=== PATIENT | male | born 1960 | race Caucasian/White ===

== ENCOUNTER → 2019-05-04 | Outpatient (CLI) | payer OTHER ==
--- NOTE | 2019-05-04 16:01 | US ---
EXAMINATION TYPE: US carotid duplex BILAT DATE OF EXAM: 05/04/2019 COMPARISON: NONE CLINICAL HISTORY: I65.29 OCCLUSION AND STENOSIS OF CAROTID ARTERY. Left sided facial tingling and num bness x 4 months EXAM MEASUREMENTS: RIGHT: Peak Systolic Velocity (PSV) cm/sec ----- Right CCA: 125.3 ----- Right ICA: 114.9 ----- Right ECA: 157.3 ICA/CCA ratio: 0.9 RIGHT: End Diastole cm/sec ----- Right CCA: 36.5 ----- Right ICA: 29.7 ----- Right ECA: 26.9 LEFT: Peak Systolic Velocity (PSV) cm/sec ----- Left CCA: 123.2 ----- Left ICA: 102.5 ----- Left ECA: 163.8 ICA/CCA ratio: 0.8 LEFT: End Diastole cm/sec ----- Left CCA: 32.3 ----- Left ICA: 27.1 ----- Left ECA: 29.9 VERTEBRALS (direction of flow): Right Vertebral: Antegrade Left Vertebral: Antegrade Rhythm: Normal Bilateral intimal thickening, minimal plaque bilateral bulb, elevated velocities: right proximal CCA, right proximal ECA and left proximal ECA, no significant stenosis. IMPRESSION: 1. Atheromatous plaquing and intimal thickening without significant flow-limiting stenosis. Criteria for Assigning % of Stenosis / Diameter reduction (Estimation based on the indirect measurements of the internal carotid artery velocities (ICA PSV). 1. Normal (no stenosis)=ICA PSV < 125 cm/s: ratio < 2.0: ICA EDV<40 cm/s. 2. Less than 50% stenosis=ICA PSV < 125 cm/s: ratio < 2.0: ICA EDV<40 cm/s. 3. 50 to 69% stenosis=ICA PSV of 125 to 230 cm/s: ration 2.0 ? 4.0: ICA EDV 40-100 cm/s. 4. Greater than 70% stenosis to near occlusion= ICA PSV > 230 cm/s: ratio > 4.0: ICA EDV > 100 cm/s. 5. Near occlusion= ICA PSV velocities may be low or undetectable: variable ratio and ICA EDV. 6. Total occlusion=unable to detect flow.
== END | disposition home or self-care (01) ==
LOC: RADUSWWP 12:19
DX: I65.23 Occlusion and stenosis of bilateral carotid arteries (principal)
CPT/HCPCS: 93880

== ENCOUNTER → 2019-08-18 | Outpatient (CLI) | payer OTHER ==
[2019-08-18 17:46] LABS: HCT 44.2 % (39.0-53.0); MCH 32.7 pg (25.0-35.0); MCV 96.2 fL (80.0-100.0); Mean Platelet Volume 7.2; Platelet Count 295 k/uL (150-450); RBC 4.59 m/uL (4.30-5.90); RDW 13.3 % (11.5-15.5); WBC 7.5 k/uL (3.8-10.6)
[2019-08-18 17:55] LABS: Potassium 4.6 mmol/L (3.5-5.1)
== END | disposition home or self-care (01) ==
LOC: LABPAT 16:57
PROVIDERS: ATTEND Internal Medicine Interventional Cardiology
DX: Z01.818 Encounter for other preprocedural examination (principal); R07.9 Chest pain, unspecified
CPT/HCPCS: 36415; 80051; 82565; 84520; 85027

== ENCOUNTER 2019-08-27 06:22 | Day surgery (SDC) | payer OTHER ==
[2019-08-25 13:16] VITALS: BMI 28.7
[2019-08-27] MEDS ORDERED: SODIUM CHLORIDE 0.9% 1,000 ML in EMPTY BAG 1 BAG IV ONE (06:31)
[2019-08-27] MEDS ORDERED: ALPRAZolam 0.25 MG TAB PO PRN (06:31)
[2019-08-27] MEDS ORDERED: NITROGLYCERIN SL TABS 0.4 MG TAB SUBLINGUAL PRN (06:31)
[2019-08-27] MEDS ORDERED: ALPRAZolam 0.5 MG TAB PO PRN (06:31)
[2019-08-27 07:00] LABS: Glucose,Whole Blood 131 mg/dL (75-99)
[2019-08-27] MEDS ORDERED: ATORVASTATIN 80 MG TAB PO ONE (07:00)
[2019-08-27] MEDS ORDERED: ASPIRIN 325 MG TAB PO ONE (07:00)
[2019-08-27] MEDS ORDERED: SODIUM CHLORIDE 0.9% 1,000 ML IV ONE (07:02)
[2019-08-27 07:06] VITALS: RESP 16; TEMP 98.5
[2019-08-27] MEDS ORDERED: fentaNYL (PF) 50 MCG/ML 2 ML AMP IVP ONE (07:45)
[2019-08-27] MEDS ORDERED: LIDOCAINE 1% INJ 10MG/ML (20 ML MDV) SQ ONE (07:47)
[2019-08-27] MEDS ORDERED: VERAPAMIL SYRINGE (5 MG/10 ML) INTRAARTER ONE (07:51)
[2019-08-27] MEDS ORDERED: MIDAZOLAM 2 MG/2 ML VIAL IVP ONE (07:51)
[2019-08-27] MEDS ORDERED: HEPARIN SODIUM 1,000 UN/ML (10ML VL) IV ONE (07:58)
[2019-08-27] MEDS ORDERED: IOPAMIDOL-370 125ML BTL INJ ONE (07:58)
[2019-08-27] MEDS ORDERED: RX INFO: IV CONTRAST WAS GIVEN 1 EACH MISC MISCELLANE PRN (08:09)
[2019-08-27] MEDS ORDERED: SODIUM CHLORIDE 0.9% 1,000 ML IV SCH (08:15)
--- NOTE | 2019-08-27 08:25 | CC ---
CARDIAC CATHETERIZATION REPORT Mr. Cardoza is a 59-year-old male with known history of hypertension, chronic tobacco use and diabetes mellitus who recently underwent myocardial perfusion imaging that revealed evidence of inducible ischemia. In view of that, recommendation was made regarding cardiac catheterization. The procedure as well as the risks, and the complications were discussed with the patient who is in full understanding and agreement. PROCEDURE: Patient was brought to mini lab operator in a fasting semi-sedated state after receiving fentanyl and Benadryl and achieving moderate conscious sedated state. Using Xylocaine anesthesia and Seldinger technique, a 6-[place] sheath was introduced in the right radial artery. Selective right and left coronary angiography was performed using 5- [place] 3.5 bend right and left Carrie catheter. Multiple views of the coronary artery including hemiaxial views were obtained. The right Carrie was used to cross the aortic valve and the left ventricular end-diastolic pressure was calculated. Next, catheter and sheath were removed. Hemostasis was obtained with deployment of a TR band. There was no immediate complication. Patient was returned to his room in stable condition. Of note, the patient received 5000 units of intravenous heparin as well as intra-arterial verapamil. FINDINGS: LEFT MAIN: This is a large-sized vessel bifurcating left circumflex, left anterior descending artery. Left main coronary artery has no evidence of high-grade stenosis. LEFT ANTERIOR DESCENDING ARTERY: This is a large-sized vessel reaching to the apex with a wraparound apex segment giving rise to a large diagonal branch in mid segment. The left anterior descending artery in the proximal and mid segment has a 20% to 30% plaque. The rest of the vessel has no high-grade stenosis. LEFT CIRCUMFLEX: This is a nondominant large vessel giving rise to 3 obtuse marginal branches. The second one is the largest in caliber. The left circumflex as well as branches have no evidence of obstructive coronary artery disease. RIGHT CORONARY ARTERY: This is a large dominant vessel bifurcating distally PDA and posterolateral segment and branches. The right coronary artery in mid segment has a 20% to 30% plaque. The rest of the vessel has no high-grade stenosis. LEFT VENTRICULOGRAM: Left ventriculogram was not performed. HEMODYNAMICS: There was no gradient across the aortic valve. The left ventricular end-diastolic pressure was 14 to 16 mmHg. CONCLUSION: 1. 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 2. Dominant right system. RECOMMENDATION: In view of findings and anatomy, recommend to continue medical therapy with aggressive coronary risk modifications that has been initiated. Those findings and recommendations were discussed with the patient and his family and are in full understanding and agreement. Duration of procedure is 15 minutes. MANI / RENARDN: [id number] /
[2019-08-27] MEDS ORDERED: ACETAMINOPHEN TAB 500 MG TAB PO SCH (09:00)
[2019-08-27] MEDS ORDERED: LISINOPRIL 10 MG TAB PO SCH (09:00)
[2019-08-27] MEDS ORDERED: NON FORMULARY DRUG (Omeprazole [Omeprazole] 20 MG) PO SCH (09:00)
[2019-08-27 12:39] VITALS: BP 132/60; PULSE 79
[2019-08-28] MEDS ORDERED: ASPIRIN 81 MG PO SCH (09:00)
[2019-08-28] MEDS ORDERED: ATORVASTATIN 20 MG TAB PO SCH (09:00)
== END 2019-08-27 13:15 | disposition home or self-care (01) ==
LOC: CATHCVL 06:22
PROVIDERS: ATTEND Internal Medicine Interventional Cardiology
DX: I25.10 Atherosclerotic heart disease of native coronary artery without angina pectoris (principal); I10 Essential (primary) hypertension; F17.210 Nicotine dependence, cigarettes, uncomplicated; R94.39 Abnormal result of other cardiovascular function study; E11.9 Type 2 diabetes mellitus without complications; M19.90 Unspecified osteoarthritis, unspecified site; Z82.49 Family history of ischemic heart disease and other diseases of the circulatory system; Z79.1 Long term (current) use of non-steroidal anti-inflammatories (NSAID); Z79.82 Long term (current) use of aspirin; Z79.899 Other long term (current) drug therapy
CPT/HCPCS: 93458; C1769; C1894; J2250; J2001; J3010; J1644; Q9967

== ENCOUNTER → 2021-10-05 | Outpatient (CLI) | payer OTHER ==
--- NOTE | 2021-10-05 13:43 | XR ---
EXAMINATION TYPE: XR chest 2V DATE OF EXAM: 10/05/2021 COMPARISON: NONE HISTORY: Presurgical TECHNIQUE: Frontal and lateral views of the chest are obtained. FINDINGS: There are some interstitial changes bilaterally. No pneumothorax or pleural effusion. Prom inent lung volumes with flattening hemidiaphragms noted. The cardiac silhouette size is within normal limits. The osseous structures are intact. IMPRESSION: There are interstitial changes within the lungs, correlate for associated COPD
[2021-10-05 18:11] LABS: African American GFR (CKD) 113.7 (60.0-200.0); Anion Gap 12.2 mmol/L (10.00-18.00); BUN/Creat Ratio 32.99 Ratio (12.00-20.00); Blood Urea Nitrogen 25.3 mg/dL (9.0-27.0); Calcium 10.1 mg/dL (8.7-10.3); Carbon Dioxide 25.6 mmol/L (20.0-27.5); Non-African American GFR(CKD) 98.1 (60.0-200.0); Potassium 4.9 mmol/L (3.5-5.5)
[2021-10-05 18:14] LABS: Basophils # (A) 0.07 X 10*3/uL (0.00-0.10); Basophils % (A) 0.7 %; Eosinophils # (A) 0.15 X 10*3/uL (0.04-0.35); Eosinophils % (A) 1.6 %; HCT 38.9 % (39.6-50.0); HGB 12.8 g/dL (13.0-17.0); Immature Grans, Automated 1.2 %; Lymphocytes # (A) 2.68 X 10*3/uL (0.90-5.00); Lymphocytes % (A) 27.8 %; MCH 32.7 pg (27.0-32.0); MCHC 32.9 g/dL (32.0-37.0); MCV 99.2 fL (80.0-97.0); Mean Platelet Volume 9.8 fL (9.5-12.2); Monocytes # (A) 0.88 X 10*3/uL (0.20-1.00); Monocytes % (A) 9.1 %; NRBC Per 100 WBC 0 /100 WBCS (0.0-0.0); Neutrophils # (A) 5.74 X 10*3/uL (1.80-7.70); Neutrophils % (A) 59.6 %; Platelet Count 337 X 10*3/uL (140-440); RBC 3.92 X 10*6/uL (4.40-5.60); RDW 13.8 % (11.5-14.5); WBC 9.64 X 10*3/uL (4.50-10.00)
[2021-10-05 18:23] LABS: Appearance,Urine Clear (Clear); Bilirubin,Urine Negative (Negative); Blood,Urine Negative (Negative); Color,Urine Yellow (Yellow); Ketones,Urine Negative (Negative); Nitrite,Urine Negative (Negative)
[2021-10-05 18:31] LABS: INR 0.91 (0.90-1.11); Prothrombin Time 10.3 sec (9.9-11.9)
== END | disposition home or self-care (01) ==
LOC: LABPAT 11:55
PROVIDERS: ATTEND Orthopaedic Surgery
DX: Z01.812 Encounter for preprocedural laboratory examination (principal); M47.12 Other spondylosis with myelopathy, cervical region; M48.02 Spinal stenosis, cervical region; Z22.322 Carrier or suspected carrier of Methicillin resistant Staphylococcus aureus
CPT/HCPCS: 36415; 71046; 80048; 81003; 85025; 85610; 86850; 86900; 86901; 87070; 93005

== ENCOUNTER → 2021-10-05 | Outpatient (CLI) | payer OTHER ==
--- NOTE | 2021-10-06 00:11 | CT ---
EXAMINATION TYPE: CT cervical spine wo con, CT thoracic spine wo con DATE OF EXAM: 10/05/2021 COMPARISON: MRI cervical spine 12/19/2019 HISTORY: Cervicalgia (accession [id number]), Pain in Thoracic spine (accession [id number]) CT DLP: 567.80 (accession [id number]), 808.70 (accession [id number]) mGycm Automated exposure control for dose reduction was used. TECHNIQUE: CT scan of the cervical spine is obtained without contrast, axial images are obtained, sagittal and c oronal reformatted images are also reviewed. CT scan of the thoracic spine is obtained without contrast, axial images are obtained, sagittal and c oronal reformatted images are also reviewed. FINDINGS: CT C-spine: Cervical vertebral body heights are maintained. Grade 1 anterolisthesis of C3-4. Grade 1 retrolisthes is of C5-6 and C6-7. No acute fracture or traumatic subluxation. Advanced degenerative disc changes of C5-C7 with osteophyte formation, disc height loss, and reactive endplate changes. Multilevel facet arthropathy is present most pronounced at the level of C3-4 on the right which appea rs advanced. Multilevel uncovertebral hypertrophy is present most pronounced at the levels of C5-6 an d C6-7. Paraspinal soft tissues appear unremarkable. C2-3: No disc protrusion or spinal canal stenosis. Moderate facet arthropathy, right greater than lef t, without neural foraminal narrowing. C3-4: Grade 1 anterolisthesis. Based disc protrusion without spinal canal stenosis. Advanced facet ar thropathy, right greater than left, causing moderate bilateral neural foraminal narrowing. C4-5: Broad-based disc protrusion without spinal canal stenosis. Advanced right and moderate left fac et arthropathy causing moderate right and mild left neural foraminal narrowing. C5-6: Based disc osteophyte complex indenting the ventral thecal sac without spinal canal stenosis. M oderate facet arthropathy and uncovertebral hypertrophy causing moderate left neural foraminal narrow ing. C6-7: Broad-based disc osteophyte complex indenting the ventral thecal sac without spinal canal steno sis. Moderate facet arthropathy and uncovertebral hypertrophy causing moderate bilateral neural bell inal narrowing. C7-T1: No disc protrusion or spinal canal stenosis. Mild facet arthropathy without neural foraminal n arrowing. CT T-spine: Thoracic vertebral body heights are maintained. Mild dextroscoliotic curvature of the thoracic spine. No acute fracture or traumatic subluxation. Moderate multilevel degenerative changes with anterior osteophyte formation, disc height loss, vacuum disc phenomena, and multilevel Schmorl's node formation is pronounced at the level of T7-8 the T11-1 2. Mild multilevel facet arthropathy. There are small scattered disc protrusions most pronounced at the level of T5-6 and T11-12 which inde nts the thecal sac without spinal canal stenosis. Line there is moderate bilateral neural foraminal n arrowing at the levels of T10-11 and T11-12 secondary to broad-based disc protrusions and facet arthr opathy. Paraspinal soft tissues appear unremarkable. Partially visualized lungs appear clear. IMPRESSION: 1. Multilevel degenerative changes of the cervical spine as described above most pronounced at the le cecile of C6-7 where there is a broad-based disc osteophyte complex indenting the ventral thecal sac wit hout spinal canal stenosis, as well as facet arthropathy with uncovertebral hypertrophy contributing to moderate bilateral neural foraminal narrowing. 2. Moderate multilevel degenerative changes of the thoracic spine most pronounced at the level of T11 -12 where there is a broad-based disc protrusion indenting the ventral thecal sac without spinal shaun l stenosis, as well as facet arthropathy contributing to moderate bilateral neural foraminal narrowin g. 3. No acute osseous abnormality.
== END | disposition home or self-care (01) ==
LOC: RADCTMAIN 06:37
PROVIDERS: ATTEND Orthopaedic Surgery
DX: M47.812 Spondylosis without myelopathy or radiculopathy, cervical region (principal); M47.814 Spondylosis without myelopathy or radiculopathy, thoracic region; M51.24 Other intervertebral disc displacement, thoracic region
CPT/HCPCS: 72125; 72128

== ENCOUNTER 2021-10-12 08:51 | Inpatient (IN) | payer BC, OTHER ==
--- NOTE | 2021-10-11 17:25 | P.HPOR ---
History of Present Illness H&P Date: 09/29/21 Chief Complaint: UE and LE weakness, discoordination, Neck pain [facility] History and Physical Date of :[birth year] Age: 61 year Height: 5'10" Weight: 205 lbs BMI: 29.41 kg/m2 Occupation: Retired VAS: 9 CHIEF COMPLAINT: Neck pain and low back pain, severe arm and hand weakness, leg weakness DOI: None DOS: None HISTORY: Xrays New xrays taken in office Trauma or injury No Work-Related No Pain description sharp. Location diffuse Activity Modification yes , unable to complete most daily functions due to the severity of his symptoms. Has become wheelchair bound over the past 3 months Hand Dominance right TREATMENTS COMPLETED: 6 weeks of PT completed? Yes How many sessions? >10 previously Did it help? No Physician directed home exercise completed? yes , used to do daily but has had to discontinue as he cannot complete most daily functions. Medications yes List: Celebrex without improvements. Gabapentin 100mg TID, Tylenol 100mg TID, Cymbalta all without relief of his symptoms. Steroid in the past w/o help; NSAIDs w/o help. Alternative interventions Chiropractic: No Massage therapy: No R.I.C.E: yes , daily without relief. Brace: No Injections Yes How many? 6 Did they help? No RFA: No SUBJECTIVE: Today Mr. Cardoza presents to the office for an evaluation of his cervical spine. Patient reports that he has had persistent lumbar and cervical pain ongoing for several years with no known injury or trauma to indicate an exact onset of his symptoms. With this he does report that his symptoms have progressively worsened over time as well. Regarding his symptoms, his primary concern at the time of today's appointment are his neck symptoms. For his cervical symptoms, he reports diffuse posterior pain radiating into the bilateral shoulders and distal extremities. In addition to his pain, the patient does also report diffuse numbness/tingling and weakness about the bilateral upper and lower extremities as well. With this, he does report as well that over the course of the last 3 weeks he has lose gross motor function with his hands and has has great instability with his lower extremities in addition to the pain so he is using a wheelchair for ambulation. Overall he has seen a loss in daily functions due to the severity of his symptoms and has been dependent on his caregivers to complete daily tasks. His symptoms are exacerbated with most functions which is significantly impacting his ability to complete his daily tasks. Patient does also report frequent sleep disturbances as well. As for treatments, the patient previously trialed daily home exercises but is no longer able to complete them due to the severity of his symptoms and loss in gross motor function. Additionally he has trialed Celebrex, Cymbalta, Gabapentin, and Tylenol all without relief of his symptoms. Additionally he does note having hx of 6 prior injections with no relief as well. Overall he denies any improvements to his symptoms with the modalities trialed thus far and his symptoms have progressively worsened. Patient denies any bladder or bowel retention/incontinence, no perineal numbness/tingling, and ambulates with the use of a wheelchair. The patients' past social, medical, family, surgical history, as well as review of systems, have been reviewed. Please refer to the Neurosurgery History and Physical form that has been scanned in to our electronic medical record system. 16 points review of systems completed and as stated in HPI, all other systems reviewed are negative. Review of Systems 16 points review of systems completed and as stated in HPI, all other systems reviewed are negative. All systems: negative Constitutional: Reports as per HPI Past Medical History Past Medical History: COPD, Diabetes Mellitus, GERD/Reflux, Hearing Disorder / Deafness, Hypertension, Osteoarthritis (OA) Additional Past Medical History / Comment(s): Tinea Versicolor(fungal infection) with continued skin discoloration. Tinnitis. Sleeps with a mouth guard in. History of Any Multi-Drug Resistant Organisms: None Reported Past Surgical History: Unable to Obtain Additional Past Surgical History / Comment(s): Arthroscopy bilateral knees X2, wisdom teeth extracted. Past Anesthesia/Blood Transfusion Reactions: No Reported Reaction Additional Past Anesthesia/Blood Transfusion Reaction / Comment(s): In 1994 with first arthroscopy had general anesthesia, was discharged and had difficulty breathing in parking lot, went back in to ER, ER stated "it was related to throat swelling after extubation." Has had no general anesthesia after that procedure. Past Psychological History: PTSD Smoking Status: Former smoker Past Alcohol Use History: Rare Additional Past Alcohol Use History / Comment(s): Quit smoking 2 months ago, started smoking at age 18, 1ppd. Past Drug Use History: None Reported - Past Family History Mother Family Medical History: No Reported History Medications and Allergies Home Medications Medication Instructions Recorded Confirmed Type Acetaminophen [Tylenol] 1,000 mg PO TID 08/25/19 10/10/21 History Lisinopril [Zestril] 10 mg PO QAM 08/25/19 10/10/21 History Meloxicam [Mobic] 7.5 mg PO QAM 08/25/19 10/10/21 History Multivitamins, Thera [Multivitamin 1 tab PO DAILY 08/25/19 10/10/21 History (formulary)] Omeprazole 20 mg PO QAM 08/25/19 10/10/21 History DULoxetine HCL [Cymbalta] 60 mg PO QAM 10/10/21 10/10/21 History Gabapentin [Neurontin] 100 mg PO TID 10/10/21 10/10/21 History Allergies Allergy/AdvReac Type Severity Reaction Status Date / Time adhesive tape Allergy skin Verified 10/10/21 11:44 irritation barley Allergy chest Verified 10/10/21 11:44 congestion lettuce Allergy Nausea Verified 10/10/21 11:44 Physical Examination Osteopathic Statement: *. No significant issues noted on an osteopathic structural exam other than those noted in the History and Physical/Consult. PHYSICAL EXAMINATION: General: Awake, alert, appropriate for age, in no acute distress. HEENT: No unusual neck masses around region of lateral neck triangle, thyroid, supraclavicular groove Heart: Regular rate and rhythm, normal S1, S2 and no murmur/gallop. Lungs: Clear to auscultation bilaterally with no use of accessory muscles. Extremities: Skin warm and dry without acute lesions, coloration, temperature, skin intact, no tenderness or erythema Integument: Hairy patches: ABSENT Dorsal skin dimples: ABSENT Cafe au lait spots: ABSENT Surgical incisions: None Palpation: Please see Pain drawing on Intake sheet for further detail. Midline spinal tenderness: No E6 Cervical Tenderness: No E6 Paralumbar tenderness: No E6 Parathoracic tenderness: No E6 Buttocks tenderness: No E6 Sacroiliac Tenderness: No POSTURAL and MUSCULO-SKELETAL EVALUATION: Coronal Balance: NEUTRAL Recumbent testing: Patient is NOT able to lay flat on back Sagittal Balance: NEUTRAL Shoulder Profile: LEVEL Pelvic Girdle: LEVEL Neck ROM: SEVERELY RESTRICTED Lumbar ROM: SEVERLY RESTRICTED Shoulder ROM: severely limited due to weakness Hip ROM: Limited b/l Knee ROM: Limited b/l Hands: SEVERE debilitation, unable to hold or grasp a pen, or handshake, unable to button shirt or hold a fork Feet: Normal appearance, Symmetrical VASCULAR STATUS : LEFT RIGHT Wrist Pulses INTACT INTACT Pedal Pulses (Dors. pedis & post.tibialis) INTACT INTACT Color NORMAL NORMAL Edema Absent Absent NEUROLOGIC EXAMINATION: Mental Status:Awake and alert, fully oriented, with normal attention, concentration and memory, and fluent, appropriate speech. Cranial Nerves: I: Olfactory not tested. II: Visual acuity normal, no visual field deficit noted with confrontation. III,IV: Normal pupillary reflexes & intact extraocular movements without nystagmus. V,: Intact symmetrical facial sensation. VII: Intact symmetrical facial motor movement VIII: Hearing intact. IX,X: Intact gag, swallow, & normal voice. XI: Sternocleidomastoid, trapezius function intact. XII: Tongue midline with normal movements. L'hermitte's Sign: Negative / absent Spurling'Sign: POSITIVE Cubital percussion test: Absent bilaterally. Modi-Tinel sign - Carpal region: Absent bilaterally. Straight Leg Raising: POSITIVE Crossed straight leg raise: negative O8 MOTOR EXAM (0-5/5, N/T) STRENGTH RIGHT LEFT Shoulder Abd (not part of the ALOK score) 4- 4- Elbow Flexors 4- 4- Elbow Extensor 4- 4- Wrist Dorsiflexors 4- 4- Finger Abductor 4- 4- Parliamentary Librarian 4- 4- Hip Flexor (Not part of ALOK Motor score) 3 3 Knee Flexor 3 3 Knee Extensor 3 5 Ankle dorsiflexor 3 5 Ankle plantarflexion 3 5 Extensor hallucis 3 5 REFLEXES(0-4/2, NT) RIGHT LEFT Upper Extremities 3 3 Lower Extremities 3 3 Pathological Reflexes RIGHT LEFT Modi's Present Present Clonus # of beats: 10 # of beats: >10 Babinski Absent Absent # Indicates mechanical impairment Muscle appearance: b/l LE showing some signs of atrophy in quads. Minor intrinsic atrophy Rectal Tone:Deferred Sensory system (0-4, N/T) Test type RU LAURA RL LL Joint-Position 2 2 2 2 Vibration 2 2 2 2 Pain & LT sense 2 2 2 2 Dermatomal Deficit: C5, C6, C7, C8 C4, C6, C7, C8 L3, L4, L5 L3, L4 Gait and Functional Evaluation: Ambulatory aids: Wheelchair bound, new change for him in the last 2-3 months and even more so needing help with ADL from his famly who was present in the room with him over the past 3 weeks Toe heel walk / heel-toe walk intact while maintaining satisfactory balance? No Squatting/straightening w/o assistance to a min of 60 degree knee flexion? No Single leg stance: not intact bilaterally Trendelenburg sign Unable to evaluate due to weakness Hand and finger dexterity intact bilaterally? No Disdiadochokinesis examination negative bilaterally? No SEVERE debility in b/l hands barely even able to handshake which is procressive over the past 3 months as well Results XRay taken on 09/29/21 of Lumbar Spine and Pelvis: Reviewed in office today. Demonstrates severe spondylotic changes with disc height loss, degeneration, osteophyte formation anterior and posterior, facet arthropathy from L1-S1. There is reversal of the normal lumbar lordosis and there is only 14 deg of lordosis noted with a PI of around 57 deg. Therea are no lesions noted. No fractures noted. F/E films shows motion at disc segments that is realted to the vacuum disc likely present at each of these levels. AP pelvis shows b/l hip OA changes with CAM and Pincer lesions of Rt hip as well as joint space narrowing, sclerosis. No fracture noted. Pelvis is level. MRI scan from 08/24/21 of Cervical Spine: This is reviewed in the office today and demonstrates severe cervical stenoisis from C3-7 with C3-4 pincer type lesion (ant/post stenosis) causing critical stenosis and myelomalacia at this level extending to C4-5 level due to disc herniation, C3-4 Grade I-II anterior listhesis as well as ligamental hyptertrophy and facet hypertrophy contributing to the posterior stenosis. There is subaxial subluxation with C3-4 being the worst level and to a lesser degree C4-5. There is flattening of the normal lordosis into kyphosis due to spondylotic changes and the listhesis as well as disc collapse. There is hypertrophy of the PLL noted as well which could represent a degree of OPLL which will need to be evaluated on pre op CT scan. CT C spine recommended for further evaluation Assessment and Plan Assessment: IMPRESSION: It was my pleasure to have seen and examined Sam. I reviewed the patient's clinical syndrome, physical findings, and imaging studies during the appointment today. It is my impression that the patient has a diagnosis of. 1. Cervical spondylotic myelopathy .DX:Diagnosis: Cervical spondylosis with myelopathy : ICD10 = M47.12 / ICD9 = 721.1 .DX:Diagnosis: Cervical disc disorder with myelopathy : ICD10 = M50.00 / ICD9 = 722.71 / SNOMED = 23005874 2.Severe stenosis C3-7 .DX:Diagnosis: Degenerative cervical spinal stenosis : ICD10 = M48.02 / ICD9 = 723.0 / SNOMED = 144854339 3. C3-4 Grade I spondylolisthesis, unstable .DX:Diagnosis: Spondylolisthesis, cervical region : ICD10 = M43.12 / ICD9 = 738.4 / SNOMED = 944905650 4. B/L UE weakness .DX:Diagnosis: Weakness of bilateral upper extremities : ICD10 = M62.81 / SNOMED = 06142646583956308 5. B/L UE radiculopathy .DX:Diagnosis: Cervical radiculopathy : ICD10 = M54.12 / ICD9 = 723.4 / SNOMED = 29898431 6. B/L LE weakness .DX:Diagnosis: Muscle weakness of lower extremity : ICD10 = G83.10 / ICD9 = 728.87 / SNOMED = 026294083 7. B/L LE radiculopathy .DX:Diagnosis: Lumbar radiculopathy : ICD10 = M54.16 / ICD9 = 724.4 / SNOMED = 264831345 Plan: Surgical Procedure Risk Review Sam Cardoza is a 61 year old male presenting for evaluation of sudden onset of UE and LE weakness as well as difficulty with fine motor skills, b/l UE pain, shoulder pain, radiculopathy and progressive neurolgical decline. It was my pleasure to have seen and examined Mr. Cardoza. In our visit today we have had a chance to go over subjective complaints, physical examination findings and treatments, including the natural course history without intervention and various interventional options. The imaging demonstrates Severe stenosis of Cervical spine from C3-7 with spondylosis, disc collapse, reversal of normal cervical lordodsis, pincer lesion at C3-4 and C4-5 with myelomalacia changes, osteophyte changes and spondylosis . On physical exam, Mr. Cardoza demonstrates profound weakness in UE and LE b/l. Presented in wheel chair which is new for him in the last month. He has no fine motor control, myelopathic movements of UE and LE b/l, weakness in b/l UE and LE alike. He cannot ambulate under his own power any longer. He has paresthesias in b/l UE at this time as well as radiculopathy. He also has LE weakness and paresthesias likely related to cervical but also lumbar spine . I explained to the patient that as his condition progresses it could cause progressive neurological damage, progressive weakness, progressive devility and ultimately paresis if not addressed in a timely manner due to the severity of the meylopathy as well as the time it has been present already . At this time, based on the patients imaging and physical exam, I recommend surgery in the form or a: Two part surgery. First part will be C3-7 ACDF followed by part two of C2-T2 decompression and fusion . I discussed the risk and benefits of this procedure at length with Mr. Cardoza. The patient and his son and [id number] to consider pursuing the procedure mentioned above. Plan: 1. Part I: C3-7 anterior cervical discectomy and fusion; Part II: C2-T2 decompression and fusion 2. Follow up with PCP for surgical clearance as well as pulmonary doctors 3. Review of surgical risks and benefits as well as an educational packet on the proposed surgical procedure. 4. CT for surgical planning of the C and T spine Risks: All surgical procedures come with inherent risks, including those related to pos itioning, anesthesia, intraoperative findings, and postoperative complications. It is important to understand that surgery does not come with any guarantee of a successful outcome as complications and adverse events are always possible. The patient was given a handout in office today discussing the surgical procedure and risks associated with the intervention, both of which were discussed with the patient. These risks include but are not limited to the following: ? Experiencing same, different or even worse symptoms in back, neck, arms, or legs compared to before surgery. ? Requiring further surgery or other forms of treatment presently or at some time in the future at same or other levels of the intended spine surgery. ? On an extreme but fortunately relatively rare basis severe complication such as blindness, stroke, heart attack, temporary and/or permanent nerve injury, paralysis, coma, or may occur, sometimes without known explanation. ? Surgical complications may include but are not limited to risk of infection, fluid accumulation in the surgical dissection site, including a seroma or hematoma, that requires additional surgery, wound drainage, bleeding, new numbness or weakness, vision changes/loss, spinal fluid leakage, non-healing and/or infected incision, headaches, difficulty or inability to swallow, hoarseness, hemopneumothorax, pneumothorax, impotence, retrograde ejaculation, vaginal dryness; injury to nerves, spinal cord, blood vessels, lymphatics or other vital organs (i.e., bowel injury, injury to the great vessels); he terotopic bone formation; complications related to the hardware such as screws, rods, cages including misplaced hardware, device failure, instrumentation at the wrong spine level, hardware fracture/breakage, or hardware loosening; vertebral failure of the spinal column above or below the newly placed hardware; retained surgical instrumentations or devices and the need for further surgery. ? Medical risks of the planned spine surgery include but are not limited to generalized Infections to the whole body or local areas outside of the surgical site (sepsis), heart attack, bleeding, anaphylaxis, meningitis, seizure, epilepsy, hearing loss, burn santana, laceration of the head or other areas of the body, bruising, hypersensitivity of the skin, bladder over distension; allergic reaction; shoulder injury related to positioning; fat, blood and air clots to other areas of the body like heart, lungs, brain; failure of internal organs such as lungs, kidneys, liver and excessive bleeding. If blood transfusions are necessary, note that transfusions may cause intolerance reactions such as anaphylaxis or other complex reactions. Despite best efforts, the results of spine surgery might not heal in terms of bone, soft tissues such as skin, fascia, ligaments, and joints. Additionally, in order to achieve best possible results, spine surgery may be carried out beyond the initially planned levels and involve decompression, fusion including insertion of hardware at levels other than the original intended area of surgical interest change some portions of the procedure in order to ensure the best possible outcomes. With spine surgery and spinal fusion, there are different off label uses of instrumentation (devices, implants and hardware) as well as biological substances (bone morphogenic proteins, demineralized bone matrix) as well as using extra bone from allograft sources (i.e. cadaver bone) or autograft (iliac crest bone, ribs, or the spine itself). The patient has been given information about these practices and their inherent risks and benefits. [facility]ist[facility] are medically trained surgical providers who function in the outpatient, inpatient, and operating room setting under the direct supervision of the attending surgeon.They assist in the operating room with direct supervision of the attending surgeons. The patient has had a chance to review all the listed information, has been given print outs detailing this information, and has had all his/her questions answered to their satisfaction. It was my pleasure to have seen and examined Mr. Cardoza. In our visit today we have had a chance to go over my understanding of our patient's current condition, the natural course history without intervention and various interventional options. Questions were invited and answered, and the patient wishes to proceed as outlined above. I have seen and examined the patient for 25 minutes and we have spent more than 50% of the time in repeat and detailed counseling about the patient's condition, its natural course history with out and as much as can be predicted with surgery and re-review of various surgical treatment options. In conclusion,Mr. Cardoza and his spouse/partner requested we proceed with the above suggested surgery and are willing to accept risks and limitations of the suggested surgery as nature of the disease process and our best attempts at treatment for the condition. Thank you again for allowing us to be part of your patient's care. Please don't hesitate to contact me if you have any further questions. Signed and authenticated by: [facility] [address] [place] [address] [address]
[~2021-10-12 08:51] MED LIST: ACETAMINOPHEN TAB 500 MG TAB PO PRN; GABAPENTIN 300 MG CAP PO PRN; ONDANSETRON 4 MG/2 ML VIAL IVP PRN; TRANEXAMIC ACID IN NACL,ISO-OS 1,000 MG in SALINE 1 100ML.BAG IVPB PRN
[2021-10-12] MEDS ORDERED: HYDROmorphone 0.5 MG/0.5 ML SYRINGE IVP PRN (08:59)
[2021-10-12] MEDS ORDERED: MIDAZOLAM 2 MG/2 ML VIAL IV PRN (08:59)
[2021-10-12] MEDS ORDERED: LIDOCAINE 1% (10MG/ML) FOR IV START INTRADERMA PRN (08:59)
[2021-10-12] MEDS ORDERED: DEXAMETHASONE SOD PHOSPHATE 4 MG/ML 1 ML VIAL IV ONE (08:59)
[2021-10-12] MEDS ORDERED: ONDANSETRON 4 MG/2 ML VIAL IVP ONE (08:59)
[2021-10-12 09:49] LABS: Glucose,Whole Blood 121 mg/dL (75-99)
[2021-10-12] MEDS: LACTATED RINGERS 1,000 ML IV SCH ×2 (09:59→10:51)
[2021-10-12 12:06] LABS: Allen Test Performed? Yes
[2021-10-12 12:21] LABS: ABG Base Excess -5.9 mmol/L; ABG HCO3 18 mmol/L (21-25); ABG Oxygen Saturation 99.9 % (94-97); ABG PCO2 33 mmHg (35-45); ABG PH 7.36 (7.35-7.45)
[2021-10-12 12:27] LABS: HCT 35.1 % (39.0-53.0); HGB 11.8 gm/dL (13.0-17.5); MCH 33.5 pg (25.0-35.0); MCHC 33.6 g/dL (31.0-37.0); MCV 99.7 fL (80.0-100.0); Mean Platelet Volume 7.1; Platelet Count 326 k/uL (150-450); RBC 3.52 m/uL (4.30-5.90); RDW 12.8 % (11.5-15.5); WBC 9.7 k/uL (3.8-10.6)
[2021-10-12 12:30] LABS: ABG PO2 >420 mmHg (83-108)
[2021-10-12] MEDS ORDERED: SODIUM CHLORIDE 0.9% 1,000 ML IV ONE (12:30)
[2021-10-12] MEDS ORDERED: GELATIN SPONGE,ABSORB (LARGE) 1 EACH SPONGE MISCELLANE ONE (13:00)
[2021-10-12] MEDS ORDERED: TRANEXAMIC ACID IN NACL,ISO-OS 1,000 MG in SALINE 1 100ML.BAG IVPB ONE (13:00)
[2021-10-12] MEDS ORDERED: SODIUM CHLORIDE 0.9% 100 ML with ceFAZolin 2 GM IV ONE ×2 (15:30)
[2021-10-12] MEDS ORDERED: LACTATED RINGERS 1,000 ML IV ONE ×3 (15:37→17:31)
[2021-10-12 16:26] LABS: Allen Test Performed? Yes
[2021-10-12 16:28] LABS: ABG Base Excess -7.7 mmol/L; ABG HCO3 18 mmol/L (21-25); ABG Oxygen Saturation 99.6 % (94-97); ABG PCO2 39 mmHg (35-45); ABG PH 7.29 (7.35-7.45); ABG PO2 399 mmHg (83-108)
[2021-10-12 18:16] LABS: Glucose,Whole Blood 163 mg/dL (75-99)
[2021-10-12] MEDS ORDERED: VANCOMYCIN 1,000 MG VIAL MISCELLANE ONE (18:26)
[2021-10-12 18:29] LABS: Allen Test Performed? Yes
[2021-10-12 18:30] LABS: ABG Base Excess -6.2 mmol/L; ABG HCO3 19 mmol/L (21-25); ABG Oxygen Saturation 99.5 % (94-97); ABG PCO2 37 mmHg (35-45); ABG PH 7.33 (7.35-7.45); ABG PO2 215 mmHg (83-108)
--- NOTE | 2021-10-12 18:45 | XR ---
EXAMINATION TYPE: XR cervical spine limited DATE OF EXAM: 10/12/2021 6:31 PM INDICATION: Patient age:Male; 61 years old; Reason for study: CERVICAL FUSION; . Impression: Case performed by Orthopedic surgery. Please see surgeons operative notes/findings on Epi c.
[2021-10-12] MEDS ORDERED: HYDROcodone/APAP 5-325MG 1 EACH TAB PO PRN (19:22)
[2021-10-12] MEDS ORDERED: MAGNESIUM HYDROXIDE 2,400 MG/10 ML CUP PO PRN (19:22)
[2021-10-12] MEDS ORDERED: HYDROcodone/APAP 10-325MG 1 EACH TAB PO PRN (19:22)
[2021-10-12] MEDS ORDERED: CYCLOBENZAPRINE 5 MG TAB PO PRN (19:22)
[2021-10-12 19:24] LABS: Glucose,Whole Blood 158 mg/dL (75-99)
--- NOTE | 2021-10-12 20:25 | P.PN ---
Progress Note - Text Progress Note Date: 10/12/21 Postop: . Patient seen and examined in the ICU. He is stable at this time doing well he still vented and sedated. Nursing is at bedside. Chest x-ray is ordered and will be reviewed. Vital signs are stable he is maintaining MA P above 80 at this time no other issues drains are in place dressings are clean and dry. -ICU management in place C collar in place, well fitting Medical management pending Continue with intravenous fluids, pain medication, muscle relaxers, home medication Soft diet to start to advance as tolerated We will evaluate the patient in the morning.
--- NOTE | 2021-10-12 20:39 | XR ---
EXAMINATION TYPE: XR chest 1V portable DATE OF EXAM: 10/12/2021 8:28 PM COMPARISON: Multiple radiographs, with the most recent on 09/27/2021 TECHNIQUE: XR chest 1V portable Frontal view of the chest. CLINICAL INDICATION:Male, 61 years old with history of Line placement; FINDINGS: Lungs/Pleura: There is no evidence of pleural effusion, focal consolidation, or pneumothorax. Pulmonary vascularity: Unremarkable. Heart/mediastinum: Cardiomediastinal silhouette is unremarkable. Musculoskeletal: No acute osseous pathology. There is fixation hardware in the lower cervical spine. Lines/Tubes: Endotracheal tube with distal tip just above the senia 4.1 cm. Left with distal tip projecting over the aortic arch. IMPRESSION: Left central catheter with tip projecting over the aortic arch. Unclear whether this is in a venous s tructure or arterial structure correlate with blood gases.
[2021-10-12 21:11] LABS: ABG Base Excess 2.6 mmol/L; ABG HCO3 28 mmol/L (21-25); ABG Oxygen Saturation 99.1 % (94-97); ABG PCO2 45 mmHg (35-45); ABG PH 7.39 (7.35-7.45); ABG PO2 241 mmHg (83-108); ABG TCO2 29 mmol/L (19-24)
[2021-10-12 21:14] LABS: Allen Test Performed? No
[2021-10-12] MEDS: HYDROmorphone 1 MG/ML 1 ML SYRINGE IVP PRN (22:47)
[2021-10-13] MEDS: ACETAMINOPHEN TAB 325 MG TAB PO SCH ×3 (00:21→12:30)
[2021-10-13] MEDS: HYDROmorphone 1 MG/ML 1 ML SYRINGE IVP PRN ×6 (02:26→19:00)
[2021-10-13 05:49] LABS: ABG Base Excess 4.5 mmol/L; ABG HCO3 29 mmol/L (21-25); ABG Oxygen Saturation 99.5 % (94-97); ABG PCO2 44 mmHg (35-45); ABG PH 7.43 (7.35-7.45); ABG PO2 159 mmHg (83-108); ABG TCO2 30 mmol/L (19-24)
[2021-10-13 05:58] LABS: Allen Test Performed? No
[2021-10-13 06:28] LABS: African American GFR (CKD) >90 (>60 ml/min/1.73 sqM); Anion Gap 6 mmol/L; Blood Urea Nitrogen 18 mg/dL (9-20); Calcium 8.9 mg/dL (8.4-10.2); Carbon Dioxide 27 mmol/L (22-30); Chloride 100 mmol/L (98-107); Glucose 120 mg/dL (74-99); Non-African American GFR(CKD) >90 (>60 ml/min/1.73 sqM); Potassium 4.3 mmol/L (3.5-5.1); Sodium 133 mmol/L (137-145)
[2021-10-13 06:30] LABS: Basophils % (A) 0 %; Eosinophils % (A) 0 %; HCT 33.5 % (39.0-53.0); HGB 11.3 gm/dL (13.0-17.5); Lymphocytes # (A) 1.6 k/uL (1.0-4.8); Lymphocytes % (A) 16 %; MCH 33.8 pg (25.0-35.0); MCHC 33.9 g/dL (31.0-37.0); MCV 99.7 fL (80.0-100.0); Monocytes # (A) 0.7 k/uL (0-1.0); Monocytes % (A) 7 %; Neutrophils # (A) 7.3 k/uL (1.3-7.7); Neutrophils % (A) 75 %; Platelet Count 287 k/uL (150-450); RBC 3.36 m/uL (4.30-5.90); RDW 13.6 % (11.5-15.5); WBC 9.8 k/uL (3.8-10.6)
--- NOTE | 2021-10-13 08:15 | FL ---
Fluoroscopy HISTORY: Spinal fusion 88 seconds fluoroscopy time supplied to the referring clinician. 18 intraoperative C-arm images docu ment the procedure. See dictated report from orthopedic surgery.
--- NOTE | 2021-10-13 09:45 | P.PN ---
Subjective Progress Note Date: 10/13/21 Principal diagnosis: Cervical Stenosis Patient seen and examined in the ICU. He is stable at this time doing well, he is still intubated at this time. Pt is awake and following commands. Patient had c/o pain and nursing was at bedside to medicate. Patient using hand gestures that he needed to have a BM. Nursing aware. When patient is medically cleared and exubated he may be up OOB and progress with PT as tolerated. We will reassess this afternoon. Objective - Vital Signs Vital signs: Vital Signs Temp 97.8 F 10/13/21 08:00 Pulse 90 10/13/21 08:00 Resp 16 10/13/21 08:00 BP 111/71 10/12/21 20:00 Pulse Ox 98 10/13/21 08:00 Intake & Output 10/12/21 10/13/21 10/13/21 18:59 06:59 18:59 Intake Total 3450 568.531 90 Output Total 800 1010 250 Balance 2650 -441.469 -160 Weight 99.3 kg Intake: IV 3450 305 90 LR @ 20 ml/hr 255 40 ceFAZolin 2 gm In Sodium 50 50 Chloride 0.9% 50 ml @ 100 mls/hr IVPB Q8HR NIKKI Rx# :[id number] Intake, IV Titration 263.531 Amount propofoL 1,000 mg In 263.531 Empty Bag 1 bag @ 5 MCG/ KG/MIN 2.586 mls/hr IV . Q24H NIKKI Rx#:[id number] Output: Urine 600 1010 250 Estimated Blood Loss 200 Other: Voiding Method Indwelling Catheter ABP, PAP, CO, CI - Last Documented Arterial Blood Pressure 125/61 - Exam Physical Examination General: The patient is awake and alert, in no acute distress Skin: Skin is warm and dry with no obvious rashes or lesions. Hairy patches absent, no dorsal skin dimples, no cafe au lait spots. Anterior surgical incision with LATANYA drain and Posterior incision with Hemovac drain present. Eye: Pupils are equal, round and reactive to light, extra-ocular movements are intact; there is normal conjunctiva bilaterally. Neck: Slight tenderness and ROM limited due to surgical procedure and Hard collar present. Cardiovascular: There is a regular rate and rhythm. No murmur, rub or gallop is appreciated. Respiratory: Lungs are clear to auscultation, respirations are non-labored, breath sounds are equal. Pt is intubated at this time. Gastrointestinal: Soft, non-distended, non-tender abdomen . Back: There is no tenderness to palpation in the midline, paralumbar, parathoracic or buttocks region. There is no obvious deformity . Musculoskeletal: ROM limited secondary to pain and stiffness from surgical procedure. Shoulder abduction 3/5, elbow flexors 3/5, wrist dorsiflexors 3/5. finger abductor 3/5, design technician 2/5, hip flexor 5/5, knee flexor 5/5, ankle dorsiflexor 5/5, ankle plantarflexion 5/5 and extensor hallucis 5/5. Neurological: CN 2-12 intact. There are no obvious motor or sensory deficits. Movement and coordination equal and intact. Sensory exam to light touch intact C5-T1 and intact from L2-S1. Reflexes 2/4 in bilateral upper and lower extremities. Negative Hoffmans, babinski, and clonus signs. Psychiatric: Cooperative, appropriate mood & affect, normal judgment. - Labs CBC & Chem 7: 10/13/21 05:47 10/13/21 05:47 Labs: Abnormal Lab Results - Last 24 Hours (Table) 10/12/21 10/12/21 10/12/21 Range/Units 09:47 11:45 11:45 RBC 3.52 L (4.30-5.90) m/uL Hgb 11.8 L (13.0-17.5) gm/dL Hct 35.1 L (39.0-53.0) % ABG pH (7.35-7.45) ABG pCO2 33 L (35-45) mmHg ABG pO2 >420 H (83-108) mmHg ABG HCO3 18 L (21-25) mmol/L ABG Total CO2 (19-24) mmol/L ABG O2 Saturation 99.9 H (94-97) % Sodium (137-145) mmol/L Creatinine (0.66-1.25) mg/dL Glucose (74-99) mg/dL POC Glucose (mg/dL) 121 H (75-99) mg/dL 10/12/21 10/12/21 10/12/21 Range/Units 15:44 18:14 18:15 RBC (4.30-5.90) m/uL Hgb (13.0-17.5) gm/dL Hct (39.0-53.0) % ABG pH 7.29 L 7.33 L (7.35-7.45) ABG pCO2 (35-45) mmHg ABG pO2 399 H 215 H (83-108) mmHg ABG HCO3 18 L 19 L (21-25) mmol/L ABG Total CO2 (19-24) mmol/L ABG O2 Saturation 99.6 H 99.5 H (94-97) % Sodium (137-145) mmol/L Creatinine (0.66-1.25) mg/dL Glucose (74-99) mg/dL POC Glucose (mg/dL) 163 H (75-99) mg/dL 10/12/21 10/12/21 10/13/21 Range/Units 19:22 21:04 05:33 RBC (4.30-5.90) m/uL Hgb (13.0-17.5) gm/dL Hct (39.0-53.0) % ABG pH (7.35-7.45) ABG pCO2 (35-45) mmHg ABG pO2 241 H 159 H (83-108) mmHg ABG HCO3 28 H 29 H (21-25) mmol/L ABG Total CO2 29 H 30 H (19-24) mmol/L ABG O2 Saturation 99.1 H 99.5 H (94-97) % Sodium (137-145) mmol/L Creatinine (0.66-1.25) mg/dL Glucose (74-99) mg/dL POC Glucose (mg/dL) 158 H (75-99) mg/dL 10/13/21 10/13/21 Range/Units 05:47 05:47 RBC 3.36 L (4.30-5.90) m/uL Hgb 11.3 L (13.0-17.5) gm/dL Hct 33.5 L (39.0-53.0) % ABG pH (7.35-7.45) ABG pCO2 (35-45) mmHg ABG pO2 (83-108) mmHg ABG HCO3 (21-25) mmol/L ABG Total CO2 (19-24) mmol/L ABG O2 Saturation (94-97) % Sodium 133 L (137-145) mmol/L Creatinine 0.65 L (0.66-1.25) mg/dL Glucose 120 H (74-99) mg/dL POC Glucose (mg/dL) (75-99) mg/dL Assessment and Plan Assessment: 1. Post Op Day 1: C3 to C7 anterior cervical discectomy and fusion, also Posterior C2 to T2 decompression and fusion 2. Cervical stenosis Plan: Plan: -Appreciate treasury management sales consultant and team management. -Activity: Ambulate QID, OOB all meals, up and about, limit lifting bending twisting to less than 5 lbs. No overhead reaching or stretching at this time. Use walker or cane if needed for stability. -Daily PT/OT, increase ambulation strength and balance. -Neck brace to remain in place. -Pain control: Adequate at this time -Meds: reviewed -GI ppx: senna, Miralax -DC villasenor when up and about, bedside commode if needed -DVT PPX: OK to restart Heparin tonight -Hygiene: Maintain dressing clean and dry. -Drains: Maintain for now. Monitor and record output. -Encourage IS 10x/hr -Dispo: Anticipate discharge home tomorrow with homecare in 48-72hrs *I reviewed and discussed this case with my attending Dr. Hernandez, whom has reviewed this chart and films and is in agreement with assessment and plan of care as outlined above. I have personally seen and examined the patient, performed the documentation and the assessment and plan as written. Number of minutes spent on the visit: 20 minutes. Time with Patient: Less than 30
[2021-10-13] MEDS ORDERED: IPRATROPIUM-ALBUTEROL 3 ML NEB INHALATION PRN (10:45)
--- NOTE | 2021-10-13 10:45 | P.CNPUL ---
History of Present Illness Consult date: 10/13/21 Requesting physician: Ed Hernandez Reason for consult: other (ICU management) Chief complaint: Upper extremiti weakness lower extremities weakness and discoordination History of present illness: This is a 61-year-old white male who was recently seen by Dr. Hernandez on outpatient basis, patient had persistent lumbar and cervical pain ongoing for several years. Patient had no previous known injury or trauma. Symptoms have been progressively worse, patient was also complaining of diffuse cervical posterior pain radiating into the shoulders and distal extremities. Patient was also complaining of diffuse numbness and tingling and weakness. This was in upper and lower extremities. 3 weeks prior to this, patient had loss of motor function with his hands and the great instability with his lower extremities to the point that the patient was using a wheelchair for ambulation. Obviously the patient was diagnosed with having cervical spondylitic myelopathy, severe stenosis C3 through C7 spondylolisthesis of C3-C4, bilateral upper extremities weakness and bilateral lower extremities weakness with radiculopathy/lumbar radiculopathy hence the patient was advised C3 - C7 anterior cervical discectomy and fusion, and part 2 C2- T2 decompression and fusion patient underwent surgery yesterday, and he was on mechanical ventilation postoperatively. Hence I was asked to see the patient in the ICU on consultation. This morning the patient remains on mechanical ventilation, patient is on assist control rate of 12 tidal volume 500 FiO2 40% PEEP of 5. ABG showed a pO2 of 159, pCO2 44 pH of 7.43. Patient is on propofol at 40 mcg/kg/m which I have discontinued, and transitioned the patient after holding the propofol to a pressure support of 10 and CPAP. And this was done for about 20 minutes. Patient was noted to have good tidal volumes, rate in the teens, and I went ahead and extubated the patient uneventfully. Review of Systems ROS unobtainable: due to endotracheal tube Past Medical History Past Medical History: COPD, Diabetes Mellitus, GERD/Reflux, Hearing Disorder / Deafness, Hypertension, Osteoarthritis (OA) Additional Past Medical History / Comment(s): Tinea Versicolor(fungal infection) with continued skin discoloration. Tinnitis. Sleeps with a mouth guard in. History of Any Multi-Drug Resistant Organisms: None Reported Past Surgical History: Unable to Obtain Additional Past Surgical History / Comment(s): Arthroscopy bilateral knees X2, wisdom teeth extracted. Past Anesthesia/Blood Transfusion Reactions: No Reported Reaction Additional Past Anesthesia/Blood Transfusion Reaction / Comment(s): In 1994 with first arthroscopy had general anesthesia, was discharged and had difficulty breathing in parking lot, went back in to ER, ER Dr stated "it was related to throat swelling after extubation." Has had no general anesthesia after that procedure. Past Psychological History: PTSD Smoking Status: Former smoker Past Alcohol Use History: Rare Additional Past Alcohol Use History / Comment(s): Quit smoking 2 months ago, started smoking at age 18, 1ppd. Past Drug Use History: None Reported - Past Family History Mother Family Medical History: No Reported History Medications and Allergies Home Medications Medication Instructions Recorded Confirmed Type Acetaminophen [Tylenol] 1,000 mg PO TID 08/25/19 10/10/21 History Lisinopril [Zestril] 10 mg PO QAM 08/25/19 10/10/21 History Multivitamins, Thera [Multivitamin 1 tab PO DAILY 08/25/19 10/10/21 History (formulary)] Omeprazole 20 mg PO QAM 08/25/19 10/10/21 History DULoxetine HCL [Cymbalta] 60 mg PO QAM 10/10/21 10/10/21 History Gabapentin [Neurontin] 100 mg PO TID 10/10/21 10/10/21 History Celecoxib [CeleBREX] 100 mg PO BID 10/12/21 10/12/21 History metFORMIN HCL [Glucophage] 500 mg PO DAILY 10/12/21 10/12/21 History Allergies Allergy/AdvReac Type Severity Reaction Status Date / Time adhesive tape Allergy skin Verified 10/12/21 09:22 irritation barley Allergy chest Verified 10/12/21 09:22 congestion lettuce Allergy Nausea Verified 10/12/21 09:22 Physical Exam Vitals: Vital Signs Temp Pulse Pulse Resp BP BP Pulse Ox 10/13/21 10:00 100 23 95 10/13/21 09:00 89 12 100 10/13/21 08:00 97.8 F 90 79 16 98 10/13/21 07:00 91 16 99 10/13/21 06:00 91 21 99 10/13/21 05:00 84 10 L 100 10/13/21 04:00 82 20 99 10/13/21 03:38 16 10/13/21 03:00 81 16 99 10/13/21 02:00 84 16 99 10/13/21 01:00 82 13 100 10/13/21 00:00 86 13 99 10/12/21 23:44 16 10/12/21 23:42 87 14 99 10/12/21 23:00 88 16 99 10/12/21 22:00 90 16 98 10/12/21 21:00 93 16 99 10/12/21 20:00 95 17 111/71 100 10/12/21 10:49 79 16 126/72 99 Intake and Output 10/12/21 10/13/21 10/13/21 22:59 06:59 14:59 Intake Total 1038.736 429.795 165.679 Output Total 1000 810 575 Balance 38.736 -380.205 -409.321 Intake: IV 995 210 130 LR @ 20 ml/hr 95 160 80 ceFAZolin 2 gm In Sodium 50 50 Chloride 0.9% 50 ml @ 100 mls/hr IVPB Q8HR NIKKI Rx# :[id number] Intake, IV Titration 43.736 219.795 35.679 Amount propofoL 1,000 mg In 43.736 219.795 35.679 Empty Bag 1 bag @ 5 MCG/ KG/MIN 2.586 mls/hr IV . Q24H NIKKI Rx#:[id number] Output: Urine 800 810 575 Estimated Blood Loss 200 Other: Voiding Method Indwelling Catheter Indwelling Catheter Indwelling Catheter Weight 99.3 kg ABP, PAP, CO, CI - Last 8 Hours Arterial Blood Pressure 133/68 Arterial Blood Pressure 128/54 Arterial Blood Pressure 125/61 Arterial Blood Pressure 109/51 Arterial Blood Pressure 109/64 Arterial Blood Pressure 124/56 Arterial Blood Pressure 126/59 Arterial Blood Pressure 108/60 Physical Exam: Revealed a 61-year-old white male intubated, mechanically ventilated, awake, follows simple instructions but seems to be generally weak, in no distress. Head: Atraumatic, normocephalic. Neck: Cervical collar is noted in place, anterior surgical incision with LATANYA drain and posterior incision with a Hemovac drain noted. HEENT: PERRLA, EOMI, nonicteric, cervical collar in place, moist mucous membranes. Chest: Symmetrical chest expansion. [Clear throughout, no crackles, no rhonchi, no wheezes.] Cardiac Exam: [Normal S1 and S2, no S3 gallop, no murmur.] Abdomen: [Soft, nontender, no megaly, no rebound, no guarding, normal bowel sounds.] Extremities: ROM limited secondary to pain and stiffness from surgical procedure. Neurologic: As noted by orthopedic surgery Psychiatric: Normal mood affect and normal mental status Results - Laboratory Findings CBC and BMP: 10/13/21 05:47 10/13/21 05:47 ABG ABG pH 7.43 (7.35-7.45) 10/13/21 05:33 ABG pCO2 44 mmHg (35-45) 10/13/21 05:33 ABG pO2 159 mmHg (83-108) H 10/13/21 05:33 ABG O2 Saturation 99.5 % (94-97) H 10/13/21 05:33 Abnormal lab findings: Abnormal Labs 10/12/21 10/12/21 10/12/21 09:47 11:45 11:45 RBC 3.52 L Hgb 11.8 L Hct 35.1 L ABG pH ABG pCO2 33 L ABG pO2 >420 H ABG HCO3 18 L ABG Total CO2 ABG O2 Saturation 99.9 H Sodium Creatinine Glucose POC Glucose (mg/dL) 121 H 10/12/21 10/12/21 10/12/21 15:44 18:14 18:15 RBC Hgb Hct ABG pH 7.29 L 7.33 L ABG pCO2 ABG pO2 399 H 215 H ABG HCO3 18 L 19 L ABG Total CO2 ABG O2 Saturation 99.6 H 99.5 H Sodium Creatinine Glucose POC Glucose (mg/dL) 163 H 10/12/21 10/12/21 10/13/21 19:22 21:04 05:33 RBC Hgb Hct ABG pH ABG pCO2 ABG pO2 241 H 159 H ABG HCO3 28 H 29 H ABG Total CO2 29 H 30 H ABG O2 Saturation 99.1 H 99.5 H Sodium Creatinine Glucose POC Glucose (mg/dL) 158 H 10/13/21 10/13/21 05:47 05:47 RBC 3.36 L Hgb 11.3 L Hct 33.5 L ABG pH ABG pCO2 ABG pO2 ABG HCO3 ABG Total CO2 ABG O2 Saturation Sodium 133 L Creatinine 0.65 L Glucose 120 H POC Glucose (mg/dL) - Diagnostic Findings Chest x-ray: image reviewed (No evidence of active disease.) Assessment and Plan Assessment: Impression:1. Post Op Day 1: C3 to C7 anterior cervical discectomy and fusion, also Posterior C2 to T2 decompression and fusion Cervical stenosis COPD, presently inactive. Type 2 diabetes. Benign essential hypertension. Degenerative joint disease. Recommendation: Continue present supportive care measures. Will likely wean and extubate the patient after a trial of pressure support and CPAP. Incentive spirometry post extubation. Resume home meds. Resume bronchodilators. Continue GI prophylaxis. We will continue to follow. Time with Patient: Greater than 30
[2021-10-13] MEDS ORDERED: GABAPENTIN 100 MG CAP PO SCH (11:00)
[2021-10-13] MEDS: lisinopriL 10 MG TAB PO SCH (11:03)
[2021-10-13] MEDS: MULTIVITAMINS, THERA 1 EACH TAB PO SCH (11:03)
[2021-10-13] MEDS: metFORMIN 500 MG TAB PO SCH (11:03)
[2021-10-13] MEDS: PANTOPRAZOLE 40 MG/10 ML VIAL IVP SCH (11:03)
--- NOTE | 2021-10-13 12:20 | CT ---
EXAMINATION TYPE: CT cervical spine wo con DATE OF EXAM: 10/13/2021 COMPARISON: 10/05/2021 HISTORY: s/p ACDF and posterior cervical decompression/fusi CT DLP: 498.9 mGycm CONTRAST: None CT of the cervical spine is performed in the axial plane at 2 mm thick sections. Reconstructed image s in the coronal, and sagittal plane are reviewed on the computer. No acute fractures are evident. Postsurgical changes evident. Disc spaces are present C3-4 C4-5 C5-6. There is loss of disc height C6-7 with milder loss of disc height C7-T1. May be very minimal retrolisthesis C5 on C6. Posterior endplate spurring is present C6-7 without sten osis. Vertebral body heights are preserved. No spinal canal stenosis is evident No neural foraminal stenosis is evident. Postsurgical air is present within the cervical spine and the C3-4 level. IMPRESSIONS: 1. Postsurgical changes within the cervical spine discussed above. 2. No persistent stenosis evident. 3. Multilevel disc repair.
[2021-10-13 12:39] LABS: Glucose,Whole Blood 112 mg/dL (75-99)
[2021-10-13] MEDS ORDERED: ACETAMINOPHEN TAB 500 MG TAB PO PRN (12:47)
[2021-10-13] MEDS: DEXAMETHASONE SOD PHOSPHATE 4 MG/ML 1 ML VIAL IV SCH ×2 (13:53→18:27)
--- NOTE | 2021-10-13 14:13 | P.OP ---
Date of Procedure: 10/12/21 Preoperative Diagnosis: 1. Cervical spondylotic myelopathy .DX:Diagnosis: Cervical spondylosis with myelopathy : ICD10 = M47.12 / ICD9 = 721.1 .DX:Diagnosis: Cervical disc disorder with myelopathy : ICD10 = M50.00 / ICD9 = 722.71 / SNOMED = 90247787 2.Severe stenosis C3-7 .DX:Diagnosis: Degenerative cervical spinal stenosis : ICD10 = M48.02 / ICD9 = 723.0 / SNOMED = 716469204 3. C3-4 Grade I spondylolisthesis, unstable .DX:Diagnosis: Spondylolisthesis, cervical region : ICD10 = M43.12 / ICD9 = 7 38.4 / SNOMED = 453275517 4. B/L UE weakness .DX:Diagnosis: Weakness of bilateral upper extremities : ICD10 = M62.81 / SNOMED = 75331793632584970 5. B/L UE radiculopathy .DX:Diagnosis: Cervical radiculopathy : ICD10 = M54.12 / ICD9 = 723.4 / SNOMED = 50484842 6. B/L LE weakness .DX:Diagnosis: Muscle weakness of lower extremity : ICD10 = G83.10 / ICD9 = 728.87 / SNOMED = 697833017 7. B/L LE radiculopathy .DX:Diagnosis: Lumbar radiculopathy : ICD10 = M54.16 / ICD9 = 724.4 / SNOMED = 833911418 Postoperative Diagnosis: 1. Cervical spondylotic myelopathy .DX:Diagnosis: Cervical spondylosis with myelopathy : ICD10 = M47.12 / ICD9 = 721.1 .DX:Diagnosis: Cervical disc disorder with myelopathy : ICD10 = M50.00 / ICD9 = 722.71 / SNOMED = 86434926 2.Severe stenosis C3-7 .DX:Diagnosis: Degenerative cervical spinal stenosis : ICD10 = M48.02 / ICD9 = 723.0 / SNOMED = 867680824 3. C3-4 Grade I spondylolisthesis, unstable .DX:Diagnosis: Spondylolisthesis, cervical region : ICD10 = M43.12 / ICD9 = 738.4 / SNOMED = 431920091 4. B/L UE weakness .DX:Diagnosis: Weakness of bilateral upper extremities : ICD10 = M62.81 / SNOMED = 20561121216642834 5. B/L UE radiculopathy .DX:Diagnosis: Cervical radiculopathy : ICD10 = M54.12 / ICD9 = 723.4 / SNOMED = 22823055 6. B/L LE weakness .DX:Diagnosis: Muscle weakness of lower extremity : ICD10 = G83.10 / ICD9 = 728.87 / SNOMED = 554789769 7. B/L LE radiculopathy .DX:Diagnosis: Lumbar radiculopathy : ICD10 = M54.16 / ICD9 = 724.4 / SNOMED = 080765551 Procedure(s) Performed: Part 1: 1. Anterior right-sided Bailey-Glass approach to the cervical spine 2. C3-C4 anterior interbody arthrodesis (67225) 3. C4-C5 anterior interbody arthrodesis (41240) 4. C5-C6 anterior body arthrodesis (46942) 5. Insertion of biomechanical device C3-C4, C4-C5, C5-C6 (45282z1) 6. Use of intraoperative neuro monitoring 7. Interpretation of intraoperative fluoroscopy less than 1 hour (74835) Part 2: 1. Posterior midline approach to the cervical and thoracic spine 2. Posterior lateral fusion below C2, C2 to T2 (49446, 52808g6, 56584) 3. Posterior segmental instrumentation C2 to T2 (17887) 4. Decompressive laminectomy C2 through T1 (55696, 31722s1) 5. Use of intraoperative neuro monitoring 6. Interpretation of intraoperative fluoroscopic imaging <1 hr (87307) Implants: Anterior: -Mervin secure c 8 mm peek grafts x3 with screw fixation -Bio4 -Magnatos -Autograft Posterior: -Cromwell ozkark screw and herve system 5.0 mm -Autorgraft -Allograft -Magnatos Anesthesia: GETA Surgeon: Ed Hernandez Cashier Office #1: Sana Parada (Was present and assisted from positioning to initial hardware placement at C2 screws) Cashier Office #2: Boris Sorensen (Was present and assisted from just after C2 screw placement for remainder of hardware placement, decompression, reduction, closure and dressing placement) Estimated Blood Loss (ml): 250 IV fluids (ml): 3,800 Urine output (ml): 550 Pathology: none sent Condition: stable Disposition: ICU Indications for Procedure: Sam Cardoza is a 61 year old male presenting for evaluation of sudden onset of UE and LE weakness as well as difficulty with fine motor skills, b/l UE pain, shoulder pain, radiculopathy and progressive neurolgical decline. It was my pleasure to have seen and examined Mr. Cardoza. In our visit today we have had a chance to go over subjective complaints, physical examination findings and treatments, including the natural course history without intervention and various interventional options. The imaging demonstrates Severe stenosis of Cervical spine from C3-7 with spondylosis, disc collapse, reversal of normal cervical lordodsis, pincer lesion at C3-4 and C4-5 with myelomalacia changes, osteophyte changes and spondylosis . On physical exam, Mr. Cardoza demonstrates profound weakness in UE and LE b/l. Presented in wheel chair which is new for him in the last month. He has no fine motor control, myelopathic movements of UE and LE b/l, weakness in b/l UE and LE alike. He cannot ambulate under his own power any longer. He has paresthesias in b/l UE at this time as well as radiculopathy. He also has LE weakness and paresthesias likely related to cervical but also lumbar spine . I explained to the patient that as his condition progresses it could cause progressive neurological damage, progressive weakness, progressive devility and ultimately paresis if not addressed in a timely manner due to the severity of the meylopathy as well as the time it has been present already . At this time, based on the patients imaging and physical exam, I recommend surgery in the form or a: Two part surgery. First part will be C3-7 ACDF followed by part two of C2-T2 decompression and fusion . I discussed the risk and benefits of this procedure at length with Mr. Cardoza. The patient and his son and [id number] to consider pursuing the procedure mentioned above. Plan: 1. Part I: C3-7 anterior cervical discectomy and fusion; Part II: C2-T2 decompression and fusion Description of Procedure: The patient was seen and examined in the preoperative area. All preoperative protocols were followed. Informed consent was obtained risks and benefits of the procedure were discussed at length. Risks including bleeding infection damage to the surrounding tissue and risk of reoperation were discussed with the patient. Risk of anesthesia up to and including was a discussed with the patient. These are outlined in the risk review. They were willing to accept these risks and all of the risks of surgery. The patient was given a weight- based dose of antibiotics in the form of 2 g Ancef. The patient was seen and evaluated by the anesthesia team who deemed them fit for surgery. The site was marked, the patient was willing to proceed with the procedure. The patient was transferred to the operative suite by the Department of anesthesia. They were then drifted off to sleep by the department anesthesia and GETA was performed. The patient tolerated this well. Maddox catheter was placed by nursing staff, atraumatically. Once confirmation of lines and ventilation the patient was transferred to a supine flat top Dank table with a shoulder roll. Shoulders were gently taped down for visualization. Head was placed in a donut.. All bony prominences including wrists, elbows, axilla, chest, hips, and thighs, and feet were padded very well. Special attention was paid to the genitalia and these were padded accordingly. SCDs were placed on bilateral lower extremities and were connected. Arms were well padded and placed tucked at his side thumbs up well-padded. Once in position, again we confirmed good ventilation capabilities and that lines were running appropriately. The patient's anterior cervical spine was then exposed. 1010s were placed outlining the incision site. Standard alcohol was used to clean the incision site and allowed to dry. C-arm was used to biomark the patient and confirm level for incision which was marked with a skin marker. Operative briefing was performed with all teams and everyone in agreement to proceed. The patient was then prepped and draped in a normal sterile fashion. Timeout was then performed and all parties were in agreement with the procedure to be performed. Part I: Standard anterior approach Bailey-Glass to the cervical spine was taken on the right-hand side transverse incision made over the Dr. Gilmore marked area blunt dissection taken down between the SCM and strap muscles on either was identified and moved aside and identify the interval between the midline structures and the carotid sheath and develop this interval. There is a lot of scarring in this area as well as a large plexus which was mobilized and protected. We then dissected into the retropharyngeal area was identified and the anterior cervical fascia then identified. We cleaned this carefully blunt probe was then used to identify the levels on lateral fluoroscopy which were then confirmed. We then marked these levels. Retractors were then placed to hold structures in position we then performed annulotomy and subperiosteal dissection of the longissimus muscles bilaterally at C3-C4 first. Tiller pins were placed midline into C3 and C4 respectively using lateral fluoroscopic imaging. Distractor was then placed and gentle distraction taken out. We then performed discectomy at C3-C4 thoroucaden hlsunshine cleaning the disc using Kerrison rongeurs and curettes and high-speed bur. High-speed bur was used to remove the anterior osteophytes of C3 as well as the posterior osteophyte C3 on the inferior endplate of C3. This allowed for visualization of the PLL. 6 up-biting curette was then used to enter the canal and the PLL was then removed. Kerrison rongeur was then used to remove the remainder of the PLL as well as the osteophytes posteriorly. There is large disc herniation here which caused severe central stenosis as well as bilateral foraminal stenosis. Bilateral foraminotomies were then performed using Kerrison rongeur. Meticulous hemostasis formal FloSeal as well as patties. The disc space was then irrigated thoroughly and any remaining cartilage was then scraped off and high-speed bur was used to minimally bur endplates to allow for bleeding bone. We then sized for a 8 mm 8 lordotic secure C cage. The cages then packed with autograft allograft and magnetos. This is an impacted into place under lateral fluoroscopy once in good position we then used an awl to pass through the implant in the cranial and caudal directions were then selected a screw in place the screws through the implant into the vertebral bodies to secure the implant in place. The implant was tested for security was in good position on AP and lateral fluoroscopic imaging. We then removed the [place] pin from C3 and placed bone wax in its avoid. We then proceeded to adjust our retractors to the see for C5 interspace. Subperiosteal dissection was performed of the longissimus muscles and the retractor place below this. Annulotomy was then performed C4-C5 and Lambert rongeur used to remove the initial disc. We then placed Tiller pin into C5 using lateral fluoroscopic imaging and distractio n was placed. Gentle distraction was then taken out. We then performed discectomy at C4-C5 using Kerrison rongeur curettes and high-speed bur. The inferior endplate of C4 was burred anteriorly to remove anterior osteophyte as well as posteriorly to remove posterior osteophytes this up to identify the PLL was feel as identified the [facility] house entered with a 6 up and curetted the PLL was removed. Kerrison rongeurs then you used to remove the remainder of the PLL as well as perform bilateral foraminotomies. Contiguous hemostasis and perform using FloSeal and patties. Decompression was accomplished within selected sizers and under lateral fluoroscopic imaging sized the interspace were then selected an 8 8 mm lordotic secure C cage was then packed as previously described and impacted into place in the lateral fluoroscopic guidance. Once in good position the awl was passed cranial and caudally through the implant guide followed by screws to secure the implant into position. It was tested and stable and in good position on AP and lateral fluoroscopic imaging. We then turned our attention to the C5-C6 interspace Tiller pin was removed from C4 and bone wax Lauren void in place Tiller pin and the C6 the C5-C6 disc space was extremely overgrown with anterior osteophytes however it was still mobile and so we this into C6 under lateral fluoroscopic guidance and placed distractor gentle distraction was taken out under lateral fluoroscopic imaging. We then removed the extensive osteophyte anteriorly at C5-C6 and high-speed bur as well as Lexa suppressed dissection taken out over the uncovertebral joints with elevation of the longissimus muscles. I then performed complete discectomy using high-speed bur as well as curettes and Kerrison rongeurs. We identified the PLL and released it and removed it with the Kerrison rongeurs performed bilateral foraminotomies as well. Meticulous E Mrs. Spivey performed and irrigation we then sized the interspace and selected an 8 8 mm lordotic secure C cage was then packed in and impacted in place under lateral fluoroscopic guidance then passed the awl through the jig into the vertebral bodies and screws were then placed securing the implant in the position. We then investigated the C6-C7 interspace however this was essentially autofused with no motion and exuberant osteophytes we clean the osteophyte and left this interspace alone. I copiously irrigated the wound with normal sterile saline and reinspected the wound and the surrounding structures and there was no damage. Foreign after each implant placement we did run motors which showed improvement in the motors after hardware placement from baseline. We also ran motors at the end which showed maintenance of this improvement. Meticulous hemostasis once again performed. Surgicel was placed deep within the wound drain was placed deep within the wound is well was secured in position with a stitch. We then proceeded with layered closure the platysma was closed with 3-0 Vicryl the subcu tissue closed with 3-0 Vicryl and the skin closed with 4-0 Monocryl in running fashion. We then cleaned the wound and dress it sterilely with exophytic glue followed by op erative foam dressing 4 x 4 Tegaderm. The patient was transferred back to their hospital bed atraumatically. Drain continued to hold suction and were in good position. He is placed in a hard cervical collar at this time while the bed was switched to the prone Dank with Barriga clamp. Patient was redosed with antibiotics every 4 hours during the case. 1000 mg of TXA was given upfront followed by an infusion of TXA of 1 mg/kg/h on the posterior aspect followed by a bolus of 1000 mg at the end of the case. Part II: Barriga head clamp was then placed on the patient atraumatically 1 cm above the external auditory meatus in stable position and secured. Once secured the patient was transferred to a prone Dank table very carefully and his head was secured into the Barriga head of marketing adometry. All bony prominences including wrists, elbows, axilla, chest, hips, and thighs, and feet were padded very well. Special attention was paid to the genitalia and these were padded accordingly. SCDs were placed on bilateral lower extremities and were connected. Arms were well padded and placed tucked at his side thumbs up well-padded. Once in position, again we confirmed good ventilation capabilities and that lines were running appropriately. Arms were placed tucked at his side thumbs down and well-padded. Shoulders were gently taped down for visualization purposes. Shaver was used to remove hair from back the patient's neck to the inion. 1010s were placed outlining the incision site. Standard alcohol was used to clean the incision site and allowed to dry. C-arm was used to biomark the patient and confirm level for incision which was marked with a skin marker. Operative briefing was performed with all teams and everyone in agreement to proceed. The patient was then prepped and draped in a normal sterile fashion. Timeout was then performed and all parties were in agreement with the procedure to be performed. Standard posterior approach midline to the posterior neck was taken over the [facility] marked. Skin incision made and dissection taken down to the cervical posterior and cervical thoracic fascia which was identified. Fasciotomy was made in this fashion and dissection taken down to the spinous processes of C2 through T2 which were identified and cleaned. We then perform subperiosteal dissection out over the lateral masses and facet joints of C2 through T2 identifying the transverse processes at's T1 and T2. Once exposure was completed we irrigated the wound. We then turned our attention to placement of C2 screws. Starting on the left-hand side a [place] 4 was then placed on the medial border of the pedicle of C2 to guide placement. High-speed bur was then used under lateral fluoroscopy to create a starting point we then used a drill to drill and 2 mm increments the C2 pedicle. This is done under lateral fluoroscopic guidance. After every 2 mm we used a ball-tipped probe to probe and make sure we were within bone and 4 flores of the pedicle. Once we reached the preoperative measured length we selected a screw and placed this on the left-hand side atraumatically. Lateral fluoroscopic image confirmed good plac ement of screw and the screw had excellent bite. We then repeated this process on the right-hand side without any issues place the screw and also had good purchase. We then turned our attention to the placement of thoracic screws at T1 bilaterally these were placed with a freehand technique and AP fluoroscopy. High-speed bur was used to make a pilot safety inspector hole followed by a pedicle finder which was impacted under AP and lateral fluoroscopic guidance we then used a ball- tipped probe to ensure with the 4 flores of the pedicle we then tapped and placed a screw at the T1 level bilaterally then repeated this at T2 bilaterally as well. AP and lateral imaging confirmed good placement of the screws. We then turned our attention to the lateral mass screws S2 bur was used to make pilot safety inspector holes in the lateral masses of C3 through C5 6 bilaterally we then set our drill to 10 mm and drilled each of these under lateral fluoroscopic guidance. Probe was then used to probe these and ensure within bone to millimeter screws were then selected and placed under lateral fluoroscopic guidance bilaterally. The C4 screw on the right did not have good purchase and so was removed. Once all screws were placed AP and lateral fluoroscopic imaging confirmed good placement of all screws. We then decorticated the facet joints bilaterally oozing high- speed bur which allowed for mobilization as well we then decorticated the posterior lateral region of the lateral masses and the transverse processes exposed. We then sized and selected a herve and it appropriately and secured it into position once secured in position bilaterally and the setscrews were placed and final tightened. Lateral fluoroscopic image confirmed good alignment as well as placement of rods. Once this was completed we then performed a bi lateral laminectomy and medial facetectomy and foraminotomy of C2 through T1 this was performed using high-speed bur which was used to make a laminotomy troughs bilaterally curet was then used to release the ligamentum flavum at each level and the lamina was then removed entirely. I then used a Kerrison rongeur to perform foraminotomies at each level. Meticulous hemostasis was performed using FloSeal patties as well as thrombin and Gelfoam. We then irrigated the wound with 3 L of antibiotic irrigant followed by 6 L of normal sterile saline. Surgicel was then placed over the dura. Motors were run throughout this portion of the case and they remained stable with their initial improvements maintained throughout this case portion as well. We then placed a synthetic as well as autograft allograft in the posterior lateral gutters and impacted into place and placed Surgicel over this as well. 2 g of vancomycin powder placed deep within the wound deep drain was placed and secured to the skin with a stitch. Then performed a layered closure first in the muscle layer of the deep neck with #1 PDS followed by the fascial layer with #1 PDS in a [id number] fashion followed by 0 PDS in simple fashion. Deep subcu tissues closed with 0 PDS superficial subcu tissue closed with 2-0 PDS and skin closed with skin saturnino. The wound edges approximated very well. The wound was then cleaned and dressed sterilely with an operative foam dressing 4 x 4 and Tegaderm. He was then placed in a c-collar. The patient was transferred back to their hospital bed atraumatically. Drain continued to hold suction and were in good position. The Barriga clamp was removed there was a small bleeder of the posterior pinhole on the left-hand side and so 3 saturnino were placed into this which stopped the bleeding. Patient was then transferred to the ICU intubated for prolonged recovery having tolerated the procedure very well with no complications.
[2021-10-13] MEDS ORDERED: SODIUM CHLORIDE 0.9% 1,000 ML IV ONE (14:21)
[2021-10-13] MEDS: GABAPENTIN 300 MG CAP PO SCH ×2 (16:00→21:35)
--- NOTE | 2021-10-13 16:16 | P.CONS ---
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 He underwent C3 to C7 anterior cervical discectomy and fusion, also posterior C2 to T2 decompression and fusion with Dr. Hernandez. He was extubated in the ICU by silk soaker Dr. Rizo. He was seen and examined around 2PM on 10/13/2021. Patient reports 8/10 pain in his cervical spine along with pins and needles sensation in his bilateral upper extremities that was chronic since before this procedure. He also reports 8/10 pain in his lower back. He denies any headache, lower stomach edema, nausea or vomiting, fever or chills, cough, chest pain, shortness breath or palpitations. No changes in appetite or weight. He denies any dizziness. He denies any bladder or bowel incontinence. He denies any saddle anesthesia. Review of systems was performed and is negative except above. General: [non toxic], [no distress], [appears at stated age] Derm: [warm], [dry] Head: [atraumatic], [normocephalic], [symmetric], [c-collar intact] Eyes: [EOMI], [no lid lag], [anicteric sclera] Mouth: [no lip lesion], [mucus membranes moist] Cardiovascular: [S1S2 reg], [no murmur] Lungs: [CTA bilateral], [no rhonchi, no rales] , [no accessory muscle use] Abdominal: [soft], [ nontender to palpation], [no guarding], [no appreciable organomegaly] Ext: [no gross muscle atrophy], [no edema], [no contractures] Neuro: [no focal neuro deficits] Psych: [Alert], [oriented], [appropriate affect] #C3 to C7 anterior cervical discectomy and fusion, posterior C2 to T2 decompression and fusion POD 0 #COPD #Diabetes mellitus #Hypertension #Obesity Continue Decadron IV. Continue Cymbalta and gabapentin. Flexeril as needed for spasm. Continue Tylenol, oxycodone, Dilaudid as needed for severe pain. Frequent neurochecks. PT and OT has been consulted to work with this patient. Management as per orthopedic surgery. DuoNeb as needed for shortness of breath and wheezing. Continue low-dose insulin sliding scale along with Accu-Cheks 4 times a day and hypoglycemic precautions. Restart lisinopril for history of hypertension. Monitor vitals, adjust medications if necessary. Patient would benefit from a structured weight loss program. DVT prophylaxis: [SCD] Discussed with: [Patient] Anticipated discharge: [1-2 days] Anticipated discharge place: [home] A total of [45] minutes was spent on the care of this complex patient more than 50% of the time was spent in counseling and care coordination. Thank you for this consult. Please call [facility] with any questions or concerns. Past Medical History Past Medical History: COPD, Diabetes Mellitus, GERD/Reflux, Hearing Disorder / Deafness, Hypertension, Osteoarthritis (OA) Additional Past Medical History / Comment(s): Tinea Versicolor(fungal infection) with continued skin discoloration. Tinnitis. Sleeps with a mouth guard in. History of Any Multi-Drug Resistant Organisms: None Reported Past Surgical History: Unable to Obtain Additional Past Surgical History / Comment(s): Arthroscopy bilateral knees X2, wisdom teeth extracted. Past Anesthesia/Blood Transfusion Reactions: No Reported Reaction Additional Past Anesthesia/Blood Transfusion Reaction / Comm: In 1994 with first arthroscopy had general anesthesia, was discharged and had difficulty breathing in parking lot, went back in to ER, ER Dr stated "it was related to throat swelling after extubation." Has had no general anesthesia after that procedure. Past Psychological History: PTSD Smoking Status: Former smoker Past Alcohol Use History: Rare Additional Past Alcohol Use History / Comment(s): Quit smoking 2 months ago, started smoking at age 18, 1ppd. Past Drug Use History: None Reported - Past Family History Mother Family Medical History: No Reported History Medications and Allergies Home Medications Medication Instructions Recorded Confirmed Type Acetaminophen [Tylenol] 1,000 mg PO TID 08/25/19 10/10/21 History Lisinopril [Zestril] 10 mg PO QAM 08/25/19 10/10/21 History Multivitamins, Thera [Multivitamin 1 tab PO DAILY 08/25/19 10/10/21 History (formulary)] Omeprazole 20 mg PO QAM 08/25/19 10/10/21 History DULoxetine HCL [Cymbalta] 60 mg PO QAM 10/10/21 10/10/21 History Gabapentin [Neurontin] 100 mg PO TID 10/10/21 10/10/21 History Celecoxib [CeleBREX] 100 mg PO BID 10/12/21 10/12/21 History metFORMIN HCL [Glucophage] 500 mg PO DAILY 10/12/21 10/12/21 History Allergies Allergy/AdvReac Type Severity Reaction Status Date / Time adhesive tape Allergy skin Verified 10/12/21 09:22 irritation barley Allergy chest Verified 10/12/21 09:22 congestion lettuce Allergy Nausea Verified 10/12/21 09:22 Physical Exam Vitals: Vital Signs Temp Pulse Pulse Resp BP Pulse Ox 10/13/21 15:00 110 H 18 95 10/13/21 14:00 116 H 16 95 10/13/21 13:00 112 H 18 98 10/13/21 12:00 98.1 F 112 H 21 95 10/13/21 11:00 107 H 26 H 97 10/13/21 10:00 100 23 95 10/13/21 09:00 89 12 100 10/13/21 08:00 97.8 F 90 79 16 98 10/13/21 07:00 91 16 99 10/13/21 06:00 91 21 99 10/13/21 05:00 84 10 L 100 10/13/21 04:00 82 20 99 10/13/21 03:38 16 10/13/21 03:00 81 16 99 10/13/21 02:00 84 16 99 10/13/21 01:00 82 13 100 10/13/21 00:00 86 13 99 10/12/21 23:44 16 10/12/21 23:42 87 14 99 10/12/21 23:00 88 16 99 10/12/21 22:00 90 16 98 10/12/21 21:00 93 16 99 10/12/21 20:00 95 17 111/71 100 Intake and Output 10/13/21 10/13/21 10/13/21 06:59 14:59 22:59 Intake Total 429.795 445.679 Output Total 810 955 Balance -380.205 -509.321 Intake: IV 210 210 LR @ 20 ml/hr 160 160 ceFAZolin 2 gm In Sodium 50 50 Chloride 0.9% 50 ml @ 100 mls/hr IVPB Q8HR [facility] Rx# :[id number] Intake, IV Titration 219.795 35.679 Amount propofoL 1,000 mg In 219.795 35.679 Empty Bag 1 bag @ 5 MCG/ KG/MIN 2.586 mls/hr IV . Q24H [facility] Rx#:[id number] Oral 200 Output: Drainage 0 Back 0 Neck 0 Urine 810 955 Other: Voiding Method Indwelling Catheter Indwelling Catheter Weight 99.3 kg ABP, PAP, CO, CI - Last 8 Hours Arterial Blood Pressure 112/57 Arterial Blood Pressure 106/54 Arterial Blood Pressure 99/48 Arterial Blood Pressure 155/59 Arterial Blood Pressure 165/73 Arterial Blood Pressure 133/68 Arterial Blood Pressure 128/54 Results CBC & Chem 7: 10/13/21 05:47 10/13/21 05:47 Labs: Abnormal Lab Results - Last 24 Hours (Table) 10/12/21 10/12/21 10/12/21 Range/Units 15:44 18:14 18:15 RBC (4.30-5.90) m/uL Hgb (13.0-17.5) gm/dL Hct (39.0-53.0) % ABG pH 7.29 L 7.33 L (7.35-7.45) ABG pO2 399 H 215 H (83-108) mmHg ABG HCO3 18 L 19 L (21-25) mmol/L ABG Total CO2 (19-24) mmol/L ABG O2 Saturation 99.6 H 99.5 H (94-97) % Sodium (137-145) mmol/L Creatinine (0.66-1.25) mg/dL Glucose (74-99) mg/dL POC Glucose (mg/dL) 163 H (75-99) mg/dL 10/12/21 10/12/21 10/13/21 Range/Units 19:22 21:04 05:33 RBC (4.30-5.90) m/uL Hgb (13.0-17.5) gm/dL Hct (39.0-53.0) % ABG pH (7.35-7.45) ABG pO2 241 H 159 H (83-108) mmHg ABG HCO3 28 H 29 H (21-25) mmol/L ABG Total CO2 29 H 30 H (19-24) mmol/L ABG O2 Saturation 99.1 H 99.5 H (94-97) % Sodium (137-145) mmol/L Creatinine (0.66-1.25) mg/dL Glucose (74-99) mg/dL POC Glucose (mg/dL) 158 H (75-99) mg/dL 10/13/21 10/13/21 10/13/21 Range/Units 05:47 05:47 12:37 RBC 3.36 L (4.30-5.90) m/uL Hgb 11.3 L (13.0-17.5) gm/dL Hct 33.5 L (39.0-53.0) % ABG pH (7.35-7.45) ABG pO2 (83-108) mmHg ABG HCO3 (21-25) mmol/L ABG Total CO2 (19-24) mmol/L ABG O2 Saturation (94-97) % Sodium 133 L (137-145) mmol/L Creatinine 0.65 L (0.66-1.25) mg/dL Glucose 120 H (74-99) mg/dL POC Glucose (mg/dL) 112 H (75-99) mg/dL
[2021-10-13 17:57] LABS: Glucose,Whole Blood 148 mg/dL (75-99)
[2021-10-13] MEDS: INSULIN ASPART (NovoLOG) 100 UNIT/ML VIAL SQ SCH ×2 (18:27→21:00)
[2021-10-13 21:50] LABS: Glucose,Whole Blood 153 mg/dL (75-99)
[2021-10-14] MEDS: DEXAMETHASONE SOD PHOSPHATE 4 MG/ML 1 ML VIAL IV SCH ×4 (00:09→17:37)
[2021-10-14] MEDS: HYDROmorphone 1 MG/ML 1 ML SYRINGE IVP PRN ×6 (00:11→20:44)
[2021-10-14 07:16] LABS: Glucose,Whole Blood 127 mg/dL (75-99)
--- NOTE | 2021-10-14 07:35 | P.PN ---
Subjective Progress Note Date: 10/14/21 Principal diagnosis: Status post C3-C6 ACDF, posterior decompression C2-T1, posterior lateral fusion C2-T2 Patient was examined today, he is in the ICU, he was extubated yesterday and is doing fairly well. We did adjust his oral pain medications yesterday which seems to be helping, he was also started on 4 mg IV Decadron. Patient has been tachycardic since extubation. I did discuss this with the nursing staff today, there is high likelihood that this is likely due to the pain. His labs have remained stable as of 10/13/2021. Patient's currently denying any shortness of breath or chest pain. He states most of the pain is in the posterior aspect of the neck, this is exacerbated with movement. Patient remains in a hard c-collar at this time. The urinary catheter is still in place at this time. Patient has not been out of bed at this time. Objective - Vital Signs Vital signs: Vital Signs Temp 99.3 F 10/14/21 04:00 Pulse 101 H 10/14/21 05:00 Resp 16 10/14/21 05:00 BP 111/71 10/12/21 20:00 Pulse Ox 94 L 10/14/21 05:00 Intake & Output 10/13/21 10/14/21 10/14/21 18:59 06:59 18:59 Intake Total 2045.679 1350 Output Total 2105 2300 Balance -59.321 -950 Intake: IV 210 1000 LR @ 20 ml/hr 160 Lactated Ringers 1,000 ml 1000 @ 100 mls/hr IV .Q10H [facility] Rx#:[id number] ceFAZolin 2 gm In Sodium 50 Chloride 0.9% 50 ml @ 100 mls/hr IVPB Q8HR [facility] Rx# :[id number] Intake, IV Titration 1435.679 100 Amount Lactated Ringers 1,000 ml 400 100 @ 100 mls/hr IV .Q10H [facility] Rx#:[id number] Sodium Chloride 0.9% 1, 1000 000 ml @ 999 mls/hr IV . Q1H1M [facility] Rx#:[id number] propofoL 1,000 mg In 35.679 Empty Bag 1 bag @ 5 MCG/ KG/MIN 2.586 mls/hr IV . Q24H [facility] Rx#:[id number] Oral 400 250 Output: Drainage 0 Back 0 Neck 0 Urine 2105 2300 Other: Voiding Method Indwelling Catheter Indwelling Catheter ABP, PAP, CO, CI - Last Documented Arterial Blood Pressure 121/62 - Exam Gen: AOx3, NAD VSS stable at this time Integument: Heart c-collar good position, bandages and dressings are in good position and condition. There is no output in the drain on the right side, there is minimal serosanguineous draining in the left-sided bulb drain. Palpation: Minimal tenderness to the midline paraspinal region of the cervical spine ROM: Range of motion intact in the bilateral upper extremities, there is limitations to full motion due to the IV lines Full range of motion of bilateral lower extremities, no focal deficits Sensory Exam: Senory exam to light touch is intact C5-T1, he does note a numbness and tingling in the tips of all fingers, this is chronic Senosry exam to light touch is intact L2-S1 Motor: Strength testing was not assessed of the bilateral upper or lower extremities Reflexes: Positive Danilo's bilaterally Positive Clonus bilaterally Negative Babinski bilaterally - Labs CBC & Chem 7: 10/13/21 05:47 10/13/21 05:47 Labs: Abnormal Lab Results - Last 24 Hours (Table) 10/13/21 10/13/21 10/13/21 Range/Units 12:37 17:54 21:48 POC Glucose (mg/dL) 112 H 148 H 153 H (75-99) mg/dL 10/14/21 Range/Units 07:14 POC Glucose (mg/dL) 127 H (75-99) mg/dL Assessment and Plan Assessment: Postoperative day #2 status post C3-C6 ACDF, C2-T1 posterior decompression with posterolateral fusion C2-T T2 Plan: Pain control, continue with current medications, this will include Tylenol, Flexeril, gabapentin, oxycodone, Decadron and Dilaudid as needed. DVT prophylaxis, SCDs and MACARIO jonese Encourage incentive spirometer Wound care, will change dressings and likely remove drains on 10/15/2021 PT/OT, walker ambulation at all times. Discussed with nursing that is her goal today to have the patient out of bed and ambulating and spending time in the chair Rigid c-collar at all times Other medical specialty recommendations We'll continue to follow during inpatient stay Time with Patient: Less than 30
[2021-10-14] MEDS: INSULIN ASPART (NovoLOG) 100 UNIT/ML VIAL SQ SCH ×4 (08:53→20:45)
[2021-10-14] MEDS: GABAPENTIN 300 MG CAP PO SCH ×3 (09:40→21:09)
[2021-10-14] MEDS: PANTOPRAZOLE 40 MG/10 ML VIAL IVP SCH (09:40)
[2021-10-14] MEDS: DULoxetine HCL 60 MG CAPSULE.DR PO SCH (09:40)
[2021-10-14] MEDS: MULTIVITAMINS, THERA 1 EACH TAB PO SCH (09:41)
[2021-10-14] MEDS: metFORMIN 500 MG TAB PO SCH (09:41)
[2021-10-14] MEDS: lisinopriL 10 MG TAB PO SCH (09:41)
[2021-10-14] MEDS: LACTATED RINGERS 1,000 ML IV SCH ×2 (09:41→17:49)
--- NOTE | 2021-10-14 11:37 | P.PN ---
Subjective Progress Note Date: 10/14/21 Principal diagnosis: Medical management Patient was seen and examined. He is POD 1 C3 to C7 anterior cervical discectomy and fusion, also posterior C2 to T2 decompression and fusion with Dr. Hernandez. He reports well controlled pain in his neck. Continued pins and needles sensation in his bilateral upper extremities. Objective - Vital Signs Vital signs: Vital Signs Temp 99.8 F H 10/14/21 08:00 Pulse 105 H 10/14/21 10:00 Resp 19 10/14/21 10:00 BP 111/71 10/12/21 20:00 Pulse Ox 94 L 10/14/21 10:00 Intake & Output 10/13/21 10/14/21 10/14/21 18:59 06:59 18:59 Intake Total 2045.679 1350 300 Output Total 2105 2300 480 Balance -59.321 -950 -180 Weight 94.7 kg Intake: IV 210 1000 300 LR @ 20 ml/hr 160 Lactated Ringers 1,000 ml 1000 300 @ 100 mls/hr IV .Q10H [facility] Rx#:[id number] ceFAZolin 2 gm In Sodium 50 Chloride 0.9% 50 ml @ 100 mls/hr IVPB Q8HR [facility] Rx# :[id number] Intake, IV Titration 1435.679 100 Amount Lactated Ringers 1,000 ml 400 100 @ 100 mls/hr IV .Q10H [facility] Rx#:[id number] Sodium Chloride 0.9% 1, 1000 000 ml @ 999 mls/hr IV . Q1H1M [facility] Rx#:[id number] propofoL 1,000 mg In 35.679 Empty Bag 1 bag @ 5 MCG/ KG/MIN 2.586 mls/hr IV . Q24H [facility] Rx#:[id number] Oral 400 250 Output: Drainage 0 Back 0 Neck 0 Urine 2105 2300 480 Other: Voiding Method Indwelling Catheter Indwelling Catheter ABP, PAP, CO, CI - Last Documented Arterial Blood Pressure 133/62 - Exam General: [non toxic], [no distress], [appears at stated age] Derm: [warm], [dry] Head: [atraumatic], [normocephalic], [symmetric], [c-collar intact] Eyes: [EOMI], [no lid lag], [anicteric sclera] Mouth: [no lip lesion], [mucus membranes moist] Cardiovascular: [S1S2 reg], [no murmur] Lungs: [CTA bilateral], [no rhonchi, no rales] , [no accessory muscle use] Abdominal: [soft], [ nontender to palpation], [no guarding], [no appreciable organomegaly] Ext: [no gross muscle atrophy], [no edema], [no contractures] Neuro: [no focal neuro deficits] Psych: [Alert], [oriented], [appropriate affect] - Labs CBC & Chem 7: 10/13/21 05:47 10/13/21 05:47 Labs: Abnormal Lab Results - Last 24 Hours (Table) 10/13/21 10/13/21 10/13/21 Range/Units 12:37 17:54 21:48 POC Glucose (mg/dL) 112 H 148 H 153 H (75-99) mg/dL 10/14/21 Range/Units 07:14 POC Glucose (mg/dL) 127 H (75-99) mg/dL Assessment and Plan Assessment: #C3 to C7 anterior cervical discectomy and fusion, posterior C2 to T2 decompression and fusion POD 0 #COPD #Diabetes mellitus #Hypertension #Obesity Continue Decadron IV. Continue Cymbalta and gabapentin. Flexeril as needed for spasm. Continue Tylenol, oxycodone, Dilaudid as needed for severe pain. Frequent neurochecks. PT and OT has been consulted to work with this patient. Management as per orthopedic surgery. DuoNeb as needed for shortness of breath and wheezing. Continue low-dose insulin sliding scale along with Accu-Cheks 4 times a day and hypoglycemic precautions. Restart lisinopril for history of hypertension. Monitor vitals, adjust medications if necessary. Patient would benefit from a structured weight loss program. DVT prophylaxis: [SCD] Discussed with: [Patient] Anticipated discharge: [2-3 days] Anticipated discharge place: [home] A total of [30] minutes was spent on the care of this complex patient more than 50% of the time was spent in counseling and care coordination. Plans for subacute rehab. Thank you for this consult. Please call [facility] with any questions or concerns.
[2021-10-14 11:38] LABS: Glucose,Whole Blood 155 mg/dL (75-99)
--- NOTE | 2021-10-14 12:36 | P.PN ---
Subjective Progress Note Date: 10/14/21 Principal diagnosis: Status post C3-C6 ACDF, posterior decompression C2-T1, posterior lateral fusion C2-T2, postoperative day #2 This is a 61-year-old white male who was recently seen by Dr. Hernandez on outpatient basis, patient had persistent lumbar and cervical pain ongoing for several years. Patient had no previous known injury or trauma. Symptoms have been progressively worse, patient was also complaining of diffuse cervical posterior pain radiating into the shoulders and distal extremities. Patient was also complaining of diffuse numbness and tingling and weakness. This was in upper and lower extremities. 3 weeks prior to this, patient had loss of motor function with his hands and the great instability with his lower extremities to the point that the patient was using a wheelchair for ambulation. Obviously the patient was diagnosed with having cervical spondylitic myelopathy, severe stenosis C3 through C7 spondylolisthesis of C3-C4, bilateral upper extremities weakness and bilateral lower extremities weakness with radiculopathy/lumbar radiculopathy hence the patient was advised C3 - C7 anterior cervical discectomy and fusion, and part 2 C2- T2 decompression and fusion patient underwent surgery yesterday, and he was on mechanical ventilation postoperatively. Hence I was asked to see the patient in the ICU on consultation. This morning the pa migel remains on mechanical ventilation, patient is on assist control rate of 12 tidal volume 500 FiO2 40% PEEP of 5. ABG showed a pO2 of 159, pCO2 44 pH of 7.43. Patient is on propofol at 40 mcg/kg/m which I have discontinued, and transitioned the patient after holding the propofol to a pressure support of 10 and CPAP. And this was done for about 20 minutes. Patient was noted to have good tidal volumes, rate in the teens, and I went ahead and extubated the patient uneventfully. Patient was reevaluated today on 10/14/2021, patient remains in the ICU, he was extubated yesterday, tolerated the extubation well. Patient has mostly severe pain at the surgical site, otherwise the patient is doing well, no cough no wheezing no shortness of breath no chest pain, patient is doing great with inc entive spirometer. Achieving over 2000 mL continues to have a c-collar in place, patient is on GI and DVT prophylaxis, blood pressures under control. Patient is relatively asymptomatic except for the pain. Hence I will arrange for the patient to be transferred out of the ICU to a regular medical floor today will likely discontinue his central line. Objective - Vital Signs Vital signs: Vital Signs Temp 99.8 F H 10/14/21 08:00 Pulse 105 H 10/14/21 11:00 Resp 26 H 10/14/21 11:00 BP 111/71 10/12/21 20:00 Pulse Ox 94 L 10/14/21 11:00 Intake & Output 10/13/21 10/14/21 10/14/21 18:59 06:59 18:59 Intake Total 2045.679 1350 500 Output Total 2105 2300 705 Balance -59.321 -950 -205 Weight 94.7 kg Intake: IV 210 1000 500 LR @ 20 ml/hr 160 Lactated Ringers 1,000 ml 1000 500 @ 100 mls/hr IV .Q10H [facility] Rx#:[id number] ceFAZolin 2 gm In Sodium 50 Chloride 0.9% 50 ml @ 100 mls/hr IVPB Q8HR [facility] Rx# :[id number] Intake, IV Titration 1435.679 100 Amount Lactated Ringers 1,000 ml 400 100 @ 100 mls/hr IV .Q10H [facility] Rx#:[id number] Sodium Chloride 0.9% 1, 1000 000 ml @ 999 mls/hr IV . Q1H1M [facility] Rx#:[id number] propofoL 1,000 mg In 35.679 Empty Bag 1 bag @ 5 MCG/ KG/MIN 2.586 mls/hr IV . Q24H [facility] Rx#:[id number] Oral 400 250 Output: Drainage 0 Back 0 Neck 0 Urine 2105 2300 705 Other: Voiding Method Indwelling Catheter Indwelling Catheter Indwelling Catheter ABP, PAP, CO, CI - Last Documented Arterial Blood Pressure 117/57 - Exam Physical Exam: Revealed a 61-year-old white male, on room air, not in any distress. Head: Atraumatic, normocephalic. Neck: Cervical collar is noted in place, anterior surgical incision with LATANYA drain and posterior incision with a Hemovac drain noted. HEENT: PERRLA, EOMI, nonicteric, cervical collar in place, moist mucous membranes. Chest: Symmetrical chest expansion. [Clear throughout, no crackles, no rhonchi, no wheezes.] Cardiac Exam: [Normal S1 and S2, no S3 gallop, no murmur.] Abdomen: [Soft, nontender, no megaly, no rebound, no guarding, normal bowel sounds.] Extremities: ROM limited secondary to pain and stiffness from surgical procedure. Neurologic: As noted by orthopedic surgery Psychiatric: Normal mood affect and normal mental status - Labs CBC & Chem 7: 10/13/21 05:47 10/13/21 05:47 Labs: Abnormal Lab Results - Last 24 Hours (Table) 10/13/21 10/13/21 10/13/21 Range/Units 12:37 17:54 21:48 POC Glucose (mg/dL) 112 H 148 H 153 H (75-99) mg/dL 10/14/21 10/14/21 Range/Units 07:14 11:36 POC Glucose (mg/dL) 127 H 155 H (75-99) mg/dL Assessment and Plan Assessment: Impression: Postoperative day #2, patient is status post C3-C6 ACDF, posterior decompression C2-T1, posterior lateral fusion C2-T2 Cervical stenosis COPD, presently inactive. Type 2 diabetes. Benign essential hypertension. Degenerative joint disease. Recommendation: Continue present supportive care measures. Continue incentive spirometer. Resume home meds. Resume bronchodilators. Continue GI prophylaxis. Continue DVT prophylaxis. Heparin cleared by orthopedic surgery on the case. Discontinue unnecessary catheters and lines. Transfer to regular medical floor today Time with Patient: Less than 30
[2021-10-14 16:24] LABS: Glucose,Whole Blood 164 mg/dL (75-99)
[2021-10-14] MEDS: HEPARIN SODIUM,PORCINE/PF 5,000 UNIT/0.5 ML SYRINGE SQ SCH (17:36)
[2021-10-14 21:15] LABS: Glucose,Whole Blood 162 mg/dL (75-99)
[2021-10-15] MEDS: DEXAMETHASONE SOD PHOSPHATE 4 MG/ML 1 ML VIAL IV SCH ×4 (00:56→17:28)
[2021-10-15] MEDS: HEPARIN SODIUM,PORCINE/PF 5,000 UNIT/0.5 ML SYRINGE SQ SCH ×3 (00:56→17:00)
[2021-10-15] MEDS: LACTATED RINGERS 1,000 ML IV SCH ×2 (04:01→16:30)
[2021-10-15 07:20] LABS: Glucose,Whole Blood 152 mg/dL (75-99)
[2021-10-15] MEDS: HYDROmorphone 1 MG/ML 1 ML SYRINGE IVP PRN ×3 (07:28→20:41)
[2021-10-15] MEDS: metFORMIN 500 MG TAB PO SCH (07:32)
[2021-10-15] MEDS: INSULIN ASPART (NovoLOG) 100 UNIT/ML VIAL SQ SCH ×4 (07:32→20:40)
[2021-10-15] MEDS: MULTIVITAMINS, THERA 1 EACH TAB PO SCH (07:32)
[2021-10-15] MEDS: DULoxetine HCL 60 MG CAPSULE.DR PO SCH (07:32)
[2021-10-15] MEDS: lisinopriL 10 MG TAB PO SCH (07:33)
[2021-10-15] MEDS: PANTOPRAZOLE 40 MG TABLET PO SCH (07:33)
[2021-10-15] MEDS: GABAPENTIN 300 MG CAP PO SCH ×3 (07:33→21:25)
--- NOTE | 2021-10-15 09:40 | P.PN ---
Subjective Progress Note Date: 10/15/21 Principal diagnosis: Status post C3-C6 ACDF, posterior decompression C2-T1, posterior lateral fusion C2-T2 Patient was examined today, he was transferred to a medical/surgical floor yesterday afternoon. He is doing very well at this time, he is resting in his hospital chair. He is utilizing the rigid c-collar at this time. Urinary catheter remains in place. He states he is moving gas but has not had a bowel movement at this time. He states the pain has seemed to ease up a little bit. He notes that the numbness and tingling in the fingers is much improved over the last day or so. He states he has a little bit better motion in the upper extremity is also. Patient currently denies any headaches, lightheadedness, chest pain or shortness of breath. Objective - Vital Signs Vital signs: Vital Signs Temp 97.8 F 10/15/21 08:00 Pulse 94 10/15/21 08:00 Resp 17 10/15/21 08:00 BP 154/87 10/15/21 08:00 Pulse Ox 95 10/15/21 09:01 Intake & Output 10/14/21 10/15/21 10/15/21 18:59 06:59 18:59 Intake Total 500 Output Total 705 2100 Balance - -2099 Weight 94.7 kg Intake: IV 500 Lactated Ringers 1,000 ml 500 @ 100 mls/hr IV .Q10H [facility] Rx#:[id number] Output: Urine 705 2100 Other: Voiding Method Indwelling Catheter Indwelling Catheter ABP, PAP, CO, CI - Last Documented Arterial Blood Pressure 117/57 - Exam Gen: AOx3, NAD VSS stable at this time Integument: Bandages were all changed today at bedside. Drains were also removed. Incisions are well healing, saturnino are intact on the posterior incision, the surgical glue is intact in the anterior incision. Palpation: Minimal tenderness to the midline paraspinal region of the cervical spine ROM: Range of motion intact in the bilateral upper extremities, he does have some limitations with shoulder elevation and shoulder abduction Full range of motion of bilateral lower extremities, no focal deficits Sensory Exam: Senory exam to light touch is intact C5-T1, he does note a numbness and tingling in the tips of all fingers, this is chronic Senosry exam to light touch is intact L2-S1 Motor: 4-/5 strength in the bilateral upper extremities shoulder abduction, forward elevation, elbow extension, elbow flexion, wrist extension, wrist flexion, finger intrinsics Right lower extremity: 3+/5 strength with hip flexion, knee flexion, knee extension, plantarflexion, dorsiflexion, EHL, FHL Left lower extremity: 3+/5 strength with hip flexion, knee flexion, 5/5 strength with knee extension, plantar flexion, dorsiflexion, EHL, FHL Reflexes: Positive Danilo's bilaterally Positive Clonus bilaterally Negative Babinski bilaterally - Labs CBC & Chem 7: 10/13/21 05:47 10/13/21 05:47 Labs: Abnormal Lab Results - Last 24 Hours (Table) 10/14/21 10/14/21 10/14/21 Range/Units 11:36 16:23 21:13 POC Glucose (mg/dL) 155 H 164 H 162 H (75-99) mg/dL 10/15/21 Range/Units 07:19 POC Glucose (mg/dL) 152 H (75-99) mg/dL Assessment and Plan Assessment: Postoperative day #3 status post C3-C6 ACDF, C2-T1 posterior decompression with posterolateral fusion C2-T T2 Plan: Pain control, continue with current medications, this will include Tylenol, Flexeril, gabapentin, oxycodone, Decadron and Dilaudid as needed. We'll decrease the Decadron dose to 2 mg every 6 hours later today. Discussed the patient to attempt to use less of the IV pain medication DVT prophylaxis, SCDs and MACARIO jonese Encourage incentive spirometer Discussed with nursing to continue with the daily stool softeners Wound care, we'll continue to monitor dressing PT/OT, walker ambulation at all times. Discussed with nursing that is her goal today to have the patient out of bed and ambulating and spending time in the chair Rigid c-collar at all times Other medical specialty recommendations Discharge planning: Patient will likely require inpatient versus subacute rehab, we'll discuss this also should working case management on 10/16/2021 Time with Patient: Less than 30
[2021-10-15] MEDS: SENNOSIDES-DOCUSATE SODIUM 1 EACH TAB PO PRN (09:42)
[2021-10-15 11:22] LABS: Glucose,Whole Blood 136 mg/dL (75-99)
[2021-10-15] MEDS: CYCLOBENZAPRINE 10 MG TAB PO PRN (11:36)
--- NOTE | 2021-10-15 14:29 | P.PN ---
Subjective Progress Note Date: 10/15/21 Principal diagnosis: Medical management Patient was seen and examined. He is POD 2 C3 to C7 anterior cervical discectomy and fusion, also posterior C2 to T2 decompression and fusion with Dr. Hernandez. He reports well controlled pain in his neck. Continued pins and needles sensation in his bilateral upper extremities. Objective - Vital Signs Vital signs: Vital Signs Temp 97.8 F 10/15/21 08:00 Pulse 94 10/15/21 08:00 Resp 17 10/15/21 08:00 BP 154/87 10/15/21 08:00 Pulse Ox 95 10/15/21 09:01 Intake & Output 10/14/21 10/15/21 10/15/21 18:59 06:59 18:59 Intake Total 500 Output Total 705 2100 650 Balance -650 Weight 94.7 kg Intake: IV 500 Lactated Ringers 1,000 ml 500 @ 100 mls/hr IV .Q10H [facility] Rx#:[id number] Output: Urine 705 2100 650 Uretheral (Maddox) 650 Other: Voiding Method Indwelling Catheter Indwelling Catheter Indwelling Catheter ABP, PAP, CO, CI - Last Documented Arterial Blood Pressure 117/57 - Exam General: [non toxic], [no distress], [appears at stated age] Derm: [warm], [dry] Head: [atraumatic], [normocephalic], [symmetric], [c-collar intact] Eyes: [EOMI], [no lid lag], [anicteric sclera] Mouth: [no lip lesion], [mucus membranes moist] Cardiovascular: [S1S2 reg], [no murmur] Lungs: [CTA bilateral], [no rhonchi, no rales] , [no accessory muscle use] Ext: [no gross muscle atrophy], [no edema], [no contractures] Neuro: [no focal neuro deficits] Psych: [Alert], [oriented], [appropriate affect] - Labs CBC & Chem 7: 10/13/21 05:47 10/13/21 05:47 Labs: Abnormal Lab Results - Last 24 Hours (Table) 10/14/21 10/14/21 10/15/21 Range/Units 16:23 21:13 07:19 POC Glucose (mg/dL) 164 H 162 H 152 H (75-99) mg/dL /01/29 Range/Units 11:22 POC Glucose (mg/dL) 136 H (75-99) mg/dL Assessment and Plan Assessment: #C3 to C7 anterior cervical discectomy and fusion, posterior C2 to T2 decompression and fusion POD 2 #COPD #Diabetes mellitus #Hypertension #Obesity Continue Decadron IV. Continue Cymbalta and gabapentin. Flexeril as needed for spasm. Continue Tylenol, oxycodone, Dilaudid as needed for severe pain. Frequent neurochecks. PT and OT has been consulted to work with this patient. Management as per orthopedic surgery. DuoNeb as needed for shortness of breath and wheezing. Continue low-dose insulin sliding scale along with Accu-Cheks 4 times a day and hypoglycemic precautions. Restart lisinopril for history of hypertension. Monitor vitals, adjust medications if necessary. Patient would benefit from a structured weight loss program. DVT prophylaxis: [SCD] Discussed with: [Patient] Anticipated discharge: [2-3 days] Anticipated discharge place: [home] A total of [30] minutes was spent on the care of this complex patient more than 50% of the time was spent in counseling and care coordination. Plans for subacute rehab. Thank you for this consult. Please call [facility] with any questions or concerns.
[2021-10-15 16:34] LABS: Glucose,Whole Blood 174 mg/dL (75-99)
[2021-10-15 20:19] LABS: Glucose,Whole Blood 160 mg/dL (75-99)
[2021-10-16] MEDS: DEXAMETHASONE SOD PHOSPHATE 4 MG/ML 1 ML VIAL IV SCH ×3 (00:36→15:41)
[2021-10-16] MEDS: HEPARIN SODIUM,PORCINE/PF 5,000 UNIT/0.5 ML SYRINGE SQ SCH ×4 (00:36→23:52)
[2021-10-16 07:15] LABS: Glucose,Whole Blood 159 mg/dL (75-99)
[2021-10-16] MEDS: DULoxetine HCL 60 MG CAPSULE.DR PO SCH (07:45)
[2021-10-16] MEDS: lisinopriL 10 MG TAB PO SCH (07:45)
[2021-10-16] MEDS: PANTOPRAZOLE 40 MG TABLET PO SCH (07:45)
[2021-10-16] MEDS: CYCLOBENZAPRINE 10 MG TAB PO PRN ×2 (07:45→15:41)
[2021-10-16] MEDS: MULTIVITAMINS, THERA 1 EACH TAB PO SCH (07:45)
[2021-10-16] MEDS: GABAPENTIN 300 MG CAP PO SCH ×3 (07:45→21:32)
[2021-10-16] MEDS: metFORMIN 500 MG TAB PO SCH (07:45)
[2021-10-16] MEDS: INSULIN ASPART (NovoLOG) 100 UNIT/ML VIAL SQ SCH ×4 (07:46→21:31)
[2021-10-16] MEDS: SENNOSIDES-DOCUSATE SODIUM 1 EACH TAB PO PRN (07:46)
[2021-10-16] MEDS: LACTATED RINGERS 1,000 ML IV SCH ×3 (07:47→23:51)
[2021-10-16 07:56] LABS: Basophils % (A) 0 %; Eosinophils % (A) 0 %; HCT 36.1 % (39.0-53.0); HGB 11.6 gm/dL (13.0-17.5); Lymphocytes # (A) 0.9 k/uL (1.0-4.8); Lymphocytes % (A) 8 %; MCH 32.7 pg (25.0-35.0); MCHC 32.2 g/dL (31.0-37.0); MCV 101.6 fL (80.0-100.0); Mean Platelet Volume 7.3; Monocytes # (A) 0.3 k/uL (0-1.0); Monocytes % (A) 3 %; Neutrophils # (A) 9.4 k/uL (1.3-7.7); Neutrophils % (A) 87 %; Platelet Count 315 k/uL (150-450); RBC 3.55 m/uL (4.30-5.90); RDW 12.5 % (11.5-15.5); WBC 10.7 k/uL (3.8-10.6)
[2021-10-16 07:58] LABS: African American GFR (CKD) >90 (>60 ml/min/1.73 sqM); Anion Gap 5 mmol/L; Blood Urea Nitrogen 24 mg/dL (9-20); Calcium 9.6 mg/dL (8.4-10.2); Carbon Dioxide 32 mmol/L (22-30); Chloride 96 mmol/L (98-107); Glucose 179 mg/dL (74-99); Non-African American GFR(CKD) >90 (>60 ml/min/1.73 sqM); Potassium 4.3 mmol/L (3.5-5.1); Sodium 133 mmol/L (137-145)
--- NOTE | 2021-10-16 07:59 | P.PN ---
Subjective Progress Note Date: 10/16/21 Patient seen and examined this morning is sitting up in his chair eating breakfast he is doing fairly well. He states that he feels much better than he did yesterday in the day before and states that his hands are seeming to recover and even start to work better. He states a increase in sensation of 30% in his measurement. 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 He denies any new symptoms no new weakness no new numbness or tingling. He states that his knees and his back still hurts in his lower extremity still have pain but this is somewhat unrelated and has been like this for some time. He has not had a bowel movement yet however he is urinating without any issues. He denies any fevers chills shortness of breath or chest pain overnight. He denies any perineal numbness or tingling. He states he feels he is doing much better his pain is controlled and he is excited to continue recovering. Objective - Vital Signs Vital signs: Vital Signs Temp 98.3 F 10/16/21 01:28 Pulse 83 10/16/21 01:28 Resp 15 10/16/21 01:28 BP 142/87 10/16/21 01:28 Pulse Ox 94 L 10/16/21 01:28 Intake & Output 10/15/21 10/16/21 10/16/21 18:59 06:59 18:59 Output Total 650 500 Balance -650 -500 Output: Urine 650 500 Uretheral (Villasenor) 650 Other: Voiding Method Indwelling Catheter # Voids 1 3 # Bowel Movements 0 ABP, PAP, CO, CI - Last Documented Arterial Blood Pressure 117/57 - Exam Patient is alert and oriented 3 appears well-nourished well-hydrated is in no acute distress. They do not appear septic. On exam the patient has no tenderness to palpation of her thoracic or lumbar spine. There is no edema or ballottement sign. Lower extremities with 3+/5 strength in all major muscle groups Upper extremities show 4-/5 strength in all major muscle groups. Much improvement in upper extremity strength and mobility as well as coordination. Still with bilateral Danilo's and hyperreflexia however his control in his movements are much more fluid. 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 Cranial nerves II through XII are grossly intact. There is FROM that is painless of the b/l UE and LE in all major joints [w/o pain]. They are intact to light touch sensation in L2 to S1 nerve distribution. Patient has palpable dorsalis pedis was posterior tibial pulses. Compartments are soft and compressible. Dressings are clean and dry anterior and posterior drains of been removed no hematoma mild tenderness to palpation - Labs CBC & Chem 7: 10/13/21 05:47 10/13/21 05:47 Labs: Abnormal Lab Results - Last 24 Hours (Table) 10/15/21 10/15/21 10/15/21 Range/Units 11:22 16:32 20:17 POC Glucose (mg/dL) 136 H 174 H 160 H (75-99) mg/dL 10/16/21 Range/Units 07:13 POC Glucose (mg/dL) 159 H (75-99) mg/dL Assessment and Plan Assessment: IMPRESSION: 61-year-old male postoperative day 4 from anterior and posterior cervical fusion and decompression for cervical spondylotic myelopathy 1. Cervical spondylotic myelopathy .DX:Diagnosis: Cervical spondylosis with myelopathy : ICD10 = M47.12 / ICD9 = 721.1 .DX:Diagnosis: Cervical disc disorder with myelopathy : ICD10 = M50.00 / ICD9 = 722.71 / SNOMED = 80019780 2.Severe stenosis C3-7 .DX:Diagnosis: Degenerative cervical spinal stenosis : ICD10 = M48.02 / ICD9 = 723.0 / SNOMED = 483129385 3. C3-4 Grade I spondylolisthesis, unstable .DX:Diagnosis: Spondylolisthesis, cervical region : ICD10 = M43.12 / ICD9 = 738.4 / SNOMED = 523757764 4. B/L UE weakness .DX:Diagnosis: Weakness of bilateral upper extremities : ICD10 = M62.81 / SNOMED = 94559548973985807 5. B/L UE radiculopathy .DX:Diagnosis: Cervical radiculopathy : ICD10 = M54.12 / ICD9 = 723.4 / SNOMED = 40934381 6. B/L LE weakness .DX:Diagnosis: Muscle weakness of lower extremity : ICD10 = G83.10 / ICD9 = 728.87 / SNOMED = 195586528 7. B/L LE radiculopathy .DX:Diagnosis: Lumbar radiculopathy : ICD10 = M54.16 / ICD9 = 724.4 / SNOMED = 479613998 Plan: -Appreciate health management consultant and team management. -Activity: Ambulate QID, OOB all meals, up and about, limit lifting bending twisting to less than 5 lbs. Use walker or cane if needed for stability. -Daily PT/OT, increase ambulation strength and balance. -Hard cervical collar at all times -Pain control: Adequate at this time -Meds: Reviewed, wean steroids at this time -GI ppx: senna, Miralax, add docusate and/or mag citrate -DC villasenor when up and about, bedside commode if needed -DVT PPX: Continue heparin -Hygiene: Shower today. Maintain dressing clean and dry. Meticulous cleaning after BMs away from incision site -Encourage IS 10x/hr -Dispo: Discharge planning at this time likely for Saturday or for subacute rehab versus inpatient rehab depending on patient's ability to recover and mobility
[2021-10-16] MEDS ORDERED: MAGNESIUM CITRATE 296 ML BOTTLE PO ONE (08:00)
[2021-10-16] MEDS: HYDROmorphone 1 MG/ML 1 ML SYRINGE IVP PRN (10:13)
[2021-10-16 11:41] LABS: Glucose,Whole Blood 168 mg/dL (75-99)
[2021-10-16] MEDS ORDERED: DEXAMETHASONE SOD PHOSPHATE 4 MG/ML 1 ML VIAL IV SCH (12:00)
--- NOTE | 2021-10-16 14:36 | P.PN ---
Subjective Progress Note Date: 10/16/21 Principal diagnosis: Medical management Patient was seen and examined. He is POD 3 C3 to C7 anterior cervical discectomy and fusion, also posterior C2 to T2 decompression and fusion with Dr. Hernandez. He reports well controlled pain in his neck. Continued pins and needles sensation in his bilateral upper extremities. Objective - Vital Signs Vital signs: Vital Signs Temp 98.2 F 10/16/21 08:00 Pulse 83 10/16/21 08:00 Resp 16 10/16/21 08:00 BP 156/103 10/16/21 08:00 Pulse Ox 94 L 10/16/21 08:40 Intake & Output 10/15/21 10/16/21 10/16/21 18:59 06:59 18:59 Output Total 650 500 Balance -650 -500 Output: Urine 650 500 Uretheral (Maddox) 650 Other: Voiding Method Indwelling Catheter # Voids 1 3 # Bowel Movements 0 1 ABP, PAP, CO, CI - Last Documented Arterial Blood Pressure 117/57 - Exam General: [non toxic], [no distress], [appears at stated age] Derm: [warm], [dry] Head: [atraumatic], [normocephalic], [symmetric], [c-collar intact] Eyes: [EOMI], [no lid lag], [anicteric sclera] Mouth: [no lip lesion], [mucus membranes moist] Ext: [no gross muscle atrophy], [no edema], [no contractures] Neuro: [no focal neuro deficits] Psych: [Alert], [oriented], [appropriate affect] - Labs CBC & Chem 7: 10/16/21 07:22 10/16/21 07:22 Labs: Abnormal Lab Results - Last 24 Hours (Table) 10/15/21 10/15/21 10/16/21 Range/Units 16:32 20:17 07:13 WBC (3.8-10.6) k/uL RBC (4.30-5.90) m/uL Hgb (13.0-17.5) gm/dL Hct (39.0-53.0) % MCV (80.0-100.0) fL Neutrophils # (1.3-7.7) k/uL Lymphocytes # (1.0-4.8) k/uL Sodium (137-145) mmol/L Chloride (98-107) mmol/L Carbon Dioxide (22-30) mmol/L BUN (9-20) mg/dL Glucose (74-99) mg/dL POC Glucose (mg/dL) 174 H 160 H 159 H (75-99) mg/dL 10/16/21 10/16/21 10/16/21 Range/Units 07:22 07:22 11:41 WBC 10.7 H (3.8-10.6) k/uL RBC 3.55 L (4.30-5.90) m/uL Hgb 11.6 L (13.0-17.5) gm/dL Hct 36.1 L (39.0-53.0) % MCV 101.6 H (80.0-100.0) fL Neutrophils # 9.4 H (1.3-7.7) k/uL Lymphocytes # 0.9 L (1.0-4.8) k/uL Sodium 133 L (137-145) mmol/L Chloride 96 L (98-107) mmol/L Carbon Dioxide 32 H (22-30) mmol/L BUN 24 H (9-20) mg/dL Glucose 179 H (74-99) mg/dL POC Glucose (mg/dL) 168 H (75-99) mg/dL Assessment and Plan Assessment: #C3 to C7 anterior cervical discectomy and fusion, posterior C2 to T2 decompression and fusion POD 3 #Leukocytosis #COPD #Diabetes mellitus #Hypertension #Obesity Continue Decadron IV. Continue Cymbalta and gabapentin. Flexeril as needed for spasm. Continue Tylenol, oxycodone, Dilaudid as needed for severe pain. Frequent neurochecks. PT and OT has been consulted to work with this patient. Management as per orthopedic surgery. Leukocytosis likely related to steroids. No signs of infection. Continue to monitor. DuoNeb as needed for shortness of breath and wheezing. Continue low-dose insulin sliding scale along with Accu-Cheks 4 times a day and hypoglycemic precautions. Restart lisinopril for history of hypertension. Monitor vitals, adjust medications if necessary. Patient would benefit from a structured weight loss program. DVT prophylaxis: [SCD] Discussed with: [Patient] Anticipated discharge: [2-3 days] Anticipated discharge place: [SNF] A total of [15] minutes was spent on the care of this complex patient more than 50% of the time was spent in counseling and care coordination. Plans for subacute rehab. Thank you for this consult. Please call [facility] with any questions or concerns.
[2021-10-16 16:36] LABS: Glucose,Whole Blood 146 mg/dL (75-99)
[2021-10-16 20:15] LABS: Glucose,Whole Blood 176 mg/dL (75-99)
[2021-10-17] MEDS: DEXAMETHASONE SOD PHOSPHATE 4 MG/ML 1 ML VIAL IV SCH ×3 (00:36→17:11)
[2021-10-17] MEDS: HYDROmorphone 0.5 MG/0.5 ML SYRINGE IVP PRN (04:13)
[2021-10-17 07:13] LABS: Glucose,Whole Blood 155 mg/dL (75-99)
[2021-10-17] MEDS: MULTIVITAMINS, THERA 1 EACH TAB PO SCH (07:29)
[2021-10-17] MEDS: HEPARIN SODIUM,PORCINE/PF 5,000 UNIT/0.5 ML SYRINGE SQ SCH ×2 (07:29→16:43)
[2021-10-17] MEDS: GABAPENTIN 300 MG CAP PO SCH ×3 (07:29→21:01)
[2021-10-17] MEDS: lisinopriL 10 MG TAB PO SCH (07:29)
[2021-10-17] MEDS: PANTOPRAZOLE 40 MG TABLET PO SCH (07:29)
[2021-10-17] MEDS: DULoxetine HCL 60 MG CAPSULE.DR PO SCH (07:29)
[2021-10-17] MEDS: INSULIN ASPART (NovoLOG) 100 UNIT/ML VIAL SQ SCH ×4 (07:29→21:01)
[2021-10-17] MEDS: metFORMIN 500 MG TAB PO SCH (07:29)
[2021-10-17] MEDS: CYCLOBENZAPRINE 10 MG TAB PO PRN ×2 (08:30→17:10)
[2021-10-17 11:52] LABS: Glucose,Whole Blood 126 mg/dL (75-99)
--- NOTE | 2021-10-17 12:14 | P.PN ---
Subjective Progress Note Date: 10/17/21 Principal diagnosis: Medical management Patient was seen and examined. He is POD 4 C3 to C7 anterior cervical discectomy and fusion, also posterior C2 to T2 decompression and fusion with Dr. Hernandez. He reports well controlled pain in his neck. Continued pins and needles sensation in his bilateral upper extremities. Upset about insurance authorization for inpatient rehab. Objective - Vital Signs Vital signs: Vital Signs Temp 97.2 F L 10/17/21 09:30 Pulse 83 10/17/21 09:30 Resp 16 10/17/21 09:30 BP 159/85 10/17/21 09:30 Pulse Ox 97 10/17/21 09:30 Intake & Output 10/16/21 10/17/21 10/17/21 18:59 06:59 18:59 Intake Total 1080 480 Output Total 700 500 400 Balance 380 -500 80 Intake: Oral 1080 480 Output: Urine 700 500 400 Other: # Bowel Movements 1 ABP, PAP, CO, CI - Last Documented Arterial Blood Pressure 117/57 - Exam General: [non toxic], [no distress], [appears at stated age] Derm: [warm], [dry] Head: [atraumatic], [normocephalic], [symmetric], [c-collar intact] Eyes: [EOMI], [no lid lag], [anicteric sclera] Mouth: [no lip lesion], [mucus membranes moist] Ext: [no gross muscle atrophy], [no edema], [no contractures] Neuro: [no focal neuro deficits] Psych: [Alert], [oriented], [appropriate affect] - Labs CBC & Chem 7: 10/16/21 07:22 10/16/21 07:22 Labs: Abnormal Lab Results - Last 24 Hours (Table) 10/16/21 10/16/21 10/17/21 Range/Units 16:35 20:12 07:11 POC Glucose (mg/dL) 146 H 176 H 155 H (75-99) mg/dL 10/17/21 Range/Units 11:50 POC Glucose (mg/dL) 126 H (75-99) mg/dL Assessment and Plan Assessment: #C3 to C7 anterior cervical discectomy and fusion, posterior C2 to T2 decompression and fusion POD 3 #Leukocytosis #COPD #Diabetes mellitus #Hypertension #Obesity Continue Decadron IV. Continue Cymbalta and gabapentin. Flexeril as needed for spasm. Continue Tylenol, oxycodone, Dilaudid as needed for severe pain. Frequent neurochecks. PT and OT has been consulted to work with this patient. Management as per orthopedic surgery. Leukocytosis likely related to steroids. No signs of infection. Continue to monitor. DuoNeb as needed for shortness of breath and wheezing. Continue low-dose insulin sliding scale along with Accu-Cheks 4 times a day and hypoglycemic precautions. Restart lisinopril for history of hypertension. Monitor vitals, adjust medications if necessary. Patient would benefit from a structured weight loss program. DVT prophylaxis: [SCD] Discussed with: [Patient] Anticipated discharge: [2-3 days] Anticipated discharge place: [SNF] A total of [15] minutes was spent on the care of this complex patient more than 50% of the time was spent in counseling and care coordination. Plans for subacute rehab. Thank you for this consult. Please call [facility] with any questions or concerns.
--- NOTE | 2021-10-17 12:40 | P.PN ---
Subjective Progress Note Date: 10/17/21 Pt s/e doing well this AM. Still with weakness and tingling in his UE b/l but seems to continue to get better. He continues to work on his coordination and movement and he states it gets better every day. It is better at the begining of the day and gets fatigued by the end of the day. Denies any new sx. No bowel bladder issues. Still needs to BM. Urinating fine. No genital N/T. Objective - Vital Signs Vital signs: Vital Signs Temp 97.2 F L 10/17/21 09:30 Pulse 83 10/17/21 09:30 Resp 16 10/17/21 09:30 BP 159/85 10/17/21 09:30 Pulse Ox 97 10/17/21 09:30 Intake & Output 10/16/21 10/17/21 10/17/21 18:59 06:59 18:59 Intake Total 1080 480 Output Total 700 500 400 Balance 380 -500 80 Intake: Oral 1080 480 Output: Urine 700 500 400 Other: # Bowel Movements 1 ABP, PAP, CO, CI - Last Documented Arterial Blood Pressure 117/57 - Exam Exam Repeated today, no significant changes, possibly slightly less brisk hoffmans b/l, as below. Patient is alert and oriented 3 appears well-nourished well-hydrated is in no acute distress. They do not appear septic. On exam the patient has no tenderness to palpation of her thoracic or lumbar spine. There is no edema or ballottement sign. Lower extremities with 3+/5 strength in all major muscle groups Upper extremities show 4-/5 strength in all major muscle groups. Much improvement in upper extremity strength and mobility as well as coordination. Still with bilateral Danilo's and hyperreflexia however his control in his movements are much more fluid. 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 Cranial nerves II through XII are grossly intact. There is FROM that is painless of the b/l UE and LE in all major joints [w/o pain]. They are intact to light touch sensation in L2 to S1 nerve distribution. Patient has palpable dorsalis pedis was posterior tibial pulses. Compartments are soft and compressible. Dressings are clean and dry anterior and posterior drains of been removed no hematoma mild tenderness to palpation - Labs CBC & Chem 7: 10/16/21 07:22 10/16/21 07:22 Labs: Abnormal Lab Results - Last 24 Hours (Table) 10/16/21 10/16/21 10/17/21 Range/Units 16:35 20:12 07:11 POC Glucose (mg/dL) 146 H 176 H 155 H (75-99) mg/dL 10/17/21 Range/Units 11:50 POC Glucose (mg/dL) 126 H (75-99) mg/dL Assessment and Plan Assessment: IMPRESSION: 61-year-old male postoperative day 5 from anterior and posterior cervical fusion and decompression for cervical spondylotic myelopathy 1. Cervical spondylotic myelopathy .DX:Diagnosis: Cervical spondylosis with myelopathy : ICD10 = M47.12 / ICD9 = 7 21.1 .DX:Diagnosis: Cervical disc disorder with myelopathy : ICD10 = M50.00 / ICD9 = 722.71 / SNOMED = 37023090 2.Severe stenosis C3-7 .DX:Diagnosis: Degenerative cervical spinal stenosis : ICD10 = M48.02 / ICD9 = 723.0 / SNOMED = 282306030 3. C3-4 Grade I spondylolisthesis, unstable .DX:Diagnosis: Spondylolisthesis, cervical region : ICD10 = M43.12 / ICD9 = 738.4 / SNOMED = 966718585 4. B/L UE weakness .DX:Diagnosis: Weakness of bilateral upper extremities : ICD10 = M62.81 / SNOMED = [id number] 5. B/L UE radiculopathy .DX:Diagnosis: Cervical radiculopathy : ICD10 = M54.12 / ICD9 = 723.4 / SNOMED = 41374058 6. B/L LE weakness .DX:Diagnosis: Muscle weakness of lower extremity : ICD10 = G83.10 / ICD9 = 728.87 / SNOMED = 752299734 7. B/L LE radiculopathy .DX:Diagnosis: Lumbar radiculopathy : ICD10 = M54.16 / ICD9 = 724.4 / SNOMED = 813000790 Plan: -Appreciate service loss control consultant and team management. -Activity: Ambulate QID, OOB all meals, up and about, limit lifting bending twisting to less than 5 lbs. Use walker or cane if needed for stability. -Daily PT/OT, increase ambulation strength and balance. -Hard cervical collar at all times -Pain control: Adequate at this time -Meds: Reviewed, wean steroids at this time -GI ppx: senna, Miralax, add docusate and/or mag citrate -DC villasenor when up and about, bedside commode if needed -DVT PPX: Continue heparin -Hygiene: Shower today. Maintain dressing clean and dry. Meticulous cleaning after BMs away from incision site -Encourage IS 10x/hr -Dispo: Cont with DC planning for SNF vs [place] depending on insurance. Home does not seem like an option for him at this time.
[2021-10-17 15:56] LABS: Glucose,Whole Blood 226 mg/dL (75-99)
[2021-10-17] MEDS: LACTATED RINGERS 1,000 ML IV SCH ×2 (17:08→17:11)
[2021-10-17 20:57] LABS: Glucose,Whole Blood 147 mg/dL (75-99)
[2021-10-17] MEDS: HYDROmorphone 1 MG/ML 1 ML SYRINGE IVP PRN (21:08)
[2021-10-18] MEDS: DEXAMETHASONE SOD PHOSPHATE 4 MG/ML 1 ML VIAL IV SCH ×3 (00:52→17:33)
[2021-10-18] MEDS: HEPARIN SODIUM,PORCINE/PF 5,000 UNIT/0.5 ML SYRINGE SQ SCH ×4 (00:53→20:21)
[2021-10-18] MEDS: CYCLOBENZAPRINE 10 MG TAB PO PRN ×2 (00:53→20:30)
[2021-10-18] MEDS: LACTATED RINGERS 1,000 ML IV SCH ×2 (06:17→17:34)
[2021-10-18 07:10] LABS: Glucose,Whole Blood 146 mg/dL (75-99)
--- NOTE | 2021-10-18 08:09 | P.PN ---
Subjective Progress Note Date: 10/18/21 Principal diagnosis: Cervical Stenosis Mr Nani seen and examined today. Patient is currently sitting up in bed eating breakfast, tolerating well. He states his pain is controlled on current regimen. Patient reports increased sensation in right upper extremity and hand. Surgical dressings are clean dry and intact. Hard cervical collar is in place. Patient has been ambulatory within room using walker, resting well with PT. Patient reports concern about his discharge planning in that he has no one at home to help him. Reassured patient that our team with social work/case mgmt is working on a discharge plan and that we will hopefully have answers this afternoon. Patient verbalized understanding. Objective - Vital Signs Vital signs: Vital Signs Temp 98.0 F 10/18/21 02:00 Pulse 76 10/18/21 02:00 Resp 16 10/18/21 02:00 BP 130/81 10/18/21 02:00 Pulse Ox 97 10/18/21 02:00 Intake & Output 10/17/21 10/18/21 10/18/21 18:59 06:59 18:59 Intake Total 480 Output Total 400 550 Balance 80 -550 Intake: Oral 480 Output: Urine 400 550 Other: Voiding Method Urinal # Voids 1 3 ABP, PAP, CO, CI - Last Documented Arterial Blood Pressure 117/57 - Exam Physical Examination General: The patient is awake and alert, in no acute distress Skin: Skin is warm and dry with no obvious rashes or lesions. Hairy patches absent, no dorsal skin dimples, no cafe au lait spots. Anterior cervical surgical incision and Posterior cervical incision. Eye: Pupils are equal, round and reactive to light, extra-ocular movements are intact; there is normal conjunctiva bilaterally. Neck: Slight tenderness and ROM limited due to surgical procedure and Hard collar present. Cardiovascular: There is a regular rate and rhythm. No murmur, rub or gallop is appreciated. Respiratory: Lungs are clear to auscultation, respirations are non-labored, breath sounds are equal. Pt is intubated at this time. Gastrointestinal: Soft, non-distended, non-tender abdomen . Back: There is tenderness to palpation in the paralumbar region. There is no obvious deformity . Musculoskeletal: ROM limited secondary to pain and stiffness from surgical procedure. Shoulder abduction 3/5, elbow flexors 3/5, wrist dorsiflexors 3/5. finger abductor 3/5, loan servicing officer 2/5, hip flexor 4/5, knee flexor 4/5, ankle dorsiflexor 4/5, ankle plantarflexion 4/5 and extensor hallucis 4/5. Neurological: CN 2-12 intact. There are no obvious motor or sensory deficits. Movement and coordination equal and intact. Sensory exam to light touch intact C5-T1 and intact from L2-S1. Reflexes 2/4 in bilateral upper and lower extremities. Negative Hoffmans, babinski, and clonus signs. Psychiatric: Cooperative, appropriate mood & affect, normal judgment. - Labs CBC & Chem 7: 10/16/21 07:22 10/16/21 07:22 Labs: Abnormal Lab Results - Last 24 Hours (Table) 10/17/21 10/17/21 10/17/21 Range/Units 11:50 15:54 20:55 POC Glucose (mg/dL) 126 H 226 H 147 H (75-99) mg/dL 10/18/21 Range/Units 07:09 POC Glucose (mg/dL) 146 H (75-99) mg/dL Assessment and Plan Assessment: 1. Post Op Day 6: C3 to C7 anterior cervical discectomy and fusion, also Posterior C2 to T2 decompression and fusion 2. Cervical stenosis Plan: Plan: -Appreciate nursing consultant and team management. -Activity: Ambulate QID, OOB all meals, up and about, limit lifting bending twisting to less than 5 lbs. Use walker or cane if needed for stability. -Daily PT/OT, increase ambulation strength and balance. -Hard cervical collar at all times -Pain control: Adequate at this time -Meds: Reviewed, wean steroids at this time -GI ppx: senna, Miralax, add docusate and/or mag citrate -DC villasenor when up and about, bedside commode if needed -DVT PPX: Continue heparin -Hygiene: Shower today. Maintain dressing clean and dry. Meticulous cleaning after BMs away from incision site -Encourage IS 10x/hr -Dispo: Cont with [place] planning for SNF vs [place] depending on insurance. Home does not seem like an option for him at this time. *I reviewed and discussed this case with my attending Dr. Hernandez, whom has reviewed this chart and films and is in agreement with assessment and plan of care as outlined above. I have personally seen and examined the patient, performed the documentation and the assessment and plan as written. Number of minutes spent on the visit: 20 minutes. Time with Patient: Less than 30
[2021-10-18] MEDS: INSULIN ASPART (NovoLOG) 100 UNIT/ML VIAL SQ SCH ×4 (08:17→21:51)
[2021-10-18] MEDS: PANTOPRAZOLE 40 MG TABLET PO SCH (08:18)
[2021-10-18] MEDS: metFORMIN 500 MG TAB PO SCH (08:18)
[2021-10-18] MEDS: MULTIVITAMINS, THERA 1 EACH TAB PO SCH (08:18)
[2021-10-18] MEDS: GABAPENTIN 300 MG CAP PO SCH ×3 (08:18→20:21)
[2021-10-18] MEDS: lisinopriL 10 MG TAB PO SCH (08:18)
[2021-10-18] MEDS: DULoxetine HCL 60 MG CAPSULE.DR PO SCH (08:18)
[2021-10-18 11:26] LABS: Glucose,Whole Blood 109 mg/dL (75-99)
--- NOTE | 2021-10-18 11:48 | P.PN ---
Subjective Progress Note Date: 10/18/21 Principal diagnosis: Medical management Patient was seen and examined. He is POD 6 C3 to C7 anterior cervical discectomy and fusion, also posterior C2 to T2 decompression and fusion with Dr. Hernandez. He reports well controlled pain in his neck. Continued pins and needles sensation in his bilateral upper extremities, strength improved. Objective - Vital Signs Vital signs: Vital Signs Temp 98 F 10/18/21 08:06 Pulse 111 H 10/18/21 08:06 Resp 20 10/18/21 08:06 BP 156/97 10/18/21 08:06 Pulse Ox 98 10/18/21 08:06 Intake & Output 10/17/21 10/18/21 10/18/21 18:59 06:59 18:59 Intake Total 480 180 Output Total 400 550 Balance 80 -550 180 Intake: Oral 480 180 Output: Urine 400 550 Other: Voiding Method Urinal # Voids 1 3 ABP, PAP, CO, CI - Last Documented Arterial Blood Pressure 117/57 - Exam General: [non toxic], [no distress], [appears at stated age] Derm: [warm], [dry] Head: [atraumatic], [normocephalic], [symmetric], [c-collar intact] Eyes: [EOMI], [no lid lag], [anicteric sclera] Mouth: [no lip lesion], [mucus membranes moist] Ext: [no gross muscle atrophy], [no edema], [no contractures] Neuro: [no focal neuro deficits] Psych: [Alert], [oriented], [appropriate affect] - Labs CBC & Chem 7: 10/16/21 07:22 10/16/21 07:22 Labs: Abnormal Lab Results - Last 24 Hours (Table) 10/17/21 10/17/21 10/17/21 Range/Units 11:50 15:54 20:55 POC Glucose (mg/dL) 126 H 226 H 147 H (75-99) mg/dL 10/18/21 10/18/21 Range/Units 07:09 11:23 POC Glucose (mg/dL) 146 H 109 H (75-99) mg/dL Assessment and Plan Assessment: #C3 to C7 anterior cervical discectomy and fusion, posterior C2 to T2 decompression and fusion POD 6 #Leukocytosis #Hypochloremic metabolic alkalosis with hyponatremia and elevated BUN #COPD #Diabetes mellitus #Hypertension #Obesity Continue Decadron IV. Continue Cymbalta and gabapentin. Flexeril as needed for spasm. Continue Tylenol, oxycodone, Dilaudid as needed for severe pain. Frequent neurochecks. PT and OT has been consulted to work with this patient. Management as per orthopedic surgery. Leukocytosis likely related to steroids. No signs of infection. Repeat CBC tomorrow morning. Patient is not on diuretic. No vomiting or diarrhea. Repeat BMP tomorrow morning. DuoNeb as needed for shortness of breath and wheezing. Continue low-dose insulin sliding scale along with Accu-Cheks 4 times a day and hypoglycemic precautions. Restart lisinopril for history of hypertension. Monitor vitals, adjust medications if necessary. Patient would benefit from a structured weight loss program. DVT prophylaxis: [SCD] Discussed with: [Patient] Anticipated discharge: [1-2 days] Anticipated discharge place: [SNF] A total of [15] minutes was spent on the care of this complex patient more than 50% of the time was spent in counseling and care coordination. Plans for subacute rehab. Thank you for this consult. Please call [facility] with any questions or concerns.
[2021-10-18 13:12] VITALS: BMI 29.9
[2021-10-18 16:41] LABS: Glucose,Whole Blood 197 mg/dL (75-99)
[2021-10-18] MEDS: HYDROmorphone 1 MG/ML 1 ML SYRINGE IVP PRN ×2 (17:49→22:08)
[2021-10-18 21:28] LABS: Glucose,Whole Blood 164 mg/dL (75-99)
[2021-10-19] MEDS: LACTATED RINGERS 1,000 ML IV SCH ×3 (00:13→20:03)
[2021-10-19] MEDS: HYDROmorphone 1 MG/ML 1 ML SYRINGE IVP PRN ×4 (01:05→16:01)
[2021-10-19] MEDS: DEXAMETHASONE SOD PHOSPHATE 4 MG/ML 1 ML VIAL IV SCH ×4 (01:05→22:51)
[2021-10-19] MEDS: CYCLOBENZAPRINE 10 MG TAB PO PRN ×2 (05:10→21:35)
[2021-10-19 07:13] LABS: Glucose,Whole Blood 141 mg/dL (75-99)
[2021-10-19] MEDS: metFORMIN 500 MG TAB PO SCH (07:19)
[2021-10-19] MEDS: lisinopriL 10 MG TAB PO SCH (07:19)
[2021-10-19] MEDS: GABAPENTIN 300 MG CAP PO SCH ×3 (07:19→21:35)
[2021-10-19] MEDS: HEPARIN SODIUM,PORCINE/PF 5,000 UNIT/0.5 ML SYRINGE SQ SCH ×3 (07:20→22:51)
[2021-10-19] MEDS: PANTOPRAZOLE 40 MG TABLET PO SCH (07:20)
[2021-10-19] MEDS: DULoxetine HCL 60 MG CAPSULE.DR PO SCH (07:20)
[2021-10-19] MEDS: MULTIVITAMINS, THERA 1 EACH TAB PO SCH (07:20)
[2021-10-19] MEDS: INSULIN ASPART (NovoLOG) 100 UNIT/ML VIAL SQ SCH ×4 (07:22→21:34)
--- NOTE | 2021-10-19 07:40 | P.PN ---
Subjective Progress Note Date: 10/19/21 Principal diagnosis: Cervical Stenosis Mr Nani seen and examined today. Patient is currently sitting up at bedside eating breakfast, tolerating well. He denies any difficulty in swallowing. He states his pain is controlled on current regimen. Patient reports the sensation and functionality of his BUE continues to improve. Surgical dressings are clean dry and intact. Hard cervical collar is in place. Patient has been ambulatory within room using walker, resting well with PT. SW and patient have coordinated with [facility] for discharge planning. Transfer form from the [place] has been signed with the nurses station on 4[address]. Patient has been afebrile, denies and nausea/vomiting, or chest pain. Objective - Vital Signs Vital signs: Vital Signs Temp 97.6 F 10/19/21 07:14 Pulse 98 10/19/21 07:14 Resp 16 10/19/21 07:14 BP 156/95 10/19/21 07:14 Pulse Ox 97 10/19/21 07:14 Intake & Output 10/18/21 10/19/21 10/19/21 18:59 06:59 18:59 Intake Total 860 Output Total 600 Balance 260 Weight 94.7 kg Intake: Oral 860 Output: Urine 600 Other: Voiding Method Urinal # Voids 3 ABP, PAP, CO, CI - Last Documented Arterial Blood Pressure 117/57 - Exam Physical Examination General: The patient is awake and alert, in no acute distress Skin: Skin is warm and dry with no obvious rashes or lesions. Hairy patches absent, no dorsal skin dimples, no cafe au lait spots. Anterior cervical surgical incision and Posterior cervical incision. Eye: Pupils are equal, round and reactive to light, extra-ocular movements are intact; there is normal conjunctiva bilaterally. Neck: Slight tenderness and ROM limited due to surgical procedure and Hard collar present. Cardiovascular: There is a regular rate and rhythm. No murmur, rub or gallop is appreciated. Respiratory: Lungs are clear to auscultation, respirations are non-labored, breath sounds are equal. Pt is intubated at this time. Gastrointestinal: Soft, non-distended, non-tender abdomen . Back: There is tenderness to palpation in the paralumbar region. There is no obvious deformity . Musculoskeletal: ROM limited secondary to pain and stiffness from surgical procedure. Shoulder abduction 3/5, elbow flexors 3/5, wrist dorsiflexors 3/5. finger abductor 3/5, slurry worker 2/5, hip flexor 4/5, knee flexor 4/5, ankle dorsiflexor 4/5, ankle plantarflexion 4/5 and extensor hallucis 4/5. Neurological: CN 2-12 intact. There are no obvious motor or sensory deficits. Movement and coordination equal and intact. Sensory exam to light touch intact C5-T1 and intact from L2-S1. Reflexes 2/4 in bilateral upper and lower extremities. Negative Hoffmans, babinski, and clonus signs. Psychiatric: Cooperative, appropriate mood & affect, normal judgment. - Labs CBC & Chem 7: 10/16/21 07:22 10/16/21 07:22 Labs: Abnormal Lab Results - Last 24 Hours (Table) 10/18/21 10/18/21 10/18/21 Range/Units 11:23 16:38 21:27 POC Glucose (mg/dL) 109 H 197 H 164 H (75-99) mg/dL 10/19/21 Range/Units 07:12 POC Glucose (mg/dL) 141 H (75-99) mg/dL Assessment and Plan Assessment: 1. Post Op Day 7: C3 to C7 anterior cervical discectomy and fusion, also Posterior C2 to T2 decompression and fusion 2. Cervical stenosis Plan: Plan: -Appreciate advanced manufacturing consultant and team management. -Activity: Ambulate QID, OOB all meals, up and about, limit lifting bending twisting to less than 5 lbs. Use walker or cane if needed for stability. -Daily PT/OT, increase ambulation strength and balance. -Hard cervical collar at all times -Pain control: Adequate at this time -Meds: Reviewed, wean steroids at this time -GI ppx: senna, Miralax, add docusate and/or mag citrate -DC villasenor when up and about, bedside commode if needed -DVT PPX: Continue heparin -Hygiene: Shower today. Maintain dressing clean and dry. -Encourage IS 10x/hr -Dispo: [facility] *I reviewed and discussed this case with my attending Dr. Hernandez, whom has reviewed this chart and films and is in agreement with assessment and plan of care as outlined above. I have personally seen and examined the patient, performed the documentation and the assessment and plan as written. Number of minutes spent on the visit: 20 minutes. Time with Patient: Less than 30
[2021-10-19 09:30] LABS: HCT 38.7 % (39.6-50.0); HGB 12.8 g/dL (13.0-17.0); MCH 32.2 pg (27.0-32.0); MCHC 33.1 g/dL (32.0-37.0); MCV 97.5 fL (80.0-97.0); NRBC Per 100 WBC 0 /100 WBCS (0.0-0.0); Platelet Count 433 X 10*3/uL (140-440); RBC 3.97 X 10*6/uL (4.40-5.60); RDW 12.8 % (11.5-14.5); WBC 13.15 X 10*3/uL (4.50-10.00)
[2021-10-19 09:50] LABS: Anion Gap 9.5 mmol/L (10.00-18.00); BUN/Creat Ratio 28.57 Ratio (12.00-20.00); Carbon Dioxide 26.5 mmol/L (20.0-27.5); Non-African American GFR(CKD) 101.9 (60.0-200.0); Potassium 4.8 mmol/L (3.5-5.5)
[2021-10-19 11:48] LABS: Glucose,Whole Blood 120 mg/dL (75-99)
--- NOTE | 2021-10-19 12:46 | P.PN ---
Subjective Progress Note Date: 10/19/21 Principal diagnosis: Medical management Patient was seen and examined. He is POD 7 C3 to C7 anterior cervical discectomy and fusion, also posterior C2 to T2 decompression and fusion with Dr. Hernandez. He reports well controlled pain in his neck. Continued pins and needles sensation in his bilateral upper extremities, strength improved. Objective - Vital Signs Vital signs: Vital Signs Temp 97.6 F 10/19/21 07:14 Pulse 98 10/19/21 07:14 Resp 16 10/19/21 08:00 BP 156/95 10/19/21 07:14 Pulse Ox 97 10/19/21 07:14 Intake & Output 10/18/21 10/19/21 10/19/21 18:59 06:59 18:59 Intake Total 860 180 Output Total 600 Balance 260 180 Weight 94.7 kg Intake: Oral 860 180 Output: Urine 600 Other: Voiding Method Urinal Urinal # Voids 3 ABP, PAP, CO, CI - Last Documented Arterial Blood Pressure 117/57 - Exam General: [non toxic], [no distress], [appears at stated age] Derm: [warm], [dry] Head: [atraumatic], [normocephalic], [symmetric], [c-collar intact] Eyes: [EOMI], [no lid lag], [anicteric sclera] Mouth: [no lip lesion], [mucus membranes moist] Ext: [no gross muscle atrophy], [no edema], [no contractures] Neuro: [no focal neuro deficits] Psych: [Alert], [oriented], [appropriate affect] - Labs CBC & Chem 7: 10/19/21 05:22 10/19/21 05:22 Labs: Abnormal Lab Results - Last 24 Hours (Table) 10/18/21 10/18/21 10/19/21 Range/Units 16:38 21:27 05:22 WBC 13.15 H (4.50-10.00) X 10*3/uL RBC 3.97 L (4.40-5.60) X 10*6/uL Hgb 12.8 L (13.0-17.0) g/dL Hct 38.7 L (39.6-50.0) % MCV 97.5 H (80.0-97.0) fL MCH 32.2 H (27.0-32.0) pg Sodium (135-145) mmol/L Chloride (96-109) mmol/L Anion Gap (10.00-18.00) mmol/L BUN/Creatinine Ratio (12.00-20.00) Ratio Glucose (70-110) mg/dL POC Glucose (mg/dL) 197 H 164 H (75-99) mg/dL 10/19/21 10/19/21 10/19/21 Range/Units 05:22 07:12 11:46 WBC (4.50-10.00) X 10*3/uL RBC (4.40-5.60) X 10*6/uL Hgb (13.0-17.0) g/dL Hct (39.6-50.0) % MCV (80.0-97.0) fL MCH (27.0-32.0) pg Sodium 131 L (135-145) mmol/L Chloride 95 L (96-109) mmol/L Anion Gap 9.50 L (10.00-18.00) mmol/L BUN/Creatinine Ratio 28.57 H (12.00-20.00) Ratio Glucose 166 H (70-110) mg/dL POC Glucose (mg/dL) 141 H 120 H (75-99) mg/dL Assessment and Plan Assessment: #C3 to C7 anterior cervical discectomy and fusion, posterior C2 to T2 decompression and fusion POD 7 #Leukocytosis #Hypochloremic metabolic alkalosis with hyponatremia and elevated BUN #COPD #Diabetes mellitus #Hypertension #Obesity Continue Decadron IV. Continue Cymbalta and gabapentin. Flexeril as needed for spasm. Continue Tylenol, oxycodone, Dilaudid as needed for severe pain. Frequent neurochecks. PT and OT has been consulted to work with this patient. Management as per orthopedic surgery. Leukocytosis likely related to steroids. No signs of infection. Repeat CBC tomorrow morning. Patient is not on diuretic. No vomiting or diarrhea. Repeat BMP tomorrow morning. DuoNeb as needed for shortness of breath and wheezing. Continue low-dose insulin sliding scale along with Accu-Cheks 4 times a day and hypoglycemic precautions. Restart lisinopril for history of hypertension. Monitor vitals, adjust medications if necessary. Patient would benefit from a structured weight loss program. DVT prophylaxis: [SCD] Discussed with: [Patient] Anticipated discharge: [1-2 days] Anticipated discharge place: [SNF] A total of [15] minutes was spent on the care of this complex patient more than 50% of the time was spent in counseling and care coordination. Plans for subacute rehab. Thank you for this consult. Please call [facility] with any questions or concerns.
[2021-10-19 16:27] LABS: Glucose,Whole Blood 180 mg/dL (75-99)
[2021-10-19] MEDS: HYDROmorphone 0.5 MG/0.5 ML SYRINGE IVP PRN (20:10)
[2021-10-19 21:05] LABS: Glucose,Whole Blood 168 mg/dL (75-99)
[2021-10-19] MEDS: SENNOSIDES-DOCUSATE SODIUM 1 EACH TAB PO PRN (21:35)
[2021-10-20] MEDS: HYDROmorphone 0.5 MG/0.5 ML SYRINGE IVP PRN ×4 (05:42→17:19)
[2021-10-20] MEDS: LACTATED RINGERS 1,000 ML IV SCH ×2 (06:43→13:55)
[2021-10-20 07:22] LABS: Glucose,Whole Blood 120 mg/dL (75-99)
[2021-10-20] MEDS: INSULIN ASPART (NovoLOG) 100 UNIT/ML VIAL SQ SCH ×3 (07:27→17:18)
[2021-10-20] MEDS: HEPARIN SODIUM,PORCINE/PF 5,000 UNIT/0.5 ML SYRINGE SQ SCH ×2 (07:44→17:18)
[2021-10-20] MEDS: lisinopriL 10 MG TAB PO SCH (07:44)
[2021-10-20] MEDS: DEXAMETHASONE SOD PHOSPHATE 4 MG/ML 1 ML VIAL IV SCH ×2 (07:44→17:18)
[2021-10-20] MEDS: GABAPENTIN 300 MG CAP PO SCH ×2 (07:44→17:19)
[2021-10-20] MEDS: metFORMIN 500 MG TAB PO SCH (07:45)
[2021-10-20] MEDS: MULTIVITAMINS, THERA 1 EACH TAB PO SCH (07:45)
[2021-10-20] MEDS: PANTOPRAZOLE 40 MG TABLET PO SCH (07:45)
[2021-10-20] MEDS: DULoxetine HCL 60 MG CAPSULE.DR PO SCH (07:45)
[2021-10-20 08:08] VITALS: RESP 18
--- NOTE | 2021-10-20 08:27 | P.PN ---
Subjective Progress Note Date: 10/20/21 Patient seen and examined this morning he is doing fairly well use just about T breakfast. He states that his arms feel better every day they seem to get fatigued at the end of the day and then he declined slightly however at the beginning of the day than he feels much better. He continues to get better each day he states and he feels that he is happy so far with his surgical results. He questions about saturnino and removal of them and we discussed this at 2 weeks typically we can remove the saturnino out of the left side of his head today. He is going to rehab at some point and we are just waiting at this time to see where he will go. He has no other complaints at this time no fevers chills kasia rtness of breath or chest pain no other issues. Objective - Vital Signs Vital signs: Vital Signs Temp 97.8 F 10/20/21 08:00 Pulse 76 10/20/21 08:00 Resp 18 10/20/21 08:00 BP 144/83 10/20/21 08:00 Pulse Ox 98 10/20/21 08:00 Intake & Output 10/19/21 10/20/21 10/20/21 18:59 06:59 18:59 Intake Total 540 Balance 540 Intake: Oral 540 Other: Voiding Method Urinal Urinal # Voids 4 ABP, PAP, CO, CI - Last Documented Arterial Blood Pressure 117/57 - Exam Exam is repeated as stated below, today he continues to have increasing abilities with his bilateral hands and his dexterity continues to improve he still has slight contractures of the left ring and small finger however these are getting better. Danilo still present but less brisk. No clonus. Patient is alert and oriented 3 appears well-nourished well-hydrated is in no acute distress. They do not appear septic. On exam the patient has no tenderness to palpation of her thoracic or lumbar spine. There is no edema or ballottement sign. Lower extremities with 3+/5 strength in all major muscle groups Upper extremities show 4-/5 strength in all major muscle groups. Much improvement in upper extremity strength and mobility as well as coordination. Still with bilateral Danilo's and hyperreflexia however his control in his movements are much more fluid. His contractures of his left upper extremity and hand are improving and his band saw filer strength is improving [2]/4DTR LE b/l 3+ out of 4 DTR upper extremity bilaterally Positive Danilo's bilaterally still and brisk Negative clonus bilaterally upper and lower extremities Negative Homans bilaterally Negative Babinskis bilaterally No tensioning signs. Cranial nerves II through XII are grossly intact. There is FROM that is painless of the b/l UE and LE in all major joints [w/o pain]. They are intact to light touch sensation in L2 to S1 nerve distribution. Patient has palpable dorsalis pedis was posterior tibial pulses. Compartments are soft and compressible. Dressings are clean and dry anterior and posterior drains of been removed no hematoma mild tenderness to palpation - Labs CBC & Chem 7: 10/19/21 05:10/19/21 05:22 Labs: Abnormal Lab Results - Last 24 Hours (Table) 10/19/21 10/19/21 10/19/21 Range/Units 05: 05: 11:46 WBC 13.15 H (4.50-10.00) X 10*3/uL RBC 3.97 L (4.40-5.60) X 10*6/uL Hgb 12.8 L (13.0-17.0) g/dL Hct 38.7 L (39.6-50.0) % MCV 97.5 H (80.0-97.0) fL MCH 32.2 H (27.0-32.0) pg Sodium 131 L (135-145) mmol/L Chloride 95 L (96-109) mmol/L Anion Gap 9.50 L (10.00-18.00) mmol/L BUN/Creatinine Ratio 28.57 H (12.00-20.00) Ratio Glucose 166 H (70-110) mg/dL POC Glucose (mg/dL) 120 H (75-99) mg/dL 10/19/21 10/19/21 10/20/21 Range/Units 16:26 21:02 07:21 WBC (4.50-10.00) X 10*3/uL RBC (4.40-5.60) X 10*6/uL Hgb (13.0-17.0) g/dL Hct (39.6-50.0) % MCV (80.0-97.0) fL MCH (27.0-32.0) pg Sodium (135-145) mmol/L Chloride (96-109) mmol/L Anion Gap (10.00-18.00) mmol/L BUN/Creatinine Ratio (12.00-20.00) Ratio Glucose (70-110) mg/dL POC Glucose (mg/dL) 180 H 168 H 120 H (75-99) mg/dL Assessment and Plan Assessment: I MPRESSION: 61-year-old male postoperative day 8 from anterior and posterior cervical fusion and decompression for cervical spondylotic myelopathy 1. Cervical spondylotic myelopathy .DX:Diagnosis: Cervical spondylosis with myelopathy : ICD10 = M47.12 / ICD9 = 721.1 .DX:Diagnosis: Cervical disc disorder with myelopathy : ICD10 = M50.00 / ICD9 = 722.71 / SNOMED = 97650085 2.Severe stenosis C3-7 .DX:Diagnosis: Degenerative cervical spinal stenosis : ICD10 = M48.02 / ICD9 = 723.0 / SNOMED = 506006569 3. C3-4 Grade I spondylolisthesis, unstable .DX:Diagnosis: Spondylolisthesis, cervical region : ICD10 = M43.12 / ICD9 = 738.4 / SNOMED = 289946206 4. B/L UE weakness .DX:Diagnosis: Weakness of bilateral upper extremities : ICD10 = M62.81 / SNOMED = 58093086914224854 5. B/L UE radiculopathy .DX:Diagnosis: Cervical radiculopathy : ICD10 = M54.12 / ICD9 = 723.4 / SNOMED = 36821474 6. B/L LE weakness .DX:Diagnosis: Muscle weakness of lower extremity : ICD10 = G83.10 / ICD9 = 728.87 / SNOMED = 082074449 7. B/L LE radiculopathy .DX:Diagnosis: Lumbar radiculopathy : ICD10 = M54.16 / ICD9 = 724.4 / SNOMED = 097931947 Plan: -Appreciate revenue cycle consultant and team management. -Activity: Ambulate QID, OOB all meals, up and about, limit lifting bending twisting to less than 5 lbs. Use walker or cane if needed for stability. -Daily PT/OT, increase ambulation strength and balance. -Hard cervical collar at all times -Pain control: Adequate at this time -Meds: Reviewed, wean steroids at this time -GI ppx: Continue with current regiment -DVT PPX: Continue heparin -Hygiene: Shower today. Maintain dressing clean and dry. Meticulous cleaning after BMs away from incision site -Encourage IS 10x/hr -Remove saturnino from left side of head from pin site -Dispo: Stable for discharge to [facility] when available
--- NOTE | 2021-10-20 10:51 | P.PN ---
Subjective Progress Note Date: 10/20/21 Principal diagnosis: Medical management Patient was seen and examined. He is POD 8 C3 to C7 anterior cervical discectomy and fusion, also posterior C2 to T2 decompression and fusion with Dr. Hernandez. He reports well controlled pain in his neck. Continued pins and needles sensation in his bilateral upper extremities, strength improved. Objective - Vital Signs Vital signs: Vital Signs Temp 97.8 F 10/20/21 08:00 Pulse 76 10/20/21 08:00 Resp 18 10/20/21 08:00 BP 144/83 10/20/21 08:00 Pulse Ox 98 10/20/21 08:00 Intake & Output 10/19/21 10/20/21 10/20/21 18:59 06:59 18:59 Intake Total 540 Balance 540 Intake: Oral 540 Other: Voiding Method Urinal Urinal # Voids 4 ABP, PAP, CO, CI - Last Documented Arterial Blood Pressure 117/57 - Exam General: [non toxic], [no distress], [appears at stated age] Derm: [warm], [dry] Head: [atraumatic], [normocephalic], [symmetric], [c-collar intact] Eyes: [EOMI], [no lid lag], [anicteric sclera] Mouth: [no lip lesion], [mucus membranes moist] Ext: [no gross muscle atrophy], [no edema], [no contractures] Neuro: [no focal neuro deficits] Psych: [Alert], [oriented], [appropriate affect] - Labs CBC & Chem 7: 10/19/21 05:22 10/19/21 05:22 Labs: Abnormal Lab Results - Last 24 Hours (Table) 10/19/21 10/19/21 10/19/21 Range/Units 11:46 16:26 21:02 POC Glucose (mg/dL) 120 H 180 H 168 H (75-99) mg/dL 10/20/21 Range/Units 07:21 POC Glucose (mg/dL) 120 H (75-99) mg/dL Assessment and Plan Assessment: #C3 to C7 anterior cervical discectomy and fusion, posterior C2 to T2 decompression and fusion POD 8 #Leukocytosis #Hypochloremic hyponatremia #COPD #Diabetes mellitus #Hypertension #Obesity Resolved: Elevated BUN, Metabolic alkalosis Continue Decadron IV (being weaned off). Continue Cymbalta and gabapentin. Flexeril as needed for spasm. Continue Tylenol, oxycodone, Dilaudid as needed for severe pain. Frequent neurochecks. PT and OT has been consulted to work with this patient. Management as per orthopedic surgery. Leukocytosis likely related to steroids. No signs of infection. Repeat CBC tomorrow morning. Patient is not on diuretic. No vomiting or diarrhea. Repeat BMP tomorrow morning. DuoNeb as needed for shortness of breath and wheezing. Continue low-dose insulin sliding scale along with Accu-Cheks 4 times a day and hypoglycemic precautions. Restart lisinopril for history of hypertension. Monitor vitals, adjust medications if necessary. Patient would benefit from a structured weight loss program. DVT prophylaxis: [SCD] Discussed with: [Patient, Case management] Anticipated discharge: [1-2 days] Anticipated discharge place: [SNF] A total of [15] minutes was spent on the care of this complex patient more than 50% of the time was spent in counseling and care coordination. Plans for subacute rehab. Thank you for this consult. Please call [facility] with any questions or concerns.
[2021-10-20 11:49] LABS: Glucose,Whole Blood 167 mg/dL (75-99)
--- NOTE | 2021-10-20 13:50 | P.DS ---
Providers Date of admission: 10/12/21 08:51 Expected date of discharge: 10/20/21 Attending physician: Ed Hernandez DO Consults: 10/12/21 19:27 Consult Physician Routine Consulting Provider: Karla Purdy Consult Reason/Comments: Medical Management s/p C3-C7 ACDF & C2-T2 Decompression/fusion Do you want consulting provider notified?: Yes 10/12/21 21:44 Consult Physician Routine Consulting Provider: Kristyn Rizo Reason/Comments: ICU managment Do you want consulting provider notified?: Already Contacted Primary care physician: [facility] Course: Hospital Course: The patient was evaluated preoperatively and found to have the diagnosis of cervical spondylosis, cervical stenosis. They underwent appropriate preoperative care and were willing to undergo the intended procedure. They underwent a successful anterior cervical discectomy and fusion C3 to C7, were recovered appropriately and sent to the floor. While on the floor they worked with physical therapy, occupational therapy and nursing to enhance their recovery experience. Their pain was well controlled through their stay and they were started on appropriate medications, DVT ppx modalities, activity and dietary needs. Daily labs were monitored closely, and transfusions were only used when necessary. Medicine as well as other consulting services have made their input and have helped with our team approach and multidisciplinary care. PT milestones have been met and passed and they have made the recommendation of subacute rehab for this patient and treating providers agree with this care path. The patient will be discharged home with appropriate medications, instructions and follow-up information and in stable condition. Patient Condition at Discharge: Good Plan - Discharge Summary Discharge Rx Participant: Yes New Discharge Prescriptions: New cefaDROXiL [Duricef] 500 mg PO Q12HR 5 Days #10 cap Gabapentin 300 mg PO TID #90 cap oxyCODONE HCL [OxyIR] 5 mg PO Q4-6H PRN #56 tab PRN Reason: Pain Sennosides-Docusate Sodium [Senokot-S] 2 each PO DAILY PRN tab PRN Reason: Constipation Cyclobenzaprine [Flexeril] 5 mg PO TID #90 tablet Continue Multivitamins, Thera [Multivitamin (formulary)] 1 tab PO DAILY Acetaminophen [Tylenol] 1,000 mg PO TID Omeprazole 20 mg PO QAM Lisinopril [Zestril] 10 mg PO QAM metFORMIN HCL [Glucophage] 500 mg PO DAILY DULoxetine HCL [Cymbalta] 60 mg PO QAM Celecoxib [CeleBREX] 100 mg PO BID Discontinued Gabapentin [Neurontin] 100 mg PO TID Discharge Medication List Acetaminophen [Tylenol] 1,000 mg PO TID 08/25/19 [History] Lisinopril [Zestril] 10 mg PO QAM 08/25/19 [History] Multivitamins, Thera [Multivitamin (formulary)] 1 tab PO DAILY 08/25/19 [History] Omeprazole 20 mg PO QAM 08/25/19 [History] DULoxetine HCL [Cymbalta] 60 mg PO QAM 10/10/21 [History] Celecoxib [CeleBREX] 100 mg PO BID 10/12/21 [History] metFORMIN HCL [Glucophage] 500 mg PO DAILY 10/12/21 [History] Cyclobenzaprine [Flexeril] 5 mg PO TID #90 tablet 10/20/21 [Rx] Gabapentin 300 mg PO TID #90 cap 10/20/21 [Rx] Sennosides-Docusate Sodium [Senokot-S] 2 each PO DAILY PRN tab 10/20/21 [Rx] cefaDROXiL [Duricef] 500 mg PO Q12HR 5 Days #10 cap 10/20/21 [Rx] oxyCODONE HCL [OxyIR] 5 mg PO Q4-6H PRN #56 tab 10/20/21 [Rx] Follow up Appointment(s)/Referral(s): Ed Hernandez DO [Doctor of Osteopathic Medicine] - 2 Weeks Activity/Diet/Wound Care/Special Instructions: Spine Discharge and Recovery Instructions Date of Surgery: 10/12/2021 Diagnosis: Cervical spondylosis, cervical stenosis Procedure: Anterior cervical discectomy and fusion C3 to C7 Medications: See medication list All medication refills should be obtained through your primary care doctor or your clinic spine surgeon. Please discuss prescription refills at your follow up appointment. Do not call the hospital for medication refills. Dressing: Leave your dressing in place for a total of 5 days post operatively. Then you may remove your dressing and leave open to air. Keep the area clean and if not able to keep area clean, then cover with sterile gauze and tape. Showering: You may shower 3 days after your procedure allowing soap and water to run over incision. Do not scrub. Do not soak. Blot dry. Follow up: Please confirm a follow up appointment with your surgeon 3 weeks post ope ratively. Please make an appointment to follow up with your PCP in 1-2 weeks after surgery for evaluation 3 phase, 3-week plan POST OP WEEKS 1-3 ANY SUTURES MAY BE REMOVED POST OP WEEK 2, IF PT STILL IN REHAB 1. Lifting/carrying/pushing/pulling limited to less than 5 pounds. 2. Do not sit for longer than 15 minutes at one time. Get up and walk around. Prolonged sitting is NOT advised. If you lay down, see if you can tolerate laying down on you front (belly side) 3. Walk for periods of 15 minutes = 1 mile but no longer; do it multiple times times each day. 4. Ice your low back after activity. POST OP WEEKS 3-6 1. Lifting limited to less than 20 pounds. 2. Do not sit for longer than 30 minutes at a time. Frequently change positions. Use a sit-to stand workstation or take frequent breaks from sitting if you have returned to work. 3. Walk for 30 minutes each day. If possible, do these three or more times a day POST OP WEEKS 6+ At your 6-week appointment we will give you a physical therapy referral to focus on a core stabilization and strengthening program. You should also work on leg & buttock strengthening, hamstring & quadriceps stretching, and continue a low impact aerobic activity program such as swimming, walking, or riding a stationary bicycle. During the initial 6 weeks after your surgery, you are at the highest risk of re-injuring your spine. You should generally avoid BLTs (bending, lifting and twisting combination motions) and follow the above guidelines to reduce the chance of reinjury. You can anticipate post op appointments in our office at approximately 3 weeks and 6 weeks after your surgery. INCISION CARE: If your incision is not draining you do NOT need to cover it with a dressing. Keep your incision clean, dry and intact. In most cases, we apply skin glue, saturnino or sutures to the incision at the time of surgery. This will be like a crust or have the appearance of a scab and will fall off in time on its own. The stitches or saturnino need to be removed at 3 weeks post op appointment. You may begin to shower 3 days after surgery (this allows the glue to trivedi well). However, please avoid scrubbing the incision site or peeling off any of the skin glue. This will ensure optimal healing of your incision. Also, during this time avoid soaking the incision area in water - this includes swimming pools, hot tubs or baths. No ointments, lotions or oils on the incision until your surgeon allows. Leave saturnino, sutures or glue in place. Neurological dysfunction that comes on suddenly can also be a sign of a stroke. Below some common symptoms of a stroke are listed: B - balance difficulty such as sudden onset walking or leaning to one side - NEW E - eye problem such as sudden double vision or trouble seeing on one side - NEW F - Facial weakness or numbness on one side - NEW A - Arm or leg weakness or numbness on one side - NEW S - Slurred speech or difficulty with word finding - NEW T - Time is BRAIN! Call 911 as soon as you recognize these symptoms Diet: Consume a regular diet rich in vegetables and lean protein such as chicken or fish. You should consume in a ratio of approximately 20% fats|40% carbohydrates|40%protein. Vegetables, sweet potatoes, brown rice or quinoa are examples of good carbohydrates. Chips, white bread, cookies and sweets/sugar are examples of bad carbohydrates. Limit your bad carbs, go wild with good carbs. "Life's Simple 7" Guidelines as per [place] [employer] These will help you reclaim your life after surgery and machine hoop maker helper in your recovery, keeping in mind your restrictions. (1) Get Active. Physical activity can help people lose weight, control high blood pressure and cholesterol, feel emotionally better, and sleep better. (2) Control Cholesterol. Avoid a diet high in saturated fat, trans fat, & cholesterol. Limit whole milk & cream, ice cream, butter, egg yolks, processed meats (like sausage and hot dogs), and fatty meats. Choose healthy foods that are low in saturated fat, trans fat and cholesterol which include: Fruits and vegetables, fiber rich grain products (like whole grain pasta and brown rice), lean meat such as chicken, fish, nuts, seeds, and legumes. (3) Eat Better. Eat small portions. Shop at the grocery with a list and do not stray from it. Tips for a healthy diet include: Limit sodium intake to less than 1500mg daily, avoid prepackaged, processed, and fast foods, choose a diet rich in fruits, vegetables, and whole grain, high fiber foods, and limit saturated & cholesterol in your diet. (4) Manage Blood Pressure. If you have high blood pressure, you should have a cuff at home so that you can check your blood pressure regularly. Be sure you have a good cuff. An arm one is generally better than a wrist one. Bring the cuff to a doctor's appointment to validate that the measurements that your cuff are taking are accurate. Take your blood pressure twice daily when you are sitting down and relaxing. Record the numbers in a log and bring this log with you to your doctors' appointments. (5) Lose Weight if your BMI is above 25. A healthy BMI is between 19-25. To calculate Your BMI, you may use a Standard BMI Calculator on the NIH BMI website: <www.nhlbi.nih.gov/guidelines/obesity/BMI/bmicalc.htm>. Weigh oneself daily. If you are overweight, set a goal to lose weight. A pound a week loss if needed is a good target. (6) Reduce Blood Sugar. Limit foods and liquids with "added sugars." (Added sugars include sucrose, fructose, glucose, maltose, dextrose, high fructose corn syrup, corn syrup, concentrated fruit juice and honey). (7) Stop Smoking. If you smoke, quitting smoking is one of the best things that you can do for your health. Smoking increases your risk of heart attack, stroke, and peripheral vascular disease, which is a build-up of plaque in your arteries. Please discard all the cigarettes and lighters in your house. Have a plan for what you will do when you have the urge to smoke. Direct and second- hand smoke shortens your life as well as the lives of your family, friends and others around you. For your health and the health of those around you, please consider quitting! Proper Bending Body Mechanics: Maintain a wide stance with one foot slightly in front of the other. Keep your back straight. Bend utilizing the strength in your hips and knees. Do not bend at the waist. Maintain the lifted object at your waist-level close to your body. Avoid lifting weight that causes immediately pain or pain anywhere in the body afterwards. Smoking/Nicotine If there was ever one thing that you could do to increase your overall health, decrease your risk of cardiovascular problems by about 39% the second you make the choice, it is to STOP SMOKING. Your body's most instant gratification is the second you stop smoking. We have all heard the studies, read the articles but it is true, smoking is extremely bad for your overall health, and moreover it is detrimental to your bone health. Nicotine, IN ANY FORM, kills bone cells, prevents your body from healing fractures, and significantly prolongs healing after surgery. In spine surgery specifically, it increases your risk of not healing your bones to create a fusion and increases your risk of having a revision surgery due to this up to 60%. I know it is hard. I know it feels impossible. But there are ways. Take control of your life. We are here to help you through it. And when you are ready, ask us and we can direct you to help if you desire. Use the START Plan to Quit Smoking (please visit the [employer] website listed below for more information): S = Set a quit date. Choose a date within the next 2 weeks, so you have enough time to prepare without losing your motivation to quit. If you mainly smoke at work, quit on the weekend, so you have a few days to adjust to the change. T = Tell family, friends, and co-workers that you plan to quit. Let your friends and family in on your plan to quit smoking and tell them you need their support and encouragement to stop. Look for a quit abdiaziz who wants to stop smoking as well. You can help each other get through the rough times. A = Anticipate and plan for the challenges you'll face while quitting. Most people who begin smoking again do so within the first 3 months. You can help yourself make it through by preparing ahead for common challenges, such as nicotine withdrawal and cigarette cravings. R = Remove cigarettes and other tobacco products from your home, car, and work. Throw away all your cigarettes (no emergency pack!), lighters, ashtrays, and matches. Wash your clothes and freshen up anything that smells like smoke. Shampoo your car, clean your drapes and carpet, and steam your furniture. T = Talk to your doctor about getting help to quit. Your doctor can prescribe medication to help with withdrawal and suggest other alternatives. If you can't see a doctor, you can get many products over the counter at your local pharmacy or grocery store, including the nicotine patch, nicotine lozenges, and nicotine gum. Resources for Quitting Smoking: <https://www.[place].gov/documents/[facility]/Quit_Tobacco_Resources_for_patients_313 480_7.pdf> Supplementation: Take recommended dosages of Vitamin D and Calcium to help fortify your bones and help them to heal. See your health maintenance packet for dosages and recommended levels. DVT/VTE prophylaxis: You will be given compression stockings from the hospital. Wear these daily for the first two weeks after surgery. You may take them off at night. You may be prescribed a medication to help thin your blood. Take this as directed. If you are not prescribed this medication, early and frequent ambulation has been shown to be the best prophylaxis to deep vein thrombosis and sequelae related to this event. Discharge Disposition: TRANSFER TO SNF/ECF
[2021-10-20 15:07] VITALS: BP 117/77; PULSE 115; TEMP 97.7
[2021-10-20 16:29] LABS: Glucose,Whole Blood 244 mg/dL (75-99)
== END 2021-10-20 18:24 | DRG 454 ==
LOC: 2ORMAIN 08:51 → 2SICU 20:38 → 4SSUR 10-14 12:59
PROVIDERS: ADMIT Orthopaedic Surgery; ATTEND Orthopaedic Surgery
PROC: 0RG20A0 Fusion of 2 or more Cervical Vertebral Joints with Interbody Fusion Device, Anterior Approach, Anterior Column, Open Approach (ICD-10-PCS; principal; 2021-10-12 10:30)
PROC: 0RT30ZZ Resection of Cervical Vertebral Disc, Open Approach (ICD-10-PCS; principal; 2021-10-12 10:30)
PROC: 0RG4071 Fusion of Cervicothoracic Vertebral Joint with Autologous Tissue Substitute, Posterior Approach, Posterior Column, Open Approach (ICD-10-PCS; principal; 2021-10-12 10:30)
PROC: 0RG107J Fusion of Cervical Vertebral Joint with Autologous Tissue Substitute, Posterior Approach, Anterior Column, Open Approach (ICD-10-PCS; principal; 2021-10-12 10:30)
PROC: 4A11X4G Monitoring of Peripheral Nervous Electrical Activity, Intraoperative, External Approach (ICD-10-PCS; principal; 2021-10-12 10:30)
PROC: 00NW0ZZ Release Cervical Spinal Cord, Open Approach (ICD-10-PCS; principal; 2021-10-12 10:30)
DX: M48.02 Spinal stenosis, cervical region (principal); M47.12 Other spondylosis with myelopathy, cervical region; G95.89 Other specified diseases of spinal cord; M50.01 Cervical disc disorder with myelopathy, high cervical region; E87.1 Hypo-osmolality and hyponatremia; E87.3 Alkalosis; B36.0 Pityriasis versicolor; E11.9 Type 2 diabetes mellitus without complications; J44.9 Chronic obstructive pulmonary disease, unspecified; Z20.822 Contact with and (suspected) exposure to COVID-19; E87.8 Other disorders of electrolyte and fluid balance, not elsewhere classified; E66.9 Obesity, unspecified; M43.12 Spondylolisthesis, cervical region; M47.22 Other spondylosis with radiculopathy, cervical region; G47.9 Sleep disorder, unspecified; I10 Essential (primary) hypertension; Z68.30 Body mass index [BMI] 30.0-30.9, adult; M47.817 Spondylosis without myelopathy or radiculopathy, lumbosacral region; M54.16 Radiculopathy, lumbar region; M17.12 Unilateral primary osteoarthritis, left knee; F43.10 Post-traumatic stress disorder, unspecified; K21.9 Gastro-esophageal reflux disease without esophagitis; H91.90 Unspecified hearing loss, unspecified ear; H93.19 Tinnitus, unspecified ear; D72.829 Elevated white blood cell count, unspecified; T38.0X5A Adverse effect of glucocorticoids and synthetic analogues, initial encounter; R94.4 Abnormal results of kidney function studies; Z79.1 Long term (current) use of non-steroidal anti-inflammatories (NSAID); Z79.84 Long term (current) use of oral hypoglycemic drugs; Z79.899 Other long term (current) drug therapy; Z99.3 Dependence on wheelchair; Z98.818 Other dental procedure status; Z87.39 Personal history of other diseases of the musculoskeletal system and connective tissue; Z87.891 Personal history of nicotine dependence; Z98.890 Other specified postprocedural states; Z71.3 Dietary counseling and surveillance; Z91.018 Allergy to other foods; Z91.048 Other nonmedicinal substance allergy status
CPT/HCPCS: 71045; 72040; 72125; 80048; 82805; 85025; 85027; 86850; 86900; 86901; 87635; 94002; 94003; 94760

== ENCOUNTER → 2022-05-02 | Outpatient (CLI) | payer OTHER ==
--- NOTE | 2022-05-02 13:12 | MR ---
EXAMINATION TYPE: MR lumbar spine wo con DATE OF EXAM: 05/02/2022 COMPARISON: 04/17/2021 HISTORY: Lower back pain, RLE radiculopathy. TECHNIQUE: Multiplanar, multisequence images of the lumbar spine were acquired without IV contrast. L1-L2: Mild to moderate decreased signal ossified compatible degenerative disc disease. No herniation , protrusion or disc bulging. No canal stenosis is present. Foramina are patent bilaterally. L2-L3: Moderate decreased signal ossified compatible degenerative disc disease. Left paracentral disc bulge without central stenosis or disc herniation. No evidence for lateral recess stenosis. Facet ilene int arthropathy resulting in mild left foraminal encroachment. L3-L4: Severe disc desiccation with vacuum disks noted. Degenerative endplate marrow change. Moderate posterior disc bulge with hypertrophy of the ligamentum flavum and facet joint arthropathy contribut ing to [id number] central stenosis. Bilateral foraminal encroachment noted. L4-L5: Severe disc desiccation with vacuum disks noted. Degenerative endplate marrow change. Moderate posterior disc bulge with hypertrophy of the ligamentum flavum and facet joint arthropathy contribut ing to moderate to severe central stenosis. Bilateral foraminal encroachment noted. L5-S1: Severe degenerative disc desiccation. Degenerative endplate marrow change. Posterior disc bulg e. Effacement ventral thecal sac. No evidence for central stenosis or lateral recess stenosis. Facet joint arthropathy resulting in mild bilateral foraminal encroachment. Lumbar segments are intact. No paraspinal masses are identified. Conus medullaris has a normal appe arance. IMPRESSION: 1. Multilevel degenerative disc disease. 2. Central stenosis at L3-4 and L4-5 as outlined above.
== END | disposition home or self-care (01) ==
LOC: RADMRIMAIN 10:27
PROVIDERS: ATTEND Orthopaedic Surgery
DX: M51.16 Intervertebral disc disorders with radiculopathy, lumbar region (principal); M48.061 Spinal stenosis, lumbar region without neurogenic claudication; M54.50 Low back pain, unspecified
CPT/HCPCS: 72148

== ENCOUNTER 2023-04-17 11:06 | Day surgery (SDC) | payer OTHER ==
--- NOTE | 2023-04-15 09:10 | P.HPOR ---
History of Present Illness H&P Date: 04/15/23 Subjective: This is a 62 year old male that presents today for follow up evaluation regarding a 2 year history of bilateral wrist pain and numbness and tingling in the palms involving all fingers. He has an extensive orthopedic spine history with surgery in both the cervical, thoracic and lumbar regions. He has had a C3- C7 ACDF and Part 2: C2-T2 Decompression and Fusion on 10/12/2021 and has noticed improvement in his strength but still has numbness in the palms and finger tips of all fingers he states and has noticed weakness and atrophy specifically in the left hand. He has tried bracing with no relief. Physical Examination: LUE: AIN/PIN/Radial/Ulnar/Median motor intact. Radial/Ulnar/Median SILT. 2+/4 Radial/Ulnar pulses palpated. 4/5 APB, 0/5 FDI. Negative Finkelsteins, negative CMC grind, positive Durkan's compression. Positive tinels at cubital tunnel. RUE: AIN/PIN/Radial/Ulnar/Median motor intact. Radial/Ulnar/Median SILT. 2+/4 Radial/Ulnar pulses palpated. 5/5 APB, 5/5 FDI. Negative Finkelsteins, negative CMC grind, positive Durkan's compression. Positive tinels at cubital tunnel EMG/NCV: EMG and nerve conduction velocity testing performed in October of 2022 demonstrates right carpal tunnel syndrome and right cubital tunnel syndrome. Left-sided studies reveal left carpal tunnel syndrome and left cubital tunnel syndrome with atrophy present at first dorsal interosseus muscle. Impression: 1.) B/L Carpal tunnel syndrome 2.) B/L Cubital tunnel syndrome Plan: Diagnosis and treatment options were discussed with the patient. We discussed most recent EMG and nerve conduction velocity test findings consistent with severe cubital tunnel syndrome on the left side with atrophy and without atrophy on the right side, as well as bilateral carpal tunnel syndrome. We discussed due to the over lapping cervical and thoracic pathology that he has he may not get complete relief from his symptoms but I believe he will will still benefit greatly from bilateral open cubital tunnel release and bilateral carpal tunnel release to halt further progression and improve his symptoms. Risks and benefits of surgery including bleeding, infection, damage to surrounding tissue, need for further surgery, possible need to convert to open procedure, residual numbness were discussed and the patient wished to go forward with surgery. He is ortiz eduled for a left endoscopic vs open carpal tunnel release and a left open cubital tunnel release followed by the same right sided procedure 8 weeks later. The patient was agreeable with this plan. CC: Betsy Harvey PROFESSOR OF PHILOSOPHY -Rodolfo Yoo DO Orthopedic Hand/Upper Extremity Surgeon Past Medical History Past Medical History: COPD, Diabetes Mellitus, GERD/Reflux, Hearing Disorder / Deafness, Hypertension, Osteoarthritis (OA) Additional Past Medical History / Comment(s): Tinea Versicolor(fungal infection) with continued skin discoloration. Tinnitis. Sleeps with a mouth guard in. History of Any Multi-Drug Resistant Organisms: None Reported Past Surgical History: Unable to Obtain Additional Past Surgical History / Comment(s): Arthroscopy bilateral knees X2, wisdom teeth extracted. Past Anesthesia/Blood Transfusion Reactions: No Reported Reaction Additional Past Anesthesia/Blood Transfusion Reaction / Comment(s): In 1994 with first arthroscopy had general anesthesia, was discharged and had difficulty breathing in parking lot, went back in to ER, ER Dr stated "it was related to throat swelling after extubation." Has had no general anesthesia after that procedure. Past Alcohol Use History: Rare - Past Family History Mother Family Medical History: No Reported History Medications and Allergies Home Medications Medication Instructions Recorded Confirmed Type Acetaminophen [Tylenol] 1,000 mg PO BID 08/25/19 07/24/22 History Multivitamins, Thera [Multivitamin 1 tab PO DAILY 08/25/19 07/20/22 History (formulary)] Omeprazole 20 mg PO QAM 08/25/19 07/24/22 History lisinopriL [Zestril] 10 mg PO QAM 08/25/19 07/20/22 History DULoxetine HCL [Cymbalta] 60 mg PO QAM 10/10/21 07/24/22 History metFORMIN HCL [Glucophage] 500 mg PO DAILY 10/12/21 07/20/22 History Gabapentin 400 mg PO DAILY 07/20/22 07/24/22 History Meloxicam 7.5 mg PO DAILY 07/20/22 07/20/22 History Cyclobenzaprine [Flexeril] 5 mg PO TID #90 tablet 07/30/22 Rx Gabapentin 300 mg PO TID #90 cap 07/30/22 Rx HYDROcodone/APAP 10-325MG [[place] 1 tab PO Q6HR PRN #56 tab 07/30/22 Rx 10-325] Sennosides/Docusate Sodium [Senna 1 each PO DAILY PRN #20 tablet 07/30/22 Rx Plus 8.6-50 mg Tablet] cefaDROXiL [Duricef] 500 mg PO Q12HR 5 Days #10 cap 07/30/22 Rx Albuterol Nebulized [Ventolin 2.5 mg INHALATION RT-Q2H PRN ml 07/31/22 Rx Nebulized] Benzocaine/Menthol Lozeng [Cepacol 1 each MUCOUS MEM Q4HR PRN lozenge 07/31/22 Rx lozenge] Ipratropium-Albuterol Nebulize 3 ml INHALATION RT-QID each 07/31/22 Rx [Duoneb 0.5 mg-3 mg/3 ml Soln] guaiFENesin [Mucinex] 600 mg PO Q12HR tab 07/31/22 Rx Allergies Allergy/AdvReac Type Severity Reaction Status Date / Time adhesive tape Allergy skin Verified 07/24/22 06:12 irritation barley Allergy chest Verified 07/24/22 06:12 congestion lettuce Allergy Nausea Verified 07/24/22 06:12 Physical Examination Osteopathic Statement: *. No significant issues noted on an osteopathic structural exam other than those noted in the History and Physical/Consult.
[2023-04-15 11:19] VITALS: BMI 25.8
[~2023-04-17 11:06] MED LIST changes: -ACETAMINOPHEN TAB 500 MG TAB PO PRN; +DEXAMETHASONE SOD PHOSPHATE 4 MG/ML 1 ML VIAL IV ONE; -GABAPENTIN 300 MG CAP PO PRN; +HYDROmorphone 0.5 MG/0.5 ML SYRINGE IVP PRN; +LACTATED RINGERS 1,000 ML IV SCH; +LIDOCAINE 1% (10MG/ML) FOR IV START INTRADERMA PRN; +ONDANSETRON 4 MG/2 ML VIAL IVP ONE; -ONDANSETRON 4 MG/2 ML VIAL IVP PRN; +Pre Op ABX Message 1 EACH MISC MISCELLANE ONE; -TRANEXAMIC ACID IN NACL,ISO-OS 1,000 MG in SALINE 1 100ML.BAG IVPB PRN; +droPERidol 5 MG/2 ML VIAL IVP ONE
[2023-04-17] MEDS ORDERED: LACTATED RINGERS 1,000 ML IV ONE ×2 (11:35→13:36)
[2023-04-17 12:04] LABS: Glucose,Whole Blood 97 mg/dL (70-110)
[2023-04-17] MEDS ORDERED: ALBUTEROL NEBULIZED 2.5 MG/3 ML INHALATION ONE (12:13)
[2023-04-17] MEDS ORDERED: PHENYLEPHRINE-0.9% NACL SYG 1,000 MCG/10 ML SYRINGE ONE (12:46)
[2023-04-17] MEDS ORDERED: fentaNYL (PF) 50 MCG/ML 2 ML AMP ONE (12:46)
[2023-04-17] MEDS ORDERED: LIDOCAINE 1% INJ 10MG/ML (20 ML MDV) ONE (12:46)
[2023-04-17] MEDS ORDERED: VASOPRESSIN 20 UNIT/ML 1 ML VIAL ONE (12:46)
[2023-04-17] MEDS ORDERED: HYDROmorphone (PF) 1 MG/ML ONE (12:46)
[2023-04-17] MEDS ORDERED: MIDAZOLAM 2 MG/2 ML VIAL ONE (12:46)
[2023-04-17] MEDS ORDERED: PROPOFOL 10 MG/ML 20 ML VIAL IV ONE (12:46)
[2023-04-17] MEDS ORDERED: BUPIVACAINE (PF) 0.5% 30 ML VIAL SQ ONE ×2 (13:03→13:51)
--- NOTE | 2023-04-17 14:25 | P.OP ---
Date of Procedure: 04/17/23 Preoperative Diagnosis: 1.) Left carpal tunnel syndrome 2.) Left cubital tunnel syndrome Postoperative Diagnosis: 1.) Left carpal tunnel syndrome 2.) Left cubital tunnel syndrome Procedure(s) Performed: 1.) Left endoscopic carpal tunnel release 2.) Left open cubital tunnel release with anterior subcutaneous transposition. Anesthesia: FREDDYA Surgeon: Rodolfo Yoo Census Enumerator #1: Boris Sorensen Estimated Blood Loss (ml): 0 Pathology: none sent Condition: stable Disposition: PACU Description of Procedure: This is a 62 year old male who presented today for a left endoscopic carpal tunnel release and open cubital tunnel release after having failed conservative treatment. Risks and benefits of surgery were discussed with the patient including bleeding, damage to surrounding tissue, infection, need for further surgery as well as risks of anesthesia including pulmonary embolism and even and the patient wished to proceed with surgical intervention. The patient was seen in the pre-operative area by myself. Consent and H&P were completed and updated. The correct extremity was marked in the pre-operative area by myself and all other questions were answered. Operative Narrative: The patient was brought to the operating room by the department of an esthesia. They remained on the portable stretcher and a rolling hand table was brought to the side of the operative extremity. Pre-operative time out was performed indicating the correct patient, procedure and laterality. All in the room agreed. Pre-operative antibiotics were given prior to skin incision. The patient was then drifted off to sleep by the department of anesthesia. A nonsterile tourniquet was then applied to the operative extremity and the left upper extremity was then prepped and draped in normal sterile fashion. The operative extremity was the exsanguinated with an esmarch bandage and the tourniquet was inflated to 250mmHg. 15 blade scalpel was utilized to make a transverse incision on the palmar skin just ulnar to the palmaris longus tendon at the level of the distal wrist crease. Ragnell retractor was then placed radially and blunt dissection was performed to reveal the distal forearm fascia. This was lifted with fine Sher pick ups and Littler tenotomy scissors were then used to open the forearm fascia transversely and a double skin hook was then placed. Hamate finder was placed into the carpal tunnel and then sequential sized dilators were inserted followed by the synovial elevator to separate the flexor tenosynovium from the undersurface of the transverse carpal ligament and a washboard texture was felt. The MicroAire endoscopic carpal tunnel release system gun was the then inserted into the carpal tunnel hugging the deep portion of the transverse carpal ligament in line with the base of the ring finger. Transverse fibers of the ligament were directly visualized. Pressure was applied on the palm to reveal the distal extent of the transverse carpal ligament. The blade was then deployed and the distal half of the transverse carpal ligament was released. The scope was then brought distal again and remaining transverse fibers were incised with the blade. The proximal half of the transverse carpal ligament was then divided and again the scope was advanced distal and remaining transverse fibers were incised with the blade. The radial and ulnar leaflets were directly visualized and mobile consistent with complete release. Tenotomy scissors were then utilized to release the remaining distal forearm fascia under direct visualization taking care to preserve the palmar cutaneous branch of the median nerve. Attention was brought to the medial elbow. 15 blade scalpel was used to incise skin in between the medial epicondyle and olecranon in a curvlinear and longitudinal fashion. Blunt dissection was taken down through subcutaneous tissue with tenotomy scissors and branches of the MABCN were identified and protected. Dissection was carried proximally and the ulnar nerve was identified and released in it's entirety to the arcade of struthers and a slip of the medial intermuscular septum was excised. Dissection was then carried distally and amor's ligament was released at the medial epicondyle, the nerve appeared compressed at this location. Dissection was then carried out further distal and the fascia of the two heads of the FCU were incised and the ulnar nerve was decompressed with [place] and tenotomy scissors and appeared to be tension free. The elbow was then flexed and extended and the ulnar nerve appeared to be very unstable with the nerve snapping at the medial epicondyle beyond 45 degrees of flexion therefore decision was made to proceed with anterior transposition. A subcutaneous pocket was dissected off of the forearm flexor origin and medial epicondyle and the nerve was then freed from it's soft tissue adhesions and gently transposed anteriorly. 4-0 moncryl was then used to loosely approximated the apex of the subcutaneous pocket making sure the nerve was not kicked or over compressed in it's new anterior position. The elbow was then flexed and extended and no kinking or new areas of compression were observed. 24cc's 0.5% bupivacaine was injected into the subcutaneous tissues. Skin closure was performed with interrupted 3-0 Monocryl sutures followed by 4-0 nylon sutures, tourniquet was then let down and the hand had immediate perfusion. The patient was then woken by the department of anesthesia and transferred to PACU in stable condition. Rodolfo Yoo D.O. Orthopedic Hand/Upper Extremity Surgeon
[2023-04-17 14:27] VITALS: RESP 16; TEMP 96.8
[2023-04-17] MEDS ORDERED: HYDROcodone/APAP 5-325MG 1 EACH TAB ONE (14:47)
[2023-04-17] MEDS ORDERED: HYDROcodone/APAP 5-325MG 1 EACH TAB PO ONE (14:49)
[2023-04-17 15:16] VITALS: BP 141/82; PULSE 65
== END 2023-04-17 15:16 | disposition home or self-care (01) ==
LOC: OR 11:06
PROVIDERS: ATTEND Orthopaedic Surgery Hand Surgery
DX: G56.02 Carpal tunnel syndrome, left upper limb (principal); G56.22 Lesion of ulnar nerve, left upper limb; J44.9 Chronic obstructive pulmonary disease, unspecified; E11.9 Type 2 diabetes mellitus without complications; K21.9 Gastro-esophageal reflux disease without esophagitis; H91.3 Deaf nonspeaking, not elsewhere classified; I10 Essential (primary) hypertension; E78.5 Hyperlipidemia, unspecified; F43.10 Post-traumatic stress disorder, unspecified; H93.19 Tinnitus, unspecified ear; M19.90 Unspecified osteoarthritis, unspecified site; B35.9 Dermatophytosis, unspecified; Z79.1 Long term (current) use of non-steroidal anti-inflammatories (NSAID); Z79.84 Long term (current) use of oral hypoglycemic drugs; Z79.891 Long term (current) use of opiate analgesic; Z79.899 Other long term (current) drug therapy; Z79.2 Long term (current) use of antibiotics; Z79.51 Long term (current) use of inhaled steroids; Z91.048 Other nonmedicinal substance allergy status; Z91.018 Allergy to other foods; Z79.02 Long term (current) use of antithrombotics/antiplatelets; Z87.891 Personal history of nicotine dependence; Z98.61 Coronary angioplasty status; Z98.890 Other specified postprocedural states
CPT/HCPCS: 29848; 64718; 84132; J2250; J1100; J2405; J2001; J3010; J1170; J2704; J2371; J0665

== ENCOUNTER → 2023-06-12 | Day surgery (SDC) | payer OTHER ==
--- NOTE | 2023-06-11 09:06 | P.HPOR ---
History of Present Illness H&P Date: 06/11/23 Subjective: This is a 62 year old male that presents today for a post-operative visit after undergoing left endoscopic carpal tunnel release and left open cubital tunnel release with anterior subcutaneous transposition on 04/17/23. He states he noticed some mild relief from his symptoms the first several days after surgery but still notes numbness and tingling in the hand and arm. Physical Examination: LUE: AIN/PIN/Radial//Median motor intact. Radial/Median SILT, diminished in ulnar nerve distribution similar to pre-op exam. 2+/4 Radial/Ulnar pulses palpated. FDI atrophy consistent with pre op exam. Incisions around elbow and wrist well approximated. RUE: AIN/PIN/Radial/Ulnar/Median motor intact. Radial/Ulnar/Median SILT. 2+/4 Radial/Ulnar pulses palpated. 5/5 APB, 5/5 FDI. Negative Finkelsteins, negative CMC grind, positive Durkan's compression. Positive tinels at cubital tunnel EMG/NCV: EMG and nerve conduction velocity testing performed in October of 2022 demonstrates right carpal tunnel syndrome and right cubital tunnel syndrome. Left-sided studies reveal left carpal tunnel syndrome and left cubital tunnel syndrome with atrophy present at first dorsal interosseus muscle. Impression: 1.) S/P Left endoscopic carpal tunnel release and left open cubital tunnel release with anterior subcutaneous transposition 2.) Right carpal tunnel syndrome 3.) Right cubital tunnel syndrome Plan: Diagnosis and treatment options were discussed with the patient. Sutures are removed. We discussed nerve recovery may take up to a full year for final results. He has regained full range of motion already. He wishes to proceed with right endoscopic vs open carpal tunnel release and right open cubital tunnel release in 6 weeks. Risks and benefits of surgery including bleeding, infection, damage to surrounding tissue, need for further surgery, possible need to convert to open procedure, residual numbness were discussed and the patient wished to go forward with surgery. The patient is agreeable with this plan. -Rodolfo Yoo DO Orthopedic Hand/Upper Extremity Surgeon Past Medical History Past Medical History: COPD, Diabetes Mellitus, GERD/Reflux, Hearing Disorder / Deafness, Hypertension, Osteoarthritis (OA) Additional Past Medical History / Comment(s): Tinea Versicolor(fungal infection) with continued skin discoloration. Tinnitis. Sleeps with a mouth guard in. History of Any Multi-Drug Resistant Organisms: None Reported Past Surgical History: Back Surgery Additional Past Surgical History / Comment(s): Arthroscopy bilateral knees X2, wisdom teeth extracted. decompression of disc neck /back fusion, lft carpal tunnel Past Anesthesia/Blood Transfusion Reactions: No Reported Reaction Additional Past Anesthesia/Blood Transfusion Reaction / Comment(s): In 1994 with first arthroscopy had general anesthesia, was discharged and had difficulty breathing in parking lot, went back in to ER, ER Dr stated "it was related to throat swelling after extubation." no problems after back and neck surgery Smoking Status: Former smoker - Past Family History Mother Family Medical History: No Reported History Medications and Allergies Home Medications Medication Instructions Recorded Confirmed Type Acetaminophen [Tylenol] 1,000 mg PO BID 08/25/19 06/06/23 History Multivitamins, Thera [Multivitamin 1 tab PO DAILY 08/25/19 06/06/23 History (formulary)] Omeprazole 20 mg PO QAM 08/25/19 06/06/23 History lisinopriL [Zestril] 10 mg PO QAM 08/25/19 06/06/23 History DULoxetine HCL [Cymbalta] 60 mg PO QAM 10/10/21 06/06/23 History metFORMIN HCL [Glucophage] 500 mg PO DAILY 10/12/21 06/06/23 History Meloxicam 7.5 mg PO DAILY 07/20/22 06/06/23 History Gabapentin [Neurontin] 200 mg PO BID 04/15/23 06/06/23 History Simvastatin [Zocor] 20 mg PO HS 04/15/23 06/06/23 History HYDROcodone/APAP 5-325MG [[place] 1 tab PO Q6HR PRN 3 Days #18 tab 04/17/23 06/06/23 Rx 5-325] Cyclobenzaprine [Flexeril] 5 mg PO TID PRN 06/06/23 06/06/23 History Ipratropium-Albuterol Nebulize 3 ml INHALATION RT-QID PRN 06/06/23 06/06/23 History [Duoneb 0.5 mg-3 mg/3 ml Soln] Allergies Allergy/AdvReac Type Severity Reaction Status Date / Time adhesive tape Allergy skin Verified 06/06/23 10:48 irritation barley Allergy chest Verified 06/06/23 10:48 congestion lettuce Allergy Nausea Verified 06/06/23 10:48 Physical Examination Osteopathic Statement: *. No significant issues noted on an osteopathic structural exam other than those noted in the History and Physical/Consult.
[~2023-06-12] MED LIST changes: +ACETAMINOPHEN IV (For NPO) 1,000 MG/100 ML VIAL ONE; +ALBUTEROL NEBULIZED 2.5 MG/3 ML INHALATION ONE; +BUPIVACAINE (PF) 0.5% 30 ML VIAL SQ ONE; +FAMOTIDINE 20 MG/2 ML VIAL IVP ONE; +HYDROmorphone (PF) 1 MG/ML ONE; +LACTATED RINGERS 1,000 ML IV ONE; +LIDOCAINE 1% INJ 10MG/ML (20 ML MDV) ONE; +PHENYLEPHRINE-0.9% NACL SYG 1,000 MCG/10 ML SYRINGE ONE; +PROPOFOL 10 MG/ML 20 ML VIAL IV ONE; +SUCCINYLCHOLINE CHLORIDE 200 MG/10 ML VIAL IV ONE; -droPERidol 5 MG/2 ML VIAL IVP ONE; +ePHEDrine 50 MG/ML 1 ML VIAL ONE; +fentaNYL (PF) 50 MCG/ML 2 ML AMP ONE
[2023-06-12 07:29] LABS: Glucose,Whole Blood 131 mg/dL (70-110)
--- NOTE | 2023-06-12 09:17 | P.OP ---
Date of Procedure: 06/12/23 Preoperative Diagnosis: 1.) Right carpal tunnel syndrome 2.) Right cubital tunnel syndrome Postoperative Diagnosis: 1.) Right carpal tunnel syndrome 2.) Right cubital tunnel syndrome Procedure(s) Performed: 1.) Right endoscopic carpal tunnel release 2.) Right open cubital tunnel release with anterior subcutaneous transposition Anesthesia: SCOTT Surgeon: Rodolfo Yoo Director Long Term Care #1: Boris Sorensen Pathology: none sent Condition: stable Disposition: PACU Description of Procedure: This is a 63 year old male who presented today for a right endoscopic carpal tunnel release and open cubital tunnel release after having failed conservative treatment. Risks and benefits of surgery were discussed with the patient including bleeding, damage to surrounding tissue, infection, need for further surgery as well as risks of anesthesia including pulmonary embolism and even and the patient wished to proceed with surgical intervention. The patient was seen in the pre-operative area by myself. Consent and H&P were completed and updated. The correct extremity was marked in the pre-operative area by myself and all other questions were answered. Operative Narrative: The patient was brought to the operating room by the department of anesthesia. They remained on the portable stretcher and a rolling hand table was brought to the side of the operative extremity. Pre-operative time out was performed indicating the correct patient, procedure and laterality. All in the room agreed. Pre-operative antibiotics were given prior to skin incision. The patient was then drifted off to sleep by the department of anesthesia. A nonsterile tourniquet was then applied to the operative extremity and the right upper extremity was then prepped and draped in normal sterile fashion. The operative extremity was the exsanguinated with an esmarch bandage and the tourniquet was inflated to 250mmHg. 15 blade scalpel was utilized to make a transverse incision on the palmar skin just ulnar to the palmaris longus tendon at the level of the distal wrist crease. Ragnell retractor was then placed radially and blunt dissection was performed to reveal the distal forearm fascia. This was lifted with fine Sher pick ups and Littler tenotomy scissors were then used to open the forearm fascia transversely and a double skin hook was then placed. Hamate finder was placed into the carpal tunnel and then sequential sized dilators were inserted followed by the synovial elevator to separate the flexor tenosynovium from the undersurface of the transverse carpal ligament and a washboard texture was felt. The MicroAire endoscopic carpal tunnel release system gun was the then inserted into the carpal tunnel hugging the deep portion of the transverse carpal ligament in line with the base of the ring finger. Transverse fibers of the ligament were directly visualized. Pressure was applied on the palm to reveal the distal extent of the transverse carpal ligament. The blade was then deployed and the distal half of the transverse carpal ligament was released. The scope was then brought distal again and remaining transverse fibers were incised with the blade. The proximal half of the transverse carpal ligament was then divided and again the scope was advanced distal and remaining transverse fibers were incised with the blade. The radial and ulnar leaflets were directly visualized and mobile consistent with complete release. Tenotomy scissors were then utilized to release the remaining distal forearm fascia under direct visualization taking care to preserve the palmar cutaneous branch of the median nerve. Attention was brought to the medial elbow. 15 blade scalpel was used to incise skin in between the medial epicondyle and olecranon in a curvlinear and longitudinal fashion. Blunt dissection was taken down through subcutaneous tissue with tenotomy scissors and branches of the MABCN were identified and protected. Dissection was carried proximally and the ulnar nerve was identified and released proximally from surrounding soft tissue attachments. Dissection was then carried distally and amor's ligament was released at the medial epicondyle, the nerve appeared compressed at this location. Dissection was then carried out further distal and the fascia of the two heads of the FCU were incised and the ulnar nerve was decompressed with [place] and tenotomy scissors and appeared to be tension free. The elbow was then flexed and extended and the ulnar nerve appeared to be very unstable with the nerve snapping at the medial epicondyle beyond 45 degrees of flexion therefore decision was made to proceed with anterior transposition. A subcutaneous pocket was dissected off of the forearm flexor origin and medial epicondyle and the nerve was then freed from it's soft tissue adhesions and gently transposed anteriorly. A strip of the medial intermuscular septum was excised to avoid kinking proximally. 4-0 moncryl was then used to loosely approximated the apex of the subcutaneous pocket making sure the nerve was not kicked or over compressed in it's new anterior position. The elbow was then flexed and extended and no kinking or new areas of compression were observed. 24cc's 0.5% bupivacaine was injected into the subcutaneous tissues. Skin closure was performed with interrupted 3-0 Monocryl sutures followed by 4-0 nylon sutures, tourniquet was then let down and the hand had immediate perfusion. The patient was then woken by the department of anesthesia and transferred to PACU in stable condition. Boris DAVIS was present for the case to assist in major portions of the procedure and protection of vital neurovascular structures. Rodolfo Yoo D.O. Orthopedic Hand/Upper Extremity Surgeon
[2023-06-12 09:42] LABS: Glucose,Whole Blood 149 mg/dL (70-110)
[2023-06-12 09:44] VITALS: RESP 14; TEMP 98.2
[2023-06-12 10:41] LABS: Glucose,Whole Blood 163 mg/dL (70-110)
[2023-06-12 12:06] VITALS: BP 153/76; PULSE 95
== END | disposition home or self-care (01) ==
LOC: OR 06:42
PROVIDERS: ATTEND Orthopaedic Surgery Hand Surgery
DX: G56.01 Carpal tunnel syndrome, right upper limb (principal); G56.21 Lesion of ulnar nerve, right upper limb; J44.9 Chronic obstructive pulmonary disease, unspecified; E11.9 Type 2 diabetes mellitus without complications; K21.9 Gastro-esophageal reflux disease without esophagitis; H91.90 Unspecified hearing loss, unspecified ear; I10 Essential (primary) hypertension; M19.90 Unspecified osteoarthritis, unspecified site; B35.9 Dermatophytosis, unspecified; F43.10 Post-traumatic stress disorder, unspecified; Z96.653 Presence of artificial knee joint, bilateral; Z98.890 Other specified postprocedural states; Z87.891 Personal history of nicotine dependence; Z79.84 Long term (current) use of oral hypoglycemic drugs; Z79.1 Long term (current) use of non-steroidal anti-inflammatories (NSAID); Z79.51 Long term (current) use of inhaled steroids; Z79.899 Other long term (current) drug therapy; Z91.048 Other nonmedicinal substance allergy status; Z91.018 Allergy to other foods
CPT/HCPCS: 29848; 64718; J0330; J1100; J2405; J2001; J3010; J3490; J1170; J0131; J2704; J2371; J0665

== ENCOUNTER → 2023-09-25 | Outpatient (CLI) | payer OTHER | END | disposition home or self-care (01) | LOC: LABPAT 12:26 | PROVIDERS: ATTEND Orthopaedic Surgery | DX: Z01.818 Encounter for other preprocedural examination (principal); M17.12 Unilateral primary osteoarthritis, left knee; Z22.322 Carrier or suspected carrier of Methicillin resistant Staphylococcus aureus | CPT/HCPCS: 87070 ==

== ENCOUNTER 2023-10-01 07:43 | Inpatient (IN) | payer OTHER ==
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
[~2023-10-01 07:43] MED LIST changes: -ACETAMINOPHEN IV (For NPO) 1,000 MG/100 ML VIAL ONE; -ALBUTEROL NEBULIZED 2.5 MG/3 ML INHALATION ONE; -BUPIVACAINE (PF) 0.5% 30 ML VIAL SQ ONE; -DEXAMETHASONE SOD PHOSPHATE 4 MG/ML 1 ML VIAL IV ONE; -FAMOTIDINE 20 MG/2 ML VIAL IVP ONE; -HYDROmorphone (PF) 1 MG/ML ONE; -HYDROmorphone 0.5 MG/0.5 ML SYRINGE IVP PRN; -LACTATED RINGERS 1,000 ML IV ONE; -LACTATED RINGERS 1,000 ML IV SCH; -LIDOCAINE 1% INJ 10MG/ML (20 ML MDV) ONE; +MIDAZOLAM 2 MG/2 ML VIAL IV PRN; -ONDANSETRON 4 MG/2 ML VIAL IVP ONE; -PHENYLEPHRINE-0.9% NACL SYG 1,000 MCG/10 ML SYRINGE ONE; -PROPOFOL 10 MG/ML 20 ML VIAL IV ONE; -Pre Op ABX Message 1 EACH MISC MISCELLANE ONE; -SUCCINYLCHOLINE CHLORIDE 200 MG/10 ML VIAL IV ONE; +TRANEXAMIC 1,000 MG/100ML-NACL 1,000 MG in SALINE 1 100ML.BAG IVPB PRN; -ePHEDrine 50 MG/ML 1 ML VIAL ONE; -fentaNYL (PF) 50 MCG/ML 2 ML AMP ONE
[2023-10-01] MEDS: LACTATED RINGERS 1,000 ML IV SCH (08:19)
[2023-10-01] MEDS ORDERED: ONDANSETRON 4 MG/2 ML VIAL ONE (08:53)
[2023-10-01] MEDS: ACETAMINOPHEN TAB 500 MG TAB PO PRN (09:10)
[2023-10-01] MEDS: MELOXICAM 7.5 MG TAB PO PRN (09:10)
[2023-10-01] MEDS: DEXAMETHASONE SOD PHOSPHATE 4 MG/ML 1 ML VIAL IV ONE (09:10)
[2023-10-01] MEDS: ONDANSETRON 4 MG/2 ML VIAL IVP ONE (09:10)
[2023-10-01 09:16] LABS: Glucose,Whole Blood 101 mg/dL (70-110)
[2023-10-01] MEDS: MIDAZOLAM 2 MG/2 ML VIAL IVP ONE (09:21)
[2023-10-01] MEDS: fentaNYL (PF) 50 MCG/1 ML VIAL IVP ONE (09:21)
[2023-10-01] MEDS ORDERED: fentaNYL (PF) 50 MCG/ML 2 ML AMP ONE (09:57)
[2023-10-01] MEDS ORDERED: ePHEDrine 50 MG/ML 1 ML VIAL ONE (09:57)
[2023-10-01] MEDS ORDERED: SODIUM CHLORIDE 0.9% (PF) 10 ML VIAL ONE (09:57)
[2023-10-01] MEDS ORDERED: LIDOCAINE 1% INJ 10MG/ML (20 ML MDV) ONE (09:57)
[2023-10-01] MEDS ORDERED: TRANEXAMIC 1,000 MG/100ML-NACL PREMIX BAG ONE (09:57)
[2023-10-01] MEDS ORDERED: PHENYLEPHRINE 10 MG/ML VIAL ONE (09:57)
[2023-10-01] MEDS ORDERED: SUCCINYLCHOLINE CHLORIDE 200 MG/10 ML VIAL IV ONE (09:57)
[2023-10-01] MEDS ORDERED: ROPIVACAINE 5 MG/ML 30 ML VIAL ONE (09:57)
[2023-10-01] MEDS ORDERED: GLYCOPYRROLATE 0.2 MG/ML 2 ML VIAL ONE (09:57)
[2023-10-01] MEDS ORDERED: PROPOFOL 10 MG/ML 20 ML VIAL IV ONE (09:57)
[2023-10-01] MEDS: ceFAZolin 1,000 MG in SODIUM CHLORIDE 0.9% 1,000 ML IRRIGATION ONE (10:28)
[2023-10-01] MEDS: LACTATED RINGERS 1,000 ML IV ONE ×2 (10:30→11:25)
[2023-10-01] MEDS ORDERED: NALOXONE 0.4 MG/ML 1 ML VIAL IV PRN (11:28)
--- NOTE | 2023-10-01 11:48 | P.OP ---
Date of Procedure: 10/01/23 Preoperative Diagnosis: Left knee severe tricompartmental osteoarthrosis Postoperative Diagnosis: Same Procedure(s) Performed: Left total knee arthroplastycementedposterior stabilized Implants: Depuy Attune size 7 cemented femoral component, size 6 cemented tibial component, 9 mm articular surface, 38 mm asymmetric patellar component. There is a posterior stabilized implant. Anesthesia: FREDDYmichael Surgeon: Sam Barrera Plug Maker #1: Boris Sorensen Estimated Blood Loss (ml): 50 Pathology: none sent Condition: stable Disposition: PACU Indications for Procedure: The patient is a 63-year-old male who presents with progressive left knee pain secondary to osteoarthrosis despite conservative measures. A discussion of the risks and benefits of operative intervention versus continued conservative measures was made with the patient. He opted to proceed with surgery. Operative risks to include infection, neurovascular injury, fracture, development of blood clots, possible component loosening, possible component failure and need for subsequent procedures was discussed. Informed consent was obtained. Operative Findings: As below Description of Procedure: The patient was brought to the operating room, and after induction of spinal anesthesia the left lower extremity was prepped and draped in a normal fashion. The tourniquet was inflated to 270 mm marker. A longitudinal incision extending 3 finger breaths above the superior pole of patella extending to the medial aspect the tibial tubercle was then made. The skin and subcutaneous tissues were divided sharply. Electrocautery was used for hemostasis. A medial parapatellar arthrotomy was performed. The medial soft tissues to include the superficial and deep portions of the medial collateral ligament were elevated subperiosteally. The patella was everted. A portion of the retropatellar fat pad was excised sharply. The anterior cruciate ligament was sacrificed. Blunt retractors were placed. A starting hole was made in the distal femur 1 cm anterior to the posterior cruciate ligament origin. An intramedullary femoral guide was then inserted planning on 5 valgus distal cut with 9 mm distal resection. The cutting block was pinned in place. The distal cut was then made. The posterior referencing sizing guide was utilized. I felt size 7 was most appropriate. 3 of external rotation was built into the system and verified off the trans-epicondylar axis and the posterior condyles. The cutting block was pinned in place. The anterior, posterior, and chamfer cuts then made. Bone fragments were removed. The intercondylar guide was placed and the notch cut was made with a sagittal saw. The bone block was removed in one fragment. The trial component was then placed. There is good anterior to posterior and medial to lateral fit. The distal peg holes were drilled. The trial component was removed. Attention was then paid towards preparing the proximal tibia. An extra medullary guide was utilized in line with the tibial shaft and second metatarsal distally. I planned on 2 mm resection from the medial compartment. The cutting block was pinned in place. The proximal tibial cut was then made. The bone was removed in one fragment. The remnants of the medial and lateral menisci were excised at the capsular junction with electrocautery. The tibia sized most appropriately at size 6. The trial femoral and tibial components were placed along with a 9 mm articular surface. I was able to obtain full flexion and extension with internal and external rotation. After several flexion and extension cycles, the tibial rotation was marked with electrocautery line with the medial one third of the tibial tubercle. Attention was then paid towards preparing the patella. A patella reamer was utilized taking stem to 14 mm of bone stock. A good flush cut was made. The patella sized most appropriately 38 mm. The peg holes were drilled. The trial components placed. I had good patellofemoral tracking with no hands technique. The trial components were then removed. The tibia was prepared in the appropriate rotation with appropriate drill and keel punch. The posterior osteophytes were removed with a curved osteotome. The flexion and extension gaps were checked and felt to be symmetric at 9 mm. A trial components were then removed. The bony surfaces were prepared with pulsatile lavage and dried. The tibial component was then cemented place was fully seated. Excess cement was removed. The femoral component cemented place and was fully seated. Excess cement was removed. The trial 9 mm articular surface was placed and the knee was put in full extension. The patella component was cemented place. After the cement had sufficiently hardened, the knee was again taken through a range of motion. Again I was able to obtain full flexion and extension with varus and valgus stress. The trial 9 mm articular surface was removed and the final one in serted. This was fully seated. Care was taken to avoid any soft tissue interposition. Pulsatile lavage was again utilized. The medial parapatellar arthrotomy was closed with #2 Ethibond suture. The tourniquet was deflated with approximately 60 minutes total tourniquet time. Final hemostasis was obtained with the cautery. There was minimal bleeding therefore a deep drain was not placed. The subcutaneous tissues were reapproximated with interrupted 2-0 Vicryl sutures. The skin was reapproximated with 3-0 subcuticular strata fix suture. Skin tape and adhesive was applied. A sterile dressing was applied. The patient was awoken from sedation and transferred to recovery room in good condition. Blood loss was estimated at 50 mL. No complications were incurred. Sponge and needle counts were correct at the end of the case. Boris DAVIS assisted during the major components of this case to include exposure, bone resection, implantation, and closure.
--- NOTE | 2023-10-01 11:59 | P.ANPRN ---
Procedure Note - Anesthesia - Nerve Block Performed Left Adductor Canal Infusion Time Out Performed: Yes (0920) Date of Procedure: 10/01/23 Procedure Start Time: : Procedure Stop Time: : Location of Patient: PreOp Indication: Acute Post-Operative Pain, Requested by Surgeon Specifically requested for management of pain by : Sam Barrera Sedation Type: Sedate with meaningful contact maintained Preparation: Sterile Prep, Sterile Dressing Position: Supine Catheter Depth at Skin (cm): 7 Catheter: Indwelling Needle Types: Pajunk Needle Gauge: 18 Ultrasound used to visualize needle placement: Yes Ultrasound used to observe medication spread: Yes Injectate: 0.5% Ropivacaine (see comment for volume) (15cc + 10 cc nacl pf) Blood Aspirated: No Pain Paresthesia on Injection Noted: No Resistance on Injection: Normal Image Stored and Saved: Yes Events: Uneventful and Well Tolerated
--- NOTE | 2023-10-01 11:59 | P.ANPRN ---
Procedure Note - Anesthesia - Nerve Block Performed Left iPack Single Time Out Performed: Yes (919) Date of Procedure: 10/01/23 Procedure Start Time: Procedure Stop Time: Location of Patient: PreOp Indication: Acute Post-Operative Pain, Requested by Surgeon Specifically requested for management of pain by DrRadha: Sam Barrera Sedation Type: Sedate with meaningful contact maintained Preparation: Sterile Prep Position: Supine Catheter: None Needle Types: Pajunk Needle Gauge: 21 Ultrasound used to visualize needle placement: Yes Ultrasound used to observe medication spread: Yes Injectate: 0.5% Ropivacaine (see comment for volume) (15cc + 10 cc nacl pf) Blood Aspirated: No Pain Paresthesia on Injection Noted: No Resistance on Injection: Normal Image Stored and Saved: Yes Events: Uneventful and Well Tolerated
[2023-10-01 12:04] LABS: Glucose,Whole Blood 149 mg/dL (70-110)
--- NOTE | 2023-10-01 12:59 | XR ---
EXAMINATION TYPE: XR knee limited LT DATE OF EXAM: 10/01/2023 COMPARISON: NONE HISTORY: 63-year-old male evaluation for postoperative abnormality and alignment TECHNIQUE: 2 views FINDINGS: Images show placement of left total knee arthroplasty. Both distal femoral and proximal tib ial components of the prosthesis are well seated without periprosthetic fracture. Alignment grossly a natomic. Anterior soft tissue swelling with soft tissue air as well as intra-articular air related to recent operation. IMPRESSION: Uncomplicated postoperative appearance left total knee arthroplasty.
[2023-10-01] MEDS ORDERED: DEXTROSE 50% SYRINGE 50 ML IVP PRN ×2 (16:03)
[2023-10-01 16:44] LABS: Glucose,Whole Blood 128 mg/dL (70-110)
[2023-10-01] MEDS: INSULIN ASPART (NovoLOG) 100 UNIT/ML VIAL SQ SCH (16:45)
[2023-10-01] MEDS: CYCLOBENZAPRINE 5 MG TAB PO SCH (17:05)
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
[2023-10-01] MEDS: HYDROcodone/APAP 7.5-325MG 1 EACH TAB PO PRN (17:36)
[2023-10-01] MEDS: GABAPENTIN 100 MG CAP PO SCH (20:34)
[2023-10-01] MEDS: SENNOSIDES-DOCUSATE SODIUM 1 EACH TAB PO SCH (20:34)
[2023-10-01] MEDS: ATORVASTATIN 10 MG TAB PO SCH (20:34)
[2023-10-01 21:09] LABS: Glucose,Whole Blood 153 mg/dL (70-110)
[2023-10-02] MEDS: PANTOPRAZOLE 40 MG TABLET PO SCH (05:08)
[2023-10-02 05:42] LABS: Glucose,Whole Blood 132 mg/dL (70-110)
--- NOTE | 2023-10-02 07:14 | P.PN ---
Progress Note - Text Progress Note Date: 10/02/23 Postoperative day # 1 status post total knee arthroplasty, and adductor canal catheter placed for postoperative analgesia, currently at ropivacaine 0.2% 8 mL per hour and continuous infusion, visual analogue scale is 3-4/10, patient using oral pain medication for breakthrough pain. Assessment and plan= Acute postoperative pain, adductor canal catheter for pain control, pain is well controlled we'll continue the same management.
[2023-10-02 08:37] LABS: Basophils # (A) 0.03 X 10*3/uL (0.00-0.10); Basophils % (A) 0.3 %; HGB 11.7 g/dL (13.0-17.0); Lymphocytes # (A) 2.35 X 10*3/uL (0.90-5.00); Lymphocytes % (A) 23.7 %; MCHC 32.5 g/dL (32.0-37.0); MCV 95.2 FL (80.0-97.0); Mean Platelet Volume 10.1 FL (9.5-12.2); Monocytes # (A) 0.95 X 10*3/uL (0.20-1.00); Monocytes % (A) 9.6 %; NRBC Per 100 WBC 0 X 10*3/uL (0.00-0.01); Neutrophils # (A) 6.43 X 10*3/uL (1.80-7.70); Neutrophils % (A) 64.9 %; Platelet Count 270 X 10*3/uL (140-440); RBC 3.78 X 10*6/uL (4.40-5.60); RDW 14.6 % (11.5-14.5); WBC 9.91 X 10*3/uL (4.50-10.00)
[2023-10-02 08:52] LABS: Blood Urea Nitrogen 35.7 mg/dL (9.0-27.0); Carbon Dioxide 23.3 mmol/L (21.6-31.8); Chloride 105 mmol/L (96-109); Glucose 96 mg/dL (70-110); Potassium 5.2 mmol/L (3.5-5.5); Sodium 138 mmol/L (135-145)
[2023-10-02] MEDS: DULoxetine HCL 60 MG CAPSULE.DR PO SCH (09:32)
[2023-10-02] MEDS: RIVAROXABAN 10 MG TAB PO SCH (09:32)
[2023-10-02] MEDS: lisinopriL 10 MG TAB PO SCH (09:32)
[2023-10-02] MEDS: ALBUTEROL NEBULIZED 2.5 MG/3 ML INHALATION PRN (09:42)
[2023-10-02] MEDS: SYMBICORT 80-4.5 MCG INHALER INHALATION PRN (09:43)
--- NOTE | 2023-10-02 10:24 | P.PN ---
Subjective Progress Note Date: 10/02/23 Principal diagnosis: Status post left total knee arthroplasty Patient was examined today at bedside, he is resting in his hospital bed. Patient is doing okay this morning at bedside, he does note some discomfort throughout the left knee. He was able to do very minimal activity with physical therapy today, he was able to stand at bedside. Patient will be receiving a breathing treatment due to low oxygen sats, patient normally utilizes inhaler but has not been using it lately. He denies any chest pain, nausea or vomiting, stomach upset. Objective - Vital Signs Vital signs: Vital Signs Temp 98.7 F 10/02/23 07:20 Pulse 68 10/02/23 09:56 Resp 15 10/02/23 07:50 BP 132/83 10/02/23 07:20 Pulse Ox 96 10/02/23 07:20 FiO2 Intake & Output 10/01/23 10/02/23 10/02/23 18:59 06:59 18:59 Intake Total 2551 Output Total 275 375 Balance 2276 -375 Weight 77.3 kg Intake: IV 2551 Output: Urine 225 375 Estimated Blood Loss 50 Other: Voiding Method Urinal Urinal - Exam Left lower extremity: Incision is clean, dry, and intact. The exofin fusion tape is in good condition. There is minimal soft tissue swelling and ecchymosis surrounding the medial and lateral aspects of the incision. Calf is soft, no tenderness with palpation. Plantar flexion, dorsiflexion, EHL, FHL are intact. Sensory exam to light touch throughout the extremity is intact, dorsal pedis pulses 2+. - Labs CBC & Chem 7: 10/02/23 04:13 10/02/23 04:13 Labs: Abnormal Lab Results - Last 24 Hours (Table) 10/01/23 10/01/23 10/01/23 Range/Units 12:02 16:43 21:06 RBC (4.40-5.60) X 10*6/uL Hgb (13.0-17.0) g/dL Hct (39.6-50.0) % RDW (11.5-14.5) % Immature Gran # (0.00-0.04) X 10*3/uL BUN (9.0-27.0) mg/dL BUN/Creatinine Ratio (12.00-20.00) Ratio POC Glucose (mg/dL) 149 H 128 H 153 H (70-110) mg/dL Hemoglobin A1c (<=6.0) % 10/02/23 10/02/23 10/02/23 Range/Units 04:13 04:13 04:13 RBC 3.78 L (4.40-5.60) X 10*6/uL Hgb 11.7 L (13.0-17.0) g/dL Hct 36.0 L (39.6-50.0) % RDW 14.6 H (11.5-14.5) % Immature Gran # 0.05 H (0.00-0.04) X 10*3/uL BUN 35.7 H (9.0-27.0) mg/dL BUN/Creatinine Ratio 35.70 H (12.00-20.00) Ratio POC Glucose (mg/dL) (70-110) mg/dL Hemoglobin A1c 6.2 H (<=6.0) % 10/02/23 Range/Units 05:40 RBC (4.40-5.60) X 10*6/uL Hgb (13.0-17.0) g/dL Hct (39.6-50.0) % RDW (11.5-14.5) % Immature Gran # (0.00-0.04) X 10*3/uL BUN (9.0-27.0) mg/dL BUN/Creatinine Ratio (12.00-20.00) Ratio POC Glucose (mg/dL) 132 H (70-110) mg/dL Hemoglobin A1c (<=6.0) % Assessment and Plan Assessment: Postoperative day #1 status post left total knee arthroplasty Plan: Pain control, continue use of [place] as needed. Utilize ice and elevation often DVT prophylaxis, continue Xarelto 10 mg daily Encourage incentive spirometer Continue with PT/OT Medical recommendations appreciated Discharge planning: Patient does live alone by himself, patient requiring a lot of assistance with ambulation at this time. Discussed with case management rehab placement. Will continue to follow patient during hospital stay Time with Patient: Less than 30
[2023-10-02 11:14] LABS: Glucose,Whole Blood 162 mg/dL (70-110)
--- NOTE | 2023-10-02 12:59 | P.PN ---
Subjective Progress Note Date: 10/02/23 Subjective: Patient seen and examined at bedside. No acute events overnight. Denies any new complaints. Pertinent positives and negatives as discussed above, a complete review of systems was performed and all other systems are negative. Vitals Signs Reviewed. General: nontoxic, no distress, appears at stated age Derm: warm, dry, dressing clean, dry, intact Head: atraumatic, normocephalic, symmetric Eyes: EOMI, no lid lag, anicteric sclera, pupils equal round reactive to light ENT: Nose and ears atraumatic Neck: No thyromegaly, supple Mouth: no lip lesion, mucus membranes moist Cardiovascular: S1S2 reg, no murmur, no edema Lungs: clear to auscultation bilateral, no rhonchi, no rales, no wheeze, no accessory muscle use Abdominal: soft, nontender to palpation, no guarding, no appreciable organomegaly Ext: no gross muscle atrophy, muscle strength muscle strength 5 out of 5 in all 4 extremities, no contractures Neuro: CN II-XII grossly intact Psych: Alert, oriented, appropriate affect Data Reviewed Today: Pertinent Labs: Hemoglobin 11.7, WBC 9.1, platelet 270, potassium 5.2, creatinine 1, blood sugars range between 96-1 62, A1c 6.2 Imaging: No new imaging Assessment and Plan: Status post total left knee arthroplasty Mild acute blood loss anemia, anticipated outcome of surgery - Pain control with oral [place] as needed, IV Dilaudid as needed, monitor for sedation - Neurontin 200 twice daily, Flexeril 5 3 times daily - Xarelto 10 daily for DVT prophylaxis - Senna 2 nightly, and milk of magnesia daily as needed for bowel regimen PT OT Asthma/COPD - Continue as needed albuterol, and Symbicort Hypertension -Restarted lisinopril 10 Type 2 diabetes - Sliding scale insulin, monitor for hypoglycemia GERD - Continue omeprazole 20 Dyslipidemia - Continue simvastatin 20 nightly Neuropathy - Continue Cymbalta 60 Patient is otherwise medically optimized for discharge Thank you for allowing us to participate in the care of this pleasant patient. Do not hesitate to contact us with questions. Someone can be reached from the [facility] hospitalist group all hours of the day at [phone] or via perfect serve. Objective - Vital Signs Vital signs: Vital Signs Temp 98.7 F 10/02/23 07:20 Pulse 68 10/02/23 09:56 Resp 15 10/02/23 07:50 BP 132/83 10/02/23 07:20 Pulse Ox 96 10/02/23 07:20 FiO2 Intake & Output 10/01/23 10/02/23 10/02/23 18:59 06:59 18:59 Intake Total 2551 Output Total 275 375 Balance 2276 -375 Weight 77.3 kg 77.3 kg Intake: IV 2551 Output: Urine 225 375 Estimated Blood Loss 50 Other: Voiding Method Urinal Urinal - Labs CBC & Chem 7: 10/02/23 04:13 10/02/23 04:13 Labs: Abnormal Lab Results - Last 24 Hours (Table) 10/01/23 10/01/23 10/02/23 Range/Units 16:43 21:06 04:13 RBC (4.40-5.60) X 10*6/uL Hgb (13.0-17.0) g/dL Hct (39.6-50.0) % RDW (11.5-14.5) % Immature Gran # (0.00-0.04) X 10*3/uL BUN (9.0-27.0) mg/dL BUN/Creatinine Ratio (12.00-20.00) Ratio POC Glucose (mg/dL) 128 H 153 H (70-110) mg/dL Hemoglobin A1c 6.2 H (<=6.0) % 10/02/23 10/02/23 10/02/23 Range/Units 04:13 04:13 05:40 RBC 3.78 L (4.40-5.60) X 10*6/uL Hgb 11.7 L (13.0-17.0) g/dL Hct 36.0 L (39.6-50.0) % RDW 14.6 H (11.5-14.5) % Immature Gran # 0.05 H (0.00-0.04) X 10*3/uL BUN 35.7 H (9.0-27.0) mg/dL BUN/Creatinine Ratio 35.70 H (12.00-20.00) Ratio POC Glucose (mg/dL) 132 H (70-110) mg/dL Hemoglobin A1c (<=6.0) % 04/24/24 Range/Units 11:12 RBC (4.40-5.60) X 10*6/uL Hgb (13.0-17.0) g/dL Hct (39.6-50.0) % RDW (11.5-14.5) % Immature Gran # (0.00-0.04) X 10*3/uL BUN (9.0-27.0) mg/dL BUN/Creatinine Ratio (12.00-20.00) Ratio POC Glucose (mg/dL) 162 H (70-110) mg/dL Hemoglobin A1c (<=6.0) %
[2023-10-02 16:27] LABS: Glucose,Whole Blood 139 mg/dL (70-110)
[2023-10-02] MEDS: HYDROmorphone 0.5 MG/0.5 ML SYRINGE IVP PRN (19:54)
[2023-10-02 19:59] LABS: Glucose,Whole Blood 124 mg/dL (70-110)
[2023-10-03] MEDS ORDERED: SODIUM BICARB 8.4% 50 ML SYR (1 MEQ/ML) ONE (06:15)
[2023-10-03] MEDS ORDERED: EPINEPHrine 10 ML SYRINGE (0.1 MG/ML) ONE (06:15)
[2023-10-03 06:43] LABS: Glucose,Whole Blood 113 mg/dL (70-110)
--- NOTE | 2023-10-03 06:47 | P.EN ---
Code blue note patient is day 1 post left total knee arthroplasty , he walked to the bathroom, then collapsed in the bathroom while on the toilet. CPR initiated following ACLS protocol , epi given , bicarb given , patient intubated, initial rhythm was PEA. ROSC achieved , post arrest EKG unchanged compared to prior , still showing q wave in inferior leads, right bundle branch block , patient blood sugar 131, last dose of opiates 2 am 0.5 mg of dilaudid blood pressure systolic 160 post arrest transfer to the ICU cardiology consult to rule out ACS patient was coded for less than about 6-8 min
[2023-10-03 06:54] LABS: Glucose,Whole Blood 122 mg/dL (70-110)
[2023-10-03] MEDS: NOREPINEPHRINE 4 MG in SODIUM CHLORIDE 0.9% 250 ML IV SCH (07:07)
[2023-10-03] MEDS: SODIUM CHLORIDE 0.9% 1,000 ML IV ONE (07:07)
[2023-10-03] MEDS: propofoL 100 ML IV ONE (07:08)
[2023-10-03 07:30] LABS: ABG Base Excess -13.2 mmol/L; ABG HCO3 14 mmol/L (21-25); ABG PCO2 31 mmHg (35-45); ABG PH 7.26 (7.35-7.45); ABG PO2 390 mmHg (83-108); ABG TCO2 15 mmol/L (19-24); Allen Test Performed? Yes
[2023-10-03 07:40] LABS: ALT 239 U/L (4-49); AST 373 U/L (17-59); African American GFR (CKD) >90 (>60 ml/min/1.73 sqM); Albumin 3.6 g/dL (3.5-5.0); Albumin/Globulin Ratio 1.2; Alkaline Phosphatase 88 U/L (38-126); Anion Gap 14 mmol/L; Blood Urea Nitrogen 21 mg/dL (9-20); Calcium 8.8 mg/dL (8.4-10.2); Carbon Dioxide 17 mmol/L (22-30); Chloride 106 mmol/L (98-107); Glucose 160 mg/dL (74-99); HCT 39.6 % (39.0-53.0); Hypochromasia Marked; MCH 31.6 pg (25.0-35.0); MCHC 30.3 g/dL (31.0-37.0); MCV 104.5 fL (80.0-100.0); Macrocytosis Slight; Non-African American GFR(CKD) >90 (>60 ml/min/1.73 sqM); Platelet Count 293 k/uL (150-450); RBC 3.79 m/uL (4.30-5.90); RDW 13.9 % (11.5-15.5); Sodium 137 mmol/L (137-145); Total Protein 6.6 g/dL (6.3-8.2); WBC 18.2 k/uL (3.8-10.6)
[2023-10-03] MEDS: VASOPRESSIN 60 UNIT in SODIUM CHLORIDE 0.9% 150 ML IV SCH (07:45)
[2023-10-03] MEDS: SODIUM BICARB 8.4% 50 ML SYR (1 MEQ/ML) ONE (08:00)
--- NOTE | 2023-10-03 08:08 | XR ---
EXAM: XR Chest, 1 View CLINICAL HISTORY: ITS.REASON XR Reason: Tube placement TECHNIQUE: Frontal view of the chest. COMPARISON: 07/24/2022 FINDINGS: Lungs: There are chronic interstitial opacities in the lungs. Diffuse bilateral interstitial and airspace disease. Pleural space: No acute findings. No pneumothorax. Heart: No cardiomegaly. Bones/joints: Posterior fusion and stabilization changes in the spine. Tubes, lines and devices: ET tube 5.1 cm above the senia. IMPRESSION: 1. Diffuse bilateral interstitial and airspace disease. 2. ET tube 5.1 cm above the senia.
[2023-10-03 08:12] LABS: Band Neutrophils % 4 %; Monocytes # (M) 1.27 k/uL (0-1.0); Neutrophils % (M) 50 %; Nucleated Red Blood Cells 0 /100 WBC (0-0); Total Cells Counted 100
[2023-10-03] MEDS: IPRATROPIUM-ALBUTEROL 3 ML NEB INHALATION SCH (08:15)
--- NOTE | 2023-10-03 08:17 | XR ---
EXAMINATION TYPE: XR chest 1V portable DATE OF EXAM: 10/03/2023 0750 hours Comparison: Earlier today, at 0652 hours Clinical History: 63-year-old male OG tube placement Findings: Posterior cervical fusion hardware. Additional extensive lower thoracic and lumbar posterior fusion c hanges. ET tube satisfactory. OG tube satisfactory. Heart mildly enlarged. Diffuse interstitial and b ilateral patchy opacities persist. No sizable pleural effusion on frontal view. Impression: 1. Satisfactory ET and OG tubes. 2. Mild cardiomegaly with diffuse interstitial and bilateral patchy opacities persist.
--- NOTE | 2023-10-03 09:58 | P.PN ---
Subjective Progress Note Date: 10/03/23 Principal diagnosis: Status post left total knee arthroplasty Patient was examined today at bedside, patient was transferred to the ICU earlier this morning. He is currently intubated. A CODE BLUE was called for the patient earlier this morning after going unresponsive while using the restroom, there was an aide and nurse present. Multiple rounds of CPR were done, patient was intubated and taken to the ICU for further monitoring. I was able to discuss with the ICU nurse today at bedside patient's current condition, they are concerned for a PE. Patient was unable to have a CTA done earlier today due to being on stable. Patient's blood pressure has been improving since being in the ICU. He is being followed by both internal medicine and pulmonology. Cardiology has also been consulted Objective - Vital Signs Vital signs: Vital Signs Temp 98.9 F 10/03/23 08:00 Pulse 104 H 10/03/23 09:00 Resp 27 H 10/03/23 09:00 BP 127/77 10/03/23 09:00 Pulse Ox 100 10/03/23 09:00 FiO2 60 10/03/23 08:02 Intake & Output 10/02/23 10/03/23 10/03/23 18:59 06:59 18:59 Intake Total 19.778 Output Total 250 135 Balance -250 -115.222 Weight 77.3 kg Intake: Intake, IV Titration 19.778 Amount Norepinephrine 4 mg In 14.676 Sodium Chloride 0.9% 250 ml @ 0.03 MCG/KG/MIN 8. 835 mls/hr IV .Q24H NIKKI Rx#:[id number] propofoL 1,000 mg In 5.102 Empty Bag 1 bag @ 15 MCG/ KG/MIN 6.957 mls/hr IV . [id number] NIKKI Rx#:[id number] Output: Urine 250 135 Other: Voiding Method Urinal # Voids 3 - Exam Left lower extremity: Incision is clean, dry, and intact. The exofin fusion tape is in good condition. There is minimal soft tissue swelling and ecchymosis surrounding the medial and lateral aspects of the incision. Calf is soft, no tenderness with palpation. - Labs CBC & Chem 7: 10/03/23 06:54 10/03/23 06:54 Labs: Abnormal Lab Results - Last 24 Hours (Table) 0410/02/23 10/02/23 Range/Units 11:12 16:25 19:58 WBC (3.8-10.6) k/uL RBC (4.30-5.90) m/uL Hgb (13.0-17.5) gm/dL MCV (80.0-100.0) fL MCHC (31.0-37.0) g/dL Neutrophils # (Manual) (1.3-7.7) k/uL Lymphocytes # (Manual) (1.0-4.8) k/uL Monocytes # (Manual) (0-1.0) k/uL D-Dimer (<0.60) mg/L FEU ABG pH (7.35-7.45) ABG pCO2 (35-45) mmHg ABG pO2 (83-108) mmHg ABG HCO3 (21-25) mmol/L ABG Total CO2 (19-24) mmol/L ABG O2 Saturation (94-97) % Carbon Dioxide (22-30) mmol/L BUN (9-20) mg/dL Glucose (74-99) mg/dL POC Glucose (mg/dL) 162 H 139 H 124 H (70-110) mg/dL Plasma Lactic Acid Lukas (0.7-2.0) mmol/L AST (17-59) U/L ALT (4-49) U/L Troponin I (0.000-0.034) ng/mL 10/03/23 10/03/23 10/03/23 Range/Units 06:29 06:43 06:54 WBC 18.2 H (3.8-10.6) k/uL RBC 3.79 L (4.30-5.90) m/uL Hgb 12.0 L (13.0-17.5) gm/dL MCV 104.5 H (80.0-100.0) fL MCHC 30.3 L (31.0-37.0) g/dL Neutrophils # (Manual) 9.80 H (1.3-7.7) k/uL Lymphocytes # (Manual) 7.10 H (1.0-4.8) k/uL Monocytes # (Manual) 1.27 H (0-1.0) k/uL D-Dimer (<0.60) mg/L FEU ABG pH (7.35-7.45) ABG pCO2 (35-45) mmHg ABG pO2 (83-108) mmHg ABG HCO3 (21-25) mmol/L ABG Total CO2 (19-24) mmol/L ABG O2 Saturation (94-97) % Carbon Dioxide (22-30) mmol/L BUN (9-20) mg/dL Glucose (74-99) mg/dL POC Glucose (mg/dL) 113 H 122 H (70-110) mg/dL Plasma Lactic Acid Lukas (0.7-2.0) mmol/L AST (17-59) U/L ALT (4-49) U/L Troponin I (0.000-0.034) ng/mL 10/03/23 10/03/23 10/03/23 Range/Units 06:54 06:54 06:54 WBC (3.8-10.6) k/uL RBC (4.30-5.90) m/uL Hgb (13.0-17.5) gm/dL MCV (80.0-100.0) fL MCHC (31.0-37.0) g/dL Neutrophils # (Manual) (1.3-7.7) k/uL Lymphocytes # (Manual) (1.0-4.8) k/uL Monocytes # (Manual) (0-1.0) k/uL D-Dimer 10.29 H (<0.60) mg/L FEU ABG pH (7.35-7.45) ABG pCO2 (35-45) mmHg ABG pO2 (83-108) mmHg ABG HCO3 (21-25) mmol/L ABG Total CO2 (19-24) mmol/L ABG O2 Saturation (94-97) % Carbon Dioxide 17 L (22-30) mmol/L BUN 21 H (9-20) mg/dL Glucose 160 H (74-99) mg/dL POC Glucose (mg/dL) (70-110) mg/dL Plasma Lactic Acid Lukas 7.1 H* (0.7-2.0) mmol/L AST 373 H (17-59) U/L ALT 239 H (4-49) U/L Troponin I (0.000-0.034) ng/mL 10/03/23 10/03/23 Range/Units 06:54 07:28 WBC (3.8-10.6) k/uL RBC (4.30-5.90) m/uL Hgb (13.0-17.5) gm/dL MCV (80.0-100.0) fL MCHC (31.0-37.0) g/dL Neutrophils # (Manual) (1.3-7.7) k/uL Lymphocytes # (Manual) (1.0-4.8) k/uL Monocytes # (Manual) (0-1.0) k/uL D-Dimer (<0.60) mg/L FEU ABG pH 7.26 L (7.35-7.45) ABG pCO2 31 L (35-45) mmHg ABG pO2 390 H (83-108) mmHg ABG HCO3 14 L (21-25) mmol/L ABG Total CO2 15 L (19-24) mmol/L ABG O2 Saturation 100.0 H (94-97) % Carbon Dioxide (22-30) mmol/L BUN (9-20) mg/dL Glucose (74-99) mg/dL POC Glucose (mg/dL) (70-110) mg/dL Plasma Lactic Acid Lukas (0.7-2.0) mmol/L AST (17-59) U/L ALT (4-49) U/L Troponin I 0.050 H* (0.000-0.034) ng/mL Assessment and Plan Assessment: Postoperative day #2 status post left total knee arthroplasty Cardiac arrest Concern for pulmonary embolism Other medical comorbidities Plan: Appreciate other medical specialty recommendations With regards to the left knee, okay to leave current bandaging in place As patient's condition improves, patient is able to weight-bear as tolerated with the assistance of a walker. PT/OT evaluation once patient stabilizes DVT prophylaxis per cardiac, pulmonology and internal medicine recommendations We will continue to follow patient during hospital stay Time with Patient: Less than 30
[2023-10-03] MEDS: HEPARIN SOD,PORK IN 0.45% NACL 25,000 UNIT in 0.45% NACL 1 250ML.BAG IV SCH (10:47)
--- NOTE | 2023-10-03 10:57 | XR ---
EXAMINATION TYPE: XR chest 1V portable DATE OF EXAM: 10/03/2023 10:24 AM CLINICAL INDICATION:Male, 63 years old with history of central line placement; [facility] COMPARISON: Chest radiographs from earlier today TECHNIQUE: XR chest 1V portable Frontal view of the chest. FINDINGS: Lungs/Pleura: There is no evidence of pleural effusion or pneumothorax. Possibly developing area of focal consolidation in the left base. Pulmonary vascularity: Pulmonary venous congestion. Heart/mediastinum: Cardiomediastinal silhouette is unremarkable. Musculoskeletal: No acute osseous pathology. Other findings: None Lines/Tubes: ET tube is seen with its tip at the level of the clavicular manubrial joints. NG tube is coiled in th e stomach. Left approach central venous catheter has tip near the caval atrial junction. IMPRESSION: Support lines and tubes in good position. Pulmonary venous congestion with normal sized heart. Suggests possibility of volume overload
--- NOTE | 2023-10-03 10:58 | OP ---
OPERATIVE REPORT DATE OF SERVICE : FIRST PROCEDURE PERFORMED: Right radial arterial line. PREOPERATIVE DIAGNOSES: 1. Frequent blood draws. 2. Blood gas monitoring. 3. Hypotension. POSTOPERATIVE DIAGNOSES: 1. Frequent blood draws. 2. Blood gas monitoring. 3. Hypotension. There was informed consent and universal timeout. FIRST BATH HOUSE ATTENDANT: Dr. Moni Bird. ARTERIAL LINE PLACEMENT: Indications: Hemodynamic monitoring. A time-out was completed verifying correct patient, procedure, site, positioning, and implant or special equipment if applicable. Torrey's test was performed to ensure adequate perfusion. The patient's right wrist was prepped and draped in sterile fashion. 1% Lidocaine was used to anesthetize the area. An 18G Arrow arterial line was introduced into the radial artery. The catheter was threaded over the guide wire and the needle was removed with appropriate pulsatile blood return. Blood loss was minimal. The catheter was then sutured in place to the skin and a sterile dressing applied. Perfusion to the extremity distal to the point of catheter insertion was checked and found to be adequate. There was good blood return and waveform. The patient tolerated procedure well. There was no immediate complication. The catheter was sutured in place and sterile dressing was applied by the nurse. SECOND PROCEDURE PERFORMED: Left subclavian triple-lumen catheter. PREOPERATIVE DIAGNOSIS: Administration of fluids and pressors. POSTOPERATIVE DIAGNOSIS: Administration of fluids and pressors. FIRST BATH HOUSE ATTENDANT: Dr. Moni Bird. We used the left subclavian vein. TRIPLE LUMEN CATHETER PLACEMENT: Indication: Hemodynamic monitoring/Intravenous access. A time-out was completed verifying correct patient, procedure, site, positioning, and implant or special equipment if applicable. The patient was placed in a dependent position appropriate for triple lumen catheter placement based on the vein to be cannulated. The patient's left neck was prepped and draped in sterile fashion. 1% Lidocaine was used to anesthetize the surrounding skin area. A triple lumen 9F Cordis catheter was introduced into the left subclavian or internal jugular or common femoral vein using Seldinger technique. The catheter was threaded smoothly over the guide wire and appropriate blood return was obtained. Each lumen of the catheter was evacuated of air and flushed with sterile saline. The catheter was then sutured in place to the skin and a sterile dressing applied. Perfusion to the extremity distal to the point of catheter insertion was checked and found to be adequate. There was informed consent and universal timeout. There was good blood return from all 3 ports. The patient tolerated the procedure well. The catheter tip was seen at the junction of the superior vena cava and right atrium. Catheter was sutured in place and a sterile dressing was applied by the nurse. There was no immediate complication. MANI / RENARDN: [id number] /
[2023-10-03 11:52] LABS: Glucose,Whole Blood 155 mg/dL (70-110)
[2023-10-03] MEDS: SODIUM CHLORIDE 0.9% 1,000 ML IV SCH (12:30)
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
--- NOTE | 2023-10-03 13:04 | P.PN ---
Subjective Progress Note Date: 10/03/23 Subjective: Patient seen and examined at bedside. This morning, patient was helped to go to the toilet, and became unresponsive. Patient was in a PEA arrest. Patient was coded for approximately 6 to 8 minutes. Was intubated, was moved to the ICU. Pertinent positives and negatives as discussed above, a complete review of systems was performed and all other systems are negative. Vitals Signs Reviewed. General: Nontoxic, no distress, appears at stated age Derm: Warm, dry Head: Atraumatic, normocephalic, symmetric Eyes: EOMI, no lid lag, anicteric sclera Mouth: No lip lesion, mucus membranes moist Cardiovascular: S1S2 reg, no murmur Lungs: CTA bilateral, no rhonchi, no rales, no accessory muscle use Abdominal: Soft, nontender to palpation, no guarding, no appreciable organomegaly Ext: No gross muscle atrophy, no edema, no contractures Neuro: CN II-XI grossly intact, no focal neuro deficits Psych: Alert, oriented, appropriate affect Data Reviewed Today: Pertinent Labs: WBC 18.2, hemoglobin 12, platelet 293, pH 7.26, pCO2 31, pO2 390, D-dimer 10.29, creatinine 0.87, lactate initially at 7.1 now down trended to 1, troponin 0.050, AST 370, ALT 230, blood sugar 160. Imaging: Chest x-ray shows pulmonary vascular congestion Assessment and Plan: PEA cardiac arrest Mild troponin elevation, likely nonischemic Circulatory shock, likely obstructive Acute hypoxic respiratory failure Acute pulmonary edema Status post left total knee arthroplasty Leukocytosis, likely reactive Metabolic acidosis, lactic acidosis, resolving Transaminitis Suspected pulmonary embolism given high D-dimer, recent surgery despite patient being on Xarelto for DVT prophylaxis Echocardiogram was completed, report pending Patient will stable for CT chest angio Continue to wean vasopressors, currently intubated and sedated, ICU following Discontinued lisinopril On heparin drip prophylactically, continue monitor APTT, continue to monitor for bleeding Asthma/COPD - Continue as needed albuterol, and Symbicort History of hypertension, hold lisinopril Type 2 diabetes - Sliding scale insulin, monitor for hypoglycemia GERD - Continue omeprazole 20 Dyslipidemia - Continue simvastatin 20 nightly Neuropathy - Continue Cymbalta 60 Thank you for allowing us to participate in the care of this pleasant patient. Do not hesitate to contact us with questions. Someone can be reached from the [facility] hospitalist group all hours of the day at [phone] or via perfect serve. Objective - Vital Signs Vital signs: Vital Signs Temp 98.8 F 10/03/23 12:20 Pulse 96 10/03/23 12:50 Resp 17 10/03/23 12:50 BP 123/84 10/03/23 12:50 Pulse Ox 97 10/03/23 12:50 FiO2 60 10/03/23 11:09 Intake & Output 10/02/23 10/03/23 10/03/23 18:59 06:59 18:59 Intake Total 219.778 Output Total 250 340 Balance -250 -120.222 Weight 77.3 kg Intake: IV 200 Sodium Chloride 0.9% 1, 200 000 ml @ 999 mls/hr IV . Q1H1M ONE Rx#:[id number] Intake, IV Titration 19.778 Amount Norepinephrine 4 mg In 14.676 Sodium Chloride 0.9% 250 ml @ 0.03 MCG/KG/MIN 8. 835 mls/hr IV .Q24H NIKKI Rx#:[id number] propofoL 1,000 mg In 5.102 Empty Bag 1 bag @ 15 MCG/ KG/MIN 6.957 mls/hr IV . [id number] NIKKI Rx#:[id number] Output: Urine 250 340 Other: Voiding Method Urinal # Voids 3 ABP, PAP, CO, CI - Last Documented Arterial Blood Pressure 115/64 - Labs CBC & Chem 7: 10/03/23 06:54 10/03/23 06:54 Labs: Abnormal Lab Results - Last 24 Hours (Table) 10/02/23 10/02/23 10/03/23 Range/Units 16:25 19:58 06:29 WBC (3.8-10.6) k/uL RBC (4.30-5.90) m/uL Hgb (13.0-17.5) gm/dL MCV (80.0-100.0) fL MCHC (31.0-37.0) g/dL Neutrophils # (Manual) (1.3-7.7) k/uL Lymphocytes # (Manual) (1.0-4.8) k/uL Monocytes # (Manual) (0-1.0) k/uL D-Dimer (<0.60) mg/L FEU ABG pH (7.35-7.45) ABG pCO2 (35-45) mmHg ABG pO2 (83-108) mmHg ABG HCO3 (21-25) mmol/L ABG Total CO2 (19-24) mmol/L ABG O2 Saturation (94-97) % Carbon Dioxide (22-30) mmol/L BUN (9-20) mg/dL Glucose (74-99) mg/dL POC Glucose (mg/dL) 139 H 124 H 113 H (70-110) mg/dL Plasma Lactic Acid Lukas (0.7-2.0) mmol/L AST (17-59) U/L ALT (4-49) U/L Troponin I (0.000-0.034) ng/mL 10/03/23 10/03/23 10/03/23 Range/Units 06:43 06:54 06:54 WBC 18.2 H (3.8-10.6) k/uL RBC 3.79 L (4.30-5.90) m/uL Hgb 12.0 L (13.0-17.5) gm/dL MCV 104.5 H (80.0-100.0) fL MCHC 30.3 L (31.0-37.0) g/dL Neutrophils # (Manual) 9.80 H (1.3-7.7) k/uL Lymphocytes # (Manual) 7.10 H (1.0-4.8) k/uL Monocytes # (Manual) 1.27 H (0-1.0) k/uL D-Dimer 10.29 H (<0.60) mg/L FEU ABG pH (7.35-7.45) ABG pCO2 (35-45) mmHg ABG pO2 (83-108) mmHg ABG HCO3 (21-25) mmol/L ABG Total CO2 (19-24) mmol/L ABG O2 Saturation (94-97) % Carbon Dioxide (22-30) mmol/L BUN (9-20) mg/dL Glucose (74-99) mg/dL POC Glucose (mg/dL) 122 H (70-110) mg/dL Plasma Lactic Acid Lukas (0.7-2.0) mmol/L AST (17-59) U/L ALT (4-49) U/L Troponin I (0.000-0.034) ng/mL 10/03/23 10/03/23 10/03/23 Range/Units 06:54 06:54 06:54 WBC (3.8-10.6) k/uL RBC (4.30-5.90) m/uL Hgb (13.0-17.5) gm/dL MCV (80.0-100.0) fL MCHC (31.0-37.0) g/dL Neutrophils # (Manual) (1.3-7.7) k/uL Lymphocytes # (Manual) (1.0-4.8) k/uL Monocytes # (Manual) (0-1.0) k/uL D-Dimer (<0.60) mg/L FEU ABG pH (7.35-7.45) ABG pCO2 (35-45) mmHg ABG pO2 (83-108) mmHg ABG HCO3 (21-25) mmol/L ABG Total CO2 (19-24) mmol/L ABG O2 Saturation (94-97) % Carbon Dioxide 17 L (22-30) mmol/L BUN 21 H (9-20) mg/dL Glucose 160 H (74-99) mg/dL POC Glucose (mg/dL) (70-110) mg/dL Plasma Lactic Acid Lukas 7.1 H* (0.7-2.0) mmol/L AST 373 H (17-59) U/L ALT 239 H (4-49) U/L Troponin I 0.050 H* (0.000-0.034) ng/mL 10/03/23 10/03/23 Range/Units 07:28 11:51 WBC (3.8-10.6) k/uL RBC (4.30-5.90) m/uL Hgb (13.0-17.5) gm/dL MCV (80.0-100.0) fL MCHC (31.0-37.0) g/dL Neutrophils # (Manual) (1.3-7.7) k/uL Lymphocytes # (Manual) (1.0-4.8) k/uL Monocytes # (Manual) (0-1.0) k/uL D-Dimer (<0.60) mg/L FEU ABG pH 7.26 L (7.35-7.45) ABG pCO2 31 L (35-45) mmHg ABG pO2 390 H (83-108) mmHg ABG HCO3 14 L (21-25) mmol/L ABG Total CO2 15 L (19-24) mmol/L ABG O2 Saturation 100.0 H (94-97) % Carbon Dioxide (22-30) mmol/L BUN (9-20) mg/dL Glucose (74-99) mg/dL POC Glucose (mg/dL) 155 H (70-110) mg/dL Plasma Lactic Acid Lukas (0.7-2.0) mmol/L AST (17-59) U/L ALT (4-49) U/L Troponin I (0.000-0.034) ng/mL
[2023-10-03] MEDS: CHLORHEXIDINE GLUCONATE 15 ML CUP MUCOUS MEM SCH (17:12)
--- NOTE | 2023-10-03 17:18 | CT ---
EXAMINATION TYPE: CT chest angio for PE DATE OF EXAM: 10/03/2023 COMPARISON: None HISTORY: unresponsive CT DLP: 601.5 mGycm Automated exposure control for dose reduction was used. CONTRAST: CT Chest for pulmonary embolism performed with with IV Contrast, patient injected with 100ml mL of Is ovue 370. FINDINGS: There are no filling defects within the pulmonary artery or branches to suggest pulmonary embolism. There is marked severe interstitial lung disease with marked honeycombing, interstitial fibrosis with apical basal gradient. The findings are consistent with severe idiopathic pulmonary fibrosis. There is a focal area of consolidative density in the right lung base posteriorly which could represent a s uperimposed acute pneumonic infiltrate. There is no large pleural effusion or pneumothorax. There is no mediastinal, hilar or axillary adenopathy. The osseous structures are intact. IMPRESSION: 1. No evidence of pulmonary embolism. 2. Marked chronic interstitial lung disease consistent with severe idiopathic pulmonary fibrosis. 3. Possible acute pneumonic infiltrate in the right lung base
[2023-10-03 17:59] LABS: Glucose,Whole Blood 146 mg/dL (70-110)
[2023-10-03] MEDS: CISATRACURIUM 2 MG/ML 5 ML VIAL IV ONE (18:31)
[2023-10-03] MEDS: INSULIN ASPART (NovoLOG) 100 UNIT/ML VIAL SQ SCH (18:33)
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
[2023-10-04] LABS: Glucose,Whole Blood 126 mg/dL (70-110)
[2023-10-04 06:01] LABS: Basophils # (A) 0.1 k/uL (0-0.2); Basophils % (A) 1 %; Eosinophils # (A) 0.1 k/uL (0-0.7); Eosinophils % (A) 1 %; HCT 31.5 % (39.0-53.0); HGB 10.1 gm/dL (13.0-17.5); Lymphocytes # (A) 1.8 k/uL (1.0-4.8); Lymphocytes % (A) 20 %; MCH 31.1 pg (25.0-35.0); MCHC 32.1 g/dL (31.0-37.0); Mean Platelet Volume 8.3; Monocytes # (A) 0.6 k/uL (0-1.0); Monocytes % (A) 7 %; Neutrophils # (A) 6.2 k/uL (1.3-7.7); Neutrophils % (A) 69 %; Platelet Count 204 k/uL (150-450); RBC 3.25 m/uL (4.30-5.90); RDW 14.3 % (11.5-15.5)
[2023-10-04 06:05] LABS: ABG Base Excess 2.4 mmol/L; ABG HCO3 27 mmol/L (21-25); ABG PCO2 45 mmHg (35-45); ABG PH 7.39 (7.35-7.45); ABG PO2 272 mmHg (83-108); ABG TCO2 29 mmol/L (19-24)
[2023-10-04 06:21] LABS: MCV 97.1 fL (80.0-100.0)
[2023-10-04 06:36] LABS: ALT 148 U/L (4-49); AST 123 U/L (17-59); African American GFR (CKD) >90 (>60 ml/min/1.73 sqM); Albumin 2.7 g/dL (3.5-5.0); Alkaline Phosphatase 80 U/L (38-126); Anion Gap 2 mmol/L; Blood Urea Nitrogen 22 mg/dL (9-20); Calcium 7.9 mg/dL (8.4-10.2); Carbon Dioxide 28 mmol/L (22-30); Chloride 105 mmol/L (98-107); Glucose 137 mg/dL (74-99); Non-African American GFR(CKD) 85 (>60 ml/min/1.73 sqM); Sodium 135 mmol/L (137-145); Total Bilirubin 0.5 mg/dL (0.2-1.3); Total Protein 5.6 g/dL (6.3-8.2)
[2023-10-04 06:44] LABS: Glucose,Whole Blood 134 mg/dL (70-110)
--- NOTE | 2023-10-04 07:30 | CA ---
Transthoracic Echo Report Name: Sam Cardoza Age: 63 Gender: M : 1960 Exam Date: 10/03/2023 08:03 Exam Location: [facility] Ht (in): 70 Wt (lb): 170 Ordering Physician: Carlos Mark Attending/Referring Phys: Shell Padilla MD [employer] Valery Asencio RDCS Procedure CPT: Indications: Cardiac Arrest Cardiac Hx: Technical Quality: Fair Contrast 1: Total Dose (mL): Contrast 2: Total Dose (mL): MEASUREMENTS (Male / Female) Normal Values 2D ECHO LV Diastolic Diameter PLAX 4.3 cm 4.2 - 5.9 / 3.9 - 5.3 cm LV Systolic Diameter PLAX 2.0 cm IVS Diastolic Thickness 1.3 cm 0.6 - 1.0 / 0.6 - 0.9 cm LVPW Diastolic Thickness 1.2 cm 0.6 - 1.0 / 0.6 - 0.9 cm LV Relative Wall Thickness 0.6 RV Internal Dim ED PLAX 5.9 cm LA Volume 43.7 cm??? 18 - 58 / 22 - 52 cm??? LA Volume Index 22.3 cm???/m??? 16 - 28 cm???/m??? M-MODE Aortic Root Diameter MM 3.3 cm LA Systolic Diameter MM 4.1 cm LA Ao Ratio MM 1.2 AV Cusp Separation MM 1.8 cm DOPPLER AV Peak Velocity 187.8 cm/s AV Peak Gradient 14.1 mmHg AV Mean Velocity 129.9 cm/s AV Mean Gradient 7.7 mmHg AV Velocity Time Integral 25.2 cm LVOT Peak Velocity 122.1 cm/s LVOT Peak Gradient 6.0 mmHg LVOT Velocity Time Integral 18.9 cm MV Area PHT 3.1 cm??? Mitral E Point Velocity 52.6 cm/s Mitral A Point Velocity 104.9 cm/s Mitral E to A Ratio 0.5 MV Deceleration Time 244.3 ms MV E' Velocity 5.4 cm/s Mitral E to MV E' Ratio 9.7 TR Peak Velocity 416.3 cm/s TR Peak Gradient 69.3 mmHg Right Ventricular Systolic Press 78.0 mmHg FINDINGS Left Ventricle Mildly increased left ventricular wall thickness. Left ventricular cavity size normal. No obvious regional wall motion abnormalities. Left ventricular ejection fraction is estimated at 50-55 %. Grade 1 diastolic dysfunction. Right Ventricle Severe right ventricular dilatation. Severe pulmonary hypertension. Right ventricular systolic pressure estimated at 78 mm hg. No RV strain noted TAPSE 27mm, and S' 10 cm/sec. Right Atrium Mild right atrial dilatation. Left Atrium Normal left atrial size. Mitral Valve Structurally normal mitral valve. Mild mitral annular calcification. Mild mitral regurgitation. Aortic Valve Trileaflet aortic valve. No aortic valve stenosis or regurgitation. Tricuspid Valve Structurally normal tricuspid valve. [id number] tricuspid regurgitation. Pulmonic Valve Structurally normal pulmonic valve. Pericardium No pericardial effusion. Aorta Normal size aortic root and proximal ascending aorta. CONCLUSIONS Severe RV enlargement with severe pulmonary hypertension and evidence of pressure overload Left ventricular systolic function is 5055% Septal flattening consistent with elevated pressures on the right side Previewed by: Dr. Oneal Preston MD (Electronically Signed) Final Date: 04 October 2023 07:30
[2023-10-04 11:41] LABS: Glucose,Whole Blood 109 mg/dL (70-110)
--- NOTE | 2023-10-04 12:01 | P.PN ---
Subjective Progress Note Date: 10/04/23 Hospital Course: Patient is a 63-year-old male with history of hypertension, dyslipidemia, COPD, diabetes presenting for elective total left knee arthroplasty. Patient was progressing well. On 10/03/2023, patient got up with assistance to go to the bathroom, while on the toilet, patient went unresponsive, had PEA arrest. Was coded for 6 to 8 minutes, ROSC achieved. Patient intubated and transferred to medical ICU. Due to elevated D-dimer and shock, there was concern for pulmonary embolism. CTA completed, negative. Echocardiogram shows LVEF 50 to 55%, grade 1 diastolic dysfunction, severe RV dilatation, severe pulmonary hypertension. Cardiology and ICU consulted. Patient successfully weaned off of vasopressors, on minimal vent settings, possible extubation today. Subjective: Patient seen and examined at bedside. No acute events overnight. Pertinent positives and negatives as discussed above, a complete review of systems was performed and all other systems are negative. Vitals Signs Reviewed. General: Nontoxic, no distress, appears at stated age Derm: Warm, dry Head: Atraumatic, normocephalic, symmetric Eyes: EOMI, no lid lag, anicteric sclera Mouth: No lip lesion, mucus membranes moist Cardiovascular: S1S2 reg, no murmur Lungs: CTA bilateral, no rhonchi, no rales, no accessory muscle use Abdominal: Soft, nontender to palpation, no guarding, no appreciable or ganomegaly Ext: No gross muscle atrophy, no edema, no contractures Neuro: CN II-XI grossly intact, no focal neuro deficits Psych: Alert, oriented, appropriate affect Data Reviewed Today: Pertinent Labs: WBC 9.0, hemoglobin 10.1, platelet 204, pH 7.39, pCO2 45, sodium 135, potassium 5, creatinine 0.95, AST 123, ALT 148 Imaging: Chest x-ray shows pulmonary vascular congestion. Chest CTA did not s how any PE, marked chronic interstitial lung disease consistent with IPF. Assessment and Plan: PEA cardiac arrest Mild troponin elevation, likely nonischemic Circulatory shock, unclear etiology Acute hypoxic respiratory failure Acute pulmonary edema versus pulmonary fibrosis Severe pulmonary hypertension History of asthma/COPD Status post left total knee arthroplasty Leukocytosis, likely reactive, resolved Metabolic acidosis, lactic acidosis, resolved Transaminitis, resolving - Patient possibly had a severe vagal response while sitting on the toilet. Per nursing, each time he coughs he has severe bradycardia. - Cardiology following -Remains on heparin drip, monitor for bleeding - On albuterol as needed, Symbicort as needed, DuoNeb every 4 hours - Spontaneous breathing trial, possible extubation today - ICU following History of hypertension, hold lisinopril Type 2 diabetes - Sliding scale insulin, monitor for hypoglycemia GERD - Continue omeprazole 20 Dyslipidemia - Continue simvastatin 20 nightly Neuropathy - Continue Cymbalta 60 DVT ppx: Heparin drip Code status: Full code Anticipated discharge place: Pending clinical course Anticipated discharge time: Pending clinical course Objective - Vital Signs Vital signs: Vital Signs Temp 98.6 F 10/04/23 08:30 Pulse 100 10/04/23 11:20 Resp 36 H 10/04/23 11:00 BP 123/84 10/04/23 11:00 Pulse Ox 97 10/04/23 11:00 FiO2 60 10/04/23 08:01 Intake & Output 10/03/23 10/04/23 10/04/23 18:59 06:59 18:59 Intake Total 4456.192 8191.773 536.537 Output Total 895 945 275 Balance 189.859 93.773 261.537 Weight 86.2 kg Intake: IV 500 600 274 0.9 Pressure Bags 24 Sodium Chloride 0.9% 1, 550 250 000 ml @ 50 mls/hr IV . Q20H [facility] Rx#:[id number] Sodium Chloride 0.9% 1, 500 50 000 ml @ 999 mls/hr IV . Q1H1M [facility] Rx#:[id number] Intake, IV Titration 584.859 438.773 262.537 Amount Heparin Sod,Pork in 0.45% 109.457 126.978 NaCl 25,000 unit In 0.45 % NaCl 1 250ml.bag @ 18 UNITS/KG/HR 13.914 mls/hr IV .[id number] [facility] Rx#: [id number] Norepinephrine 4 mg In 275.402 58.458 18.701 Sodium Chloride 0.9% 250 ml @ 0.03 MCG/KG/MIN 8. 835 mls/hr IV .Q24H [facility] Rx#:[id number] Vasopressin 60 unit In 116.587 Sodium Chloride 0.9% 150 ml @ 0.03 UNITS/MIN 4.59 mls/hr IV .Q24H [facility] Rx#: [id number] propofoL 1,000 mg In 200.000 253.337 127.249 Empty Bag 1 bag @ 15 MCG/ KG/MIN 6.957 mls/hr IV . [id number] [facility] Rx#:[id number] Output: Urine 895 945 275 Other: Voiding Method Indwelling Catheter ABP, PAP, CO, CI - Last Documented Arterial Blood Pressure 100/48 - Labs CBC & Chem 7: 10/04/23 05:50 10/04/23 05:50 Labs: Abnormal Lab Results - Last 24 Hours (Table) 10/03/23 10/03/23 10/03/23 Range/Units 17:30 17:58 23:10 RBC (4.30-5.90) m/uL Hgb (13.0-17.5) gm/dL Hct (39.0-53.0) % APTT 94.5 H (22.0-30.0) sec ABG pO2 (83-108) mmHg ABG HCO3 (21-25) mmol/L ABG Total CO2 (19-24) mmol/L ABG O2 Saturation (94-97) % Sodium (137-145) mmol/L BUN (9-20) mg/dL Glucose (74-99) mg/dL POC Glucose (mg/dL) 146 H (70-110) mg/dL Calcium (8.4-10.2) mg/dL AST (17-59) U/L ALT (4-49) U/L Troponin I 0.403 H* (0.000-0.034) ng/mL Total Protein (6.3-8.2) g/dL Albumin (3.5-5.0) g/dL 10/03/23 10/04/23 10/04/23 Range/Units 23:59 00:32 05:50 RBC 3.25 L (4.30-5.90) m/uL Hgb 10.1 L (13.0-17.5) gm/dL Hct 31.5 L (39.0-53.0) % APTT 107.2 H* (22.0-30.0) sec ABG pO2 (83-108) mmHg ABG HCO3 (21-25) mmol/L ABG Total CO2 (19-24) mmol/L ABG O2 Saturation (94-97) % Sodium (137-145) mmol/L BUN (9-20) mg/dL Glucose (74-99) mg/dL POC Glucose (mg/dL) 126 H (70-110) mg/dL Calcium (8.4-10.2) mg/dL AST (17-59) U/L ALT (4-49) U/L Troponin I (0.000-0.034) ng/mL Total Protein (6.3-8.2) g/dL Albumin (3.5-5.0) g/dL 10/04/23 10/04/23 10/04/23 Range/Units 05:50 06:05 06:42 RBC (4.30-5.90) m/uL Hgb (13.0-17.5) gm/dL Hct (39.0-53.0) % APTT (22.0-30.0) sec ABG pO2 272 H (83-108) mmHg ABG HCO3 27 H (21-25) mmol/L ABG Total CO2 29 H (19-24) mmol/L ABG O2 Saturation 100.0 H (94-97) % Sodium 135 L (137-145) mmol/L BUN 22 H (9-20) mg/dL Glucose 137 H (74-99) mg/dL POC Glucose (mg/dL) 134 H (70-110) mg/dL Calcium 7.9 L (8.4-10.2) mg/dL AST 123 H (17-59) U/L ALT 148 H (4-49) U/L Troponin I (0.000-0.034) ng/mL Total Protein 5.6 L (6.3-8.2) g/dL Albumin 2.7 L (3.5-5.0) g/dL 10/04/23 Range/Units 09:02 RBC (4.30-5.90) m/uL Hgb (13.0-17.5) gm/dL Hct (39.0-53.0) % APTT 58.9 H (22.0-30.0) sec ABG pO2 (83-108) mmHg ABG HCO3 (21-25) mmol/L ABG Total CO2 (19-24) mmol/L ABG O2 Saturation (94-97) % Sodium (137-145) mmol/L BUN (9-20) mg/dL Glucose (74-99) mg/dL POC Glucose (mg/dL) (70-110) mg/dL Calcium (8.4-10.2) mg/dL AST (17-59) U/L ALT (4-49) U/L Troponin I (0.000-0.034) ng/mL Total Protein (6.3-8.2) g/dL Albumin (3.5-5.0) g/dL Microbiology - Last 24 Hours (Table) 10/03/23 08:23 Gram Stain - Preliminary Sputum
--- NOTE | 2023-10-04 12:06 | P.PN ---
Subjective Progress Note Date: 10/04/23 This is a 63-year-old male patient with a known history of COPD, diabetes mellitus, gastroesophageal reflux disease, hyperlipidemia, hypertension, osteoarthritis. He had been having ongoing issues with left knee pain and presented here on 10/01/2023 for a left knee total arthroplastycementedposterior stabilizer. Yesterday he had been doing well recovering when earlier this morning he had been up ambulating to the bathroom and collapsed in the bathroom while on the toilet. CPR was initiated. Initial rhythm was PEA. He was intubated and obtained return of spontaneous circulation. He was transferred to the intensive care unit. He is seen today in consultation. He is currently on the mechanical ventilator and assist- control mode with a rate of 16, tidal volume 450, FiO2 60% and a PEEP of 5. Blood gases revealed a PaO2 of 390, pCO2 of 31 and a pH of 7.26. This was on 100% FiO2. He was hypotensive and requiring norepinephrine at 5 mcg/min. He is also on vasopressin at 0.03 units/min. He is sedated on propofol at 50 mcg/kg/min. He has normal saline at 50 MLS per hour. He received 2 L of fluid resuscitation. He received 2 A of bicarb. White count 18.2. Hemoglobin 12.0. Platelets 293. D-dimer 10.29. Sodium 137. Potassium 5.0. Bicarb 17. BUN 21. Creatinine 0.87. Glucose 160. Initial lactic acid 7.1. Currently 1.0. AST 373. ALT 239. Troponin 0.050. Chest x-ray reveals endotracheal tube in position. Nasogastric tube in the stomach. Left central venous catheter tip near the caval atrial junction. Some pulmonary venous congestion with normal- sized heart. Possible fluid volume overload. Echocardiogram is pending. The patient is seen today October 04, 2023 in follow-up in the intensive care unit. He remains intubated on the mechanical ventilator and assist-control mode at a rate of 16, tidal volume 450, FiO2 60% and a PEEP of 5. Morning blood gases revealed a PaO2 of 272, pCO2 45, pH 7.39. He remains sedated on propofol at 50 mcg/kg/min. He is on a heparin drip per weight-based protocol. Normal saline at 50 MLS per hour. Vasopressin and norepinephrine have been on hold since this a.m. CT angiogram reveals no evidence of pulmonary embolism. There is marked chronic interstitial lung disease consistent with severe idiopathic pulmonary fibrosis. Possible acute pneumonic infiltrate in the right lung base. Echocardiogram revealed preserved left ventricular systolic function with ejection fraction 50 to 55%. There is noted severe right ventricular dilatation. Severe pulmonary hypertension with an RVSP of 78 mmHg. No RV strain noted. Sputum culture pending. White count 9.0. Hemoglobin 10.1. Platelets 204. Sodium 135. Potassium 5.0. Bicarb 28. BUN 22. Creatinine 0.95. Glucose 137. AST 123. ALT 148. Troponin 0.050, 0.403. He is continued on DuoNeb inhalations, Symbicort. Objective - Vital Signs Vital signs: Vital Signs Temp 98.6 F 10/04/23 08:30 Pulse 100 10/04/23 11:20 Resp 36 H 10/04/23 11:00 BP 123/84 10/04/23 11:00 Pulse Ox 97 10/04/23 11:00 FiO2 60 10/04/23 08:01 Intake & Output 10/03/23 10/04/23 10/04/23 18:59 06:59 18:59 Intake Total 0680.124 1419.773 536.537 Output Total 895 945 275 Balance 189.859 93.773 261.537 Weight 86.2 kg Intake: IV 500 600 274 0.9 Pressure Bags 24 Sodium Chloride 0.9% 1, 550 250 000 ml @ 50 mls/hr IV . Q20H [facility] Rx#:[id number] Sodium Chloride 0.9% 1, 500 50 000 ml @ 999 mls/hr IV . Q1H1M [facility] Rx#:[id number] Intake, IV Titration 584.859 438.773 262.537 Amount Heparin Sod,Pork in 0.45% 109.457 126.978 NaCl 25,000 unit In 0.45 % NaCl 1 250ml.bag @ 18 UNITS/KG/HR 13.914 mls/hr IV .[id number] [facility] Rx#: [id number] Norepinephrine 4 mg In 275.402 58.458 18.701 Sodium Chloride 0.9% 250 ml @ 0.03 MCG/KG/MIN 8. 835 mls/hr IV .Q24H [facility] Rx#:[id number] Vasopressin 60 unit In 116.587 Sodium Chloride 0.9% 150 ml @ 0.03 UNITS/MIN 4.59 mls/hr IV .Q24H [facility] Rx#: [id number] propofoL 1,000 mg In 200.000 253.337 127.249 Empty Bag 1 bag @ 15 MCG/ KG/MIN 6.957 mls/hr IV . [id number] [facility] Rx#:[id number] Output: Urine 895 945 275 Other: Voiding Method Indwelling Catheter ABP, PAP, CO, CI - Last Documented Arterial Blood Pressure 100/48 - Exam GENERAL EXAM: Intubated, sedated 63-year-old male patient, on the mechanical ventilator, in no acute distress. HEAD: Normocephalic. EYES: Sluggish reaction of pupils, equal size. NOSE: Clear with pink turbinates. THROAT: Oral endotracheal and gastric tube secured in place, no erythema or exudates. NECK: No masses, no JVD. CHEST: No chest wall deformity. LUNGS: Equal air entry with coarse crackles in the bilateral bases. CVS: S1 and S2 normal with no audible murmur, regular rhythm. ABDOMEN: No hepatosplenomegaly, normal bowel sounds, no guarding or rigidity. SPINE: No scoliosis or deformity SKIN: No rashes CENTRAL NERVOUS SYSTEM: Sedated, tone is normal in all 4 extremities. EXTREMITIES: Left lower extremity with incision clean dry and intact. Exofin fusion tape in good condition. Some swelling and ecchymosis noted. Peripheral pulses are intact. - Labs CBC & Chem 7: 10/04/23 05:50 10/04/23 05:50 Labs: Abnormal Lab Results - Last 24 Hours (Table) 10/03/23 10/03/23 10/03/23 Range/Units 17:30 17:58 23:10 RBC (4.30-5.90) m/uL Hgb (13.0-17.5) gm/dL Hct (39.0-53.0) % APTT 94.5 H (22.0-30.0) sec ABG pO2 (83-108) mmHg ABG HCO3 (21-25) mmol/L ABG Total CO2 (19-24) mmol/L ABG O2 Saturation (94-97) % Sodium (137-145) mmol/L BUN (9-20) mg/dL Glucose (74-99) mg/dL POC Glucose (mg/dL) 146 H (70-110) mg/dL Calcium (8.4-10.2) mg/dL AST (17-59) U/L ALT (4-49) U/L Troponin I 0.403 H* (0.000-0.034) ng/mL Total Protein (6.3-8.2) g/dL Albumin (3.5-5.0) g/dL 10/03/23 10/04/23 10/04/23 Range/Units 23:59 00:32 05:50 RBC 3.25 L (4.30-5.90) m/uL Hgb 10.1 L (13.0-17.5) gm/dL Hct 31.5 L (39.0-53.0) % APTT 107.2 H* (22.0-30.0) sec ABG pO2 (83-108) mmHg ABG HCO3 (21-25) mmol/L ABG Total CO2 (19-24) mmol/L ABG O2 Saturation (94-97) % Sodium (137-145) mmol/L BUN (9-20) mg/dL Glucose (74-99) mg/dL POC Glucose (mg/dL) 126 H (70-110) mg/dL Calcium (8.4-10.2) mg/dL AST (17-59) U/L ALT (4-49) U/L Troponin I (0.000-0.034) ng/mL Total Protein (6.3-8.2) g/dL Albumin (3.5-5.0) g/dL 10/04/23 10/04/23 10/04/23 Range/Units 05:50 06:05 06:42 RBC (4.30-5.90) m/uL Hgb (13.0-17.5) gm/dL Hct (39.0-53.0) % APTT (22.0-30.0) sec ABG pO2 272 H (83-108) mmHg ABG HCO3 27 H (21-25) mmol/L ABG Total CO2 29 H (19-24) mmol/L ABG O2 Saturation 100.0 H (94-97) % Sodium 135 L (137-145) mmol/L BUN 22 H (9-20) mg/dL Glucose 137 H (74-99) mg/dL POC Glucose (mg/dL) 134 H (70-110) mg/dL Calcium 7.9 L (8.4-10.2) mg/dL AST 123 H (17-59) U/L ALT 148 H (4-49) U/L Troponin I (0.000-0.034) ng/mL Total Protein 5.6 L (6.3-8.2) g/dL Albumin 2.7 L (3.5-5.0) g/dL 10/04/23 Range/Units 09:02 RBC (4.30-5.90) m/uL Hgb (13.0-17.5) gm/dL Hct (39.0-53.0) % APTT 58.9 H (22.0-30.0) sec ABG pO2 (83-108) mmHg ABG HCO3 (21-25) mmol/L ABG Total CO2 (19-24) mmol/L ABG O2 Saturation (94-97) % Sodium (137-145) mmol/L BUN (9-20) mg/dL Glucose (74-99) mg/dL POC Glucose (mg/dL) (70-110) mg/dL Calcium (8.4-10.2) mg/dL AST (17-59) U/L ALT (4-49) U/L Troponin I (0.000-0.034) ng/mL Total Protein (6.3-8.2) g/dL Albumin (3.5-5.0) g/dL Microbiology - Last 24 Hours (Table) 10/03/23 08:23 Gram Stain - Preliminary Sputum Assessment and Plan Assessment: Cardiac arrest with requiring cardiopulmonary resuscitation including intubation and return of spontaneous circulation achieved. CT angiogram ruled out pulmonary embolism Acute hypoxemic respiratory failure secondary to above currently on the mechanical ventilator. The patient is noted to have severe pulmonary fibrosis and severe pulmonary hypertension Hypotension requiring pressor support secondary to above, recovered and off pressors Left knee total arthroplasty on 10/01/2023, postoperative day #3 initiated Xarelto 10/02/2023 Severe pulmonary fibrosis of unclear etiology or duration Severe pulmonary hypertension secondary to above with an RVSP of 78 mmHg History of chronic obstructive pulmonary disease Former smoker Diabetes mellitus Hypertension Hyperlipidemia Osteoarthritis Plan: The patient was seen and evaluated Chest x-ray, ABGs, labs and medications reviewed Echocardiogram reviewed Continue the current treatment plan Will give a daily interruption of sedation and spontaneous breathing trial We will plan to extubate if tolerated well We will continue to follow I have personally seen and examined the patient, performed the documentation and the assessment and plan as written. Number of minutes spent on the visit: 15.
--- NOTE | 2023-10-04 12:07 | XR ---
EXAMINATION TYPE: XR chest 1V portable DATE OF EXAM: 10/04/2023 COMPARISON: 10/03/2023 HISTORY: 63 year-old male tube placement TECHNIQUE: AP semiupright FINDINGS: ACDF and posterior cervical fusion hardware as well as lower posterior thoracolumbar fusion hardware. Left subclavian CVC in the right atrium. NG tube courses below the diaphragm. ET tube tip 1.6 cm from the senia. Pull back 1 cm and reassessed at follow-up. Medium to coarse diff use interstitial opacities have slightly increased in the interval. IMPRESSION: 1. ET tube tip 1.6 cm from the senia. Pull back 1 cm and reassessed at follow-up. 2. Slight worsening in diffuse interstitial and patchy bilateral opacities.
--- NOTE | 2023-10-04 12:20 | P.PN ---
Subjective Progress Note Date: 10/04/23 Principal diagnosis: Status post left total knee arthroplasty Patient was examined today at bedside, He has been extubated. He still remains in the ICU. Patient is generally confused at bedside, was able to discuss this with nursing prior. He is aware that he is in the hospital and had his knee replaced. He states that there is some swelling and discomfort in the left knee . Urinary catheter remains in place, patient has not been out of bed at this time. Objective - Vital Signs Vital signs: Vital Signs Temp 98.6 F 10/04/23 08:30 Pulse 100 10/04/23 11:20 Resp 36 H 10/04/23 11:00 BP 123/84 10/04/23 11:00 Pulse Ox 97 10/04/23 11:00 FiO2 60 10/04/23 08:01 Intake & Output 10/03/23 10/04/23 10/04/23 18:59 06:59 18:59 Intake Total 0498.041 5544.773 536.537 Output Total 895 945 275 Balance 189.859 93.773 261.537 Weight 86.2 kg Intake: IV 500 600 274 0.9 Pressure Bags 24 Sodium Chloride 0.9% 1, 550 250 000 ml @ 50 mls/hr IV . Q20H [facility] Rx#:[id number] Sodium Chloride 0.9% 1, 500 50 000 ml @ 999 mls/hr IV . Q1H1M [facility] Rx#:[id number] Intake, IV Titration 584.859 438.773 262.537 Amount Heparin Sod,Pork in 0.45% 109.457 126.978 NaCl 25,000 unit In 0.45 % NaCl 1 250ml.bag @ 18 UNITS/KG/HR 13.914 mls/hr IV .[id number] [facility] Rx#: [id number] Norepinephrine 4 mg In 275.402 58.458 18.701 Sodium Chloride 0.9% 250 ml @ 0.03 MCG/KG/MIN 8. 835 mls/hr IV .Q24H [facility] Rx#:[id number] Vasopressin 60 unit In 116.587 Sodium Chloride 0.9% 150 ml @ 0.03 UNITS/MIN 4.59 mls/hr IV .Q24H [facility] Rx#: [id number] propofoL 1,000 mg In 200.000 253.337 127.249 Empty Bag 1 bag @ 15 MCG/ KG/MIN 6.957 mls/hr IV . [id number] [facility] Rx#:[id number] Output: Urine 895 945 275 Other: Voiding Method Indwelling Catheter ABP, PAP, CO, CI - Last Documented Arterial Blood Pressure 100/48 - Exam Left lower extremity: Incision is clean, dry, and intact. The exofin fusion tape is in good condition. There is minimal soft tissue swelling and ecchymosis surrounding the medial and lateral aspects of the incision. Calf is soft, no tenderness with palpation. - Labs CBC & Chem 7: 10/04/23 05:50 10/04/23 05:50 Labs: Abnormal Lab Results - Last 24 Hours (Table) 10/03/23 10/03/23 10/03/23 Range/Units 17:30 17:58 23:10 RBC (4.30-5.90) m/uL Hgb (13.0-17.5) gm/dL Hct (39.0-53.0) % APTT 94.5 H (22.0-30.0) sec ABG pO2 (83-108) mmHg ABG HCO3 (21-25) mmol/L ABG Total CO2 (19-24) mmol/L ABG O2 Saturation (94-97) % Sodium (137-145) mmol/L BUN (9-20) mg/dL Glucose (74-99) mg/dL POC Glucose (mg/dL) 146 H (70-110) mg/dL Calcium (8.4-10.2) mg/dL AST (17-59) U/L ALT (4-49) U/L Troponin I 0.403 H* (0.000-0.034) ng/mL Total Protein (6.3-8.2) g/dL Albumin (3.5-5.0) g/dL 10/03/23 10/04/23 10/04/23 Range/Units 23:59 00:32 05:50 RBC 3.25 L (4.30-5.90) m/uL Hgb 10.1 L (13.0-17.5) gm/dL Hct 31.5 L (39.0-53.0) % APTT 107.2 H* (22.0-30.0) sec ABG pO2 (83-108) mmHg ABG HCO3 (21-25) mmol/L ABG Total CO2 (19-24) mmol/L ABG O2 Saturation (94-97) % Sodium (137-145) mmol/L BUN (9-20) mg/dL Glucose (74-99) mg/dL POC Glucose (mg/dL) 126 H (70-110) mg/dL Calcium (8.4-10.2) mg/dL AST (17-59) U/L ALT (4-49) U/L Troponin I (0.000-0.034) ng/mL Total Protein (6.3-8.2) g/dL Albumin (3.5-5.0) g/dL 10/04/23 10/04/23 10/04/23 Range/Units 05:50 06:05 06:42 RBC (4.30-5.90) m/uL Hgb (13.0-17.5) gm/dL Hct (39.0-53.0) % APTT (22.0-30.0) sec ABG pO2 272 H (83-108) mmHg ABG HCO3 27 H (21-25) mmol/L ABG Total CO2 29 H (19-24) mmol/L ABG O2 Saturation 100.0 H (94-97) % Sodium 135 L (137-145) mmol/L BUN 22 H (9-20) mg/dL Glucose 137 H (74-99) mg/dL POC Glucose (mg/dL) 134 H (70-110) mg/dL Calcium 7.9 L (8.4-10.2) mg/dL AST 123 H (17-59) U/L ALT 148 H (4-49) U/L Troponin I (0.000-0.034) ng/mL Total Protein 5.6 L (6.3-8.2) g/dL Albumin 2.7 L (3.5-5.0) g/dL 10/04/23 Range/Units 09:02 RBC (4.30-5.90) m/uL Hgb (13.0-17.5) gm/dL Hct (39.0-53.0) % APTT 58.9 H (22.0-30.0) sec ABG pO2 (83-108) mmHg ABG HCO3 (21-25) mmol/L ABG Total CO2 (19-24) mmol/L ABG O2 Saturation (94-97) % Sodium (137-145) mmol/L BUN (9-20) mg/dL Glucose (74-99) mg/dL POC Glucose (mg/dL) (70-110) mg/dL Calcium (8.4-10.2) mg/dL AST (17-59) U/L ALT (4-49) U/L Troponin I (0.000-0.034) ng/mL Total Protein (6.3-8.2) g/dL Albumin (3.5-5.0) g/dL Microbiology - Last 24 Hours (Table) 10/03/23 08:23 Gram Stain - Preliminary Sputum Assessment and Plan Assessment: Postoperative day #3 status post left total knee arthroplasty Cardiac arrest Other medical comorbidities Plan: Appreciate other medical specialty recommendations Wound care instructions, leave Exofin tape in place at this time. Okay to utilize basic nonadherent dressing ice and elevate the extremity to help with swelling continue use of air boots while in bed to help prevent skin breakdown As patient's condition improves, patient is able to weight-bear as tolerated with the assistance of a walker. PT/OT evaluation once patient stabilizes DVT prophylaxis per cardiac, pulmonology and internal medicine recommendations We will continue to follow patient during hospital stay Time with Patient: Less than 30
[2023-10-04] MEDS: HYDROmorphone 1 MG/ML 1 ML SYRINGE IVP PRN (14:41)
[2023-10-04] MEDS: METOPROLOL TARTRATE 25 MG TAB PO SCH (17:06)
[2023-10-04 17:33] LABS: Glucose,Whole Blood 112 mg/dL (70-110)
[2023-10-04 17:43] VITALS: BMI 27.2
[2023-10-04] MEDS: IPRATROPIUM-ALBUTEROL 3 ML NEB INHALATION SCH (18:45)
[2023-10-04 23:16] LABS: Glucose,Whole Blood 125 mg/dL (70-110)
--- NOTE | 2023-10-04 23:25 | CONS ---
CONSULTATION HISTORY OF PRESENT ILLNESS: Sam is a 63-year-old gentleman, who was admitted to hospital for left knee replacement and has had a fairly uneventful recovery and suddenly developed a cardiac arrest on the floor. The patient was in the bathroom and was initially found to be in pulseless electrical activity. He was intubated, sedated and was admitted to ICU. His D-dimer was elevated at 10.2. He has been started on high-dose IV heparin and he underwent CT angiogram that is negative for pulmonary embolism. From cardiac standpoint, it does not appear like the patient had a myocardial infarction either. His troponins are minimally elevated and not exactly consistent with a significant myocardial infarction to explain his clinical presentation. Dr. Mcwilliams felt that this may represent a vasovagal event. This morning, the patient is extubated and appears slightly confused. Remains in sinus rhythm. PHYSICAL EXAMINATION: VITAL SIGNS: Blood pressure is 120/80, respiratory rate 24. CHEST: Reveals diminished air entry bilaterally. HEART: Reveals first and second heart sounds. No gallop. ABDOMEN: Soft. EXTREMITIES: Reveals mild edema. Peripheral pulses are felt. LABORATORY DATA: Show that the hemoglobin is 10.1, platelet count is 204. Potassium is fine. Creatinine is 0.9. ASSESSMENT AND PLAN: Status post cardiac arrest, probably related to bradycardia could be a vasovagal event in the bathroom. Nothing suggests that the patient had myocardial infarction. I reviewed echo. Heparin will be stopped when okay with the critical care physician. He does not need heparin for myocardial infarction. MMODL / IJN: [id number] /
[2023-10-04 23:56] LABS: Magnesium 1.6 mg/dL (1.6-2.3); Potassium 4.4 mmol/L (3.5-5.1)
[2023-10-05] MEDS: MAGNESIUM SULFATE-D5W PMX 1 GM in DEXTROSE/WATER 1 100ML.BAG IVPB SCH (00:26)
[2023-10-05 04:39] LABS: Basophils % (A) 0 %; Eosinophils # (A) 0.2 k/uL (0-0.7); Eosinophils % (A) 2 %; HCT 27.2 % (39.0-53.0); Lymphocytes # (A) 2.2 k/uL (1.0-4.8); Lymphocytes % (A) 23 %; MCH 31.5 pg (25.0-35.0); MCHC 33.1 g/dL (31.0-37.0); MCV 95.3 fL (80.0-100.0); Mean Platelet Volume 8.5; Monocytes # (A) 0.7 k/uL (0-1.0); Monocytes % (A) 7 %; Neutrophils # (A) 6.5 k/uL (1.3-7.7); Neutrophils % (A) 66 %; Platelet Count 194 k/uL (150-450); RBC 2.86 m/uL (4.30-5.90); RDW 14.4 % (11.5-15.5); WBC 9.8 k/uL (3.8-10.6)
[2023-10-05 04:50] LABS: African American GFR (CKD) 78 (>60 ml/min/1.73 sqM); Anion Gap 2 mmol/L; Blood Urea Nitrogen 21 mg/dL (9-20); Calcium 8.1 mg/dL (8.4-10.2); Carbon Dioxide 27 mmol/L (22-30); Chloride 105 mmol/L (98-107); Glucose 113 mg/dL (74-99); Magnesium 2.2 mg/dL (1.6-2.3); Non-African American GFR(CKD) 68 (>60 ml/min/1.73 sqM); Potassium 4.2 mmol/L (3.5-5.1); Sodium 134 mmol/L (137-145)
[2023-10-05 05:49] LABS: Glucose,Whole Blood 116 mg/dL (70-110)
--- NOTE | 2023-10-05 09:00 | XR ---
EXAMINATION TYPE: XR chest 1V portable DATE OF EXAM: 10/05/2023 Comparison: 10/04/2023 Clinical History: 63-year-old male Tube placement Findings: ACDF and posterior cervical fusion hardware. Additional lower thoracic and lumbar posterior fusion cannon rdware. Left subclavian CVC tip at the cavoatrial junction. Low lung volumes with medium and coarse r eticular and interstitial opacities similar to slightly improved. Heart borderline in size. Interval extubation and removal of NG tube. Impression: Medium to coarse bilateral interstitial infiltrates similar to slightly improved.
[2023-10-05] MEDS: MAGNESIUM HYDROXIDE 2,400 MG/30 ML CUP PO PRN (09:07)
[2023-10-05 11:41] LABS: Glucose,Whole Blood 141 mg/dL (70-110)
--- NOTE | 2023-10-05 12:58 | P.PN ---
Subjective Progress Note Date: 10/05/23 Hospital Course: Patient is a 63-year-old male with history of hypertension, dyslipidemia, COPD, diabetes presenting for elective total left knee arthroplasty. Patient was progressing well. On 10/03/2023, patient got up with assistance to go to the bathroom, while on the toilet, patient went unresponsive, had PEA arrest. Was coded for 6 to 8 minutes, ROSC achieved. Patient intubated and transferred to medical ICU. Due to elevated D-dimer and shock, there was concern for pulmonary embolism. CTA completed, negative for PE, marked chronic interstitial lung disease consistent with IPF. Echocardiogram shows LVEF 50 to 55%, grade 1 diastolic dysfunction, severe RV dilatation, severe pulmonary hypertension. Cardiology and ICU consulted. Patient successfully weaned off of vasopressors. Extubated. Subjective: Patient seen and examined at bedside. No acute events overnight. Pertinent positives and negatives as discussed above, a complete review of systems was performed and all other systems are negative. Vitals Signs Reviewed. General: Nontoxic, no distress, appears at stated age Derm: Warm, dry Head: Atraumatic, normocephalic, symmetric Eyes: EOMI, no lid lag, anicteric sclera Mouth: No lip lesion, mucus membranes moist Cardiovascular: S1S2 reg, no murmur Lungs: CTA bilateral, no rhonchi, no rales, no accessory muscle use Abdominal: Soft, nontender to palpation, no guarding, no appreciable organomegaly Ext: No gross muscle atrophy, no edema, no contractures Neuro: CN II-XI grossly intact, no focal neuro deficits Psych: Alert, oriented, appropriate affect Data Reviewed Today: Pertinent Labs: WBC 9.8, hemoglobin 9, sodium 134, potassium 4.2, creatinine 1.15, blood sugars range between 1 13-1 41, magnesium 2.2 Imaging: Chest x-ray shows bilateral cystic show opacities. Assessment and Plan: PEA cardiac arrest, likely secondary to exaggerated vasovagal response Mild troponin elevation, likely nonischemic Circulatory shock, unclear etiology Acute hypoxic respiratory failure Acute pulmonary edema versus pulmonary fibrosis Severe pulmonary hypertension History of asthma/COPD Status post left total knee arthroplasty Leukocytosis, likely reactive, resolved Metabolic acidosis, lactic acidosis, resolved Transaminitis, resolving -Heparin drip discontinued - On albuterol as needed, Symbicort as needed, DuoNeb every 4 hours continue to wean oxygen - ICU following Ortho note reviewed, continue current management History of hypertension, hold lisinopril Type 2 diabetes - Sliding scale insulin, monitor for hypoglycemia GERD - Continue omeprazole 20 Dyslipidemia - Continue simvastatin 20 nightly Neuropathy - Continue Cymbalta 60 DVT ppx: lovenox Code status: Full code Anticipated discharge place: Pending clinical course Anticipated discharge time: Pending clinical course Objective - Vital Signs Vital signs: Vital Signs Temp 98.7 F 10/05/23 12:00 Pulse 96 10/05/23 12:00 Resp 24 10/05/23 12:00 BP 102/73 10/05/23 12:00 Pulse Ox 100 10/05/23 12:00 FiO2 60 10/04/23 08:01 Intake & Output 10/04/23 10/05/23 10/05/23 18:59 06:59 18:59 Intake Total 989.088 692.173 336.687 Output Total 1345 765 635 Balance -355.912 -72.827 -298.313 Weight 86.2 kg 87.9 kg Intake: IV 666 672 336 0.9 Pressure Bags 66 72 36 Sodium Chloride 0.9% 1, 600 600 300 000 ml @ 50 mls/hr IV . Q20H [facility] Rx#:[id number] Intake, IV Titration 323.088 20.173 0.687 Amount Heparin Sod,Pork in 0.45% 58.619 NaCl 25,000 unit In 0.45 % NaCl 1 250ml.bag @ 18 UNITS/KG/HR 13.914 mls/hr IV .[id number] [facility] Rx#: [id number] Norepinephrine 4 mg In 18.701 20.173 0.687 Sodium Chloride 0.9% 250 ml @ 0.03 MCG/KG/MIN 8. 835 mls/hr IV .Q24H [facility] Rx#:[id number] Vasopressin 60 unit In 116.587 Sodium Chloride 0.9% 150 ml @ 0.03 UNITS/MIN 4.59 mls/hr IV .Q24H [facility] Rx#: [id number] propofoL 1,000 mg In 129.181 Empty Bag 1 bag @ 15 MCG/ KG/MIN 6.957 mls/hr IV . [id number] [facility] Rx#:[id number] Output: Urine 1345 765 635 Other: Voiding Method Indwelling Catheter Indwelling Catheter Indwelling Catheter ABP, PAP, CO, CI - Last Documented Arterial Blood Pressure 117/44 - Labs CBC & Chem 7: 10/05/23 04:23 10/05/23 04:23 Labs: Abnormal Lab Results - Last 24 Hours (Table) 10/04/23 10/04/23 10/05/23 Range/Units 17:32 23:14 04:23 RBC 2.86 L (4.30-5.90) m/uL Hgb 9.0 L (13.0-17.5) gm/dL Hct 27.2 L (39.0-53.0) % Sodium (137-145) mmol/L BUN (9-20) mg/dL Glucose (74-99) mg/dL POC Glucose (mg/dL) 112 H 125 H (70-110) mg/dL Calcium (8.4-10.2) mg/dL 10/05/23 10/05/23 10/05/23 Range/Units 04:23 05:48 11:39 RBC (4.30-5.90) m/uL Hgb (13.0-17.5) gm/dL Hct (39.0-53.0) % Sodium 134 L (137-145) mmol/L BUN 21 H (9-20) mg/dL Glucose 113 H (74-99) mg/dL POC Glucose (mg/dL) 116 H 141 H (70-110) mg/dL Calcium 8.1 L (8.4-10.2) mg/dL Microbiology - Last 24 Hours (Table) 10/03/23 08:23 Gram Stain - Final Sputum Sputum Culture - Final
--- NOTE | 2023-10-05 14:02 | P.PN ---
Subjective Progress Note Date: 10/05/23 This is a 63-year-old male patient with a known history of COPD, diabetes mellitus, gastroesophageal reflux disease, hyperlipidemia, hypertension, osteoarthritis. He had been having ongoing issues with left knee pain and presented here on 10/01/2023 for a left knee total arthroplastycementedposterior stabilizer. Yesterday he had been doing well recovering when earlier this morning he had been up ambulating to the bathroom and collapsed in the bathroom while on the toilet. CPR was initiated. Initial rhythm was PEA. He was intubated and obtained return of spontaneous circulation. He was transferred to the intensive care unit. He is seen today in consultation. He is currently on the mechanical ventilator and assist- control mode with a rate of 16, tidal volume 450, FiO2 60% and a PEEP of 5. Blood gases revealed a PaO2 of 390, pCO2 of 31 and a pH of 7.26. This was on 100% FiO2. He was hypotensive and requiring norepinephrine at 5 mcg/min. He is also on vasopressin at 0.03 units/min. He is sedated on propofol at 50 mcg/kg/min. He has normal saline at 50 MLS per hour. He received 2 L of fluid resuscitation. He received 2 A of bicarb. White count 18.2. Hemoglobin 12.0. Platelets 293. D-dimer 10.29. Sodium 137. Potassium 5.0. Bicarb 17. BUN 21. Creatinine 0.87. Glucose 160. Initial lactic acid 7.1. Currently 1.0. AST 373. ALT 239. Troponin 0.050. Chest x-ray reveals endotracheal tube in position. Nasogastric tube in the stomach. Left central venous catheter tip near the caval atrial junction. Some pulmonary venous congestion with normal- sized heart. Possible fluid volume overload. Echocardiogram is pending. The patient is seen today October 04, 2023 in follow-up in the intensive care unit. He remains intubated on the mechanical ventilator and assist-control mode at a rate of 16, tidal volume 450, FiO2 60% and a PEEP of 5. Morning blood gases revealed a PaO2 of 272, pCO2 45, pH 7.39. He remains sedated on propofol at 50 mcg/kg/min. He is on a heparin drip per weight-based protocol. Normal saline at 50 MLS per hour. Vasopressin and norepinephrine have been on hold since this a.m. CT angiogram reveals no evidence of pulmonary embolism. There is marked chronic interstitial lung disease consistent with severe idiopathic pulmonary fibrosis. Possible acute pneumonic infiltrate in the right lung base. Echocardiogram revealed preserved left ventricular systolic function with ejection fraction 50 to 55%. There is noted severe right ventricular dilatation. Severe pulmonary hypertension with an RVSP of 78 mmHg. No RV strain noted. Sputum culture pending. White count 9.0. Hemoglobin 10.1. Platelets 204. Sodium 135. Potassium 5.0. Bicarb 28. BUN 22. Creatinine 0.95. Glucose 137. AST 123. ALT 148. Troponin 0.050, 0.403. He is continued on DuoNeb inhalations, Symbicort. The patient is seen today October 05, 2023 in follow-up in the intensive care unit. He was extubated yesterday. He is currently sitting up in bed. Awake and alert in no acute distress. He is maintaining good O2 saturations in the 90s on 4 L/min per nasal cannula. He has been off pressors. He has normal saline at 50 MLS per hour. Remains on DuoNeb ventilations, Symbicort. Lovenox for DVT prophylaxis. Sputum culture reveals no growth. White count 9.8. Hemoglobin 9.0. Platelets 194. Sodium 134. Potassium 4.2. Bicarb 27. BUN 21. Creatinine 1.15. Glucose 113. Chest x-ray reveals medium to coarse bilateral interstitial infiltrates slightly improved. Objective - Vital Signs Vital signs: Vital Signs Temp 98.7 F 10/05/23 12:00 Pulse 96 10/05/23 12:00 Resp 24 10/05/23 12:00 BP 102/73 10/05/23 12:00 Pulse Ox 100 10/05/23 12:00 FiO2 60 10/04/23 08:01 Intake & Output 10/04/23 10/05/23 10/05/23 18:59 06:59 18:59 Intake Total 989.088 692.173 336.687 Output Total 1345 765 635 Balance -355.912 -72.827 -298.313 Weight 86.2 kg 87.9 kg Intake: IV 666 672 336 0.9 Pressure Bags 66 72 36 Sodium Chloride 0.9% 1, 600 600 300 000 ml @ 50 mls/hr IV . Q20H [facility] Rx#:[id number] Intake, IV Titration 323.088 20.173 0.687 Amount Heparin Sod,Pork in 0.45% 58.619 NaCl 25,000 unit In 0.45 % NaCl 1 250ml.bag @ 18 UNITS/KG/HR 13.914 mls/hr IV .[id number] [facility] Rx#: [id number] Norepinephrine 4 mg In 18.701 20.173 0.687 Sodium Chloride 0.9% 250 ml @ 0.03 MCG/KG/MIN 8. 835 mls/hr IV .Q24H [facility] Rx#:[id number] Vasopressin 60 unit In 116.587 Sodium Chloride 0.9% 150 ml @ 0.03 UNITS/MIN 4.59 mls/hr IV .Q24H [facility] Rx#: [id number] propofoL 1,000 mg In 129.181 Empty Bag 1 bag @ 15 MCG/ KG/MIN 6.957 mls/hr IV . [id number] [facility] Rx#:[id number] Output: Urine 1345 765 635 Other: Voiding Method Indwelling Catheter Indwelling Catheter Indwelling Catheter ABP, PAP, CO, CI - Last Documented Arterial Blood Pressure 117/44 - Exam GENERAL EXAM: Awake, alert 63-year-old male patient, on 4 L nasal cannula, in no acute distress. HEAD: Normocephalic. EYES: Normal reaction of pupils, equal size. NOSE: Clear with pink turbinates. THROAT:No erythema or exudates. NECK: No masses, no JVD. CHEST: No chest wall deformity. LUNGS: Equal air entry with coarse crackles in the bilateral bases. CVS: S1 and S2 normal with no audible murmur, regular rhythm. ABDOMEN: No hepatosplenomegaly, normal bowel sounds, no guarding or rigidity. SPINE: No scoliosis or deformity SKIN: No rashes CENTRAL NERVOUS SYSTEM: No focal deficit, tone is normal in all 4 extremities. EXTREMITIES: Left lower extremity with incision clean dry and intact. Exofin fusion tape in good condition. Some swelling and ecchymosis noted. Peripheral pulses are intact. - Labs CBC & Chem 7: 10/05/23 04:23 10/05/23 04:23 Labs: Abnormal Lab Results - Last 24 Hours (Table) 10/04/23 10/04/23 10/05/23 Range/Units 17:32 23:14 04:23 RBC 2.86 L (4.30-5.90) m/uL Hgb 9.0 L (13.0-17.5) gm/dL Hct 27.2 L (39.0-53.0) % Sodium (137-145) mmol/L BUN (9-20) mg/dL Glucose (74-99) mg/dL POC Glucose (mg/dL) 112 H 125 H (70-110) mg/dL Calcium (8.4-10.2) mg/dL 10/05/23 10/05/23 10/05/23 Range/Units 04:23 05:48 11:39 RBC (4.30-5.90) m/uL Hgb (13.0-17.5) gm/dL Hct (39.0-53.0) % Sodium 134 L (137-145) mmol/L BUN 21 H (9-20) mg/dL Glucose 113 H (74-99) mg/dL POC Glucose (mg/dL) 116 H 141 H (70-110) mg/dL Calcium 8.1 L (8.4-10.2) mg/dL Microbiology - Last 24 Hours (Table) 10/03/23 08:23 Gram Stain - Final Sputum Sputum Culture - Final Assessment and Plan Assessment: Cardiac arrest with requiring cardiopulmonary resuscitation including intubation and return of spontaneous circulation achieved. CT angiogram ruled out pulmonary embolism Acute hypoxemic respiratory failure secondary to above currently on the mechanical ventilator. The patient is noted to have severe pulmonary fibrosis a nd severe pulmonary hypertension Hypotension requiring pressor support secondary to above, recovered and off pressors Left knee total arthroplasty on 10/01/2023, postoperative day #3 initiated Xarelt o 10/02/2023 Severe pulmonary fibrosis of unclear etiology or duration Severe pulmonary hypertension secondary to above with an RVSP of 78 mmHg History of chronic obstructive pulmonary disease Former smoker Diabetes mellitus Hypertension Hyperlipidemia Osteoarthritis Plan: The patient was seen and evaluated Chest x-ray, labs and medications reviewed Continue the current treatment plan Stable and on 4 L nasal cannula Cleared for transfer to the selective care unit We will continue to follow I have personally seen and examined the patient, performed the documentation and the assessment and plan as written. Number of minutes spent on the visit: 10.
[2023-10-05] MEDS: ENOXAPARIN 40 MG/0.4 ML SYRINGE SQ SCH (15:14)
[2023-10-05 16:45] LABS: Glucose,Whole Blood 138 mg/dL (70-110)
[2023-10-05] MEDS: INSULIN ASPART (NovoLOG) 100 UNIT/ML VIAL SQ SCH (16:55)
[2023-10-05 21:30] LABS: Glucose,Whole Blood 126 mg/dL (70-110)
--- NOTE | 2023-10-05 22:16 | PN ---
PROGRESS NOTE SUBJECTIVE: This is a 63-year-old gentleman, who developed cardiac arrest on the floor, was intubated, subsequently had been extubated. He has frequent PVCs, but is otherwise doing well. He remains mildly confused still. OBJECTIVE: VITAL SIGNS: Heart rate is 80 beats per minute, blood pressure is 110/50, respiratory rate 18. CHEST: Reveals good air entry bilaterally. HEART: Reveals first and second heart sounds. No gallop. No murmur. EXTREMITIES: Did not reveal any edema. Peripheral pulses are felt. LABORATORY DATA: Hemoglobin is 9. Potassium is 4.2, magnesium is 2.2. ASSESSMENT AND PLAN: Status post cardiorespiratory arrest, probably vasovagal episode in a patient, who had recent surgery. Pulmonary embolism had been ruled out. He has severe pulmonary hypertension, probably related to underlying chronic obstructive pulmonary disease. MMODL / IJN: [id number] /
[2023-10-06 01:18] LABS: Glucose,Whole Blood 128 mg/dL (70-110)
[2023-10-06] MEDS: hydrOXYzine pamoate 25 MG CAP PO PRN (02:29)
[2023-10-06 06:31] LABS: Glucose,Whole Blood 105 mg/dL (70-110)
[2023-10-06 06:41] LABS: Basophils % (A) 0 %; Eosinophils # (A) 0.3 k/uL (0-0.7); Eosinophils % (A) 3 %; HCT 28.7 % (39.0-53.0); HGB 9.1 gm/dL (13.0-17.5); Lymphocytes # (A) 1.9 k/uL (1.0-4.8); Lymphocytes % (A) 23 %; MCH 30.7 pg (25.0-35.0); MCHC 31.5 g/dL (31.0-37.0); MCV 97.4 fL (80.0-100.0); Mean Platelet Volume 8.2; Monocytes # (A) 0.6 k/uL (0-1.0); Monocytes % (A) 7 %; Neutrophils # (A) 5.1 k/uL (1.3-7.7); Neutrophils % (A) 63 %; Platelet Count 212 k/uL (150-450); RBC 2.95 m/uL (4.30-5.90); RDW 14.3 % (11.5-15.5); WBC 8.1 k/uL (3.8-10.6)
[2023-10-06 06:56] LABS: African American GFR (CKD) 89 (>60 ml/min/1.73 sqM); Anion Gap 4 mmol/L; Blood Urea Nitrogen 22 mg/dL (9-20); Calcium 8.3 mg/dL (8.4-10.2); Carbon Dioxide 25 mmol/L (22-30); Chloride 107 mmol/L (98-107); Glucose 104 mg/dL (74-99); Non-African American GFR(CKD) 77 (>60 ml/min/1.73 sqM); Potassium 4.7 mmol/L (3.5-5.1); Sodium 136 mmol/L (137-145)
--- NOTE | 2023-10-06 10:19 | P.PN ---
Subjective Progress Note Date: 10/06/23 HISTORY OF PRESENTING ILLNESS Patient is a pleasant 63-year-old male with history of COPD, diabetes mellitus type 2, GERD, hyperlipidemia, hypertension, osteoarthritis who presented for elective left knee total arthroplasty. He had been doing fairly well however yesterday morning had gone to the bathroom and was on the toilet when he collapsed. CPR was initiated and an initial rhythm was noted to be PEA. He was not however on telemetry. He was intubated and sedated. Apparently patient had CPR for approximately 5-6 minutes. Post CPR lactic acid 7.1, d-dimer 10.2, hemoglobin 12.0, white blood cell count 18.2, creatinine 0.8, troponin 0.05. given elevated dimer, No pulmonary embolism, chronic interstitial lung disease and possible pneumonic infiltrate in the right lung base. 10/05 Patient was successfully extubated on 10/03. He has been transferred out of the intensive care unit and seen today on the cardiac stepdown floor. Patient has no new concerns today. Yesterday he was having significant number of PVCs which is improved today. Lopressor 25 mg 3 times daily was added yesterday evening. He states that he is feeling better in general. Blood pressure 107/69, heart rate in the 60s, pulse ox 94% on 4 L nasal cannula. Repeat blood work reveals hemoglobin 9.1, sodium 136, potassium 4.7, creatinine 1.03 and BUN 22. PHYSICAL EXAMINATION Vital signs reviewed. CONSTITUTIONAL: No apparent distress, intubated and sedated HEENT: Head is normocephalic. Pupils are equal, round. Sclerae anicteric. Mucous membranes of the mouth are moist. No JVD. No carotid bruit. CHEST EXAMINATION: Lungs are clear to auscultation. No chest wall tenderness is noted on palpation or with deep breathing. HEART EXAMINATION: Regular rate and rhythm. S1, S2 heard. No murmurs, gallops or rub. ABDOMEN: Soft, nontender. Positive bowel sounds. EXTREMITIES: 2+ peripheral pulses, no lower extremity edema and no calf tenderness. NEUROLOGIC EXAMINATION: Patient is sedated on ventilator. ASSESSMENT Cardiac arrest, rule out cardiac source versus pulmonary Status post left knee total arthroplasty Elevated d-dimer however no PE noted on CTA Lactic acidosis Hypotension requiring pressor support Diabetes mellitus type 2 Previous tobacco abuse Hypertension Hyperlipidemia lipidemia Severe pulmonary fibrosis Severe pulmonary hypertension PLAN Continue patient on atorvastatin, Lopressor 25 mg 3 times daily Further recommendations to follow. Nurse practitioner note has been reviewed, I agree with documented findings and plan of care. Patient was seen and examined. Objective - Vital Signs Vital signs: Vital Signs Temp 98.7 F 10/06/23 03:30 Pulse 62 10/06/23 03:30 Resp 24 10/06/23 03:30 BP 107/69 10/06/23 03:30 Pulse Ox 94 L 10/06/23 03:30 FiO2 60 10/04/23 08:01 Intake & Output 10/05/23 10/06/23 10/06/23 18:59 06:59 18:59 Intake Total 642.687 250 Output Total 755 525 Balance -112.313 -275 Weight 81 kg Intake: IV 642 250 0.9 Pressure Bags 42 Sodium Chloride 0.9% 1, 600 250 000 ml @ 50 mls/hr IV . Q20H [facility] Rx#:[id number] Intake, IV Titration 0.687 Amount Norepinephrine 4 mg In 0.687 Sodium Chloride 0.9% 250 ml @ 0.03 MCG/KG/MIN 8. 835 mls/hr IV .Q24H [facility] Rx#:[id number] Output: Urine 755 275 Post Void Residual 250 Other: Voiding Method Indwelling Catheter Urinal # Voids 1 ABP, PAP, CO, CI - Last Documented Arterial Blood Pressure 117/44 - Labs CBC & Chem 7: 10/06/23 06:00 10/06/23 06:00 Labs: Abnormal Lab Results - Last 24 Hours (Table) 10/05/23 10/05/23 10/05/23 Range/Units 11:39 16:44 21:28 RBC (4.30-5.90) m/uL Hgb (13.0-17.5) gm/dL Hct (39.0-53.0) % Sodium (137-145) mmol/L BUN (9-20) mg/dL Glucose (74-99) mg/dL POC Glucose (mg/dL) 141 H 138 H 126 H (70-110) mg/dL Calcium (8.4-10.2) mg/dL 10/06/23 10/06/23 10/06/23 Range/Units 01:17 06:00 06:00 RBC 2.95 L (4.30-5.90) m/uL Hgb 9.1 L (13.0-17.5) gm/dL Hct 28.7 L (39.0-53.0) % Sodium 136 L (137-145) mmol/L BUN 22 H (9-20) mg/dL Glucose 104 H (74-99) mg/dL POC Glucose (mg/dL) 128 H (70-110) mg/dL Calcium 8.3 L (8.4-10.2) mg/dL Microbiology - Last 24 Hours (Table) 10/03/23 08:23 Gram Stain - Final Sputum Sputum Culture - Final
[2023-10-06 11:27] LABS: Glucose,Whole Blood 105 mg/dL (70-110)
--- NOTE | 2023-10-06 12:48 | P.PN ---
Subjective Progress Note Date: 10/06/23 Principal diagnosis: Respiratory failure. This is a 63-year-old male patient with a known history of COPD, diabetes mellitus, gastroesophageal reflux disease, hyperlipidemia, hypertension, osteoarthritis. He had been having ongoing issues with left knee pain and presented here on 10/01/2023 for a left knee total arthroplastycementedposterior stabilizer. Yesterday he had been doing well recovering when earlier this morning he had been up ambulating to the bathroom and collapsed in the bathroom while on the toilet. CPR was initiated. Initial rhythm was PEA. He was intubated and obtained return of spontaneous circulation. He was transferred to the intensive care unit. He is seen today in consultation. He is currently on the mechanical ventilator and assist-contro l mode with a rate of 16, tidal volume 450, FiO2 60% and a PEEP of 5. Blood gases revealed a PaO2 of 390, pCO2 of 31 and a pH of 7.26. This was on 100% FiO2. He was hypotensive and requiring norepinephrine at 5 mcg/min. He is also on vasopressin at 0.03 units/min. He is sedated on propofol at 50 mcg/kg/min. He has normal saline at 50 MLS per hour. He received 2 L of fluid resuscitation. He received 2 A of bicarb. White count 18.2. Hemoglobin 12.0. Platelets 293. D-dimer 10.29. Sodium 137. Potassium 5.0. Bicarb 17. BUN 21. Creatinine 0.87. Glucose 160. Initial lactic acid 7.1. Currently 1.0. AST 373. ALT 239. Troponin 0.050. Chest x-ray reveals endotracheal tube in pos ition. Nasogastric tube in the stomach. Left central venous catheter tip near the caval atrial junction. Some pulmonary venous congestion with normal-sized heart. Possible fluid volume overload. Echocardiogram is pending. The patient is seen today October 04, 2023 in follow-up in the intensive care unit. He remains intubated on the mechanical ventilator and assist-control mode at a rate of 16, tidal volume 450, FiO2 60% and a PEEP of 5. Morning blood gases revealed a PaO2 of 272, pCO2 45, pH 7.39. He remains sedated on propofol at 50 mcg/kg/min. He is on a heparin drip per weight-based protocol. Normal saline at 50 MLS per hour. Vasopressin and norepinephrine have been on hold since this a.m. CT angiogram reveals no evidence of pulmonary embolism. There is marked chronic interstitial lung disease consistent with severe idiopathic pulmonary fibrosis. Possible acute pneumonic infiltrate in the right lung base. Echocardiogram revealed preserved left ventricular systolic function with ejection fraction 50 to 55%. There is noted severe right ventricular dilatation. Severe pulmonary hypertension with an RVSP of 78 mmHg. No RV strain noted. Sputum culture pending. White count 9.0. Hemoglobin 10.1. Platelets 204. Sodium 135. Potassium 5.0. Bicarb 28. BUN 22. Creatinine 0.95. Glucose 137. AST 123. ALT 148. Troponin 0.050, 0.403. He is continued on DuoNeb inhalations, Symbicort. The patient is seen today October 05, 2023 in follow-up in the intensive care unit. He was extubated yesterday. He is currently sitting up in bed. Awake and alert in no acute distress. He is maintaining good O2 saturations in the 90s on 4 L/min per nasal cannula. He has been off pressors. He has normal saline at 50 MLS per hour. Remains on DuoNeb ventilations, Symbicort. Lovenox for DVT prophylaxis. Sputum culture reveals no growth. White count 9.8. Hemoglobin 9.0. Platelets 194. Sodium 134. Potassium 4.2. Bicarb 27. BUN 21. Creatinine 1.15. Glucose 113. Chest x-ray reveals medium to coarse bilateral interstitial infiltrates slightly improved. Progress note dated October 06, 2023. The patient is seen in room 358. He is currently on saline at 50 cc an hour. He is getting oxygen by nasal cannula at 3 L. The patient is complaining of some chest discomfort, where he had chest compressions, from his cardiopulmonary arrest. Other than that, he seems to be doing relatively well. Current labs are good white count 8.1, hemoglobin 9.1, hematocrit 28.7, and a platelet count of 212,000. Sodium 136, potassium 4.7, chlorides 107, CO2 25, BUN 22, and creatinine 1.03. His glucose is 105. Calcium 8.3. Magnesium 2.0. Chest x-ray from yesterday shows interstitial lung disease. Objective - Vital Signs Vital signs: Vital Signs Temp 97.3 F L 10/06/23 08:00 Pulse 72 10/06/23 11:49 Resp 20 10/06/23 08:00 BP 103/64 10/06/23 08:00 Pulse Ox 99 10/06/23 11:37 FiO2 60 10/04/23 08:01 Intake & Output 10/05/23 10/06/23 10/06/23 18:59 06:59 18:59 Intake Total 642.687 250 Output Total 755 525 450 Balance -112.313 -275 -450 Weight 81 kg Intake: IV 642 250 0.9 Pressure Bags 42 Sodium Chloride 0.9% 1, 600 250 000 ml @ 50 mls/hr IV . Q20H [facility] Rx#:[id number] Intake, IV Titration 0.687 Amount Norepinephrine 4 mg In 0.687 Sodium Chloride 0.9% 250 ml @ 0.03 MCG/KG/MIN 8. 835 mls/hr IV .Q24H [facility] Rx#:[id number] Output: Urine 755 275 450 Post Void Residual 250 Other: Voiding Method Indwelling Catheter Urinal Urinal # Voids 1 ABP, PAP, CO, CI - Last Documented Arterial Blood Pressure 117/44 - Exam No acute distress, oriented 3. Currently the patient is on 3 L by nasal cannula. No respiratory distress. HEENT examination is grossly unremarkable. Mucous membranes are moist. No oral lesions. Neck supple. Full range of motion. No adenopathy thyromegaly or neck vein distention. Cardiovascular examination reveals regular rhythm rate. S1-S2 normal. No S3 or S4. No discernible murmur noted. Heart rate 72 bpm. Lungs reveal bibasilar crackles. No wheezes or rhonchi. Breath sounds are equal bilaterally. 3 L saturation is 97%. Abdomen soft bowel sounds are heard. No masses or tenderness. Extremities are intact. No cyanosis clubbing or edema. Skin is without rash or lesion. Neurologic examination is brief but nonfocal. - Labs CBC & Chem 7: 10/06/23 06:00 10/06/23 06:00 Labs: Abnormal Lab Results - Last 24 Hours (Table) 10/05/23 10/05/23 10/06/23 Range/Units 16:44 21:28 01:17 RBC (4.30-5.90) m/uL Hgb (13.0-17.5) gm/dL Hct (39.0-53.0) % Sodium (137-145) mmol/L BUN (9-20) mg/dL Glucose (74-99) mg/dL POC Glucose (mg/dL) 138 H 126 H 128 H (70-110) mg/dL Calcium (8.4-10.2) mg/dL 10/06/23 10/06/23 Range/Units 06:00 06:00 RBC 2.95 L (4.30-5.90) m/uL Hgb 9.1 L (13.0-17.5) gm/dL Hct 28.7 L (39.0-53.0) % Sodium 136 L (137-145) mmol/L BUN 22 H (9-20) mg/dL Glucose 104 H (74-99) mg/dL POC Glucose (mg/dL) (70-110) mg/dL Calcium 8.3 L (8.4-10.2) mg/dL Microbiology - Last 24 Hours (Table) 10/03/23 08:23 Gram Stain - Final Sputum Sputum Culture - Final Assessment and Plan Assessment: Cardiac arrest with requiring cardiopulmonary resuscitation including intubation and return of spontaneous circulation achieved. CT angiogram ruled out pulmonary embolism. Acute hypoxemic respiratory failure secondary to above currently on the mechanical ventilator. The patient is noted to have severe pulmonary fibrosis and severe pulmonary hypertension. Hypotension requiring pressor support secondary to above, recovered and off pressors. Left knee total arthroplasty on 10/01/2023, postoperative day #4, initiated Xarelto 10/02/2023. Severe pulmonary fibrosis of unclear etiology or duration. Severe pulmonary hypertension secondary to above with an RVSP of 78 mmHg. History of chronic obstructive pulmonary disease. Former smoker. Diabetes mellitus. Hypertension. Hyperlipidemia. Osteoarthritis. Plan: Plan dated October 06, 2023. The patient appears to be doing relatively well. His only complaint is chest soreness, from where he had chest compressions. The patient continues on oxygen, at 3 L by nasal cannula. The patient is getting saline at 50 cc an hour. Labs, x-rays, and medications are all reviewed. We will plan to follow this patient, for the time being, and make recommendations where appropriate. Prognosis is guarded. Time with Patient: Less than 30
--- NOTE | 2023-10-06 13:05 | P.PN ---
Subjective Progress Note Date: 10/06/23 Hospital Course: Patient is a 63-year-old male with history of hypertension, dyslipidemia, COPD, diabetes presenting for elective total left knee arthroplasty. Patient was progressing well. On 10/03/2023, patient got up with assistance to go to the bathroom, while on the toilet, patient went unresponsive, had PEA arrest. Was coded for 6 to 8 minutes, ROSC achieved. Patient intubated and transferred to medical ICU. Due to elevated D-dimer and shock, there was concern for pulmonary embolism. CTA completed, negative for PE, marked chronic interstitial lung disease consistent with IPF. Echocardiogram shows LVEF 50 to 55%, grade 1 diastolic dysfunction, severe RV dilatation, severe pulmonary hypertension. Cardiology and ICU consulted. Patient successfully weaned off of vasopressors. Extubated. Doing better. On floors. Subjective: Patient seen and examined at bedside. No acute events overnight. Pertinent positives and negatives as discussed above, a complete review of sys tems was performed and all other systems are negative. Vitals Signs Reviewed. General: Nontoxic, no distress, appears at stated age Derm: Warm, dry Head: Atraumatic, normocephalic, symmetric Eyes: EOMI, no lid lag, anicteric sclera Mouth: No lip lesion, mucus membranes moist Cardiovascular: S1S2 reg, no murmur Lungs: CTA bilateral, no rhonchi, no rales, no accessory muscle use, supplemental oxygen Abdominal: Soft, nontender to palpation, no guarding, no appreciable organomegaly Ext: No gross muscle atrophy, no edema, no contractures Neuro: CN II-XI grossly intact, no focal neuro deficits Psych: Alert, oriented, appropriate affect Data Reviewed Today: Pertinent Labs: WBC 8.1, hemoglobin 9.1, potassium 4.7, creatinine 1.03, blood sugars range between 10 4-1 28 Imaging: No new imaging Assessment and Plan: PEA cardiac arrest, likely secondary to exaggerated vasovagal response Mild troponin elevation, likely nonischemic Circulatory shock, unclear etiology Acute hypoxic respiratory failure, resolving Likely pulmonary fibrosis Severe pulmonary hypertension History of asthma/COPD Status post left total knee arthroplasty Leukocytosis, likely reactive, resolved Metabolic acidosis, lactic acidosis, resolved Transaminitis, resolving -cardio note reviewed, no further changes - On albuterol as needed, Symbicort as needed, DuoNeb every 4 hours - ICU note reviewed, continue weaning O2 -Ortho following -patient needs rehab History of hypertension, hold lisinopril Type 2 diabetes - Sliding scale insulin, monitor for hypoglycemia GERD - Continue omeprazole 20 Dyslipidemia - Continue simvastatin 20 nightly Neuropathy - Continue Cymbalta 60 DVT ppx: lovenox Code status: Full code Anticipated discharge place: rehab Anticipated discharge time: Pending clinical course Objective - Vital Signs Vital signs: Vital Signs Temp 97.3 F L 10/06/23 08:00 Pulse 72 10/06/23 11:49 Resp 20 10/06/23 08:00 BP 103/64 10/06/23 08:00 Pulse Ox 99 10/06/23 11:37 FiO2 60 10/04/23 08:01 Intake & Output 10/05/23 10/06/23 10/06/23 18:59 06:59 18:59 Intake Total 642.687 250 Output Total 755 525 450 Balance -112.313 -275 -450 Weight 81 kg Intake: IV 642 250 0.9 Pressure Bags 42 Sodium Chloride 0.9% 1, 600 250 000 ml @ 50 mls/hr IV . Q20H [facility] Rx#:[id number] Intake, IV Titration 0.687 Amount Norepinephrine 4 mg In 0.687 Sodium Chloride 0.9% 250 ml @ 0.03 MCG/KG/MIN 8. 835 mls/hr IV .Q24H [facility] Rx#:[id number] Output: Urine 755 275 450 Post Void Residual 250 Other: Voiding Method Indwelling Catheter Urinal Urinal # Voids 1 ABP, PAP, CO, CI - Last Documented Arterial Blood Pressure 117/44 - Labs CBC & Chem 7: 10/06/23 06:00 10/06/23 06:00 Labs: Abnormal Lab Results - Last 24 Hours (Table) 10/05/23 10/05/23 10/06/23 Range/Units 16:44 21:28 01:17 RBC (4.30-5.90) m/uL Hgb (13.0-17.5) gm/dL Hct (39.0-53.0) % Sodium (137-145) mmol/L BUN (9-20) mg/dL Glucose (74-99) mg/dL POC Glucose (mg/dL) 138 H 126 H 128 H (70-110) mg/dL Calcium (8.4-10.2) mg/dL 10/06/23 10/06/23 Range/Units 06:00 06:00 RBC 2.95 L (4.30-5.90) m/uL Hgb 9.1 L (13.0-17.5) gm/dL Hct 28.7 L (39.0-53.0) % Sodium 136 L (137-145) mmol/L BUN 22 H (9-20) mg/dL Glucose 104 H (74-99) mg/dL POC Glucose (mg/dL) (70-110) mg/dL Calcium 8.3 L (8.4-10.2) mg/dL Microbiology - Last 24 Hours (Table) 10/03/23 08:23 Gram Stain - Final Sputum Sputum Culture - Final
--- NOTE | 2023-10-06 14:05 | P.PN ---
Subjective Progress Note Date: 10/06/23 Principal diagnosis: Left knee osteoarthritis Patient was seen at bedside this morning lying in the summer composition with dressing present over left anterior knee. Patient says he is doing much better today. He is looking forward to going to the [facility] upon discharge from the hospital. Patient is eager to work with therapy today. Patient denies any other orthopedic issues at this time. Objective - Vital Signs Vital signs: Vital Signs Temp 97.3 F L 10/06/23 08:00 Pulse 72 10/06/23 11:49 Resp 20 10/06/23 08:00 BP 103/64 10/06/23 08:00 Pulse Ox 99 10/06/23 11:37 FiO2 60 10/04/23 08:01 Intake & Output 10/05/23 10/06/23 10/06/23 18:59 06:59 18:59 Intake Total 642.687 250 Output Total 755 525 450 Balance -112.313 -275 -450 Weight 81 kg Intake: IV 642 250 0.9 Pressure Bags 42 Sodium Chloride 0.9% 1, 600 250 000 ml @ 50 mls/hr IV . Q20H [facility] Rx#:[id number] Intake, IV Titration 0.687 Amount Norepinephrine 4 mg In 0.687 Sodium Chloride 0.9% 250 ml @ 0.03 MCG/KG/MIN 8. 835 mls/hr IV .Q24H [facility] Rx#:[id number] Output: Urine 755 275 450 Post Void Residual 250 Other: Voiding Method Indwelling Catheter Urinal Urinal # Voids 1 ABP, PAP, CO, CI - Last Documented Arterial Blood Pressure 117/44 - Exam Left knee: Incision is clean, dry, and intact. The exofin fusion tape is in good condition. There is minimal soft tissue swelling and ecchymosis surrounding the medial and lateral aspects of the incision. Calf is soft, no tenderness with palpation. Plantar flexion, dorsiflexion, EHL, FHL are intact. Sensory exam to light touch throughout the extremity is intact, dorsal pedis pulses 2+. - Labs CBC & Chem 7: 10/06/23 06:00 10/06/23 06:00 Labs: Abnormal Lab Results - Last 24 Hours (Table) 10/05/23 10/05/23 10/06/23 Range/Units 16:44 21:28 01:17 RBC (4.30-5.90) m/uL Hgb (13.0-17.5) gm/dL Hct (39.0-53.0) % Sodium (137-145) mmol/L BUN (9-20) mg/dL Glucose (74-99) mg/dL POC Glucose (mg/dL) 138 H 126 H 128 H (70-110) mg/dL Calcium (8.4-10.2) mg/dL 10/06/23 10/06/23 Range/Units 06:00 06:00 RBC 2.95 L (4.30-5.90) m/uL Hgb 9.1 L (13.0-17.5) gm/dL Hct 28.7 L (39.0-53.0) % Sodium 136 L (137-145) mmol/L BUN 22 H (9-20) mg/dL Glucose 104 H (74-99) mg/dL POC Glucose (mg/dL) (70-110) mg/dL Calcium 8.3 L (8.4-10.2) mg/dL Microbiology - Last 24 Hours (Table) 10/03/23 08:23 Gram Stain - Final Sputum Sputum Culture - Final Assessment and Plan Assessment: 1. Left knee osteoarthritis -Postop day #5 status post left total knee arthroplasty Plan: 1. Left knee osteoarthritis -left total knee arthroplasty performed 10/01/2023. Patient stable on 3 S. cardiac floor. Pain medication as needed. Weightbearing as tolerated with walker and assistance as necessary. Awaiting approval for discharge to [facility]. Patient is stable from an orthopedic standpoint for discharge. We will continue to be available as needed to see patient during his stay in the hospital. 2. Appreciate medical management 3. Pain management -gabapentin; Flexeril; [place] 4. DVT prophylaxis -Lovenox 5. GI prophylaxis - senna 6. PT/OT -weightbearing as tolerated with walker 7. Encourage incentive spirometer use Time with Patient: Less than 30
[2023-10-06 16:30] LABS: Glucose,Whole Blood 101 mg/dL (70-110)
[2023-10-06 20:46] LABS: Glucose,Whole Blood 136 mg/dL (70-110)
[2023-10-07 06:20] LABS: Glucose,Whole Blood 91 mg/dL (70-110)
[2023-10-07 09:36] LABS: Basophils % (A) 0 %; Eosinophils # (A) 0.3 k/uL (0-0.7); Eosinophils % (A) 4 %; HCT 30.6 % (39.0-53.0); HGB 9.6 gm/dL (13.0-17.5); Hypochromasia Slight; Lymphocytes # (A) 1.4 k/uL (1.0-4.8); Lymphocytes % (A) 17 %; MCH 30.9 pg (25.0-35.0); MCHC 31.2 g/dL (31.0-37.0); MCV 98.9 fL (80.0-100.0); Monocytes # (A) 0.5 k/uL (0-1.0); Monocytes % (A) 5 %; Neutrophils # (A) 6.2 k/uL (1.3-7.7); Neutrophils % (A) 72 %; Platelet Count 236 k/uL (150-450); RDW 13.9 % (11.5-15.5); WBC 8.6 k/uL (3.8-10.6)
[2023-10-07 09:37] LABS: African American GFR (CKD) >90 (>60 ml/min/1.73 sqM); Anion Gap 5 mmol/L; Blood Urea Nitrogen 21 mg/dL (9-20); Calcium 8.7 mg/dL (8.4-10.2); Carbon Dioxide 26 mmol/L (22-30); Chloride 107 mmol/L (98-107); Glucose 149 mg/dL (74-99); Magnesium 1.8 mg/dL (1.6-2.3); Non-African American GFR(CKD) 86 (>60 ml/min/1.73 sqM); Potassium 4.9 mmol/L (3.5-5.1); Sodium 138 mmol/L (137-145)
[2023-10-07 11:25] LABS: Glucose,Whole Blood 130 mg/dL (70-110)
--- NOTE | 2023-10-07 13:36 | P.PN ---
Subjective Progress Note Date: 10/07/23 Hospital Course: Patient is a 63-year-old male with history of hypertension, dyslipidemia, COPD, diabetes presenting for elective total left knee arthroplasty. Patient was progressing well. On 10/03/2023, patient got up with assistance to go to the bathroom, while on the toilet, patient went unresponsive, had PEA arrest. Was coded for 6 to 8 minutes, ROSC achieved. Patient intubated and transferred to medical ICU. Due to elevated D-dimer and shock, there was concern for pulmonary embolism. CTA completed, negative for PE, marked chronic interstitial lung disease consistent with IPF. Echocardiogram shows LVEF 50 to 55%, grade 1 diastolic dysfunction, severe RV dilatation, severe pulmonary hypertension. Cardiology and ICU consulted. Patient successfully weaned off of vasopressors. Extubated. Doing better. On floors. Pending discharge to rehab. Subjective: Patient seen and examined at bedside. No acute events overnight. Pertinent positives and negatives as discussed above, a complete review of systems was performed and all other systems are negative. Vitals Signs Reviewed. General: Nontoxic, no distress, appears at stated age Derm: Warm, dry Head: Atraumatic, normocephalic, symmetric Eyes: EOMI, no lid lag, anicteric sclera Mouth: No lip lesion, mucus membranes moist Cardiovascular: S1S2 reg, no murmur Lungs: CTA bilateral, no rhonchi, no rales, no accessory muscle use, supplemental oxygen Abdominal: Soft, nontender to palpation, no guarding, no appreciable organomegaly Ext: No gross muscle atrophy, no edema, no contractures Neuro: CN II-XI grossly intact, no focal neuro deficits Psych: Alert, oriented, appropriate affect Data Reviewed Today: Pertinent Labs: WBC 8.6, hemoglobin 9.6, creatinine 0.94, blood sugars range between 91-1 49, magnesium 1.8 Imaging: No new imaging Assessment and Plan: PEA cardiac arrest, likely secondary to exaggerated vasovagal response Mild troponin elevation, likely nonischemic Circulatory shock, unclear etiology, resolved Acute hypoxic respiratory failure, resolving Likely pulmonary fibrosis Severe pulmonary hypertension History of asthma/COPD Status post left total knee arthroplasty Leukocytosis, likely reactive, resolved Metabolic acidosis, lactic acidosis, resolved Transaminitis, resolving - On albuterol as needed, Symbicort as needed, DuoNeb every 4 hours -Pulmonology, cardiology, Ortho following -On Flexeril 5 3 times daily, duloxetine 60, gabapentin 200 twice daily, oral [place] as needed, IV Dilaudid as needed, monitor for sedation -patient needs rehab, pending placement History of hypertension, continue to hold lisinopril Type 2 diabetes - Sliding scale insulin, monitor for hypoglycemia GERD - Continue omeprazole 20 Dyslipidemia - Continue simvastatin 20 nightly DVT ppx: lovenox Code status: Full code Anticipated discharge place: rehab Anticipated discharge time: Pending clinical course Objective - Vital Signs Vital signs: Vital Signs Temp 98 F 10/07/23 08:00 Pulse 88 10/07/23 12:52 Resp 16 10/07/23 12:00 BP 130/75 10/07/23 12:00 Pulse Ox 97 10/07/23 12:00 FiO2 60 10/04/23 08:01 Intake & Output 10/06/23 10/07/23 10/07/23 18:59 06:59 18:59 Intake Total 808 840 360 Output Total 700 600 800 Balance 108 240 -440 Weight 81.2 kg Intake: IV 450 600 Sodium Chloride 0.9% 1, 450 600 000 ml @ 50 mls/hr IV . Q20H [facility] Rx#:[id number] Oral 358 240 360 Output: Urine 700 600 800 Other: Voiding Method Urinal Urinal Urinal ABP, PAP, CO, CI - Last Documented Arterial Blood Pressure 117/44 - Labs CBC & Chem 7: 10/07/23 08:58 10/07/23 08:58 Labs: Abnormal Lab Results - Last 24 Hours (Table) 10/06/23 10/07/23 10/07/23 Range/Units 20:36 08:58 08:58 RBC 3.10 L (4.30-5.90) m/uL Hgb 9.6 L (13.0-17.5) gm/dL Hct 30.6 L (39.0-53.0) % BUN 21 H (9-20) mg/dL Glucose 149 H (74-99) mg/dL POC Glucose (mg/dL) 136 H (70-110) mg/dL 10/07/23 Range/Units 11:23 RBC (4.30-5.90) m/uL Hgb (13.0-17.5) gm/dL Hct (39.0-53.0) % BUN (9-20) mg/dL Glucose (74-99) mg/dL POC Glucose (mg/dL) 130 H (70-110) mg/dL
--- NOTE | 2023-10-07 13:38 | P.PN ---
Subjective HISTORY OF PRESENT ILLNESS: Patient is a pleasant 63-year-old male with history of COPD, diabetes mellitus type 2, GERD, hyperlipidemia, hypertension, osteoarthritis who presented for elective left knee total arthroplasty. He had been doing fairly well however yesterday morning had gone to the bathroom and was on the toilet when he collapsed. CPR was initiated and an initial rhythm was noted to be PEA. He was not however on telemetry. He was intubated and sedated. Apparently patient had CPR for approximately 5-6 minutes. Post CPR lactic acid 7.1, d-dimer 10.2, hemoglobin 12.0, white blood cell count 18.2, creatinine 0.8, troponin 0.05. given elevated dimer, No pulmonary embolism, chronic interstitial lung disease and possible pneumonic infiltrate in the right lung base. 10/05 Patient was successfully extubated on 10/03. He has been transferred out of the intensive care unit and seen today on the cardiac stepdown floor. Patient has no new concerns today. Yesterday he was having significant number of PVCs which is improved today. Lopressor 25 mg 3 times daily was added yesterday evening. He states that he is feeling better in general. Blood pressure 107/69, heart rate in the 60s, pulse ox 94% on 4 L nasal cannula. Repeat blood work reveals hemoglobin 9.1, sodium 136, potassium 4.7, creatinine 1.03 and BUN 22. 10/07/2023 Patient examined this morning at the bedside. Patient currently denies chest pain or pressure. He denies shortness of breath. Vital signs are stable. PHYSICAL EXAM: VITAL SIGNS: Reviewed. GENERAL: Well-developed in no acute distress. NECK: Supple. No JVD or thyromegaly LUNGS: Respirations even and unlabored. Lungs essentially clear to auscultation bilaterally. HEART: Regular rate and rhythm. S1 and S2 heard. EXTREMITIES: Normal range of motion. No clubbing or cyanosis. Peripheral pulses intact. No lower extremity edema ASSESSMENT: Cardiac arrest Status post left knee total arthroplasty Elevated d-dimer however no PE noted on CTA Lactic acidosis Hypotension requiring pressor support, resolved Diabetes mellitus type 2 Previous tobacco abuse Hypertension Hyperlipidemia Severe pulmonary fibrosis Severe pulmonary hypertension PLAN: Continue current cardiac medications Repeat limited echo to assess right ventricle and right sided pressures Continue telemetry monitoring Further recommendations pending patient course Nurse practitioner note has been reviewed by physician. Signing provider agrees with the documented findings, assessment, and plan of care documented by PANTOGRAPH MACHINE SET UP OPERATOR as a scribe. Objective - Vital Signs Vital signs: Vital Signs Temp 98 F 10/07/23 08:00 Pulse 90 10/07/23 12:36 Resp 16 10/07/23 12:00 BP 130/75 10/07/23 12:00 Pulse Ox 97 10/07/23 12:00 FiO2 60 10/04/23 08:01 Intake & Output 10/06/23 10/07/23 10/07/23 18:59 06:59 18:59 Intake Total 808 840 180 Output Total 700 600 400 Balance 108 240 -220 Weight 81.2 kg Intake: IV 450 600 Sodium Chloride 0.9% 1, 450 600 000 ml @ 50 mls/hr IV . Q20H [facility] Rx#:[id number] Oral 358 240 180 Output: Urine 700 600 400 Other: Voiding Method Urinal Urinal Urinal ABP, PAP, CO, CI - Last Documented Arterial Blood Pressure 117/44 - Labs CBC & Chem 7: 10/07/23 08:58 10/07/23 08:58 Labs: Abnormal Lab Results - Last 24 Hours (Table) 10/06/23 10/07/23 10/07/23 Range/Units 20:36 08:58 08:58 RBC 3.10 L (4.30-5.90) m/uL Hgb 9.6 L (13.0-17.5) gm/dL Hct 30.6 L (39.0-53.0) % BUN 21 H (9-20) mg/dL Glucose 149 H (74-99) mg/dL POC Glucose (mg/dL) 136 H (70-110) mg/dL 10/07/23 Range/Units 11:23 RBC (4.30-5.90) m/uL Hgb (13.0-17.5) gm/dL Hct (39.0-53.0) % BUN (9-20) mg/dL Glucose (74-99) mg/dL POC Glucose (mg/dL) 130 H (70-110) mg/dL
--- NOTE | 2023-10-07 15:17 | P.PN ---
Subjective Progress Note Date: 10/07/23 This is a 63-year-old male patient with a known history of COPD, diabetes mellitus, gastroesophageal reflux disease, hyperlipidemia, hypertension, osteoarthritis. He had been having ongoing issues with left knee pain and presented here on 10/01/2023 for a left knee total arthroplastycementedposterior stabilizer. Yesterday he had been doing well recovering when earlier this morning he had been up ambulating to the bathroom and collapsed in the bathroom while on the toilet. CPR was initiated. Initial rhythm was PEA. He was intubated and obtained return of spontaneous circulation. He was transferred to the intensive care unit. He is seen today in consultation. He is currently on the mechanical ventilator and assist- control mode with a rate of 16, tidal volume 450, FiO2 60% and a PEEP of 5. Blood gases revealed a PaO2 of 390, pCO2 of 31 and a pH of 7.26. This was on 100% FiO2. He was hypotensive and requiring norepinephrine at 5 mcg/min. He is also on vasopressin at 0.03 units/min. He is sedated on propofol at 50 mcg/kg/min. He has normal saline at 50 MLS per hour. He received 2 L of fluid resuscitation. He received 2 A of bicarb. White count 18.2. Hemoglobin 12.0. Platelets 293. D-dimer 10.29. Sodium 137. Potassium 5.0. Bicarb 17. BUN 21. Creatinine 0.87. Glucose 160. Initial lactic acid 7.1. Currently 1.0. AST 373. ALT 239. Troponin 0.050. Chest x-ray reveals endotracheal tube in position. Nasogastric tube in the stomach. Left central venous catheter tip near the caval atrial junction. Some pulmonary venous congestion with normal- sized heart. Possible fluid volume overload. Echocardiogram is pending. The patient is seen today October 04, 2023 in follow-up in the intensive care unit. He remains intubated on the mechanical ventilator and assist-control mode at a rate of 16, tidal volume 450, FiO2 60% and a PEEP of 5. Morning blood gases revealed a PaO2 of 272, pCO2 45, pH 7.39. He remains sedated on propofol at 50 mcg/kg/min. He is on a heparin drip per weight-based protocol. Normal saline at 50 MLS per hour. Vasopressin and norepinephrine have been on hold since this a.m. CT angiogram reveals no evidence of pulmonary embolism. There is marked chronic interstitial lung disease consistent with severe idiopathic pulmonary fibrosis. Possible acute pneumonic infiltrate in the right lung base. Echocardiogram revealed preserved left ventricular systolic function with ejection fraction 50 to 55%. There is noted severe right ventricular dilatation. Severe pulmonary hypertension with an RVSP of 78 mmHg. No RV strain noted. Sputum culture pending. White count 9.0. Hemoglobin 10.1. Platelets 204. Sodium 135. Potassium 5.0. Bicarb 28. BUN 22. Creatinine 0.95. Glucose 137. AST 123. ALT 148. Troponin 0.050, 0.403. He is continued on DuoNeb inhalations, Symbicort. The patient is seen today October 05, 2023 in follow-up in the intensive care unit. He was extubated yesterday. He is currently sitting up in bed. Awake and alert in no acute distress. He is maintaining good O2 saturations in the 90s on 4 L/min per nasal cannula. He has been off pressors. He has normal saline at 50 MLS per hour. Remains on DuoNeb ventilations, Symbicort. Lovenox for DVT prophylaxis. Sputum culture reveals no growth. White count 9.8. Hemoglobin 9.0. Platelets 194. Sodium 134. Potassium 4.2. Bicarb 27. BUN 21 . Creatinine 1.15. Glucose 113. Chest x-ray reveals medium to coarse bilateral interstitial infiltrates slightly improved. Progress note dated October 06, 2023. The patient is seen in room 358. He is currently on saline at 50 cc an hour. He is getting oxygen by nasal cannula at 3 L. The patient is complaining of some chest discomfort, where he had chest compressions, from his cardiopulmonary arrest. Other than that, he seems to be doing relatively well. Current labs are good white count 8.1, hemoglobin 9.1, hematocrit 28.7, and a platelet count of 212,000. Sodium 136, potassium 4.7, chlorides 107, CO2 25, BUN 22, and creatinine 1.03. His glucose is 105. Calcium 8.3. Magnesium 2.0. Chest x-ray from yesterday shows interstitial lung disease. On today's evaluation of 10/07/2023, the patient is being seen for a follow-up. The patient is post cardio rest requiring intubation mechanical ventilation. Ultimately, the patient was weaned off the mechanical ventilator and the patient was extubated and the patient does have underlying chronic interstitial lung disease/fibrosis, likely occupational. The patient has been exposed to significant amount of pesticides over the years. CT angiogram of the chest showed no evidence of any pulm embolism. There was chronic interstitial fibrosis also at the lung bases bilaterally. There is also evidence of cystic changes in the lungs. The exact nature of this pulmonary fibrosis is not clear at this point in time. Patient is currently on 3 L of O2 nasal cannula. No respiratory distress. WBC count today 0.6 with a hemoglobin 9.6 and a platelet count of 236. BUN is at 21 with a creatinine of 0.9. He denies having any specific complaints. He underwent a left knee arthroplasty on 10/01/2023 and the patient is postop day #5. He is currently on Lovenox for DVT prophylaxis 40 mg subcu. Hemodynamically stable at this point in time. Echocardiogram that was done on 10/03/2023 showed a preserved LV function with an ejection fraction of 50 to 55%. RV was dilated and the patient had severe pulm hypertension with an estimated right ventricular systolic pressure of 78. No evidence of any significant valvular heart disease based on echocardiogram that was done. He is also known to have COPD with chronic history of smoking. He has diabetes mellitus, hypertension hyperlipidemia and osteoarthritis. Objective - Vital Signs Vital signs: Vital Signs Temp 98 F 10/07/23 08:00 Pulse 92 10/07/23 08:06 Resp 16 10/07/23 08:00 BP 112/54 10/07/23 08:00 Pulse Ox 92 L 10/07/23 08:00 FiO2 60 10/04/23 08:01 Intake & Output 10/06/23 10/07/23 10/07/23 18:59 06:59 18:59 Intake Total 808 840 180 Output Total 700 600 400 Balance 108 240 -220 Weight 81.2 kg Intake: IV 450 600 Sodium Chloride 0.9% 1, 450 600 000 ml @ 50 mls/hr IV . Q20H [facility] Rx#:[id number] Oral 358 240 180 Output: Urine 700 600 400 Other: Voiding Method Urinal Urinal ABP, PAP, CO, CI - Last Documented Arterial Blood Pressure 117/44 - Exam No acute distress, oriented 3. Currently the patient is on 3 L by nasal cannula. No respiratory distress. HEENT examination is grossly unremarkable. Mucous membranes are moist. No oral lesions. Neck supple. Full range of motion. No adenopathy thyromegaly or neck vein distention. Cardiovascular examination reveals regular rhythm rate. S1-S2 normal. No S3 or S4. No discernible murmur noted. Lungs reveal bibasilar crackles. No wheezes or rhonchi. Breath sounds are equal bilaterally. The patient has coarse crackles in the mid and lower lung field bilaterally along with scattered expiratory wheeze. Abdomen soft bowel sounds are heard. No masses or tenderness. Extremities are intact. No cyanosis clubbing or edema. Skin is without rash or lesion. Neurologic examination is brief but nonfocal. - Labs CBC & Chem 7: 10/07/23 08:58 10/07/23 08:58 Labs: Abnormal Lab Results - Last 24 Hours (Table) 10/06/23 10/07/23 10/07/23 Range/Units 20:36 08:58 08:58 RBC 3.10 L (4.30-5.90) m/uL Hgb 9.6 L (13.0-17.5) gm/dL Hct 30.6 L (39.0-53.0) % BUN 21 H (9-20) mg/dL Glucose 149 H (74-99) mg/dL POC Glucose (mg/dL) 136 H (70-110) mg/dL Assessment and Plan Plan: Cardiac arrest with requiring cardiopulmonary resuscitation including intubation and return of spontaneous circulation achieved. Echocardiogram shows a preserved LV function and the patient has severe pulmonary hypertension probably due to chronic lung disease. This is likely a group 3 pulmonary hypertension. Acute hypoxemic respiratory failure secondary to above currently on the mechanical ventilator, The patient was extubated to 2 L of oxygen by nasal cannula Chronic interstitial lung disease with significant degree of fibrosis along with cystic pulmonary changes. Rule out occupational pulmonary fibrosis/occupational lung disease. There is also some background emphysema and history of pulmonary fibrosis. He does have likely chronic hypoxic respiratory failure. Hypotension requiring pressor support secondary to above, recovered and off pressors. Left knee total arthroplasty on 10/01/2023, postoperative day #5, currently on Lovenox 40 mg subcu for DVT prophylaxis. Severe pulmonary fibrosis of unclear etiology or duration, likely occupational. Nevertheless, the patient demonstrates extensive fibrotic changes in the lungs based on the CAT scan findings. Severe pulmonary hypertension secondary to above with an RVSP of 78 mmHg. Likely group 3 pulmonary hypertension. History of chronic obstructive pulmonary disease. Former smoker. Diabetes mellitus. Hypertension. Hyperlipidemia. Osteoarthritis. Plan: He is a patient of O2 at 3 L/min nasal cannula and plan for home O2 Incentive spirometer Increase mobility Echocardiogram shows a preserved LV function with severe pulm hypertension Continue Lovenox 40 mg subcu for DVT prophylaxis Continue bronchodilators Patient is currently on a Maintenance of Symbicort and he was taken as a medication on outpatient basis Will continue to follow. Outpatient follow-up will be needed regarding his extensive pulmonary fibrosis.
[2023-10-07 16:28] LABS: Glucose,Whole Blood 156 mg/dL (70-110)
[2023-10-07] MEDS: HYDROcodone/APAP 5-325MG 1 EACH TAB PO PRN (20:15)
[2023-10-07 20:19] LABS: Glucose,Whole Blood 151 mg/dL (70-110)
[2023-10-08 05:55] LABS: Glucose,Whole Blood 125 mg/dL (70-110)
--- NOTE | 2023-10-08 10:00 | P.PN ---
Subjective Progress Note Date: 10/08/23 Principal diagnosis: Left knee osteoarthritis Patient was seen at bedside this morning sitting up in chair with dressing present over left anterior knee. Patient says he is doing much better today. He is looking forward to going to the [facility] upon discharge from the hospital. Patient is eager to work with therapy today. Patient denies any other orthopedic issues at this time. Objective - Vital Signs Vital signs: Vital Signs Temp 97.6 F 10/08/23 04:00 Pulse 82 10/08/23 09:47 Resp 18 10/08/23 04:00 BP 117/71 10/08/23 04:00 Pulse Ox 99 10/08/23 04:00 FiO2 60 10/04/23 08:01 Intake & Output 10/07/23 10/08/23 10/08/23 18:59 06:59 18:59 Intake Total 540 240 Output Total 800 500 Balance -260 -500 240 Intake: Oral 540 240 Output: Urine 800 500 Other: Voiding Method Urinal Urinal ABP, PAP, CO, CI - Last Documented Arterial Blood Pressure 117/44 - Exam Left knee: Incision is clean, dry, and intact. The exofin fusion tape is in good condition. There is minimal soft tissue swelling and ecchymosis surrounding the medial and lateral aspects of the incision. Calf is soft, no tenderness with palpation. Plantar flexion, dorsiflexion, EHL, FHL are intact. Sensory exam to light touch throughout the extremity is intact, dorsal pedis pulses 2+. - Labs CBC & Chem 7: 10/07/23 08:58 10/07/23 08:58 Labs: Abnormal Lab Results - Last 24 Hours (Table) 10/07/23 10/07/23 10/07/23 Range/Units 11:23 16:26 19:55 POC Glucose (mg/dL) 130 H 156 H 151 H (70-110) mg/dL 10/08/23 Range/Units 05:47 POC Glucose (mg/dL) 125 H (70-110) mg/dL Assessment and Plan Assessment: 1. Left knee osteoarthritis -Postop day #7 status post left total knee arthroplasty Plan: 1. Left knee osteoarthritis -left total knee arthroplasty performed 10/01/2023. Patient stable on 3 S. cardiac floor. Pain medication as needed. Weightbearing as tolerated with walker and assistance as necessary. Awaiting approval for discharge to [facility]. Patient is stable from an orthopedic standpoint for discharge. Narc scripts placed in patient chart. We will continue to be available as needed to see patient during his stay in the hospital. 2. Appreciate medical management 3. Pain management -gabapentin; Flexeril; [place] 4. DVT prophylaxis -Lovenox 5. GI prophylaxis - senna 6. PT/OT -weightbearing as tolerated with walker 7. Encourage incentive spirometer use Time with Patient: Less than 30
--- NOTE | 2023-10-08 10:52 | P.PN ---
Subjective HISTORY OF PRESENT ILLNESS: Patient is a pleasant 63-year-old male with history of COPD, diabetes mellitus type 2, GERD, hyperlipidemia, hypertension, osteoarthritis who presented for elective left knee total arthroplasty. He had been doing fairly well however yesterday morning had gone to the bathroom and was on the toilet when he collapsed. CPR was initiated and an initial rhythm was noted to be PEA. He was not however on telemetry. He was intubated and sedated. Apparently patient had CPR for approximately 5-6 minutes. Post CPR lactic acid 7.1, d-dimer 10.2, hemoglobin 12.0, white blood cell count 18.2, creatinine 0.8, troponin 0.05. given elevated dimer, No pulmonary embolism, chronic interstitial lung disease and possible pneumonic infiltrate in the right lung base. 10/05 Patient was successfully extubated on 10/03. He has been transferred out of the intensive care unit and seen today on the cardiac stepdown floor. Patient has no new concerns today. Yesterday he was having significant number of PVCs which is improved today. Lopressor 25 mg 3 times daily was added yesterday evening. He states that he is feeling better in general. Blood pressure 107/69, heart rate in the 60s, pulse ox 94% on 4 L nasal cannula. Repeat blood work reveals hemoglobin 9.1, sodium 136, potassium 4.7, creatinine 1.03 and BUN 22. 10/07/2023 Patient examined this morning at the bedside. Patient currently denies chest pain or pressure. He denies shortness of breath. Vital signs are stable. 10/08/2023 Patient examined this morning at the bedside. He is currently sitting up on the side of the bed. He denies shortness of breath. He does report mild chest discomfort from having a frequent cough. Vital signs are stable. Repeat echo remains pending. PHYSICAL EXAM: VITAL SIGNS: Reviewed. GENERAL: Well-developed in no acute distress. NECK: Supple. No JVD or thyromegaly LUNGS: Respirations even and unlabored. Lungs essentially clear to auscultation bilaterally. HEART: Regular rate and rhythm. S1 and S2 heard. EXTREMITIES: Normal range of motion. No clubbing or cyanosis. Peripheral pulses intact. Trace bilateral lower extremity edema ASSESSMENT: Cardiac arrest Status post left knee total arthroplasty Elevated d-dimer however no PE noted on CTA Lactic acidosis Hypotension requiring pressor support, resolved Diabetes mellitus type 2 Previous tobacco abuse Hypertension Hyperlipidemia Severe pulmonary fibrosis Severe pulmonary hypertension PLAN: Continue current cardiac medications Repeat limited echo to assess right ventricle and right sided pressures Continue telemetry monitoring Patient is currently stable from a cardiac perspective Further recommendations pending patient course Nurse practitioner note has been reviewed by physician. Signing provider agrees with the documented findings, assessment, and plan of care documented by VENEER JOINER as a scribe. Objective - Vital Signs Vital signs: Vital Signs Temp 98.1 F 10/08/23 08:00 Pulse 82 10/08/23 09:47 Resp 18 10/08/23 08:00 BP 131/78 10/08/23 08:00 Pulse Ox 94 L 10/08/23 08:00 FiO2 60 10/04/23 08:01 Intake & Output 10/07/23 10/08/23 10/08/23 18:59 06:59 18:59 Intake Total 540 240 Output Total 800 500 Balance -260 -500 240 Intake: Oral 540 240 Output: Urine 800 500 Other: Voiding Method Urinal Urinal ABP, PAP, CO, CI - Last Documented Arterial Blood Pressure 117/44 - Labs CBC & Chem 7: 10/07/23 08:58 10/07/23 08:58 Labs: Abnormal Lab Results - Last 24 Hours (Table) 10/07/23 10/07/23 10/07/23 Range/Units 11:23 16:26 19:55 POC Glucose (mg/dL) 130 H 156 H 151 H (70-110) mg/dL 10/08/23 Range/Units 05:47 POC Glucose (mg/dL) 125 H (70-110) mg/dL
[2023-10-08 11:18] LABS: Glucose,Whole Blood 101 mg/dL (70-110)
--- NOTE | 2023-10-08 11:22 | P.PN ---
Subjective Progress Note Date: 10/08/23 Hospital Course: Patient is a 63-year-old male with history of hypertension, dyslipidemia, COPD, diabetes presenting for elective total left knee arthroplasty. Patient was progressing well. On 10/03/2023, patient got up with assistance to go to the bathroom, while on the toilet, patient went unresponsive, had PEA arrest. Was coded for 6 to 8 minutes, ROSC achieved. Patient intubated and transferred to medical ICU. Due to elevated D-dimer and shock, there was concern for pulmonary embolism. CTA completed, negative for PE, marked chronic interstitial lung disease consistent with IPF. Echocardiogram shows LVEF 50 to 55%, grade 1 diastolic dysfunction, severe RV dilatation, severe pulmonary hypertension. Cardiology and ICU consulted. Patient successfully weaned off of vasopressors. Extubated. Doing better. On floors. [place] echocardiogram pending pending discharge to rehab. Subjective: Patient seen and examined at bedside. No acute events overnight. Pertinent positives and negatives as discussed above, a complete review of systems was performed and all other systems are negative. Vitals Signs Reviewed. General: Nontoxic, no distress, appears at stated age Derm: Warm, dry Head: Atraumatic, normocephalic, symmetric Eyes: EOMI, no lid lag, anicteric sclera Mouth: No lip lesion, mucus membranes moist Cardiovascular: S1S2 reg, no murmur Lungs: CTA bilateral, no rhonchi, no rales, no accessory muscle use, supplemental oxygen Abdominal: Soft, nontender to palpation, no guarding, no appreciable organomegaly Ext: No gross muscle atrophy, no edema, no contractures Neuro: CN II-XI grossly intact, no focal neuro deficits Psych: Alert, oriented, appropriate affect Data Reviewed Today: Pertinent Labs: Blood sugars range between 10 1-1 56 Imaging: No new imaging Assessment and Plan: PEA cardiac arrest, likely secondary to exaggerated vasovagal response Mild troponin elevation, likely nonischemic Circulatory shock, unclear etiology, resolved Acute hypoxic respiratory failure, resolving Likely pulmonary fibrosis Severe pulmonary hypertension History of asthma/COPD Status post left total knee arthroplasty Leukocytosis, likely reactive, resolved Metabolic acidosis, lactic acidosis, resolved Transaminitis, resolving - On albuterol as needed, Symbicort as needed, DuoNeb every 4 hours -Pulmonology also following Cardiology note reviewed, repeat echocardiogram pending Ortho note reviewed, stable to discharge from their standpoint -On Flexeril 5 3 times daily, duloxetine 60, gabapentin 200 twice daily, oral [place] as needed, IV Dilaudid as needed, monitor for sedation -patient needs rehab, pending placement History of hypertension, continue to hold lisinopril Type 2 diabetes - Sliding scale insulin, monitor for hypoglycemia GERD - Continue omeprazole 20 Dyslipidemia - Continue simvastatin 20 nightly DVT ppx: lovenox Code status: Full code Anticipated discharge place: rehab Anticipated discharge time: Pending clinical course Objective - Vital Signs Vital signs: Vital Signs Temp 98.1 F 10/08/23 08:00 Pulse 82 10/08/23 09:47 Resp 18 10/08/23 08:00 BP 131/78 10/08/23 08:00 Pulse Ox 94 L 10/08/23 08:00 FiO2 60 10/04/23 08:01 Intake & Output 10/07/23 10/08/23 10/08/23 18:59 06:59 18:59 Intake Total 540 240 Output Total 800 500 Balance -260 -500 240 Intake: Oral 540 240 Output: Urine 800 500 Other: Voiding Method Urinal Urinal ABP, PAP, CO, CI - Last Documented Arterial Blood Pressure 117/44 - Labs CBC & Chem 7: 10/07/23 08:58 10/07/23 08:58 Labs: Abnormal Lab Results - Last 24 Hours (Table) 10/07/23 10/07/23 10/07/23 Range/Units 11:23 16:26 19:55 POC Glucose (mg/dL) 130 H 156 H 151 H (70-110) mg/dL 10/08/23 Range/Units 05:47 POC Glucose (mg/dL) 125 H (70-110) mg/dL
--- NOTE | 2023-10-08 14:58 | P.PN ---
Subjective Progress Note Date: 10/08/23 This is a 63-year-old male patient with a known history of COPD, diabetes mellitus, gastroesophageal reflux disease, hyperlipidemia, hypertension, osteoarthritis. He had been having ongoing issues with left knee pain and presented here on 10/01/2023 for a left knee total arthroplastycementedposterior stabilizer. Yesterday he had been doing well recovering when earlier this morning he had been up ambulating to the bathroom and collapsed in the bathroom while on the toilet. CPR was initiated. Initial rhythm was PEA. He was intubated and obtained return of spontaneous circulation. He was transferred to the intensive care unit. He is seen today in consultation. He is currently on the mechanical ventilator and assist- control mode with a rate of 16, tidal volume 450, FiO2 60% and a PEEP of 5. Blood gases revealed a PaO2 of 390, pCO2 of 31 and a pH of 7.26. This was on 100% FiO2. He was hypotensive and requiring norepinephrine at 5 mcg/min. He is also on vasopressin at 0.03 units/min. He is sedated on propofol at 50 mcg/kg/min. He has normal saline at 50 MLS per hour. He received 2 L of fluid resuscitation. He received 2 A of bicarb. White count 18.2. Hemoglobin 12.0. Platelets 293. D-dimer 10.29. Sodium 137. Potassium 5.0. Bicarb 17. BUN 21. Creatinine 0.87. Glucose 160. Initial lactic acid 7.1. Currently 1.0. AST 373. ALT 239. Troponin 0.050. Chest x-ray reveals endotracheal tube in position. Nasogastric tube in the stomach. Left central venous catheter tip near the caval atrial junction. Some pulmonary venous congestion with normal- sized heart. Possible fluid volume overload. Echocardiogram is pending. The patient is seen today October 04, 2023 in follow-up in the intensive care unit. He remains intubated on the mechanical ventilator and assist-control mode at a rate of 16, tidal volume 450, FiO2 60% and a PEEP of 5. Morning blood gases revealed a PaO2 of 272, pCO2 45, pH 7.39. He remains sedated on propofol at 50 mcg/kg/min. He is on a heparin drip per weight-based protocol. Normal saline at 50 MLS per hour. Vasopressin and norepinephrine have been on hold since this a.m. CT angiogram reveals no evidence of pulmonary embolism. There is marked chronic interstitial lung disease consistent with severe idiopathic pulmonary fibrosis. Possible acute pneumonic infiltrate in the right lung base. Echocardiogram revealed preserved left ventricular systolic function with ejection fraction 50 to 55%. There is noted severe right ventricular dilatation. Severe pulmonary hypertension with an RVSP of 78 mmHg. No RV strain noted. Sputum culture pending. White count 9.0. Hemoglobin 10.1. Platelets 204. Sodium 135. Potassium 5.0. Bicarb 28. BUN 22. Creatinine 0.95. Glucose 137. AST 123. ALT 148. Troponin 0.050, 0.403. He is continued on DuoNeb inhalations, Symbicort. The patient is seen today October 05, 2023 in follow-up in the intensive care unit. He was extubated yesterday. He is currently sitting up in bed. Awake and alert in no acute distress. He is maintaining good O2 saturations in the 90s on 4 L/min per nasal cannula. He has been off pressors. He has normal saline at 50 MLS per hour. Remains on DuoNeb ventilations, Symbicort. Lovenox for DVT prophylaxis. Sputum culture reveals no growth. White count 9.8. Hemoglobin 9.0. Platelets 194. Sodium 134. Potassium 4.2. Bicarb 27. BUN 21 . Creatinine 1.15. Glucose 113. Chest x-ray reveals medium to coarse bilateral interstitial infiltrates slightly improved. Progress note dated October 06, 2023. The patient is seen in room 358. He is currently on saline at 50 cc an hour. He is getting oxygen by nasal cannula at 3 L. The patient is complaining of some chest discomfort, where he had chest compressions, from his cardiopulmonary arrest. Other than that, he seems to be doing relatively well. Current labs are good white count 8.1, hemoglobin 9.1, hematocrit 28.7, and a platelet count of 212,000. Sodium 136, potassium 4.7, chlorides 107, CO2 25, BUN 22, and creatinine 1.03. His glucose is 105. Calcium 8.3. Magnesium 2.0. Chest x-ray from yesterday shows interstitial lung disease. On today's evaluation of 10/07/2023, the patient is being seen for a follow-up. The patient is post cardio rest requiring intubation mechanical ventilation. Ultimately, the patient was weaned off the mechanical ventilator and the patient was extubated and the patient does have underlying chronic interstitial lung disease/fibrosis, likely occupational. The patient has been exposed to significant amount of pesticides over the years. CT angiogram of the chest showed no evidence of any pulm embolism. There was chronic interstitial fibrosis also at the lung bases bilaterally. There is also evidence of cystic changes in the lungs. The exact nature of this pulmonary fibrosis is not clear at this point in time. Patient is currently on 3 L of O2 nasal cannula. No respiratory distress. WBC count today 0.6 with a hemoglobin 9.6 and a platelet count of 236. BUN is at 21 with a creatinine of 0.9. He denies having any specific complaints. He underwent a left knee arthroplasty on 10/01/2023 and the patient is postop day #5. He is currently on Lovenox for DVT prophylaxis 40 mg subcu. Hemodynamically stable at this point in time. Echocardiogram that was done on 10/03/2023 showed a preserved LV function with an ejection fraction of 50 to 55%. RV was dilated and the patient had severe pulm hypertension with an estimated right ventricular systolic pressure of 78. No evidence of any significant valvular heart disease based on echocardiogram that was done. He is also known to have COPD with chronic history of smoking. He has diabetes mellitus, hypertension hyperlipidemia and osteoarthritis. On today's evaluation of 10/08/2023, the patient is being seen for a follow-up. The patient has no specific complaints. The patient is resting comfortably. The patient is post PEA cardiac arrest which was likely secondary to an exaggerated vasovagal response. He did encounter some mild troponin leak. He is currently hemodynamically stable. He is trying to increase his mobility. No issues with pain. No issues with shortness of breath. As mentioned earlier, the patient has advanced occupational pulmonary fibrosis that needs to be worked up with treated on outpatient basis. Pain is under adequate control and the surgical wound site is dry clean and intact. He is a chronic ex-smoker. He has diabetes mellitus hypertension hyperlipidemia and osteoarthritis as comorbid conditions. His echocardiogram shows a preserved LV function with an EF of around 50 to 55%. He does have severe pulm hypertension related to his chronic lung disease. Likely needs O2 on outpatient basis. Objective - Vital Signs Vital signs: Vital Signs Temp 98.1 F 10/08/23 08:00 Pulse 82 10/08/23 09:47 Resp 18 04/30/24 08:00 BP 131/78 10/08/23 08:00 Pulse Ox 94 L 10/08/23 08:00 FiO2 60 10/04/23 08:01 Intake & Output 10/07/23 10/08/23 10/08/23 18:59 06:59 18:59 Intake Total 540 240 Output Total 800 500 Balance -260 -500 240 Intake: Oral 540 240 Output: Urine 800 500 Other: Voiding Method Urinal Urinal ABP, PAP, CO, CI - Last Documented Arterial Blood Pressure 117/44 - Exam No acute distress, oriented 3. Currently the patient is on 3 L by nasal cannula. No respiratory distress. HEENT examination is grossly unremarkable. Mucous membranes are moist. No oral lesions. Neck supple. Full range of motion. No adenopathy thyromegaly or neck vein distention. Cardiovascular examination reveals regular rhythm rate. S1-S2 normal. No S3 or S4. No discernible murmur noted. Lungs reveal bibasilar crackles. No wheezes or rhonchi. Breath sounds are equal bilaterally. The patient has coarse crackles in the mid and lower lung field bilaterally along with scattered expiratory wheeze. Abdomen soft bowel sounds are heard. No masses or tenderness. Extremities are intact. No cyanosis clubbing or edema. Skin is without rash or lesion. Neurologic examination is brief but nonfocal. - Labs CBC & Chem 7: 10/07/23 08:58 10/07/23 08:58 Labs: Abnormal Lab Results - Last 24 Hours (Table) 10/07/23 10/07/23 10/08/23 Range/Units 16:26 19:55 05:47 POC Glucose (mg/dL) 156 H 151 H 125 H (70-110) mg/dL Assessment and Plan Plan: Cardiac arrest with requiring cardiopulmonary resuscitation including intubation and return of spontaneous circulation achieved. Echocardiogram shows a preserved LV function and the patient has severe pulmonary hypertension probably due to chronic lung disease. This is likely a group 3 pulmonary hypertension. This was a PEA cardiac arrest and the patient is currently hemodynamically stable. Acute hypoxemic respiratory failure secondary to above currently on the [facility] hanical ventilator, The patient was extubated to 2 L of oxygen by nasal cannula Chronic interstitial lung disease with significant degree of fibrosis along with cystic pulmonary changes. Rule out occupational pulmonary fibrosis/occupational lung disease. There is also some background emphysema and history of pulmonary fibrosis. He does have likely chronic hypoxic respiratory failure. Hypotension requiring pressor support secondary to above, recovered and off pressors. Left knee total arthroplasty on 10/01/2023, postoperative day # 6, currently on Lovenox 40 mg subcu for DVT prophylaxis. Severe pulmonary fibrosis of unclear etiology or duration, likely occupational. Nevertheless, the patient demonstrates extensive fibrotic changes in the lungs based on the CAT scan findings. Severe pulmonary hypertension secondary to above with an RVSP of 78 mmHg. Likely group 3 pulmonary hypertension. History of chronic obstructive pulmonary disease. Former smoker. Diabetes mellitus. Hypertension. Hyperlipidemia. Osteoarthritis. Plan: He is a patient of O2 at 3 L/min nasal cannula and plan for home O2 Overall pulmonary status is stable for now. Incentive spirometer Increase mobility Echocardiogram shows a preserved LV function with severe pulm hypertension Continue Lovenox 40 mg subcu for DVT prophylaxis Continue bronchodilators Patient is currently on a Maintenance of Symbicort and he was taken as a medication on outpatient basis Will continue to follow. Outpatient follow-up will be needed regarding his extensive pulmonary fibrosis. Increase mobility Possible outpatient ECF for further rehabilitation.
[2023-10-08 16:11] LABS: Glucose,Whole Blood 113 mg/dL (70-110)
[2023-10-08 19:45] LABS: Glucose,Whole Blood 129 mg/dL (70-110)
[2023-10-09 05:59] LABS: Glucose,Whole Blood 119 mg/dL (70-110)
--- NOTE | 2023-10-09 06:39 | CA ---
Transthoracic Echo Report Name: Sam Cardoza Age: 63 Gender: M : 1960 Exam Date: 10/08/2023 09:15 Exam Location: [facility] Ht (in): 70 Wt (lb): 179 Ordering Physician: Kylah Pappas Attending/Referring Phys: Libra Ya, Manager Revenue Alysa Rodriguez RDCS Procedure CPT: Indications: reassess right sided pressures, assess R ventricle Cardiac Hx: Technical Quality: Poor Contrast 1: Total Dose (mL): Contrast 2: Total Dose (mL): MEASUREMENTS (Male / Female) Normal Values 2D ECHO LV Diastolic Volume MOD BP 155.6 cm??? 67 - 155 / 56 - 104 cm??? LV Systolic Volume MOD BP 89.4 cm??? 22 - 58 / 19 - 49 cm??? LV Ejection Fraction MOD BP 42.5 % >= 55 % LV Cardiac Index MOD BP 3387.2 cm???/min???m??? LV Diastolic Volume MOD 4C 147.1 cm??? LV Systolic Volume MOD 4C 77.0 cm??? LV Ejection Fraction MOD 4C 47.6 % LV Cardiac Index MOD 4C 3586.0 cm???/min???m??? LV Diastolic Length 4C 9.8 cm LV Systolic Length 4C 8.4 cm LV Diastolic Volume MOD 2C 161.6 cm??? LV Systolic Volume MOD 2C 101.1 cm??? LV Ejection Fraction MOD 2C 37.4 % LV Cardiac Index MOD 2C 3092.5 cm???/min???m??? LV Diastolic Length 2C 10.0 cm LV Systolic Length 2C 8.6 cm DOPPLER TR Peak Velocity 342.4 cm/s TR Peak Gradient 46.9 mmHg Right Atrial Pressure 10.0 mmHg Pulmonary Artery Systolic Pressu 56.9 mmHg Right Ventricular Systolic Press 56.9 mmHg FINDINGS Left Ventricle Left ventricular ejection fraction is estimated at 40-45 %. Severely increased left ventricular systolic volume. Moderately decreased left ventricular ejection fraction. Global hypokinesis. Right Ventricle Moderate right ventricular dilatation with mildly reduced function. Severely enlarged right ventricular systolic pressure. Right Atrium Severe right atrial dilatation. Left Atrium Mild left atrial dilatation. Mitral Valve Structurally normal mitral valve. Aortic Valve Aortic valve not well visualized. Tricuspid Valve Structurally normal tricuspid valve. Moderate to severe tricuspid regurgitation. Pulmonic Valve Pulmonic valve not well visualized. No pulmonic stenosis. No pulmonic regurgitation. Pericardium No pericardial effusion. Aorta Aortic root and proximal ascending aorta not well visualized. CONCLUSIONS Impaired LV function with EF between 40-45% Severe pulmonary hypertension Severe right atrium and right ventricle enlargement Moderate to severe tricuspid regurgitation Previewed by: Dr. Braulio Fink MD (Electronically Signed) Final Date: 09 Oct 2023 06:39
[2023-10-09 08:58] VITALS: RESP 18
[2023-10-09 09:52] VITALS: BP 119/71; PULSE 118; TEMP 97.7
--- NOTE | 2023-10-09 09:54 | P.DS ---
Providers Date of admission: 10/01/23 07:44 Expected date of discharge: 10/09/23 Attending physician: Christian Cornejo MD Consults: 10/01/23 11:28 Consult Physician Routine Consulting Provider: Perico Chan Consult Reason/Comments: medical management s/p left total knee arthroplasty Do you want consulting provider notified?: Yes 10/03/23 06:32 Consult Physician Stat Consulting Provider: Braulio Fink Consult Reason/Comments: Cardiac arrest Do you want consulting provider notified?: Yes 10/03/23 06:51 Consult Physician Stat Consulting Provider: Julio C Feliz Consult Reason/Comments: Cardiac arrest; ICU management Do you want consulting provider notified?: Yes Primary care physician: [facility] Hospital Course: Patient is a 63-year-old male with history of hypertension, dyslipidemia, COPD, diabetes presenting for elective total left knee arthroplasty. Patient was progressing well. On 10/03/2023, patient got up with assistance to go to the bathroom, while on the toilet, patient went unresponsive, had PEA arrest. Was coded for 6 to 8 minutes, ROSC achieved. Patient intubated and transferred to medical ICU. Due to elevated D-dimer and shock, there was concern for pulmonary embolism. CTA completed, negative for PE, marked chronic interstitial lung disease consistent with IPF. Echocardiogram shows LVEF 50 to 55%, grade 1 diastolic dysfunction, severe RV dilatation, severe pulmonary hypertension. Cardiology and ICU consulted. Patient successfully weaned off of vasopressors. Extubated. Doing better. Repeat Echo shows EF 40-45%, global hypokinesis, severe pulmonary HTN, mod-severe TR. PT/OT consulted, plans for SNF. 10/08 Patient was seen and examined. No acute events overnight. Breathing stable. A little SOB with exertion. Some chest discomfort with cough, relates it to chest compressions. Urinating OK. Able to have a BM. Plans for discharge to SNF today. Follow up with PCP within 3 days of discharge. Restart Lisinopril given low EF. Continue Metoprolol. Follow up with Cardiology within 1 week of discharge for further medication titration. Gabapentin, Flexeril PRN, [place] PRN for pain prescribed by [facility]. Continue supplemental O2 to maintain O2 saturation > 92%. Likely due to pulmonary fibriosis/COPD/Asthma. Follow up with Pulmonary within 1 week of discharge. General: Nontoxic, no distress, appears at stated age Derm: Warm, dry Head: Atraumatic, normocephalic, symmetric Eyes: EOMI, no lid lag, anicteric sclera Mouth: No lip lesion, mucus membranes moist Cardiovascular: S1S2 reg, systolic murmur Lungs: CTA bilateral, no rhonchi, no rales, no accessory muscle use, supplemental oxygen Ext: No gross muscle atrophy, no edema, no contractures Neuro: no focal neuro deficits Psych: Alert, oriented, appropriate affect Discharge Diagnosis: PEA cardiac arrest, likely secondary to exaggerated vasovagal response Troponin elevation, likely nonischemic Acute hypoxic respiratory failure likely due to pulmonary fibrosis and COPD/Asthma Severe pulmonary hypertension Moderate-Severe tricuspic regurgitation Status post left total knee arthroplasty Transaminitis History of hypertension Type 2 diabetes GERD Dyslipidemia Resolved: Circulatory shock, Leukocytosis, Lactic acidosis This complex discharge took 35 minutes to complete. Patient Condition at Discharge: Stable Plan - Discharge Summary Discharge Rx Participant: Yes New Discharge Prescriptions: New Gabapentin 300 mg PO BID #18 cap HYDROcodone/APAP 7.5-325MG [[place] 7.5-325] 1 tab PO Q6HR PRN #18 tab PRN Reason: Pain Enoxaparin [Lovenox] 40 mg SQ DAILY #21 each Sennosides/Docusate Sodium [Senna Plus 8.6-50 mg Softgel] 1 each PO DAILY #20 capsule Ipratropium-Albuterol Nebulize [Duoneb 0.5 mg-3 mg/3 ml Soln] 3 ml INHALATION RT-QID PRN each PRN Reason: Shortness Of Breath Or Wheezing Metoprolol Tartrate [Lopressor] 25 mg PO TID tab Continue Multivitamins, Thera [Multivitamin (formulary)] 1 tab PO DAILY Omeprazole 20 mg PO QAM lisinopriL [Zestril] 10 mg PO QAM metFORMIN HCL [Glucophage] 500 mg PO DAILY Simvastatin [Zocor] 20 mg PO HS Albuterol Sulfate [Proair Digihaler] 1 puff INHALATION Q6H PRN PRN Reason: Wheezing DULoxetine HCL [Cymbalta] 60 mg PO QAM Cyclobenzaprine [Flexeril] 5 mg PO TID PRN PRN Reason: Pain Budesonide/Formoterol Fumarate [Symbicort 80-4.5 Mcg Inhaler] 1 puff INHALATION DAILY PRN PRN Reason: Wheezing Discontinued Acetaminophen [Tylenol] 1,000 mg PO BID Meloxicam 7.5 mg PO BID Gabapentin [Neurontin] 200 mg PO BID Discharge Medication List Multivitamins, Thera [Multivitamin (formulary)] 1 tab PO DAILY 08/25/19 [History] Omeprazole 20 mg PO QAM 08/25/19 [History] lisinopriL [Zestril] 10 mg PO QAM 08/25/19 [History] DULoxetine HCL [Cymbalta] 60 mg PO QAM 10/10/21 [History] metFORMIN HCL [Glucophage] 500 mg PO DAILY 10/12/21 [History] Simvastatin [Zocor] 20 mg PO HS 04/15/23 [History] Cyclobenzaprine [Flexeril] 5 mg PO TID PRN 06/06/23 [History] Albuterol Sulfate [Proair Digihaler] 1 puff INHALATION Q6H PRN 09/27/23 [History] Budesonide/Formoterol Fumarate [Symbicort 80-4.5 Mcg Inhaler] 1 puff INHALATION DAILY PRN 09/27/23 [History] Enoxaparin [Lovenox] 40 mg SQ DAILY #21 each 10/08/23 [Rx] Gabapentin 300 mg PO BID #18 cap 10/08/23 [Rx] HYDROcodone/APAP 7.5-325MG [[place] 7.5-325] 1 tab PO Q6HR PRN #18 tab 10/08/23 [Rx] Sennosides/Docusate Sodium [Senna Plus 8.6-50 mg Softgel] 1 each PO DAILY #20 capsule 10/08/23 [Rx] Ipratropium-Albuterol Nebulize [Duoneb 0.5 mg-3 mg/3 ml Soln] 3 ml INHALATION RT-QID PRN each 10/09/23 [Rx] Metoprolol Tartrate [Lopressor] 25 mg PO TID tab 10/09/23 [Rx] Follow up Appointment(s)/Referral(s): Boris Sorensen PAC [PHYSICIAN DIRECTOR CLINICAL APPLICATIONS] - 10/17/23 9:30 am Lenny Phillips MD [STAFF PHYSICIAN] - 1 Week Lacho Pepe MD [STAFF PHYSICIAN] - 1 Week Nonstaff,Physician [REFERRING] - 3 Days Patient Instructions/Handouts: Syncope (DC), Knee Replacement (DC), Knee Replac ement (GEN) Activity/Diet/Wound Care/Special Instructions: Orthopedic Discharge Instructions: 1. Wound care and infection precautions, keep incision dry and covered while sh owering, no lotions, creams, moisturizers. No soaking, pools, hot tubs. Do not scrub over incision. 2. Weight-bear as tolerated with walker / cane until follow-up. 3. Ice and elevate when necessary. Do not exceed 20 minutes per hour with ice pack. 4. Utilize compression sleeve until seen at first follow up appointment. 5. Pain meds and anticoagulants per prescription. 6. Pain medication has potential to cause constipation. Increase oral fluid and fiber intake. Contact primary care provider if you have not had a bowel movement within 48 hours after discharge. 7. No anti-inflammatory medication until discussed at first post operative visit, this including Motrin, Aleve, Mobic, Diclofenac, aspirin. 8. Follow up in office at 2 weeks postop with Kingsley Berger PA-C / Boris Sorensen PA-C 9. Follow up with your primary care doctor 7-10 days after discharge. 10. Contact [facility] with any questions, . Keep incision clean, dry, intact. While showering, cover fusion tape with Saran wrap. Keep fusion tape on until follow-up appointment in office in 2 weeks Discharge Disposition: TRANSFER TO SNF/ECF
[2023-10-09 09:56] LABS: Basophils % (A) 1 %; Eosinophils # (A) 0.2 k/uL (0-0.7); Eosinophils % (A) 3 %; HCT 31.9 % (39.0-53.0); Lymphocytes # (A) 1.6 k/uL (1.0-4.8); Lymphocytes % (A) 22 %; MCH 30.8 pg (25.0-35.0); MCHC 31.5 g/dL (31.0-37.0); MCV 97.9 fL (80.0-100.0); Mean Platelet Volume 8.1; Monocytes # (A) 0.5 k/uL (0-1.0); Monocytes % (A) 7 %; Neutrophils # (A) 4.7 k/uL (1.3-7.7); Neutrophils % (A) 66 %; Platelet Count 317 k/uL (150-450); RBC 3.26 m/uL (4.30-5.90); WBC 7.2 k/uL (3.8-10.6)
[2023-10-09 10:16] LABS: ALT 39 U/L (4-49); AST 26 U/L (17-59); African American GFR (CKD) >90 (>60 ml/min/1.73 sqM); Albumin 3.1 g/dL (3.5-5.0); Alkaline Phosphatase 82 U/L (38-126); Anion Gap 7 mmol/L; Blood Urea Nitrogen 21 mg/dL (9-20); Calcium 8.8 mg/dL (8.4-10.2); Carbon Dioxide 26 mmol/L (22-30); Chloride 105 mmol/L (98-107); Glucose 105 mg/dL (74-99); Magnesium 1.7 mg/dL (1.6-2.3); Non-African American GFR(CKD) 78 (>60 ml/min/1.73 sqM); Potassium 4.6 mmol/L (3.5-5.1); Sodium 138 mmol/L (137-145); Total Bilirubin 1.1 mg/dL (0.2-1.3); Total Protein 6.2 g/dL (6.3-8.2)
--- NOTE | 2023-10-09 10:33 | P.PN ---
Subjective Progress Note Date: 10/09/23 This is a 63-year-old male patient with a known history of COPD, diabetes mellitus, gastroesophageal reflux disease, hyperlipidemia, hypertension, osteoarthritis. He had been having ongoing issues with left knee pain and presented here on 10/01/2023 for a left knee total arthroplastycementedposterior stabilizer. Yesterday he had been doing well recovering when earlier this morning he had been up ambulating to the bathroom and collapsed in the bathroom while on the toilet. CPR was initiated. Initial rhythm was PEA. He was intubated and obtained return of spontaneous circulation. He was transferred to the intensive care unit. He is seen today in consultation. He is currently on the mechanical ventilator and assist- control mode with a rate of 16, tidal volume 450, FiO2 60% and a PEEP of 5. Blood gases revealed a PaO2 of 390, pCO2 of 31 and a pH of 7.26. This was on 100% FiO2. He was hypotensive and requiring norepinephrine at 5 mcg/min. He is also on vasopressin at 0.03 units/min. He is sedated on propofol at 50 mcg/kg/min. He has normal saline at 50 MLS per hour. He received 2 L of fluid resuscitation. He received 2 A of bicarb. White count 18.2. Hemoglobin 12.0. Platelets 293. D-dimer 10.29. Sodium 137. Potassium 5.0. Bicarb 17. BUN 21. Creatinine 0.87. Glucose 160. Initial lactic acid 7.1. Currently 1.0. AST 373. ALT 239. Troponin 0.050. Chest x-ray reveals endotracheal tube in position. Nasogastric tube in the stomach. Left central venous catheter tip near the caval atrial junction. Some pulmonary venous congestion with normal- sized heart. Possible fluid volume overload. Echocardiogram is pending. The patient is seen today October 04, 2023 in follow-up in the intensive care unit. He remains intubated on the mechanical ventilator and assist-control mode at a rate of 16, tidal volume 450, FiO2 60% and a PEEP of 5. Morning blood gases revealed a PaO2 of 272, pCO2 45, pH 7.39. He remains sedated on propofol at 50 mcg/kg/min. He is on a heparin drip per weight-based protocol. Normal saline at 50 MLS per hour. Vasopressin and norepinephrine have been on hold since this a.m. CT angiogram reveals no evidence of pulmonary embolism. There is marked chronic interstitial lung disease consistent with severe idiopathic pulmonary fibrosis. Possible acute pneumonic infiltrate in the right lung base. Echocardiogram revealed preserved left ventricular systolic function with ejection fraction 50 to 55%. There is noted severe right ventricular dilatation. Severe pulmonary hypertension with an RVSP of 78 mmHg. No RV strain noted. Sputum culture pending. White count 9.0. Hemoglobin 10.1. Platelets 204. Sodium 135. Potassium 5.0. Bicarb 28. BUN 22. Creatinine 0.95. Glucose 137. AST 123. ALT 148. Troponin 0.050, 0.403. He is continued on DuoNeb inhalations, Symbicort. The patient is seen today October 05, 2023 in follow-up in the intensive care unit. He was extubated yesterday. He is currently sitting up in bed. Awake and alert in no acute distress. He is maintaining good O2 saturations in the 90s on 4 L/min per nasal cannula. He has been off pressors. He has normal saline at 50 MLS per hour. Remains on DuoNeb ventilations, Symbicort. Lovenox for DVT prophylaxis. Sputum culture reveals no growth. White count 9.8. Hemoglobin 9.0. Platelets 194. Sodium 134. Potassium 4.2. Bicarb 27. BUN 21 . Creatinine 1.15. Glucose 113. Chest x-ray reveals medium to coarse bilateral interstitial infiltrates slightly improved. Progress note dated October 06, 2023. The patient is seen in room 358. He is currently on saline at 50 cc an hour. He is getting oxygen by nasal cannula at 3 L. The patient is complaining of some chest discomfort, where he had chest compressions, from his cardiopulmonary arrest. Other than that, he seems to be doing relatively well. Current labs are good white count 8.1, hemoglobin 9.1, hematocrit 28.7, and a platelet count of 212,000. Sodium 136, potassium 4.7, chlorides 107, CO2 25, BUN 22, and creatinine 1.03. His glucose is 105. Calcium 8.3. Magnesium 2.0. Chest x-ray from yesterday shows interstitial lung disease. On today's evaluation of 10/07/2023, the patient is being seen for a follow-up. The patient is post cardio rest requiring intubation mechanical ventilation. Ultimately, the patient was weaned off the mechanical ventilator and the patient was extubated and the patient does have underlying chronic interstitial lung disease/fibrosis, likely occupational. The patient has been exposed to significant amount of pesticides over the years. CT angiogram of the chest showed no evidence of any pulm embolism. There was chronic interstitial fibrosis also at the lung bases bilaterally. There is also evidence of cystic changes in the lungs. The exact nature of this pulmonary fibrosis is not clear at this point in time. Patient is currently on 3 L of O2 nasal cannula. No respiratory distress. WBC count today 0.6 with a hemoglobin 9.6 and a platelet count of 236. BUN is at 21 with a creatinine of 0.9. He denies having any specific complaints. He underwent a left knee arthroplasty on 10/01/2023 and the patient is postop day #5. He is currently on Lovenox for DVT prophylaxis 40 mg subcu. Hemodynamically stable at this point in time. Echocardiogram that was done on 10/03/2023 showed a preserved LV function with an ejection fraction of 50 to 55%. RV was dilated and the patient had severe pulm hypertension with an estimated right ventricular systolic pressure of 78. No evidence of any significant valvular heart disease based on echocardiogram that was done. He is also known to have COPD with chronic history of smoking. He has diabetes mellitus, hypertension hyperlipidemia and osteoarthritis. On today's evaluation of 10/08/2023, the patient is being seen for a follow-up. The patient has no specific complaints. The patient is resting comfortably. The patient is post PEA cardiac arrest which was likely secondary to an exaggerated vasovagal response. He did encounter some mild troponin leak. He is currently hemodynamically stable. He is trying to increase his mobility. No issues with pain. No issues with shortness of breath. As mentioned earlier, the patient has advanced occupational pulmonary fibrosis that needs to be worked up with treated on outpatient basis. Pain is under adequate control and the surgical wound site is dry clean and intact. He is a chronic ex-smoker. He has diabetes mellitus hypertension hyperlipidemia and osteoarthritis as comorbid conditions. His echocardiogram shows a preserved LV function with an EF of around 50 to 55%. He does have severe pulm hypertension related to his chronic lung disease. Likely needs O2 on outpatient basis. On today's evaluation on 10/09/2023, the patient is stable. He remains on oxygen. No interval worsening shortness of breath. No chest pain. He has no chest pain. No significant edema lower extremities. Surgical wound site over the left knee is healing. He has chronic ILD with fibrosis and he will likely need long-term oxygen therapy. The patient is going to [facility], his labs from today showed WBC count of 7.2, hemoglobin of 10 and platelet count of 317. Rest of the electrolytes are all within normal limits. Objective - Vital Signs Vital signs: Vital Signs Temp 97.7 F 10/09/23 08:00 Pulse 78 10/09/23 08:36 Resp 18 10/09/23 08:36 BP 119/71 10/09/23 08:00 Pulse Ox 100 10/09/23 08:26 FiO2 60 10/04/23 08:01 Intake & Output 10/08/23 10/09/23 10/09/23 18:59 06:59 18:59 Intake Total 812 200 Balance 812 200 Intake: Oral 812 200 Other: Voiding Method Urinal # Voids 1 1 # Bowel Movements 1 ABP, PAP, CO, CI - Last Documented Arterial Blood Pressure 117/44 - Exam No acute distress, oriented 3. Currently the patient is on 3 L by nasal cannula. No respiratory distress. HEENT examination is grossly unremarkable. Mucous membranes are moist. No oral lesions. Neck supple. Full range of motion. No adenopathy thyromegaly or neck vein distention. Cardiovascular examination reveals regular rhythm rate. S1-S2 normal. No S3 or S4. No discernible murmur noted. Lungs reveal bibasilar crackles. No wheezes or rhonchi. Breath sounds are equal bilaterally. The patient has coarse crackles in the mid and lower lung field bilaterally along with scattered expiratory wheeze. Abdomen soft bowel sounds are heard. No masses or tenderness. Extremities are intact. No cyanosis clubbing or edema. Skin is without rash or lesion. Neurologic examination is brief but nonfocal. - Labs CBC & Chem 7: 10/09/23 08:47 10/09/23 08:47 Labs: Abnormal Lab Results - Last 24 Hours (Table) 10/08/23 10/08/23 10/09/23 Range/Units 16:09 19:43 05:56 RBC (4.30-5.90) m/uL Hgb (13.0-17.5) gm/dL Hct (39.0-53.0) % BUN (9-20) mg/dL Glucose (74-99) mg/dL POC Glucose (mg/dL) 113 H 129 H 119 H (70-110) mg/dL Total Protein (6.3-8.2) g/dL Albumin (3.5-5.0) g/dL 10/09/23 10/09/23 Range/Units 08:47 08:47 RBC 3.26 L (4.30-5.90) m/uL Hgb 10.0 L (13.0-17.5) gm/dL Hct 31.9 L (39.0-53.0) % BUN 21 H (9-20) mg/dL Glucose 105 H (74-99) mg/dL POC Glucose (mg/dL) (70-110) mg/dL Total Protein 6.2 L (6.3-8.2) g/dL Albumin 3.1 L (3.5-5.0) g/dL Assessment and Plan Plan: Cardiac arrest with requiring cardiopulmonary resuscitation including intubation and return of spontaneous circulation achieved. Echocardiogram shows a preserved LV function and the patient has severe pulmonary hypertension probably due to chronic lung disease. This is likely a group 3 pulmonary hypertension. This was a PEA cardiac arrest and the patient is currently hemodynamically stable. Acute hypoxemic respiratory failure secondary to above currently on the mechanical ventilator, The patient was extubated to 2 L of oxygen by nasal cannula Chronic interstitial lung disease with significant degree of fibrosis along with cystic pulmonary changes. Rule out occupational pulmonary fibrosis/occupational lung disease. There is also some background emphysema and history of pulmonary fibrosis. He does have likely chronic hypoxic respiratory failure. Hypotension requiring pressor support secondary to above, recovered and off pressors. Left knee total arthroplasty on 10/01/2023, postoperative day # 7, currently on Lovenox 40 mg subcu for DVT prophylaxis. Severe pulmonary fibrosis of unclear etiology or duration, likely occupational. Nevertheless, the patient demonstrates extensive fibrotic changes in the lungs b ased on the CAT scan findings. Severe pulmonary hypertension secondary to above with an RVSP of 78 mmHg. Likely group 3 pulmonary hypertension. History of chronic obstructive pulmonary disease. Former smoker. Diabetes mellitus. Hypertension. Hyperlipidemia. Osteoarthritis. Plan: He is a patient of O2 at 3 L/min nasal cannula and plan for home O2. For now, the patient is going to [facility] for further rehabilitation. Overall pulmonary status is stable for now. Incentive spirometer Increase mobility Echocardiogram shows a preserved LV function with severe pulm hypertension Continue Lovenox 40 mg subcu for DVT prophylaxis Continue bronchodilators Patient is currently on a Maintenance of Symbicort and he was taken as a medication on outpatient basis Will continue to follow. Outpatient follow-up will be needed regarding his extensive pulmonary fibrosis. Increase mobility Possible outpatient ECF for further rehabilitation. The patient will need outpatient follow-up, PFT and further management of his pulmonary fibrosis. Stable for discharge. Case was discussed with cardiology.
--- NOTE | 2023-10-09 12:45 | P.PN ---
Subjective HISTORY OF PRESENT ILLNESS: Patient is a pleasant 63-year-old male with history of COPD, diabetes mellitus type 2, GERD, hyperlipidemia, hypertension, osteoarthritis who presented for elective left knee total arthroplasty. He had been doing fairly well however yesterday morning had gone to the bathroom and was on the toilet when he collapsed. CPR was initiated and an initial rhythm was noted to be PEA. He was not however on telemetry. He was intubated and sedated. Apparently patient had CPR for approximately 5-6 minutes. Post CPR lactic acid 7.1, d-dimer 10.2, hemoglobin 12.0, white blood cell count 18.2, creatinine 0.8, troponin 0.05. given elevated dimer, No pulmonary embolism, chronic interstitial lung disease and possible pneumonic infiltrate in the right lung base. 10/05 Patient was successfully extubated on 10/03. He has been transferred out of the intensive care unit and seen today on the cardiac stepdown floor. Patient has no new concerns today. Yesterday he was having significant number of PVCs which is improved today. Lopressor 25 mg 3 times daily was added yesterday evening. He states that he is feeling better in general. Blood pressure 107/69, heart rate in the 60s, pulse ox 94% on 4 L nasal cannula. Repeat blood work reveals hemoglobin 9.1, sodium 136, potassium 4.7, creatinine 1.03 and BUN 22. 10/07/2023 Patient examined this morning at the bedside. Patient currently denies chest pain or pressure. He denies shortness of breath. Vital signs are stable. 10/08/2023 Patient examined this morning at the bedside. He is currently sitting up on the side of the bed. He denies shortness of breath. He does report mild chest discomfort from having a frequent cough. Vital signs are stable. Repeat echo remains pending. 10/09/2023 Patient examined this morning. Patient is sitting up in the chair. Patient denies chest pain or pressure. He reports shortness of breath that is at his baseline. Patient is currently requiring supplemental oxygen to maintain oxygen saturations greater than 92%. Vital signs are stable. Blood pressure 119/71. Repeat echocardiogram completed revealing ejection fraction 40 to 45%, global hypokinesis, severe right atrial dilatation, moderate to severe tricuspid regurgitation, RVSP 56.9 mmHg. PHYSICAL EXAM: VITAL SIGNS: Reviewed. GENERAL: Well-developed in no acute distress. NECK: Supple. No JVD or thyromegaly LUNGS: Respirations even and unlabored. Lungs essentially clear to auscultation bilaterally. HEART: Regular rate and rhythm. S1 and S2 heard. EXTREMITIES: Normal range of motion. No clubbing or cyanosis. Peripheral pulses intact. Trace bilateral lower extremity edema ASSESSMENT: Cardiac arrest Status post left knee total arthroplasty Elevated d-dimer however no PE noted on CTA Lactic acidosis Hypotension requiring pressor support, resolved Diabetes mellitus type 2 Previous tobacco abuse Hypertension Hyperlipidemia Severe pulmonary fibrosis Severe pulmonary hypertension PLAN: Continue current cardiac medications Patient is currently stable for discharge from a cardiac perspective Nurse practitioner note has been reviewed by physician. Signing provider agrees with the documented findings, assessment, and plan of care documented by TECH[employer]ICAL SERVICES CONSULTANT as a scribe. Objective - Vital Signs Vital signs: Vital Signs Temp 97.7 F 10/09/23 08:00 Pulse 78 10/09/23 08:36 Resp 18 10/09/23 08:36 BP 119/71 10/09/23 08:00 Pulse Ox 100 10/09/23 08:26 FiO2 60 10/04/23 08:01 Intake & Output 10/08/23 10/09/23 10/09/23 18:59 06:59 18:59 Intake Total 812 200 Balance 812 200 Intake: Oral 812 200 Other: Voiding Method Urinal # Voids 1 1 # Bowel Movements 1 ABP, PAP, CO, CI - Last Documented Arterial Blood Pressure 117/44 - Labs CBC & Chem 7: 10/09/23 08:47 10/09/23 08:47 Labs: Abnormal Lab Results - Last 24 Hours (Table) 10/08/23 10/08/23 10/09/23 Range/Units 16:09 19:43 05:56 RBC (4.30-5.90) m/uL Hgb (13.0-17.5) gm/dL Hct (39.0-53.0) % BUN (9-20) mg/dL Glucose (74-99) mg/dL POC Glucose (mg/dL) 113 H 129 H 119 H (70-110) mg/dL Total Protein (6.3-8.2) g/dL Albumin (3.5-5.0) g/dL 10/09/23 10/09/23 Range/Units 08:47 08:47 RBC 3.26 L (4.30-5.90) m/uL Hgb 10.0 L (13.0-17.5) gm/dL Hct 31.9 L (39.0-53.0) % BUN 21 H (9-20) mg/dL Glucose 105 H (74-99) mg/dL POC Glucose (mg/dL) (70-110) mg/dL Total Protein 6.2 L (6.3-8.2) g/dL Albumin 3.1 L (3.5-5.0) g/dL
== END 2023-10-09 10:30 | DRG 469 ==
LOC: OR 07:43 → 4SSUR 07:44 → 2SICU 10-03 06:41 → 3SCARD 10-06 00:43
PROVIDERS: ADMIT Student in an Organized Health Care Education/Training Program; ATTEND Student in an Organized Health Care Education/Training Program
PROC: 0SRD0J9 Replacement of Left Knee Joint with Synthetic Substitute, Cemented, Open Approach (ICD-10-PCS; principal; 2023-10-02)
PROC: 3E033XZ Introduction of Vasopressor into Peripheral Vein, Percutaneous Approach (ICD-10-PCS; 2023-10-02)
PROC: 3E0T3BZ Introduction of Anesthetic Agent into Peripheral Nerves and Plexi, Percutaneous Approach (ICD-10-PCS; 2023-10-02)
PROC: 5A12012 Performance of Cardiac Output, Single, Manual (ICD-10-PCS; 2023-10-03)
PROC: 5A1945Z Respiratory Ventilation, 24-96 Consecutive Hours (ICD-10-PCS; 2023-10-03)
PROC: 0BH17EZ Insertion of Endotracheal Airway into Trachea, Via Natural or Artificial Opening (ICD-10-PCS; 2023-10-03)
PROC: 4A133B1 Monitoring of Arterial Pressure, Peripheral, Percutaneous Approach (ICD-10-PCS; 2023-10-03)
PROC: 4A133J1 Monitoring of Arterial Pulse, Peripheral, Percutaneous Approach (ICD-10-PCS; 2023-10-03)
DX: M17.12 Unilateral primary osteoarthritis, left knee (principal); I46.8 Cardiac arrest due to other underlying condition; J81.0 Acute pulmonary edema; J96.01 Acute respiratory failure with hypoxia; R57.8 Other shock; D62 Acute posthemorrhagic anemia; E87.20 Acidosis, unspecified; J44.89 Other specified chronic obstructive pulmonary disease; I10 Essential (primary) hypertension; E11.40 Type 2 diabetes mellitus with diabetic neuropathy, unspecified; K21.9 Gastro-esophageal reflux disease without esophagitis; E78.5 Hyperlipidemia, unspecified; J84.112 Idiopathic pulmonary fibrosis; D72.829 Elevated white blood cell count, unspecified; R74.01 Elevation of levels of liver transaminase levels; Z87.891 Personal history of nicotine dependence; R55 Syncope and collapse; I49.5 Sick sinus syndrome; F43.10 Post-traumatic stress disorder, unspecified; I27.23 Pulmonary hypertension due to lung diseases and hypoxia; I49.3 Ventricular premature depolarization; Z79.1 Long term (current) use of non-steroidal anti-inflammatories (NSAID); Z79.51 Long term (current) use of inhaled steroids; Z79.84 Long term (current) use of oral hypoglycemic drugs; Z79.899 Other long term (current) drug therapy
CPT/HCPCS: 36600; 64448; 64999; 71045; 71275; 80048; 80053; 82805; 83036; 83605; 83735; 84132; 84484; 85025; 85379; 85730; 87070; 87205; 87635; 92950; 93306; 93308; 94002; 94003; 94640; 94760